=== PATIENT | female | born 1965 | race Caucasian/White ===

== ENCOUNTER → 2016-10-17 | Outpatient (CLI) | payer OTHER ==
[~2016-10-17] MED LIST: CHOL100010 PO; GABA-113 PO; LAMO200T38 PO; MAGN1TAB16 PO; MCRK20 PO; MELATAB2 PO; MULT1CAP7 PO; NABU500T3 PO; OMEP40CA PO; PRAV20TA PO; SRQ400 PO; THM100 PO; TIZA4CAP PO; TRAM-10 PO; TRAZ100T29 PO; VALE530C3 PO
[2016-10-17 13:33] LABS: BASO % 0.7 %; BASO ABS # 0.05 K/uL (0-0.2); COMPLETE YES; EOS % 5.1 %; HEMATOCRIT 36.9 % (37-47); IG% 0.1 %; LYMPH % 49.8 %; LYMPH ABS # 3.39 K/uL (1.2-3.4); MEAN CELL VOLUME 82.4 fL (80-100); MEAN CORPUSCULAR HEMOGLOBIN 27.7 pg (25-34); MEAN CORPUSCULAR HGB CONC 33.6 g/dl (32-36); MEAN PLATELET VOLUME 10.7 fL (7.4-10.4); MONO % 7.8 %; NEUT % 36.5 %; PLATELET COUNT 194 K/uL (130-400); RED BLOOD COUNT 4.48 M/uL (4.2-5.4); WHITE BLOOD COUNT 6.81 K/uL (4.8-10.8)
[2016-10-17 14:02] LABS: ALT/SGPT 27 U/L (12-78); AST/SGOT 22 U/L (15-37); BLOOD UREA NITROGEN 14 mg/dl (7-18); BUN/CREATININE RATIO 14.2 (10-20); CALCIUM 8.9 mg/dl (8.5-10.1); CARBON DIOXIDE 25 mmol/L (21-32); CHLORIDE 103 mmol/L (98-107); CREATININE 0.98 mg/dl (0.60-1.20); GLUCOSE 92 mg/dl (70-99); POTASSIUM 4.2 mmol/L (3.5-5.1); SODIUM 139 mmol/L (136-145)
[2016-10-17 14:03] LABS: THYROXINE (T4) 4.1 mcg/dl (4.5-10.9)
[2016-10-17 14:12] LABS: ALB/GLOB RATIO 1.1 (0.9-2); ALKALINE PHOSPHATASE 111 U/L (45-117); CHOLESTEROL 210 mg/dl (0-200); CHOLESTEROL/HDL RATIO 4.5; HDL CHOLESTEROL 47 mg/dl; TRIGLYCERIDES 307 mg/dl (0-150); VERY LOW DENSITY LIPOPROT CALC 61 mg/dl
== END | disposition home or self-care (01) ==
LOC: C.LABSPEC 12:20
PROVIDERS: ATTEND Internal Medicine
DX: Z11.59 Encounter for screening for other viral diseases (principal); E78.5 Hyperlipidemia, unspecified; R63.4 Abnormal weight loss

== ENCOUNTER → 2016-12-19 | Outpatient (CLI) | payer OTHER | END | disposition home or self-care (01) | LOC: C.LABSPEC 12:39 | PROVIDERS: ATTEND Internal Medicine | DX: B34.9 Viral infection, unspecified (principal) ==

== ENCOUNTER → 2017-05-31 | Outpatient (CLI) | payer OTHER ==
[2017-05-31 14:05] LABS: CHOLESTEROL/HDL RATIO 5.4
== END | disposition home or self-care (01) ==
LOC: C.LABSPEC 12:21
PROVIDERS: ATTEND Student in an Organized Health Care Education/Training Program
DX: Z51.81 Encounter for therapeutic drug level monitoring (principal); Z79.899 Other long term (current) drug therapy

== ENCOUNTER → 2017-06-28 | Outpatient (CLI) | payer OTHER ==
--- NOTE | 2017-07-01 08:02 | MAMMOGRAPHY REPORT ---
BILATERAL DIGITAL SCREENING MAMMOGRAM TOMOSYNTHESIS WITH CAD: 06/28/2017 CLINICAL HISTORY: Routine screening. Patient has no complaints. TECHNIQUE: Breast tomosynthesis in addition to standard 2D mammography was performed. Current study was also evaluated with a Computer Aided Detection (CAD) system. COMPARISON: Comparison is made to exams dated: 10/13/2015 mammogram, 08/05/2014 mammogram, 07/08/2013 ultrasound, 07/08/2013 mammogram, 06/24/2013 mammogram, and 06/23/2012 ultrasound - [facility]. BREAST COMPOSITION: The tissue of both breasts is heterogeneously dense, which may obscure small mas ses. FINDINGS: No suspicious masses, calcifications, or areas of architectural distortion are noted in ei ther breast. There has been no significant interval change compared to prior exams. Bilateral benign -appearing calcifications are not significantly changed. IMPRESSION: ACR BI-RADS CATEGORY 2: BENIGN There is no mammographic evidence of malignancy. A 1 year screening mammogram is recommended. The pa tient will receive written notification of the results. Approximately 10% of breast cancers are not detected with mammography. A negative mammographic report should not delay biopsy if a clinically suggestive mass is present. Michelle Pride M.D. /:06/28/2017 16:07:45 Battery Charger Tester: Krystina Cerda, [facility] letter sent: Normal 1/2 BI-RADS Code: ACR BI-RADS Category 2: Benign
== END | disposition home or self-care (01) ==
LOC: C.MAMM 14:44
PROVIDERS: ATTEND Internal Medicine
DX: Z12.31 Encounter for screening mammogram for malignant neoplasm of breast (principal)

== ENCOUNTER → 2017-10-17 | Outpatient (CLI) | payer OTHER ==
[~2017-10-17] MED LIST changes: +LAMO200T35 PO; -LAMO200T38 PO; +QUET1TAB20 PO; -SRQ400 PO
[2017-10-17 15:11] LABS: BASO % 0.6 %; BASO ABS # 0.05 K/uL (0-0.2); EOS % 4.6 %; EOS ABS # 0.37 K/uL (0-0.5); HEMATOCRIT 35.8 % (37-47); IG# 0.01 K/uL (0.00-0.02); LYMPH % 43.5 %; LYMPH ABS # 3.49 K/uL (1.2-3.4); MEAN CELL VOLUME 84.6 fL (80-100); MEAN CORPUSCULAR HEMOGLOBIN 28.4 pg (25-34); MEAN CORPUSCULAR HGB CONC 33.5 g/dl (32-36); MEAN PLATELET VOLUME 9.8 fL (7.4-10.4); MONO ABS # 0.72 K/uL (0.11-0.59); NEUT % 42.2 %; NEUT ABS # 3.39 K/uL (1.4-6.5); PLATELET COUNT 223 K/uL (130-400); RED CELL DISTRIBUTION WIDTH CV 14.9 % (11.5-14.5); RED CELL DISTRIBUTION WIDTH SD 46.2 fL (36.4-46.3); WHITE BLOOD COUNT 8.03 K/uL (4.8-10.8)
[2017-10-17 15:18] LABS: ALBUMIN 4.1 gm/dl (3.4-5.0); ALT/SGPT 45 U/L (12-78); AST/SGOT 28 U/L (15-37); BLOOD UREA NITROGEN 23 mg/dl (7-18); CALCIUM 9.4 mg/dl (8.5-10.1); CARBON DIOXIDE 27 mmol/L (21-32); CHOLESTEROL 197 mg/dl (0-200); CREATININE 1.19 mg/dl (0.60-1.20); GLUCOSE 91 mg/dl (70-99); POTASSIUM 4.1 mmol/L (3.5-5.1); SODIUM 136 mmol/L (136-145)
[2017-10-17 15:20] LABS: ALKALINE PHOSPHATASE 103 U/L (45-117); LDL CHOLESTEROL (DIRECT) 113 mg/dl; TOTAL PROTEIN 7.9 gm/dl (6.4-8.2)
[2017-10-18 06:08] LABS: HEMOGLOBIN A1C 5.8 % (4.5-5.6)
== END | disposition home or self-care (01) ==
LOC: C.LABSPEC 14:50
PROVIDERS: ATTEND Internal Medicine
DX: I10 Essential (primary) hypertension (principal); E78.5 Hyperlipidemia, unspecified; R73.9 Hyperglycemia, unspecified

== ENCOUNTER 2024-01-07 14:31 | Inpatient (IN) ==
--- NOTE | 2024-01-07 14:33 | Emergency Department Note ---
Impression & Plan Sepsis, Pyelonephritis of right kidney, Acute renal failure (ARF), Hypoxia ED Provider Note NAME: JENNI ZUNIGA AGE: 58 SEX: F : 1965 ARRIVES VIA: Ambulance INFORMANT: [Patient][, ] ED PROVIDER(S): [Matteo Antoine MD] CHIEF COMPLAINT: Weakness, falls, headache MEDICAL DECISION MAKING: Patient presents from [facility] due to concern for headache repeated falls and reported left upper extremity weakness. Code stroke alert was initiated after assessment. IV was established and blood work was obtained. Patient was noted to be hypoxemic. Patient does state this feels similar to when she has had prior UTIs. Blood cultures procalcitonin lactate empiric Zosyn. Unable to establish the last known well and not a TNK candidate. The patient was medications which included Zofran Tylenol and magnesium IV in addition IV fluids. CT head CT angio of the head and neck ordered given patient stroke alert and CT angiogram of the chest ordered given the patient's hypoxia and known history of DVT off thinners. I did speak with poison control getting over the patient's medications given the patient's hypotension they stated that some of the medications could cause some of the symptoms including the trazodone. Patient was ordered additional IV fluids. The patient's lactate is normal. The patient was reassessed several times and although the patient has had borderline low blood pressure patient seems to be mentating with improvement and appearance had also improved. Urinalysis does show concern for infection. Patient CT of the abdomen pelvis does show likely pyelonephritis. CT of the chest shows Subpleural opacities suggestive of atelectasis no evidence of obvious pneumonia. Could be infectious in nature. CT of the head negative. Chest x-ray is clear. Patient was reassessed several times and did receive 3 L of IV fluids. The patient does appear to be fluid responsive. Patient does have 2 large-bore IVs in place and clinically is improving. I did speak with Dr. Han given the report of left upper extremity weakness although on my exam the patient does not have any asymmetric weakness on exam. She recommended baby aspirin echo lipid panel MRA head and neck and consider baby aspirin. I did speak with the on-call hospitalist service Dr. Ken and the patient was admitted to the medicine service. Critical Care: I have personally spent 35 minutes of critical care time in direct management of this patient. This includes bedside care, interpretation of diagnostic studies, and testing, discussion with consultants, patient, and family members, and other require inpatient management activities. This 35 minutes is in excess of all separately billable procedures. Discussion w/ other healthcare providers: [place] poison control Bony Dr. Han telestroke Dr. Ken inpatient medicine service Prior /Outside records reviewed: Reviewed an H&P from September 02, [address] Rosalia Garcia. Patient does have a known history of hypertension migraines chronic back pain hyperlipidemia depression and degenerative disc disease. Reviewed outpatient PCP note from November 2023. The patient was seen for routine 6-month return. Patient with a known history of bipolar depression anxiety back pain DVT with PE GERD hyperlipidemia and migraine. Per review of the patient's medication list no blood thinners noted. Patient had called nursing triage telephone encounter for burning frequency and urgency that began yesterday with associated right-sided flank pain. Patient reported having flank pain and fever at the time of her presentation. Differential diagnosis: Infection, dehydration, metabolic abnormality, hypo/hyperglycemia, electrolyte imbalance, anemia, UTI, pneumonia, thyroid dysfunction among others were considered. Diagnostics, as interpreted by me: ECG: Sinus rhythm, rate of 63, normal intervals, normal axis no ST elevations. Cardiac monitoring: An order was placed for continuous cardiac monitoring. The monitor shows a rate of 65 with sinus rhythm. [Patient was placed on pulse oximetry] Medical decision rules: [none] Imaging studies: [I informally interpreted the patient's chest x-ray does not show obvious pneumonia or pneumothorax with formal report to follow.] [] HPI: Patient presents from [facility] due to concern for repeated falls and associated headache. Patient denies any chest pains or shortness of breath. The patient states that this does feel similar to when she has had prior UTIs. Patient with a remote history of PE back in the 80s states she is not currently on any blood thinners. The patient reported has had repeated falls including head strike that occurred yesterday. The patient was seen by the PCP several days ago as well as today per patient. Per EMS report patient did have left upper extremity weakness per prior provider as well as when the deputy sheriff generalist/bailiff on scene one of the other ENTs did not notice any significant weakness on their exam. Patient denies any abdominal pain or nausea vomiting. Patient is unsure as to whether or not she has had any leg swelling. Patient was reportedly hypoxemic to 84% on room air when EMS arrived. BSG was in the 1 teens. Patient does complain of some right-sided headache. Patient states this been ongoing several days and has fallen several times including head strike yesterday. PAST MEDICAL HISTORY: [See Below] PAST SURGICAL HISTORY: [See Below] SOCIAL HISTORY: [See Below] HOME MEDICATIONS: [See Below] ALLERGIES: [See Below] VITALS: [See Below] PHYSICAL EXAMINATION: GENERAL: Ill in appearance, opens eyes to voice nasal cannula in place. EYE EXAM: Normal conjunctiva. PERRL, no anisocoria and EOM's grossly intact w/o pain. OROPHARYNX: Moist mucus membranes, grossly normal dentition. NECK: Trachea midline, no stridor. [Supple, no nuchal rigidity, no adenopathy, non-tender. No signs of meningismus. FROM of the neck with good chin to chest and neck extension.] LUNGS: Clear to auscultation. Normal chest wall mechanics. HEART: NSR, no MRG. ABDOMEN: Abdomen soft, non-tender, no masses, no rebound or guarding. BACK: No CVA TTP. SKIN: No rashes and no bruising. UPPER EXTREMITIES: Upper extremities are grossly normal. LOWER EXTREMITIES: Grossly normal, 1-2+ symmetric lower extremity edema without any calf pain erythema NEURO EXAM: A&O x3, cranial nerves II-XII grossly intact, normal speech, moves all 4 extremities. Past Med/Surg History Medical History Obesity Osteoarthritis Fibromyalgia Hiatal hernia GERD (gastroesophageal reflux disease) Migraine Asthma stable, no inhaler Hyperlipidemia Bipolar disorder Surgical History History of arthroscopy LEFT SHOULDER History of repair of rotator cuff LEFT History of hysterectomy TOTAL History of appendectomy History of cholecystectomy History of esophagogastroduodenoscopy (EGD) History of colonoscopy Social History Smoking Status: Former smoker Second Hand Exposure: No; Do You Dip or Chew Tobacco: No; Hx Alcohol Use: No Hx Substance Use: No Preferred Language: Eritrean Communication Ability: Effective Standards Engineer Required: No Beliefs That Will Affect Care: None Current Living Situation: Family Current Living Situation Comment: caregiver for parents Other Information That Helps Us Care for You: No Feels Safe at Home: Yes Safety Concerns: Feels Safe At This Time Assistive Devices: Denture - Upper, Denture - Lower and Glasses Allergies Allergies Allergy/AdvReac Type Severity Reaction Status Date / Time citalopram Allergy Unknown unknown Verified 01/07/24 15:22 reaction clarithromycin Allergy Unknown unknown Verified 01/07/24 15:22 reaction Macrolide Antibiotics Allergy Unknown unknown Verified 01/07/24 15:22 reaction celecoxib AdvReac Intermediate Gastrointestinal Verified 01/07/24 15:22 Upset rizatriptan AdvReac Intermediate migraines Verified 01/07/24 15:22 sumatriptan AdvReac Intermediate MIGRAINE-TIGHTNESS Verified 01/07/24 15:22 IN JAW Home Meds Home Medications Medication Instructions Recorded Confirmed buspirone 15 mg tablet 15 mg PO BID 10/12/18 01/07/24 cholecalciferol (vitamin D3) 50 2,000 unit PO DAILY 10/12/18 01/07/24 mcg (2,000 unit) capsule (Vitamin D3) gabapentin 300 mg capsule See Rx Instructions .Route .COMPLEX 10/12/18 01/07/24 lamotrigine 200 mg tablet 100 mg PO HS 10/12/18 01/07/24 (Lamictal) melatonin 10 mg tablet 10 mg PO HS 10/12/18 01/07/24 omeprazole 40 mg capsule,delayed 40 mg PO QAM 10/12/18 01/07/24 release potassium chloride 10 mEq 10 meq PO BID 10/12/18 01/07/24 capsule,extended release pravastatin 80 mg tablet 80 mg PO HS 10/12/18 01/07/24 quetiapine 400 mg tablet 400 mg PO HS 10/12/18 01/07/24 sulindac 200 mg tablet 200 mg PO BID 10/12/18 01/07/24 suvorexant 10 mg tablet (Belsomra) 10 mg PO HS 10/12/18 01/07/24 tramadol 50 mg tablet 50 mg PO Q6H PRN Pain 10/12/18 01/07/24 trazodone 100 mg tablet 200 mg PO HS 10/12/18 01/07/24 docusate sodium 100 mg capsule 100 mg PO BID 08/09/20 01/07/24 (Dulcolax Stool Softener (docusate)) polyethylene glycol 3350 17 17 g PO BID 08/09/20 01/07/24 gram/dose oral powder (Miralax) tizanidine 4 mg capsule 8 mg PO BID 08/09/20 01/07/24 cyanocobalamin (vitamin B-12) 1,000 mcg PO QAM 01/07/24 01/07/24 1,000 mcg tablet (Vitamin B-12) diclofenac sodium 1 % topical gel 2 g topical QID PRN KNEE PAIN 01/07/24 01/07/24 hydroxyzine HCl 25 mg tablet 25 - 50 mg PO DAILY PRN 01/07/24 01/07/24 ANXIETY/INSOMNIA lamotrigine 150 mg tablet 150 mg PO QAM 01/07/24 01/07/24 magnesium oxide 500 mg PO QAM 01/07/24 01/07/24 melatonin 5 mg tablet 5 mg PO HS 01/07/24 01/07/24 ondansetron 4 mg disintegrating 4 mg translingual Q8H PRN 01/07/24 01/07/24 tablet NAUSEA/VOMITING Results & Data (ED) Vital Signs Vital Signs - 24 hr 01/07/24 14:46 01/07/24 15:13 01/07/24 15:15 Pulse Rate 66 67 68 Pulse Rate [Apical] Pulse Rate from SpO2 Sensor 67 Pulse Rhythm [Apical] Respiratory Rate 20 18 19 Blood Pressure 100/54 L Blood Pressure [Left Arm] Blood Pressure Mean 69 Blood Pressure Mean [Left Arm] Pulse Oximetry 84 L 96 94 Oxygen Delivery Method Room Air Nasal Cannula Oxygen Flow Rate 4 4 Sepsis Recent Fever Within 48 Hours No Sepsis New/Unexplained Change in Mental Status Yes Sepsis Action Taken by Nursing No Action Required 01/07/24 15:16 01/07/24 15:16 01/07/24 15:20 Pulse Rate 64 Pulse Rate [Apical] 64 Pulse Rate from SpO2 Sensor 64 Pulse Rhythm [Apical] Regular Respiratory Rate 20 18 Blood Pressure 102/56 L Blood Pressure [Left Arm] 102/56 L Blood Pressure Mean 63 Blood Pressure Mean [Left Arm] 71 Pulse Oximetry 95 94 Oxygen Delivery Method Nasal Cannula Oxygen Flow Rate 4 4 Sepsis Recent Fever Within 48 Hours Sepsis New/Unexplained Change in Mental Status Sepsis Action Taken by Nursing 01/07/24 15:20 04/16/24 15:21 01/07/24 15:22 Pulse Rate 68 67 Pulse Rate [Apical] 68 Pulse Rate from SpO2 Sensor 68 Pulse Rhythm [Apical] Regular Respiratory Rate 18 18 Blood Pressure Blood Pressure [Left Arm] Blood Pressure Mean Blood Pressure Mean [Left Arm] Pulse Oximetry 94 95 Oxygen Delivery Method Nasal Cannula Oxygen Flow Rate 4 4 Sepsis Recent Fever Within 48 Hours Sepsis New/Unexplained Change in Mental Status Sepsis Action Taken by Nursing 01/07/24 15:30 01/07/24 15:30 01/07/24 15:39 Pulse Rate 63 Pulse Rate [Apical] 64 Pulse Rate from SpO2 Sensor 63 Pulse Rhythm [Apical] Regular Respiratory Rate 16 17 Blood Pressure 96/58 L Blood Pressure [Left Arm] 96/58 L Blood Pressure Mean 71 Blood Pressure Mean [Left Arm] 70 Pulse Oximetry 96 96 Oxygen Delivery Method Nasal Cannula Oxygen Flow Rate 4 Sepsis Recent Fever Within 48 Hours Sepsis New/Unexplained Change in Mental Status Sepsis Action Taken by Nursing 01/07/24 15:40 01/07/24 15:45 01/07/24 15:45 Pulse Rate 62 61 Pulse Rate [Apical] Pulse Rate from SpO2 Sensor 62 62 Pulse Rhythm [Apical] Respiratory Rate 20 19 Blood Pressure 88/62 L Blood Pressure [Left Arm] Blood Pressure Mean 71 Blood Pressure Mean [Left Arm] Pulse Oximetry 95 93 Oxygen Delivery Method Oxygen Flow Rate 4 Sepsis Recent Fever Within 48 Hours Sepsis New/Unexplained Change in Mental Status Sepsis Action Taken by Nursing 01/07/24 15:50 01/07/24 16:00 01/07/24 16:00 Pulse Rate 59 L 61 Pulse Rate [Apical] Pulse Rate from SpO2 Sensor 60 59 L Pulse Rhythm [Apical] Respiratory Rate 20 20 Blood Pressure 101/49 L Blood Pressure [Left Arm] Blood Pressure Mean 62 Blood Pressure Mean [Left Arm] Pulse Oximetry 95 94 Oxygen Delivery Method Nasal Cannula Oxygen Flow Rate 4 Sepsis Recent Fever Within 48 Hours Sepsis New/Unexplained Change in Mental Status Sepsis Action Taken by Nursing 01/07/24 16:10 01/07/24 16:15 01/07/24 16:15 Pulse Rate 59 L 58 L Pulse Rate [Apical] Pulse Rate from SpO2 Sensor 59 L 59 L Pulse Rhythm [Apical] Respiratory Rate 20 15 Blood Pressure 81/55 L 81/55 L Blood Pressure [Left Arm] Blood Pressure Mean 63 64 Blood Pressure Mean [Left Arm] Pulse Oximetry 96 93 Oxygen Delivery Method Nasal Cannula Oxygen Flow Rate 4 Sepsis Recent Fever Within 48 Hours Sepsis New/Unexplained Change in Mental Status Sepsis Action Taken by Nursing 01/07/24 16:20 01/07/24 16:21 01/07/24 16:21 Pulse Rate 56 L 57 L Pulse Rate [Apical] Pulse Rate from SpO2 Sensor 56 L 58 L Pulse Rhythm [Apical] Respiratory Rate 18 19 Blood Pressure 84/49 L Blood Pressure [Left Arm] Blood Pressure Mean 64 Blood Pressure Mean [Left Arm] Pulse Oximetry 94 94 Oxygen Delivery Method Oxygen Flow Rate Sepsis Recent Fever Within 48 Hours Sepsis New/Unexplained Change in Mental Status Sepsis Action Taken by Nursing 01/07/24 16:30 01/07/24 16:30 01/07/24 16:40 Pulse Rate 58 L 58 L Pulse Rate [Apical] Pulse Rate from SpO2 Sensor 57 L 59 L Pulse Rhythm [Apical] Respiratory Rate 15 17 Blood Pressure 88/44 L Blood Pressure [Left Arm] Blood Pressure Mean 65 Blood Pressure Mean [Left Arm] Pulse Oximetry 95 95 Oxygen Delivery Method Oxygen Flow Rate 4 4 Sepsis Recent Fever Within 48 Hours Sepsis New/Unexplained Change in Mental Status Sepsis Action Taken by Nursing 01/07/24 16:45 01/07/24 16:45 01/07/24 16:49 Pulse Rate 60 Pulse Rate [Apical] Pulse Rate from SpO2 Sensor 57 L Pulse Rhythm [Apical] Respiratory Rate 16 Blood Pressure 73/52 L 91/55 L Blood Pressure [Left Arm] Blood Pressure Mean 66 65 Blood Pressure Mean [Left Arm] Pulse Oximetry 95 Oxygen Delivery Method Oxygen Flow Rate Sepsis Recent Fever Within 48 Hours Sepsis New/Unexplained Change in Mental Status Sepsis Action Taken by Nursing 01/07/24 16:49 01/07/24 16:50 01/07/24 16:52 Pulse Rate 61 59 L Pulse Rate [Apical] Pulse Rate from SpO2 Sensor 59 L 59 L Pulse Rhythm [Apical] Respiratory Rate 19 18 Blood Pressure 83/52 L Blood Pressure [Left Arm] Blood Pressure Mean 63 Blood Pressure Mean [Left Arm] Pulse Oximetry 94 95 Oxygen Delivery Method Oxygen Flow Rate Sepsis Recent Fever Within 48 Hours Sepsis New/Unexplained Change in Mental Status Sepsis Action Taken by Nursing 01/07/24 16:52 01/07/24 17:00 01/07/24 17:00 Pulse Rate 58 L 56 L Pulse Rate [Apical] Pulse Rate from SpO2 Sensor 58 L 57 L Pulse Rhythm [Apical] Respiratory Rate 15 17 Blood Pressure 92/57 L Blood Pressure [Left Arm] Blood Pressure Mean 61 Blood Pressure Mean [Left Arm] Pulse Oximetry 96 97 Oxygen Delivery Method Oxygen Flow Rate Sepsis Recent Fever Within 48 Hours Sepsis New/Unexplained Change in Mental Status Sepsis Action Taken by Nursing 01/07/24 17:01 01/07/24 17:05 01/07/24 17:05 Pulse Rate 58 L Pulse Rate [Apical] 61 Pulse Rate from SpO2 Sensor 58 L Pulse Rhythm [Apical] Regular Respiratory Rate 19 20 Blood Pressure 93/53 L Blood Pressure [Left Arm] 92/57 L Blood Pressure Mean 65 Blood Pressure Mean [Left Arm] 68 Pulse Oximetry 96 96 Oxygen Delivery Method Nasal Cannula Oxygen Flow Rate 4 Sepsis Recent Fever Within 48 Hours Sepsis New/Unexplained Change in Mental Status Sepsis Action Taken by Nursing 01/07/24 17:10 01/07/24 17:15 01/07/24 17:15 Pulse Rate 59 L 61 Pulse Rate [Apical] Pulse Rate from SpO2 Sensor 57 L 59 L Pulse Rhythm [Apical] Respiratory Rate 15 26 H Blood Pressure 90/58 L Blood Pressure [Left Arm] Blood Pressure Mean 74 Blood Pressure Mean [Left Arm] Pulse Oximetry 95 85 L Oxygen Delivery Method Nasal Cannula Nasal Cannula Oxygen Flow Rate 4 4 Sepsis Recent Fever Within 48 Hours Sepsis New/Unexplained Change in Mental Status Sepsis Action Taken by Nursing 01/07/24 17:20 Pulse Rate 59 L Pulse Rate [Apical] Pulse Rate from SpO2 Sensor 61 Pulse Rhythm [Apical] Respiratory Rate 19 Blood Pressure 93/50 L Blood Pressure [Left Arm] Blood Pressure Mean 64 Blood Pressure Mean [Left Arm] Pulse Oximetry 95 Oxygen Delivery Method Nasal Cannula Oxygen Flow Rate 4 Sepsis Recent Fever Within 48 Hours Sepsis New/Unexplained Change in Mental Status Sepsis Action Taken by Prison Medications Current Medication List: was personally reviewed by me Laboratory Data Attestation: I reviewed the patient's lab results. 01/07/24 14:50 01/07/24 14:50 Lab Results 01/07/24 01/07/24 01/07/24 Range/Units 14:46 14:50 15:09 WBC 17.31 H (4.8-10.8) K/ul RBC 3.47 L (4.20-5.40) M/uL Hgb 9.0 L (12.0-16.0) g/dl POC Hgb 9.2 L (12.0-16.0) g/dl Hct 28.7 L (37.0-47.0) % POC Hct 27 L (37-47) % MCV 82.7 (80.0-100.0) fL MCH 25.9 (25.0-34.0) pg MCHC 31.4 L (32.0-36.0) g/dL RDW Std Deviation 47.2 H (36.4-46.3) fL RDW Coeff of Dinah 15.5 H (11.5-14.5) % Plt Count 165 (130-400) K/uL MPV 10.1 (9.4-12.4) fL Immature Gran % (Auto) 2.1 % Neut % (Auto) 82.6 % Lymph % (Auto) 7.6 % [place] % (Auto) 7.4 % Eos % (Auto) 0.1 % Baso % (Auto) 0.2 % Neut # (Auto) 14.30 H (1.40-6.50) K/uL Lymph # (Auto) 1.32 (1.20-3.40) K/uL [place] # (Auto) 1.28 H (0.11-0.59) K/uL Eos # (Auto) 0.01 (0.00-0.50) K/uL Baso # (Auto) 0.04 (0.00-0.20) K/uL Immature Gran # (Auto) 0.36 H (0.01-0.20) K/uL POC Sodium 130 L (135-144) mmol/L Sodium 130 L (136-145) mmol/L POC Potassium 4.6 (3.3-5.0) mmol/L Potassium 4.7 (3.5-5.1) mmol/L POC Chloride 97 L (101-112) mmol/L Chloride 96 L (98-107) mmol/L Carbon Dioxide 26 (21-32) mmol/L POC Total CO2 25 (24-31) mmol/L Anion Gap 8 (3-11) POC Anion Gap 13.0 L (16-25) mmol/L POC BUN 63 H (7-18) mg/dl BUN 61 H (6-23) mg/dl Creatinine 2.45 H (0.6-1.2) mg/dl POC Creatinine 2.7 H (0.6-1.3) mg/dl Est Cr Clr Drug Dosing 29.7 ml/min Est GFR ( Amer) 24.2 ml/min Est GFR (Non-Af Amer) 20.9 ml/min BUN/Creatinine Ratio 24.9 H (10-20) Glucose 114 H (70-99(Fasting)) mg/dl POC Glucose 118 H (70-99) mg/dl POC Glucose (other) 113 H (70-99) mg/dl Lactate 1.1 (0.4-2.0) mmol/L Calcium 8.7 (8.6-10.3) mg/dl POC Ioniz Calcium Kiet 1.01 L (1.12-1.32) mmol/l Magnesium 2.4 (1.7-2.4) mg/dl Total Bilirubin 0.8 (0.2-1.0) mg/dl Direct Bilirubin 0.4 H (0-0.2) mg/dl AST 32 (13-39) U/L ALT 15 (7-52) U/L Alkaline Phosphatase 110 H (34-104) U/L Troponin I High Sens 5.5 (0-14) pg/ml Total Protein 6.8 (6.0-8.3) gm/dl Albumin 3.7 (3.4-5.0) gm/dl Procalcitonin 2.40 H (0-0.5) ng/ml Salicylates (3.0-30) mg/dl Acetaminophen (10-30) ug/ml Ethyl Alcohol mg/dL (<10.0) mg/dl 01/07/24 Range/Units 16:46 WBC (4.8-10.8) K/ul RBC (4.20-5.40) M/uL Hgb (12.0-16.0) g/dl POC Hgb (12.0-16.0) g/dl Hct (37.0-47.0) % POC Hct (37-47) % MCV (80.0-100.0) fL MCH (25.0-34.0) pg MCHC (32.0-36.0) g/dL RDW Std Deviation (36.4-46.3) fL RDW Coeff of Dinah (11.5-14.5) % Plt Count (130-400) K/uL MPV (9.4-12.4) fL Immature Gran % (Auto) % Neut % (Auto) % Lymph % (Auto) % [place] % (Auto) % Eos % (Auto) % Baso % (Auto) % Neut # (Auto) (1.40-6.50) K/uL Lymph # (Auto) (1.20-3.40) K/uL [place] # (Auto) (0.11-0.59) K/uL Eos # (Auto) (0.00-0.50) K/uL Baso # (Auto) (0.00-0.20) K/uL Immature Gran # (Auto) (0.01-0.20) K/uL POC Sodium (135-144) mmol/L Sodium (136-145) mmol/L POC Potassium (3.3-5.0) mmol/L Potassium (3.5-5.1) mmol/L POC Chloride (101-112) mmol/L Chloride (98-107) mmol/L Carbon Dioxide (21-32) mmol/L POC Total CO2 (24-31) mmol/L Anion Gap (3-11) POC Anion Gap (16-25) mmol/L POC BUN (7-18) mg/dl BUN (6-23) mg/dl Creatinine (0.6-1.2) mg/dl POC Creatinine (0.6-1.3) mg/dl Est Cr Clr Drug Dosing ml/min Est GFR ( Amer) ml/min Est GFR (Non-Af Amer) ml/min BUN/Creatinine Ratio (10-20) Glucose (70-99(Fasting)) mg/dl POC Glucose (70-99) mg/dl POC Glucose (other) (70-99) mg/dl Lactate (0.4-2.0) mmol/L Calcium (8.6-10.3) mg/dl POC Ioniz Calcium Kiet (1.12-1.32) mmol/l Magnesium (1.7-2.4) mg/dl Total Bilirubin (0.2-1.0) mg/dl Direct Bilirubin (0-0.2) mg/dl AST (13-39) U/L ALT (7-52) U/L Alkaline Phosphatase (34-104) U/L Troponin I High Sens (0-14) pg/ml Total Protein (6.0-8.3) gm/dl Albumin (3.4-5.0) gm/dl Procalcitonin (0-0.5) ng/ml Salicylates < 3.0 L (3.0-30) mg/dl Acetaminophen 14 (10-30) ug/ml Ethyl Alcohol mg/dL < 10.0 (<10.0) mg/dl Administered Medications Sodium Chloride (Nss) 500 mls @ 100 mls/hr IV .Q5H GALDINO Stop: 02/06/24 17:14 Last Admin: 01/07/24 17:24 Dose: 100 mls/hr Documented By: ROHAN Piperacillin Sod/Tazobactam (Sod 4.5 gm/ Dextrose) 100 mls @ 25 mls/hr IV Q8H GALDINO; Protocol Stop: 01/17/24 19:59 Last Admin: 01/07/24 19:17 Dose: 25 mls/hr Documented By: SHA Acetylcysteine 4,710 mg/ (Dextrose) 523.55 mls @ 125 mls/hr IV 2030 ONE; Protocol Stop: 01/08/24 00:41 Last Admin: 01/07/24 21:08 Dose: 125 mls/hr Documented By: ATIF Pantoprazole Sodium 40 mg/ (Syringe) 10 mls @ 5 mls/min IV BID GALDINO Stop: 02/06/24 20:59 Last Admin: 01/07/24 21:08 Dose: 5 mls/min Documented By: ATIF Parenteral Electrolytes (Plasma-Lyte A Ph 7.4) 1,000 mls @ 100 mls/hr IV .Q10H GALDINO Stop: 02/06/24 20:44 Last Admin: 01/07/24 21:08 Dose: 100 mls/hr Documented By: ATIF Discontinued Medications Acetaminophen (Acetaminophen 1000 Mg/100 Ml Iv) 1,000 mg IV NOW STA Stop: 01/07/24 14:43 Last Admin: 01/07/24 15:10 Dose: 1,000 mg Documented By: ROHAN Piperacillin Sod/Tazobactam Sod (Zosyn) 4.5 gm in 100 mls @ 200 mls/hr IV NOW STA Stop: 01/07/24 15:09 Last Infusion: 01/07/24 15:23 Dose: Infused Documented By: Admin: 01/07/24 15:11 Dose: 200 mls/hr Documented By: ROHAN Sodium Chloride (Nss) 1,000 mls @ 999 mls/hr IV .Q1H1M ONE Stop: 01/07/24 15:40 Last Infusion: 01/07/24 15:23 Dose: Infused Documented By: Infusion: 01/07/24 15:11 Dose: Infused Documented By: Admin: 01/07/24 15:09 Dose: 999 mls/hr Documented By: ROHAN Magnesium Sulfate/Dextrose (Magnesium Sulfate / D5w) 1 gm in 100 mls @ 300 mls/hr IV NOW ONE Stop: 01/07/24 15:01 Last Infusion: 01/07/24 16:13 Dose: Infused Documented By: Admin: 01/07/24 15:23 Dose: 300 mls/hr Documented By: ROHAN Sodium Chloride (Nss) 1,000 mls @ 999 mls/hr IV .Q1H1M ONE Stop: 01/07/24 17:54 Last Infusion: 01/07/24 19:20 Dose: Infused Documented By: Admin: 01/07/24 16:58 Dose: 999 mls/hr Documented By: ROHAN Sodium Chloride (Nss) 500 mls @ 999 mls/hr IV .Q31M ONE Stop: 01/07/24 17:24 Last Admin: 01/07/24 16:59 Dose: Not Given Documented By: ROHAN Acetylcysteine 14,120 mg/ (Dextrose) 270.6 mls @ 200 mls/hr IV 1915 ONE; Protocol Stop: 01/07/24 20:36 Last Infusion: 01/07/24 21:15 Dose: Infused Documented By: Admin: 01/07/24 19:35 Dose: 200 mls/hr Documented By: SHA Calcium Gluconate 1,000 mg/ (Sodium Chloride) 60 mls @ 240 mls/hr IV Q15M GALDINO Stop: 01/07/24 21:14 Last Admin: 01/07/24 21:09 Dose: 240 mls/hr Documented By: ATIF Ioversol (Optiray 320 125ml) 120 ml IV ONCE ONE Stop: 01/07/24 15:06 Last Admin: 01/07/24 21:16 Dose: Not Given Documented By: ATIF Ondansetron HCl (Ondansetron Inj 2 Mg/Ml 2 Ml Vial) 4 mg IV NOW STA Stop: 01/07/24 14:43 Last Admin: 01/07/24 15:10 Dose: 4 mg Documented By: KV Piperacillin Sod/Tazobactam Sod (Piperacillin/Tazobactam 4.5 Gm/100ml D5w) Confirm Administered Dose 4.5 gm IV .STK-MED ONE Stop: 01/07/24 17:22 Last Admin: 01/07/24 17:32 Dose: Not Given Documented By: KV Imaging Data Radiologist's Impression: Chest X-Ray 01/07/24 14:40 XR chest 1V portable HISTORY: Sepsis COMPARISON: Chest 08/12/2020. FINDINGS: Low lung volumes. No pneumothorax. No pleural effusions. The cardiac silhouette remains borderline enlarged. A few small bibasilar linear densities favor subsegmental atelectasis. No evidence for pulmonary edema. No focal lung consolidations to suggest a pneumonia. Postoperative changes again noted within the left shoulder. IMPRESSION: No significant change compared to the prior study. No acute process. ACT 112: Negative or not required by law. Electronically signed by: Milton De Leon M.D. 01/07/2024 4:[address] 01/07/24 14:40 CT SCAN OF THE BRAIN WITHOUT IV CONTRAST CLINICAL HISTORY: Left upper extremity weakness. Headache. COMPARISON STUDY: CT of the brain dated 09/17/2014. TECHNIQUE: Unenhanced axial CT scan of the brain is performed from the vertex to the skull base. A dose lowering technique was utilized adhering to the principles of ALARA. FINDINGS: Brain parenchyma: There is age-related involutional change noting mild subcortical and periventricular microangiopathic disease. There is no hemorrhage, mass effect, or evidence of acute territorial ischemia by CT criteria. Rogel-white matter differentiation is preserved. No extra-axial fluid collection is seen. Ventricles, sulci, cisterns: Prominent secondary to involutional change. Intracranial vasculature: There is atherosclerotic calcification of the cavernous carotid and vertebral arteries. Calvarium: Unremarkable. Sinuses and mastoids: There is moderate mucosal thickening within the left sphenoid sinus. The remaining visualized paranasal sinuses are clear. The mastoid air cells are well pneumatized. Orbits: The bony orbits are grossly intact. IMPRESSION: There is no hemorrhage, mass effect, or evidence of acute territorial ischemia by CT criteria. ACT 112: Negative or not required by law. Electronically signed by: Norbert Sherman M.D. 01/07/2024 3:18 PM Abdomen/Pelvis CT 01/07/24 14:56 CT OF THE ABDOMEN AND PELVIS WITHOUT CONTRAST CLINICAL HISTORY: Right flank pain. COMPARISON STUDY: CT of the abdomen and pelvis July 06, 2014. TECHNIQUE: Axial images of the abdomen and pelvis were obtained without IV contrast. Images were reviewed in the axial, sagittal, and coronal planes. Automated exposure control was utilized for the study. A dose lowering technique was utilized adhering to the principles of ALARA. FINDINGS: No pneumatosis, free air or portal venous gas is present. Several right renal calculi measure up to 6 mm. There are no ureteral calculi. There is no hydronephrosis. Slight asymmetric right perinephric stranding is present. Evaluation of the remainder of the abdomen and pelvis is suboptimal on this unenhanced exam. There is pneumobilia. The gallbladder surgically absent. Spleen, adrenal glands and pancreas are unremarkable. There is no evidence for a bowel obstruction. The appendix is not visualized but there is no right lower quadrant inflammation. No bowel wall thickening is identified on unenhanced exam. No fluid collections are present. There is no lymphadenopathy. No acute fractures within lumbar spine, pelvis or hips. Mild loss of height of the superior endplates of T12 and L2 is chronic. IMPRESSION: 1. Right nephrolithiasis. No ureteral calculi. Slight asymmetric right perinephric stranding, a nonspecific finding. The findings could reflect a recently passed right-sided calculus or an infectious process. 2. No bowel obstruction. No bowel wall thickening on unenhanced exam. 3. No acute fractures. ACT 112: Negative or not required by law. Electronically signed by: Laurent Rivas M.D. 01/07/2024 3:[address] 01/07/24 14:56 CT OF THE CHEST WITHOUT IV CONTRAST CLINICAL HISTORY: Hypoxia. COMPARISON STUDY: Chest CT November 08, 2008. Chest radiograph August 12, 2020. CT DOSE: 1744.58 mGy.cm TECHNIQUE: Axial images of the chest were obtained without IV contrast. Images were reviewed in the axial, sagittal, and coronal planes. IV contrast was not administered for this examination. Automated exposure control was utilized for the study. A dose lowering technique was utilized adhering to the principles of ALARA. FINDINGS: No enlarged axillary, mediastinal or hilar lymph nodes are present. Size of the heart is at the upper limits of normal. There is no pericardial effusion. No pneumothorax is present. There is a trace left pleural effusion. Subpleural groundglass opacities represent atelectasis. Linear densities within the lungs represent atelectasis as well. 1.3 cm groundglass left lower lobe opacity on image 99 of 205 is present. Central airways are patent. No acute fractures within the bony thorax. Pneumobilia is incidentally noted. The abdomen and pelvis CT will be reported separately. IMPRESSION: 1. Subpleural opacities suggestive of atelectasis. No definite consolidation to suggest pneumonia. 1.3 cm left lower lobe groundglass opacity favors atelectasis although a mild infectious process could appear similar. A follow-up chest CT in 6 months to ensure resolution is recommended. 2. Trace left pleural effusion. No pneumothorax. 3. No thoracic lymphadenopathy. ACT 112: Negative or not required by law. Electronically signed by: Laurent Rivas M.D. 01/07/2024 3:15 PM Discharge Plan Visit Data Chief Complaint: Fall Stated Complaint: FALL ED Provider: Matteo Antoine Discharge Problem: Sepsis, Pyelonephritis of right kidney, Acute renal failure (ARF), Hypoxia Patient Disposition: Admitted As Inpatient Discharge Instructions Interventions: ED Discharge Assessment Last Done: 01/07/24 19:59 Discharge Problem: Sepsis Qualifiers: Sepsis type: sepsis due to unspecified organism Sepsis acute organ dysfunction status: with acute organ dysfunction Severe sepsis acute organ dysfunction type: acute renal failure Acute renal failure type: unspecified Severe sepsis shock status: unspecified Qualified Code(s): A41.9 - Sepsis, unspecified organism; R65.20 - Severe sepsis without septic shock; N17.9 - Acute kidney failure, unspecified Acute renal failure (ARF) Qualifiers: Acute renal failure type: unspecified Qualified Code(s): N17.9 - Acute kidney failure, unspecified
[2024-01-07 15:03] LABS: iSTAT Creatinine 2.7 mg/dl (0.6-1.3); iSTAT Hemoglobin 9.2 g/dl (12.0-16.0); iSTAT Ionized Calcium 1.01 mmol/l (1.12-1.32); iSTAT Potassium 4.6 mmol/L (3.3-5.0)
[2024-01-07 15:05] LABS: Basophils # (auto) 0.04 K/uL (0.00-0.20); Basophils % (auto) 0.2 %; Eosinophils # (auto) 0.01 K/uL (0.00-0.50); Eosinophils % (auto) 0.1 %; Hematocrit (blood only) 28.7 % (37.0-47.0); Immature Granulocytes # (auto) 0.36 K/uL (0.01-0.20); Immature Granulocytes % (auto) 2.1 %; Lymphocytes # (auto) 1.32 K/uL (1.20-3.40); Lymphocytes % (auto) 7.6 %; Mean Corpuscular Hemoglobin 25.9 pg (25.0-34.0); Mean Corpuscular Hgb Conc 31.4 g/dL (32.0-36.0); Mean Corpuscular Volume 82.7 fL (80.0-100.0); Mean Platelet Volume 10.1 fL (9.4-12.4); Monocytes # (auto) 1.28 K/uL (0.11-0.59); Monocytes % (auto) 7.4 %; Neutrophils % (auto) 82.6 %; Platelet Count 165 K/uL (130-400); RDW Coefficient of Variation 15.5 % (11.5-14.5); RDW Standard Deviation 47.2 fL (36.4-46.3); Red Blood Count 3.47 M/uL (4.20-5.40); White Blood Count 17.31 K/ul (4.8-10.8)
[2024-01-07] MEDS: SODIUM CHLORIDE 0.9% 1,000 ML IV ONE ×2 (15:09→16:58)
[2024-01-07] MEDS: ONDANSETRON INJ 2 MG/ML 2 ML VIAL IV STA (15:10)
[2024-01-07] MEDS: ACETAMINOPHEN 1000 MG/100 ML IV IV STA (15:10)
[2024-01-07] MEDS: PIPERACILLIN/TAZOBACTAM 4.5 GM/100 ML BAG IV STA (15:11)
--- NOTE | 2024-01-07 15:17 | CT Scan Report ---
CT OF THE CHEST WITHOUT IV CONTRAST CLINICAL HISTORY: Hypoxia. COMPARISON STUDY: Chest CT November 08, 2008. Chest radiograph August 12, 2020. CT DOSE: 1744.58 mGy.cm TECHNIQUE: Axial images of the chest were obtained without IV contrast. Images were reviewed in the axial, sagittal, and coronal planes. IV contrast was not administered for this examination. Automat ed exposure control was utilized for the study. A dose lowering technique was utilized adhering to t he principles of ALARA. FINDINGS: No enlarged axillary, mediastinal or hilar lymph nodes are present. Size of the heart is a t the upper limits of normal. There is no pericardial effusion. No pneumothorax is present. There is a trace left pleural effusion. Subpleural groundglass opacities represent atelectasis. Linear densiti es within the lungs represent atelectasis as well. 1.3 cm groundglass left lower lobe opacity on imag e 99 of 205 is present. Central airways are patent. No acute fractures within the bony thorax. Pneumo bilia is incidentally noted. The abdomen and pelvis CT will be reported separately. IMPRESSION: 1. Subpleural opacities suggestive of atelectasis. No definite consolidation to suggest pneumonia. 1. 3 cm left lower lobe groundglass opacity favors atelectasis although a mild infectious process could appear similar. A follow-up chest CT in 6 months to ensure resolution is recommended. 2. Trace left pleural effusion. No pneumothorax. 3. No thoracic lymphadenopathy. ACT 112: Negative or not required by law. Electronically signed by: Laurent Rivas M.D. 01/07/2024 3:15 PM
--- NOTE | 2024-01-07 15:19 | CT Scan Report ---
CT SCAN OF THE BRAIN WITHOUT IV CONTRAST CLINICAL HISTORY: Left upper extremity weakness. Headache. COMPARISON STUDY: CT of the brain dated 09/17/2014. TECHNIQUE: Unenhanced axial CT scan of the brain is performed from the vertex to the skull base. A do se lowering technique was utilized adhering to the principles of ALARA. FINDINGS: Brain parenchyma: There is age-related involutional change noting mild subcortical and periventricula r microangiopathic disease. There is no hemorrhage, mass effect, or evidence of acute territorial isc hemia by CT criteria. Rogel-white matter differentiation is preserved. No extra-axial fluid collection is seen. Ventricles, sulci, cisterns: Prominent secondary to involutional change. Intracranial vasculature: There is atherosclerotic calcification of the cavernous carotid and vertebr al arteries. Calvarium: Unremarkable. Sinuses and mastoids: There is moderate mucosal thickening within the left sphenoid sinus. The remain ing visualized paranasal sinuses are clear. The mastoid air cells are well pneumatized. Orbits: The bony orbits are grossly intact. IMPRESSION: There is no hemorrhage, mass effect, or evidence of acute territorial ischemia by CT kendra patel. ACT 112: Negative or not required by law. Electronically signed by: Norbert Sherman M.D. 01/07/2024 3:18 PM
[2024-01-07] MEDS: MAGNESIUM SULFATE / D5W 1 GM/100 ML BAG IV ONE (15:23)
[2024-01-07 15:25] LABS: Albumin Level 3.7 gm/dl (3.4-5.0); BUN Creatinine Ratio 24.9 (10-20); Bilirubin Direct 0.4 mg/dl (0-0.2); Bilirubin,Total 0.8 mg/dl (0.2-1.0); Calcium 8.7 mg/dl (8.6-10.3); Creatinine Clr Calc Pharmacy 29.7 ml/min; Est GFR (African American) 24.2 ml/min; Est GFR (Non-African American) 20.9 ml/min; Magnesium 2.4 mg/dl (1.7-2.4); Potassium 4.7 mmol/L (3.5-5.1); Total Protein 6.8 gm/dl (6.0-8.3)
[2024-01-07 15:31] LABS: Troponin I High Sensitivity 5.5 pg/ml (0-14)
--- NOTE | 2024-01-07 15:40 | CT Scan Report ---
CT OF THE ABDOMEN AND PELVIS WITHOUT CONTRAST CLINICAL HISTORY: Right flank pain. COMPARISON STUDY: CT of the abdomen and pelvis July 06, 2014. TECHNIQUE: Axial images of the abdomen and pelvis were obtained without IV contrast. Images were revi ewed in the axial, sagittal, and coronal planes. Automated exposure control was utilized for the eva dy. A dose lowering technique was utilized adhering to the principles of ALARA. FINDINGS: No pneumatosis, free air or portal venous gas is present. Several right renal calculi measu re up to 6 mm. There are no ureteral calculi. There is no hydronephrosis. Slight asymmetric right per inephric stranding is present. Evaluation of the remainder of the abdomen and pelvis is suboptimal on this unenhanced exam. There is pneumobilia. The gallbladder surgically absent. Spleen, adrenal gland s and pancreas are unremarkable. There is no evidence for a bowel obstruction. The appendix is not vi sualized but there is no right lower quadrant inflammation. No bowel wall thickening is identified on unenhanced exam. No fluid collections are present. There is no lymphadenopathy. No acute fractures w ithin lumbar spine, pelvis or hips. Mild loss of height of the superior endplates of T12 and L2 is ch ronic. IMPRESSION: 1. Right nephrolithiasis. No ureteral calculi. Slight asymmetric right perinephric stranding, a nonsp ecific finding. The findings could reflect a recently passed right-sided calculus or an infectious pr ocess. 2. No bowel obstruction. No bowel wall thickening on unenhanced exam. 3. No acute fractures. ACT 112: Negative or not required by law. Electronically signed by: Laurent Rivas M.D. 01/07/2024 3:38 PM
--- NOTE | 2024-01-07 16:31 | XRay Report ---
XR chest 1V portable HISTORY: Sepsis COMPARISON: Chest 08/12/2020. FINDINGS: Low lung volumes. No pneumothorax. No pleural effusions. The cardiac silhouette remains bor derline enlarged. A few small bibasilar linear densities favor subsegmental atelectasis. No evidence for pulmonary edema. No focal lung consolidations to suggest a pneumonia. Postoperative changes again noted within the left shoulder. IMPRESSION: No significant change compared to the prior study. No acute process. ACT 112: Negative or not required by law. Electronically signed by: Milton De Leon M.D. 01/07/2024 4:30 PM
--- NOTE | 2024-01-07 16:51 | Communication Note ---
Date of Service: January 07, 2024 History obtained from chart review. Limited history obtained with patient Past medical history of hyperlipidemia, prediabetes, GERD, migraine, bipolar d isorder, anxiety, history of DVT. Patient is a 58-year-old female who went to his primary care doctor due to weakness and falls since the morning. She was found to have low saturation of 82%, generalized weakness and confusion. She was sent to the ED for further evaluation today. Patient reportedly had increased burning, frequency and urgency that started yesterday with lateral right flank pain and fever. On presentation to the ED, patient was found to be hypotensive and hypoxic. Blood work revealed leukocytosis, hemoglobin of 9.0. BMP revealed hyponatremia with sodium of 130, elevated BUN/creatinine of 2.45/61. Lactate was within normal limits. Pro-Pablo elevated Chest x-ray personally reviewedno acute finding CT headno acute findings CT abdomen pelvis shows right nephrolithiasis with several renal calculi measuring up to 6 mm, slight asymmetrical savanna nephric stranding Patient was given IV fluids, 1 dose of Zosyn. Stroke alert was called. Patient was referred for admission
[2024-01-07 16:58] LABS: Appearance Urine Cloudy (Clear); Bacteria Urine Automated 3+ (None Seen); Bilirubin Urine Negative (Negative); Blood Urine 3+ (Negative); Color Urine Dark Yellow; Glucose Urine UA Negative (Negative); Ketones Urine Negative (Negative); Leukocyte Esterase Urine 2+ (Negative); Nitrite Urine Positive (Negative); Protein Urine 2+ (Negative); Specific Gravity Urine 1.023 (1.000-1.030); Urobilinogen Urine Negative (Negative); WBC Urine Automated >50 /hpf (0-5); pH Urine 7.5 (4.5-7.5)
[2024-01-07] MEDS: SODIUM CHLORIDE 0.9% 500 ML IV ONE (16:59)
[2024-01-07 17:15] LABS: Adenovirus PCR Not Detected (NotDetected); Bordetella parapertussis PCR Not Detected (NotDetected); Bordetella pertussis PCR Not Detected (NotDetected); Chlamydia pneumoniae PCR Not Detected (NotDetected); Coronavirus 229E PCR Not Detected (NotDetected); Coronavirus CoV-2 (COVID19)PCR Not Detected (NotDetected); Coronavirus HKU1 PCR Not Detected (NotDetected); Coronavirus NL63 PCR Not Detected (NotDetected); Coronavirus OC43PCR Not Detected (NotDetected); Human Metapneumovirus PCR Not Detected (NotDetected); Influenza A PCR Not Detected (NotDetected); Influenza B PCR Not Detected (NotDetected); Mycoplasma pneumoniae PCR Not Detected (NotDetected); Parainfluenza Virus 1 PCR Not Detected (NotDetected); Parainfluenza Virus 2 PCR Not Detected (NotDetected); Parainfluenza Virus 3 PCR Not Detected (NotDetected); Parainfluenza Virus 4 PCR Not Detected (NotDetected); Respiratory Syncytial VirusPCR Not Detected (NotDetected); Rhinovirus/Enterovirus PCR Not Detected (NotDetected)
[2024-01-07] MEDS: SODIUM CHLORIDE 0.9% 500 ML IV SCH (17:24)
[2024-01-07] MEDS: PIPERACILLIN/TAZOBACTAM 4.5 GM/100ML D5W IV ONE (17:32)
--- NOTE | 2024-01-07 17:32 | History & Physical Report ---
Date of Service January 07, 2024 Assessment & Plan (1) Sepsis: (2) Pyelonephritis of right kidney: Plan: Patient presented to the ED with right-sided flank pain, urgency, frequency, weakness and fatigue. Sepsis POA Right-sided pyelonephritis Acute kidney injury Hyponatremia Rule out Stroke Patient came to the hospital with right-sided flank pain, increased urinary urgency, frequency, fatigue and tiredness hypotensive and hypoxic on presentation to the ED Leukocytosis present. hemoGlobin of 9 BMP revealed hyponatremia with sodium of 130, elevated BUN/creatinine of 2.45/61. Lactate was within normal limits. Pro-Pablo elevated Urinalysis suggestive of infection Utox likely positive for MDMA due to buspirone Chest x-ray personally reviewedno acute finding CT headno acute findings CT abdomen pelvis shows right nephrolithiasis with several renal calculi measuring up to 6 mm, slight asymmetrical savanna nephric stranding Patient currently being admitted to PCU. Asked for level vial inspector and tester evaluation as patient had low blood pressure despite 3 L of IV fluid. Will appreciate recommendation if patient will benefit from observation in the ICU overnight along with vasopressors. awaiting evaluation by level vial inspector and tester. IV Zosyn; follow-up on final urine and blood cultures Normal saline at 100 cc/h Strict input and output monitoring Urology consultation given several renal calculi in the right kidney. obtain fecal occult blood as hb is lower from baseline, empirically started on protonix bid for now. Stroke rule out- obtain MRI brain wo contrast, MRA head and neck, echocardiogram, pt, ot, remote recruiter All oral meds are on hold presently. will resume when patient is more alert and awake, Discussed with patient's sister at bedside. Full code DVT heparin Time critical spent evaluating patient, direct bedside care, chart review, placing orders, interpretation of diagnostic studies, discussion with consultants, patient, and family members, as well as other required patient management activities is 50 minutes Please note the above document was generated using voice recognition software. It may contain grammatical, syntax or spelling errors. Any formal questions or concerns about the content, text or information contained within the body of this dictation should be directly addressed to the provider for clarification History of Present Illness Chief Complaint: Generalized weakness, fatigue, right flank pain and falls for 4 days Primary Care Provider: Gordon Jimenez MD History obtained from chart review and interview with the patient. Past medical history of hyperlipidemia, prediabetes, GERD, migraine, bipolar disorder, anxiety, history of DVT. Patient is a 58-year-old female who went to his primary care doctor today due to weakness and falls. Patient reports that she has been feeling very weak and fatigued for the last 4 days. She also reports burning sensation when she urinates and right flank pain that started 4 days ago as well She reports decreased appetite, generalized weakness and tiredness which led to several falls. She went to her primary care doctor today In her doctor's office, she was found to have low saturation of 82%, generalized weakness and confusion. She was sent to the ED for further evaluation today. On presentation to the ED, patient was found to be hypotensive and hypoxic. Blood work revealed leukocytosis, hemoglobin of 9.0. BMP revealed hyponatremia with sodium of 130, elevated BUN/creatinine of 2.45/61. Lactate was within normal limits. Pro-Pablo elevated Chest x-ray personally reviewedno acute finding CT headno acute findings CT abdomen pelvis shows right nephrolithiasis with several renal calculi measuring up to 6 mm, slight asymmetrical savanna nephric stranding Patient was given IV fluids; continue to have low blood pressure. She is on third normal saline bolus of 1 L; continues to be hypotensive. She was given IV Zosyn. She was referred for admission. Discussion was done with level vial inspector and tester given patient's borderline blood pressure regarding evaluation and to observe overnight to the ICU. Manager Of Merchandising to evaluated later in 1 or 2 hours Allergies Allergy/AdvReac Type Severity Reaction Status Date / Time citalopram Allergy Unknown unknown Verified 01/07/24 15:22 reaction clarithromycin Allergy Unknown unknown Verified 01/07/24 15:22 reaction Macrolide Antibiotics Allergy Unknown unknown Verified 01/07/24 15:22 reaction celecoxib AdvReac Intermediate Gastrointestinal Verified 01/07/24 15:22 Upset rizatriptan AdvReac Intermediate migraines Verified 01/07/24 15:22 sumatriptan AdvReac Intermediate MIGRAINE-TIGHTNESS Verified 01/07/24 15:22 IN JAW Home Medications Medication Instructions Recorded Confirmed Type buspirone 15 mg tablet 15 mg PO BID 10/12/18 01/07/24 History cholecalciferol (vitamin D3) 50 2,000 unit PO DAILY 10/12/18 01/07/24 History mcg (2,000 unit) capsule (Vitamin D3) gabapentin 300 mg capsule See Rx Instructions .Route .COMPLEX 10/12/18 01/07/24 History lamotrigine 200 mg tablet 100 mg PO HS 10/12/18 01/07/24 History (Lamictal) melatonin 10 mg tablet 10 mg PO HS 10/12/18 01/07/24 History omeprazole 40 mg capsule,delayed 40 mg PO QAM 10/12/18 01/07/24 History release potassium chloride 10 mEq 10 meq PO BID 10/12/18 01/07/24 History capsule,extended release pravastatin 80 mg tablet 80 mg PO HS 10/12/18 01/07/24 History quetiapine 400 mg tablet 400 mg PO HS 10/12/18 01/07/24 History sulindac 200 mg tablet 200 mg PO BID 10/12/18 01/07/24 History suvorexant 10 mg tablet (Belsomra) 10 mg PO HS 10/12/18 01/07/24 History tramadol 50 mg tablet 50 mg PO Q6H PRN Pain 10/12/18 01/07/24 History trazodone 100 mg tablet 200 mg PO HS 10/12/18 01/07/24 History docusate sodium 100 mg capsule 100 mg PO BID 08/09/20 01/07/24 History (Dulcolax Stool Softener (docusate)) polyethylene glycol 3350 17 17 g PO BID 08/09/20 01/07/24 History gram/dose oral powder (Miralax) tizanidine 4 mg capsule 8 mg PO BID 08/09/20 01/07/24 History cyanocobalamin (vitamin B-12) 1,000 mcg PO QAM 01/07/24 01/07/24 History 1,000 mcg tablet (Vitamin B-12) diclofenac sodium 1 % topical gel 2 g topical QID PRN KNEE PAIN 01/07/24 01/07/24 History hydroxyzine HCl 25 mg tablet 25 - 50 mg PO DAILY PRN 01/07/24 01/07/24 History ANXIETY/INSOMNIA lamotrigine 150 mg tablet 150 mg PO QAM 01/07/24 01/07/24 History magnesium oxide 500 mg PO QAM 01/07/24 01/07/24 History melatonin 5 mg tablet 5 mg PO HS 01/07/24 01/07/24 History ondansetron 4 mg disintegrating 4 mg translingual Q8H PRN 01/07/24 01/07/24 History tablet NAUSEA/VOMITING Past Med/Surg History Medical History Asthma stable, no inhaler Bipolar disorder Fibromyalgia GERD (gastroesophageal reflux disease) Hiatal hernia Hyperlipidemia Migraine Obesity Osteoarthritis Surgical History History of appendectomy History of arthroscopy LEFT SHOULDER History of cholecystectomy History of colonoscopy History of esophagogastroduodenoscopy (EGD) History of hysterectomy TOTAL History of repair of rotator cuff LEFT Social History Smoking Status: Former smoker Second Hand Exposure: No; Do You Dip or Chew Tobacco: No; Hx Alcohol Use: No Hx Substance Use: No Preferred Language: [place] Torped[employer] Man Required: No Beliefs That Will Affect Care: None Current Living Situation: Parent Feels Safe at Home: Yes Assistive Devices: Brace/Splint/Immobilizer, Cane and Glasses Review of Systems Review of Systems: All systems reviewed & are unremarkable except as noted in Subjective Physical Exam Physical Exam: Constitutional: Sleepy but awakens via voice. Alert oriented x 3 Respiratory: Bilateral vesicular breath sound Cardiovascular: RRR, no murmur, no edema Vessels: no JVD or carotid bruit Chest: normal inspection of chest Abdomen: Soft nontender. Right costovertebral angle tender Musculoskeletal: no cyanosis or clubbing, extremities motor strength 5/5 Skin: no rashes, warm and dry normal turgor Neurologic: PERRL, EOMI, accommodation nl, no face palsy, no dysarthria CN's II-XI intact bilaterally and moves all extremities. No focal deficit Psychiatric: A+Ox3, euthymic affect Results & Data Results & Data Vital Signs (Past 12 Hours) Vital Signs Pulse Pulse Resp BP BP Pulse Ox O2 Del Method 01/07/24 17:01 61 19 92/57 L 96 Nasal Cannula 01/07/24 16:52 58 L 15 96 01/07/24 16:52 83/52 L 01/07/24 16:50 59 L 18 95 01/07/24 16:49 61 19 94 01/07/24 16:49 91/55 L 01/07/24 16:45 60 16 95 01/07/24 16:45 73/52 L 01/07/24 16:40 58 L 17 95 01/07/24 16:30 58 L 15 95 01/07/24 16:30 88/44 L 01/07/24 16:21 57 L 19 94 01/07/24 16:21 84/49 L 01/07/24 16:20 56 L 18 94 01/07/24 16:15 58 L 15 93 01/07/24 16:15 81/55 L 01/07/24 16:10 59 L 20 81/55 L 96 Nasal Cannula 01/07/24 16:00 61 20 94 01/07/24 16:00 101/49 L 01/07/24 15:50 59 L 20 95 Nasal Cannula 01/07/24 15:45 88/62 L 01/07/24 15:45 61 19 93 01/07/24 15:40 62 20 95 01/07/24 15:39 64 17 96/58 L 96 Nasal Cannula 01/07/24 15:30 63 16 96 01/07/24 15:30 96/58 L 01/07/24 15:22 67 01/07/24 15:21 68 18 95 Nasal Cannula 01/07/24 15:20 68 18 94 01/07/24 15:20 64 18 102/56 L 94 Nasal Cannula 01/07/24 15:16 102/56 L 01/07/24 15:16 64 20 95 01/07/24 15:15 68 19 94 Nasal Cannula 01/07/24 15:13 67 18 96 01/07/24 14:46 66 20 100/54 L 84 L Room Air O2 Flow Rate 01/07/24 17:01 4 01/07/24 16:52 01/07/24 16:52 01/07/24 16:50 01/07/24 16:49 01/07/24 16:49 01/07/24 16:45 01/07/24 16:45 01/07/24 16:40 4 01/07/24 16:30 4 01/07/24 16:30 01/07/24 16:21 01/07/24 16:21 01/07/24 16:20 01/07/24 16:15 01/07/24 16:15 01/07/24 16:10 4 01/07/24 16:00 01/07/24 16:00 01/07/24 15:50 4 01/07/24 15:45 01/07/24 15:45 01/07/24 15:40 4 01/07/24 15:39 4 01/07/24 15:30 01/07/24 15:30 01/07/24 15:22 01/07/24 15:21 4 01/07/24 15:20 4 01/07/24 15:20 4 01/07/24 15:16 01/07/24 15:16 4 01/07/24 15:15 4 01/07/24 15:13 4 01/07/24 14:46
[2024-01-07 17:35] LABS: Acetaminophen 14 ug/ml (10-30); Salicylate < 3.0 mg/dl (3.0-30)
[2024-01-07 18:13] LABS: Amphetamines+Metham, Urine Neg (Neg); Barbiturates, Urine Neg (Neg); Benzodiazepine, Urine Neg (Neg); Cocaine, Urine Neg (Neg); MDMA (Ecstacy), Urine Pos (Neg); Marijuana, Urine Neg (Neg); Methadone, Urine Neg (Neg); Opiate, Urine Neg (Neg); Phencyclidine, Urine Neg (Neg)
[2024-01-07] MEDS ORDERED: STAT IV/IM STA ×2 (18:48→20:30)
[2024-01-07] MEDS ORDERED: AcetylCYSTEINE IV 21 HR REGIMEN (>40KG) IV STA (18:48)
[2024-01-07] MEDS: PIPERACILLIN/TAZOBACTAM 4.5 GM in DEXTROSE 5% MINI-B 100 ML IV SCH (19:17)
[2024-01-07] MEDS: ACETYLCYSTEINE IV ONE ×2 (19:35→21:08)
[2024-01-07] MEDS: DEXTROSE 5% IV ONE ×2 (19:35→21:08)
--- NOTE | 2024-01-07 20:05 | Urology Consultation ---
Date of Consultation January 07, 2024 Assessment & Plan (1) Pyelonephritis of right kidney: The patient is being admitted on the hospitalist service. From a urologic perspective we recommend the following: Would recommend keeping the patient n.p.o. for the present time Would recommend continue resuscitation with intravenous fluids Continue broad-spectrum antibiotics in the form of Zosyn. The patient has had blood and urine cultures sent and antibiotics to be tailored based on these results. Consideration should be given to placing a Krueger catheter for maximal urinary drainage Serial labs to be followed It appears as though the patient has acute kidney injury and therefore nephrotoxic medication should be avoided As noted in the HPI the patient remains hypotensive and she may require vasopressor support to maintain blood pressure. Upon review of patient's CAT scan she does not have any readily apparent ureteral kidney stones causing obstruction and therefore treatment as outlined above should be employed as I do not feel the patient requires an urgent cystoscopy or other urologic procedure at this time Additional recommendations be forthcoming based on her clinical course as it History of Present Illness Reason for Consultation: Sepsis from urinary source, concern for kidney stone History of Present Illness This is a 58-year-old female who presented to the emergency department at the recommendation of her primary care doctor secondary to weakness and falls. The patient says that she has been feeling weak and tired and more fatigued for the past 4 days. She denies any chest pain or shortness of breath. She denies any cough. She does not report any fevers, shakes, or chills but does report decreased appetite. She does report that she has been having urinary frequency as well as dysuria. She has not reported any hematuria. She does report some flank pain greatest on the right-hand side. To the best of the patient's knowledge she has never had a kidney stone in the past and she is not aware of any kidney stones that she has passed since her symptomatology began. With the patient's symptomatology she said that she has felt weak and tired as noted above and actually suffered a fall at home where she hit her head. She is unsure if she lost consciousness. Since arrival to the emergency department the patient has had labs and imaging which I independent reviewed. The patient had a CT scan of the chest that showed no definite pneumonia, however a 1.3 cm left lower lobe groundglass opacity was noted (interpreting radiologist favored atelectasis versus a definite pneumonia) CT scan of the abdomen and pelvis showed the patient had right nephrolithiasis without any ureteral calculi. There is some right perinephric stranding and the interpreting radiologist felt that this could have represented a recently passed right-sided kidney stone. Hydronephrosis is absent bilaterally. There is no evidence of bowel obstruction. A CT scan of the head showed no acute hemorrhage mass effect or evidence of stroke. Chest x- ray showed no evidence of pneumonia. Labs included CBC were white blood cell count was elevated at 17.3. Hemoglobin and hematocrit were 9.0 and 28.7. Platelet count was normal. Chemistry profile showed sodium was 130 with a normal potassium. BUN and creatinine are elevated at 61 and 2.45. (Review of labs shows that creatinine typically runs in the normal range) lactic acid level was nonelevated. There is no elevation of patient's bilirubin or transaminases but there was a slight elevation of the alkaline phosphatase at 110. Procalcitonin was elevated to 40. A urinalysis showed cloudy urine which was positive for nitrites and 2+ leukocyte Estrace. There is pyuria with greater than 50 white blood cells per high-power field as well as 3+ bacteria on this study. Patient had a bio fire checked and all viruses tested for were negative. The patient did have a toxicology panel sent and she did not have elevated salicylate or acetaminophen levels. Other than positive MDMA all other substances tested for negative. It is noteworthy to mention that on presentation to the emergency department the patient was hypoxic and also hypotensive. She was given intravenous fluids and despite receiving approximately 3 L of normal saline she remained hypotensive and therefore the patient has tentatively been admitted to the intensive care unit in anticipation for potential need for vasopressors. She has been initiated on broad-spectrum antibiotics in the form of Zosyn. It should also be noted that poison control was contacted and although the patient's acetaminophen level was only 14 it was recommended that N-acetylcysteine be initiated which has been commenced. At the time of my interview the patient was somewhat lethargic but easily arousable. She did not appear to be in any distress. Allergies Allergy/AdvReac Type Severity Reaction Status Date / Time citalopram Allergy Unknown unknown Verified 01/07/24 15:22 reaction clarithromycin Allergy Unknown unknown Verified 01/07/24 15:22 reaction Macrolide Antibiotics Allergy Unknown unknown Verified 01/07/24 15:22 reaction celecoxib AdvReac Intermediate Gastrointestinal Verified 01/07/24 15:22 Upset rizatriptan AdvReac Intermediate migraines Verified 01/07/24 15:22 sumatriptan AdvReac Intermediate MIGRAINE-TIGHTNESS Verified 01/07/24 15:22 IN JAW Home Medications Medication Instructions Recorded Confirmed Type buspirone 15 mg tablet 15 mg PO BID 10/12/18 01/07/24 History cholecalciferol (vitamin D3) 50 2,000 unit PO DAILY 10/12/18 01/07/24 History mcg (2,000 unit) capsule (Vitamin D3) gabapentin 300 mg capsule See Rx Instructions .Route .COMPLEX 10/12/18 01/07/24 History lamotrigine 200 mg tablet 100 mg PO HS 10/12/18 01/07/24 History (Lamictal) melatonin 10 mg tablet 10 mg PO HS 10/12/18 01/07/24 History omeprazole 40 mg capsule,delayed 40 mg PO QAM 10/12/18 01/07/24 History release potassium chloride 10 mEq 10 meq PO BID 10/12/18 01/07/24 History capsule,extended release pravastatin 80 mg tablet 80 mg PO HS 10/12/18 01/07/24 History quetiapine 400 mg tablet 400 mg PO HS 10/12/18 01/07/24 History sulindac 200 mg tablet 200 mg PO BID 10/12/18 01/07/24 History suvorexant 10 mg tablet (Belsomra) 10 mg PO HS 10/12/18 01/07/24 History tramadol 50 mg tablet 50 mg PO Q6H PRN Pain 10/12/18 01/07/24 History trazodone 100 mg tablet 200 mg PO HS 10/12/18 01/07/24 History docusate sodium 100 mg capsule 100 mg PO BID 08/09/20 01/07/24 History (Dulcolax Stool Softener (docusate)) polyethylene glycol 3350 17 17 g PO BID 08/09/20 01/07/24 History gram/dose oral powder (Miralax) tizanidine 4 mg capsule 8 mg PO BID 08/09/20 01/07/24 History cyanocobalamin (vitamin B-12) 1,000 mcg PO QAM 01/07/24 01/07/24 History 1,000 mcg tablet (Vitamin B-12) diclofenac sodium 1 % topical gel 2 g topical QID PRN KNEE PAIN 01/07/24 01/07/24 History hydroxyzine HCl 25 mg tablet 25 - 50 mg PO DAILY PRN 01/07/24 01/07/24 History ANXIETY/INSOMNIA lamotrigine 150 mg tablet 150 mg PO QAM 01/07/24 01/07/24 History magnesium oxide 500 mg PO QAM 01/07/24 01/07/24 History melatonin 5 mg tablet 5 mg PO HS 01/07/24 01/07/24 History ondansetron 4 mg disintegrating 4 mg translingual Q8H PRN 01/07/24 01/07/24 History tablet NAUSEA/VOMITING Patient History Medical History Obesity Osteoarthritis Fibromyalgia Hiatal hernia GERD (gastroesophageal reflux disease) Migraine Asthma stable, no inhaler Hyperlipidemia Bipolar disorder Surgical History History of arthroscopy LEFT SHOULDER History of repair of rotator cuff LEFT History of hysterectomy TOTAL History of appendectomy History of cholecystectomy History of esophagogastroduodenoscopy (EGD) History of colonoscopy Social History Smoking Status: Former smoker Second Hand Exposure: No; Do You Dip or Chew Tobacco: No; Hx Alcohol Use: No Hx Substance Use: No Preferred Language: Croatian [employer] Required: No Beliefs That Will Affect Care: None Current Living Situation: Parent Feels Safe at Home: Yes Assistive Devices: Brace/Splint/Immobilizer, Cane and Glasses Review of Systems Constitutional: no fever and no chills Eyes: + corrective lenses Ear, Nose, Mouth, Throat: no hearing loss Respiratory: no cough and no dyspnea Cardiovascular: no chest pain Gastrointestinal: no abdominal pain, no nausea and no vomiting Genitourinary: as per Subjective / HPI, + dysuria, + urinary frequency and + flank pain Musculoskeletal: + back pain (Right flank) Integumentary: no rash Neurologic: no localized weakness Physical Exam Constitutional: WD/WN, vitals as above Eyes: no conjunctival abnormality ENMT: Ears: no hearing impairment and no external ear abnormality Mouth: no oropharynx abnormality Neck: trachea midline Respiratory: normal respiratory effort; no respiratory distress and no labored breathing Breath sounds are decreased at bases but she was not using accessory muscles to aid in respiration Cardiovascular: Rate/Rhythm: regular rate and regular rhythm Vessels: dorsalis pedis pulses present (Dorsalis pedis pulses noted to be weak) and radial pulses present Gastrointestinal (Abdomen): Abdomen is soft and nonrigid. It is nondistended. There is no pain noted with palpation. There are no signs of peritonitis Musculoskeletal: No calf tenderness. Feet are warm and nonmottled Skin: no rashes Neurologic: moves all extremities Psychiatric: A+Ox3, euthymic affect Right CVA tenderness noted with percussion Results & Data Vital Signs (Past 12 Hours) Vital Signs Pulse Pulse Resp BP BP Pulse Ox O2 Del Method 01/07/24 19:15 53 L 16 87/54 L 97 Nasal Cannula 01/07/24 19:15 54 L 01/07/24 19:00 53 L 15 81/49 L 97 Nasal Cannula 01/07/24 18:51 54 L 16 98 01/07/24 18:51 92/52 L 01/07/24 18:50 56 L 19 98 01/07/24 18:45 54 L 14 83/50 L 96 Nasal Cannula 01/07/24 18:45 53 L 14 96 01/07/24 18:40 53 L 14 97 01/07/24 18:30 85/50 L 01/07/24 18:30 54 L 14 85/50 L 96 Nasal Cannula 01/07/24 18:20 56 L 14 97 Nasal Cannula 01/07/24 18:16 56 L 19 82/52 L 97 Nasal Cannula 01/07/24 18:15 82/52 L 01/07/24 18:15 55 L 18 96 Nasal Cannula 01/07/24 18:10 58 L 14 96 Nasal Cannula 01/07/24 18:00 57 L 15 85/49 L 94 Nasal Cannula 01/07/24 18:00 57 L 17 95 Nasal Cannula 01/07/24 17:50 58 L 14 94 Nasal Cannula 01/07/24 17:45 95/54 L 01/07/24 17:45 56 L 23 95 Nasal Cannula 01/07/24 17:44 98/51 L 01/07/24 17:44 58 L 21 96 Nasal Cannula 01/07/24 17:40 58 L 13 96 01/07/24 17:34 90/49 L 01/07/24 17:34 56 L 15 91 01/07/24 17:30 59 L 14 94 01/07/24 17:30 93/50 L 01/07/24 17:20 59 L 19 93/50 L 95 Nasal Cannula 01/07/24 17:15 90/58 L 01/07/24 17:15 61 26 H 85 L Nasal Cannula 01/07/24 17:10 59 L 15 95 Nasal Cannula 01/07/24 17:05 58 L 20 96 01/07/24 17:05 93/53 L 01/07/24 17:01 61 19 92/57 L 96 Nasal Cannula 01/07/24 17:00 56 L 17 97 01/07/24 17:00 92/57 L 01/07/24 16:52 58 L 15 96 01/07/24 16:52 83/52 L 01/07/24 16:50 59 L 18 95 01/07/24 16:49 61 19 94 01/07/24 16:49 91/55 L 01/07/24 16:45 60 16 95 01/07/24 16:45 73/52 L 01/07/24 16:40 58 L 17 95 01/07/24 16:30 58 L 15 95 01/07/24 16:30 88/44 L 01/07/24 16:21 57 L 19 94 01/07/24 16:21 84/49 L 01/07/24 16:20 56 L 18 94 01/07/24 16:15 58 L 15 93 01/07/24 16:15 81/55 L 01/07/24 16:10 59 L 20 81/55 L 96 Nasal Cannula 01/07/24 16:00 61 20 94 01/07/24 16:00 101/49 L 01/07/24 15:50 59 L 20 95 Nasal Cannula 01/07/24 15:45 88/62 L 01/07/24 15:45 61 19 93 01/07/24 15:40 62 20 95 01/07/24 15:39 64 17 96/58 L 96 Nasal Cannula 01/07/24 15:30 63 16 96 01/07/24 15:30 96/58 L 01/07/24 15:22 67 01/07/24 15:21 68 18 95 Nasal Cannula 01/07/24 15:20 68 18 94 01/07/24 15:20 64 18 102/56 L 94 Nasal Cannula 01/07/24 15:16 102/56 L 01/07/24 15:16 64 20 95 01/07/24 15:15 68 19 94 Nasal Cannula 01/07/24 15:13 67 18 96 01/07/24 14:46 66 20 100/54 L 84 L Room Air O2 Flow Rate 01/07/24 19:15 4 01/07/24 19:15 01/07/24 19:00 4 01/07/24 18:51 01/07/24 18:51 01/07/24 18:50 01/07/24 18:45 4 01/07/24 18:45 01/07/24 18:40 01/07/24 18:30 01/07/24 18:30 4 01/07/24 18:20 4 01/07/24 18:16 4 01/07/24 18:15 01/07/24 18:15 4 01/07/24 18:10 4 01/07/24 18:00 4 01/07/24 18:00 4 01/07/24 17:50 4 01/07/24 17:45 01/07/24 17:45 4 01/07/24 17:44 01/07/24 17:44 4 01/07/24 17:40 01/07/24 17:34 01/07/24 17:34 01/07/24 17:30 01/07/24 17:30 01/07/24 17:20 4 01/07/24 17:15 01/07/24 17:15 4 01/07/24 17:10 4 01/07/24 17:05 01/07/24 17:05 01/07/24 17:01 4 01/07/24 17:00 01/07/24 17:00 01/07/24 16:52 01/07/24 16:52 01/07/24 16:50 01/07/24 16:49 01/07/24 16:49 01/07/24 16:45 01/07/24 16:45 01/07/24 16:40 4 01/07/24 16:30 4 01/07/24 16:30 01/07/24 16:21 01/07/24 16:21 01/07/24 16:20 01/07/24 16:15 01/07/24 16:15 01/07/24 16:10 4 01/07/24 16:00 01/07/24 16:00 01/07/24 15:50 4 01/07/24 15:45 01/07/24 15:45 01/07/24 15:40 4 01/07/24 15:39 4 01/07/24 15:30 01/07/24 15:30 01/07/24 15:22 01/07/24 15:21 4 01/07/24 15:20 4 01/07/24 15:20 4 01/07/24 15:16 01/07/24 15:16 4 01/07/24 15:15 4 01/07/24 15:13 4 01/07/24 14:46 PG Care Time/CCT Total # of Minutes Spent Total Time Spent with Patient: Total time spent is greater than 50% in coordination of care (as documented) at patient's floor/unit and/or counseling patient: Coding Level of Care Code 33534 IN/OBS CONSULT LVL 5,80M Diagnoses Pyelonephritis of right kidney N12
[2024-01-07] MEDS ORDERED: ALUMINUM/MAGNESIUM SUSP 30 ML UDC PO PRN (20:28)
--- NOTE | 2024-01-07 20:31 | Critical Care Consultation ---
Date of Consultation January 07, 2024 Assessment & Plan (1) Sepsis: (2) Bipolar disorder: (3) Anxiety and depression: (4) Fibromyalgia: (5) UTI (urinary tract infection): Plan Reason Critically Ill: 58 YOF admitted to ICU for septic shock secondary to UTI likely pyelonephritis. Follow hemodynamics and organ dysfunction. Neuro - Chornic pain, of anxiety depression, Fibromyalgia CAM ICU: Negative - Encephalopathy markedly improved since arrival to ICU - No acute weakness or concern for CVA- however MRI/MRA ordered by primary service. This can be completed in AM - Continue her BuSpar, lamotrigine for anxiety depression and migraine- - Hold her Tizanidine as this has known potential to induce hypotension - Hold further sedating medications Cardiac - Septic shock - Sepsis with organ dysfunction- source urine- likely pyelonephritis - See below - Continue with volume resuscitation as she is volume responsive at this time and clinically hypovolemic appearing - follow MAPS - Follow urine output for perfusion metrics - Consider bedside POCUS following clinical course - Hold antihypertensives Respiratory - No acute needs GI - Concern for Tylenol overdose - Spoke with poison control- history of previous self harm attempts and unknown last time of ingestion - with her symptoms- NAC therapy initiated was started - 12 hours following 3rd dose- LFT and INR ordered RENAL/LYTES - Complicated UTI, right nephrolithiasis, likely pyelonephritis - with complicated UTI, fever, flank pain,- consistent with pyelo as well as fat stranding on CT - Continue Zosyn- culture data reviewed- last culture at this facility was in 2019- with E. Coli- Resistant to Amp, unasyn, Cipro, Levofloxacin - Replace electrolytes - follow hyponatremia - As above - Continue Krueger catheter - Appreciate urology consultation ENDO - No acute needs HEME - No acute needs ID - UTI complicated - as above - sepsis with organ dysfunction as evident with VIRIDIANA = septic shock - continue Zosyn - await culture results LINES/IV ACCESS - PIV, Krueger Continue use of these lines DVT PROPHYLAXIS - SCDS, Heparin 5000 units q8 DISPO: ICU until hemodynamics are proven stable I have personally spent 45 minutes of critical care time in the direct management of this patient. This is a life/limb threatening event. This includes time spent evaluating patient, direct bedside care, chart review, placing orders, interpretation of diagnostic studies, discussion with consultants, patient, and family members, as well as other required patient management activities. This time is exclusive of all separately billable procedures, and teaching time and separate from and in addition to any other critical care service time. Thank you for allowing us to participate in the care of this patient. Please refer to my attending physician's documentation for any further recommendations. Supervising Physician Co-Signing Physician Notes Patient seen and examined. EMR reviewed. Patient seen last evening and discussed with critical care VALENTE. Agree with assessment plan as noted. Please refer to my progress note from 01/08/2024 for additional details History of Present Illness Reason for Consultation: Septic shock Requesting Physician: Erlin Ken MD Attending Physician: Erlin Ken MD History of Present Illness 58YOF with medical history of: Depression, Arthritis, UTI, HT, Chronic back pain, HLD. Patient presents to the EMD today from referral from clinic secondary to frequent falls and extremity weakness. She did not present with any focal weakness,, but was noted to be hypoxic and hypotensive on arrival. She had routine labs performed to include UA and blood cultures. She was noted with VIRIDIANA, elevated PCT, Leukocytosis, negative lactate, and electrolyte disorders. She stated to the EMD providers that this is how she normally feels when she has a UTI . She also reports that she was taking tylenol for fevers and pain. She was started on NAC by admitting provider for Tylenol level of 14, and recommendations per poison control. She was resuscitated with 3.5 L crystalloid that was still infusing on my evaluation in the EMD. She is with BPs in the 90s/50s however is with MAPS 68-70 and currently without vasopressor requirements. She is awake and states that she is feeling better since arrival. Overall she is without any focal deficits on my exam as well. Will bring to ICU for monitoring of hemodynamics, CT of abdomen/pelvis comments on right nephrolithiasis and right perinephric stranding- and is without hydro or obstruction. Urology will be consulted for following clinical course if possible infection with stone. CODE: FULL Allergies Allergy/AdvReac Type Severity Reaction Status Date / Time citalopram Allergy Unknown unknown Verified 01/07/24 15:22 reaction clarithromycin Allergy Unknown unknown Verified 01/07/24 15:22 reaction Macrolide Antibiotics Allergy Unknown unknown Verified 01/07/24 15:22 reaction celecoxib AdvReac Intermediate Gastrointestinal Verified 01/07/24 15:22 Upset rizatriptan AdvReac Intermediate migraines Verified 01/07/24 15:22 sumatriptan AdvReac Intermediate MIGRAINE-TIGHTNESS Verified 01/07/24 15:22 IN JAW Home Medications Medication Instructions Recorded Confirmed Type buspirone 15 mg tablet 15 mg PO BID 10/12/18 01/07/24 History cholecalciferol (vitamin D3) 50 2,000 unit PO DAILY 10/12/18 01/07/24 History mcg (2,000 unit) capsule (Vitamin D3) gabapentin 300 mg capsule See Rx Instructions .Route .COMPLEX 10/12/18 01/07/24 History lamotrigine 200 mg tablet 100 mg PO HS 10/12/18 01/07/24 History (Lamictal) melatonin 10 mg tablet 10 mg PO HS 10/12/18 01/07/24 History omeprazole 40 mg capsule,delayed 40 mg PO QAM 10/12/18 01/07/24 History release potassium chloride 10 mEq 10 meq PO BID 10/12/18 01/07/24 History capsule,extended release pravastatin 80 mg tablet 80 mg PO HS 10/12/18 01/07/24 History quetiapine 400 mg tablet 400 mg PO HS 10/12/18 01/07/24 History sulindac 200 mg tablet 200 mg PO BID 10/12/18 01/07/24 History suvorexant 10 mg tablet (Belsomra) 10 mg PO HS 10/12/18 01/07/24 History tramadol 50 mg tablet 50 mg PO Q6H PRN Pain 10/12/18 01/07/24 History trazodone 100 mg tablet 200 mg PO HS 10/12/18 01/07/24 History docusate sodium 100 mg capsule 100 mg PO BID 08/09/20 01/07/24 History (Dulcolax Stool Softener (docusate)) polyethylene glycol 3350 17 17 g PO BID 08/09/20 01/07/24 History gram/dose oral powder (Miralax) tizanidine 4 mg capsule 8 mg PO BID 08/09/20 01/07/24 History cyanocobalamin (vitamin B-12) 1,000 mcg PO QAM 01/07/24 01/07/24 History 1,000 mcg tablet (Vitamin B-12) diclofenac sodium 1 % topical gel 2 g topical QID PRN KNEE PAIN 01/07/24 01/07/24 History hydroxyzine HCl 25 mg tablet 25 - 50 mg PO DAILY PRN 01/07/24 01/07/24 History ANXIETY/INSOMNIA lamotrigine 150 mg tablet 150 mg PO QAM 01/07/24 01/07/24 History magnesium oxide 500 mg PO QAM 01/07/24 01/07/24 History melatonin 5 mg tablet 5 mg PO HS 01/07/24 01/07/24 History ondansetron 4 mg disintegrating 4 mg translingual Q8H PRN 01/07/24 01/07/24 History tablet NAUSEA/VOMITING Patient History Medical History Obesity Osteoarthritis Fibromyalgia Hiatal hernia GERD (gastroesophageal reflux disease) Migraine Asthma stable, no inhaler Hyperlipidemia Bipolar disorder Surgical History History of arthroscopy LEFT SHOULDER History of repair of rotator cuff LEFT History of hysterectomy TOTAL History of appendectomy History of cholecystectomy History of esophagogastroduodenoscopy (EGD) History of colonoscopy Social History Smoking Status: Former smoker Second Hand Exposure: No; Do You Dip or Chew Tobacco: No; Hx Alcohol Use: No Hx Substance Use: No Preferred Language: Tongan Communication Ability: Effective Customer Care Associate Required: No Beliefs That Will Affect Care: None Current Living Situation: Family Current Living Situation Comment: caregiver 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 Other Information That Helps Us Care for You: No Feels Safe at Home: Yes Safety Concerns: Feels Safe At This Time Assistive Devices: Denture - Upper, Denture - Lower and Glasses Review of Systems Review of Systems: REVIEW OF SYSTEMS: Constitutional: (+) fever, sweats or chills Eyes: No diplopia, no worsening or blurred vision ENT: normal hearing, no trouble swallowing Respiratory: No cough, sputum, dyspnea at rest or on exertion Cardiovascular: No chest pain, tightness or palpitations Abdomen: (+) bilateral flank pain, NO nausea, vomiting, diarrhea or constipation Musculoskeletal: (+) back pain, NO calf pain, swelling Neurologic: (+) falls at home No weakness, numbness/tingling, or balance problems Psychiatric: (+) anxiety or depression Skin: No rash or itch Physical Exam Physical Exam: PHYSICAL EXAM: General: awakens to voice, alert, no apparent distress Head: Normocephalic, atraumatic ENT: PERRL, EOMI, no pharyngeal exudate, mucous membranes moist Neuro: AAO x 3, speech clear and appropriate, strength intact bilaterally 5/5, sensation intact and equal all extremities and dermatomes, no pronator drift Chest: equal rise and fall of the chest, no accessory muscle use, no heaves or thrills, Clear to auscultation, on room air, Cardiac: Regular rate and rhythm, telemetry reviewed, skin warm dry, cap refill <3 seconds, peripheral pulses +2 no JVD, no murmur, no edema GI: NABS x 4 quadrants, soft, nontender to palpation, no rebound, guarding or tenderness : Krueger to gravity draining dilute yellow urine Psych: Normal mood and affect Skin: no rash or erythema Results & Data Results & Data Vital Signs (Past 12 Hours) Vital Signs Pulse Pulse Resp BP BP Pulse Ox O2 Del Method 01/07/24 19:15 53 L 16 87/54 L 97 Nasal Cannula 01/07/24 19:15 54 L 01/07/24 19:00 53 L 15 81/49 L 97 Nasal Cannula 01/07/24 18:51 54 L 16 98 01/07/24 18:51 92/52 L 01/07/24 18:50 56 L 19 98 01/07/24 18:45 54 L 14 83/50 L 96 Nasal Cannula 01/07/24 18:45 53 L 14 96 01/07/24 18:40 53 L 14 97 01/07/24 18:30 85/50 L 01/07/24 18:30 54 L 14 85/50 L 96 Nasal Cannula 01/07/24 18:20 56 L 14 97 Nasal Cannula 01/07/24 18:16 56 L 19 82/52 L 97 Nasal Cannula 01/07/24 18:15 82/52 L 01/07/24 18:15 55 L 18 96 Nasal Cannula 01/07/24 18:10 58 L 14 96 Nasal Cannula 01/07/24 18:00 57 L 15 85/49 L 94 Nasal Cannula 01/07/24 18:00 57 L 17 95 Nasal Cannula 01/07/24 17:50 58 L 14 94 Nasal Cannula 01/07/24 17:45 95/54 L 01/07/24 17:45 56 L 23 95 Nasal Cannula 01/07/24 17:44 98/51 L 01/07/24 17:44 58 L 21 96 Nasal Cannula 01/07/24 17:40 58 L 13 96 01/07/24 17:34 90/49 L 01/07/24 17:34 56 L 15 91 01/07/24 17:30 59 L 14 94 01/07/24 17:30 93/50 L 01/07/24 17:20 59 L 19 93/50 L 95 Nasal Cannula 01/07/24 17:15 90/58 L 01/07/24 17:15 61 26 H 85 L Nasal Cannula 01/07/24 17:10 59 L 15 95 Nasal Cannula 01/07/24 17:05 58 L 20 96 01/07/24 17:05 93/53 L 01/07/24 17:01 61 19 92/57 L 96 Nasal Cannula 01/07/24 17:00 56 L 17 97 01/07/24 17:00 92/57 L 01/07/24 16:52 58 L 15 96 01/07/24 16:52 83/52 L 01/07/24 16:50 59 L 18 95 01/07/24 16:49 61 19 94 01/07/24 16:49 91/55 L 01/07/24 16:45 60 16 95 01/07/24 16:45 73/52 L 01/07/24 16:40 58 L 17 95 01/07/24 16:30 58 L 15 95 01/07/24 16:30 88/44 L 01/07/24 16:21 57 L 19 94 01/07/24 16:21 84/49 L 01/07/24 16:20 56 L 18 94 01/07/24 16:15 58 L 15 93 01/07/24 16:15 81/55 L 01/07/24 16:10 59 L 20 81/55 L 96 Nasal Cannula 01/07/24 16:00 61 20 94 01/07/24 16:00 101/49 L 01/07/24 15:50 59 L 20 95 Nasal Cannula 01/07/24 15:45 88/62 L 01/07/24 15:45 61 19 93 01/07/24 15:40 62 20 95 04/16/24 15:39 64 17 96/58 L 96 Nasal Cannula 01/07/24 15:30 63 16 96 01/07/24 15:30 96/58 L 01/07/24 15:22 67 01/07/24 15:21 68 18 95 Nasal Cannula 01/07/24 15:20 68 18 94 01/07/24 15:20 64 18 102/56 L 94 Nasal Cannula 01/07/24 15:16 102/56 L 01/07/24 15:16 64 20 95 01/07/24 15:15 68 19 94 Nasal Cannula 01/07/24 15:13 67 18 96 01/07/24 14:46 66 20 100/54 L 84 L Room Air O2 Flow Rate 01/07/24 19:15 4 01/07/24 19:15 01/07/24 19:00 4 01/07/24 18:51 01/07/24 18:51 01/07/24 18:50 01/07/24 18:45 4 01/07/24 18:45 01/07/24 18:40 01/07/24 18:30 01/07/24 18:30 4 01/07/24 18:20 4 01/07/24 18:16 4 01/07/24 18:15 01/07/24 18:15 4 01/07/24 18:10 4 01/07/24 18:00 4 01/07/24 18:00 4 01/07/24 17:50 4 01/07/24 17:45 01/07/24 17:45 4 01/07/24 17:44 01/07/24 17:44 4 01/07/24 17:40 01/07/24 17:34 01/07/24 17:34 01/07/24 17:30 01/07/24 17:30 01/07/24 17:20 4 01/07/24 17:15 01/07/24 17:15 4 01/07/24 17:10 4 01/07/24 17:05 01/07/24 17:05 01/07/24 17:01 4 01/07/24 17:00 01/07/24 17:00 01/07/24 16:52 01/07/24 16:52 01/07/24 16:50 01/07/24 16:49 01/07/24 16:49 01/07/24 16:45 01/07/24 16:45 01/07/24 16:40 4 01/07/24 16:30 4 01/07/24 16:30 01/07/24 16:21 01/07/24 16:21 01/07/24 16:20 01/07/24 16:15 01/07/24 16:15 01/07/24 16:10 4 01/07/24 16:00 01/07/24 16:00 01/07/24 15:50 4 01/07/24 15:45 01/07/24 15:45 01/07/24 15:40 4 01/07/24 15:39 4 01/07/24 15:30 01/07/24 15:30 01/07/24 15:22 01/07/24 15:21 4 01/07/24 15:20 4 01/07/24 15:20 4 01/07/24 15:16 01/07/24 15:16 4 01/07/24 15:15 4 01/07/24 15:13 4 01/07/24 14:46 Laboratory Results Abnormal lab results 01/07/24 01/07/24 01/07/24 Range/Units 14:46 14:50 15:09 WBC 17.31 H (4.8-10.8) K/ul RBC 3.47 L (4.20-5.40) M/uL Hgb 9.0 L (12.0-16.0) g/dl POC Hgb 9.2 L (12.0-16.0) g/dl Hct 28.7 L (37.0-47.0) % POC Hct 27 L (37-47) % MCHC 31.4 L (32.0-36.0) g/dL RDW Std Deviation 47.2 H (36.4-46.3) fL RDW Coeff of Dinah 15.5 H (11.5-14.5) % Neut # (Auto) 14.30 H (1.40-6.50) K/uL [place] # (Auto) 1.28 H (0.11-0.59) K/uL Immature Gran # (Auto) 0.36 H (0.01-0.20) K/uL POC Sodium 130 L (135-144) mmol/L Sodium 130 L (136-145) mmol/L POC Chloride 97 L (101-112) mmol/L Chloride 96 L (98-107) mmol/L POC Anion Gap 13.0 L (16-25) mmol/L POC BUN 63 H (7-18) mg/dl BUN 61 H (6-23) mg/dl Creatinine 2.45 H (0.6-1.2) mg/dl POC Creatinine 2.7 H (0.6-1.3) mg/dl BUN/Creatinine Ratio 24.9 H (10-20) Glucose 114 H (70-99(Fasting)) mg/dl POC Glucose 118 H (70-99) mg/dl POC Glucose (other) 113 H (70-99) mg/dl POC Ioniz Calcium Iket 1.01 L (1.12-1.32) mmol/l Direct Bilirubin 0.4 H (0-0.2) mg/dl Alkaline Phosphatase 110 H (34-104) U/L Procalcitonin 2.40 H (0-0.5) ng/ml Urine Appearance (Clear) Urine Protein (Negative) Urine Blood (Negative) Urine Nitrite (Negative) Ur Leukocyte Esterase (Negative) Urine WBC (Auto) (0-5) /hpf Urine RBC (Auto) (0-2) /hpf U Hyaline Cast (Auto) (0-2) /lpf U Epithel Cells (Auto) (0-2) /hpf Urine Bacteria (Auto) (None Seen) Salicylates (3.0-30) mg/dl MDMA (Ecstasy) Screen (Neg) 01/07/24 01/07/24 Range/Units 16:46 Unknown WBC (4.8-10.8) K/ul RBC (4.20-5.40) M/uL Hgb (12.0-16.0) g/dl POC Hgb (12.0-16.0) g/dl Hct (37.0-47.0) % POC Hct (37-47) % MCHC (32.0-36.0) g/dL RDW Std Deviation (36.4-46.3) fL RDW Coeff of Dinah (11.5-14.5) % Neut # (Auto) (1.40-6.50) K/uL [place] # (Auto) (0.11-0.59) K/uL Immature Gran # (Auto) (0.01-0.20) K/uL POC Sodium (135-144) mmol/L Sodium (136-145) mmol/L POC Chloride (101-112) mmol/L Chloride (98-107) mmol/L POC Anion Gap (16-25) mmol/L POC BUN (7-18) mg/dl BUN (6-23) mg/dl Creatinine (0.6-1.2) mg/dl POC Creatinine (0.6-1.3) mg/dl BUN/Creatinine Ratio (10-20) Glucose (70-99(Fasting)) mg/dl POC Glucose (70-99) mg/dl POC Glucose (other) (70-99) mg/dl POC Ioniz Calcium K[place] (1.12-1.32) mmol/l Direct Bilirubin (0-0.2) mg/dl Alkaline Phosphatase (34-104) U/L Procalcitonin (0-0.5) ng/ml Urine Appearance Cloudy A (Clear) Urine Protein 2+ H (Negative) Urine Blood 3+ H (Negative) Urine Nitrite Positive A (Negative) Ur Leukocyte Esterase 2+ H (Negative) Urine WBC (Auto) >50 H (0-5) /hpf Urine RBC (Auto) 6-10 H (0-2) /hpf U Hyaline Cast (Auto) 11-20 H (0-2) /lpf U Epithel Cells (Auto) 3-5 H (0-2) /hpf Urine Bacteria (Auto) 3+ H (None Seen) Salicylates < 3.0 L (3.0-30) mg/dl MDMA (Ecstasy) Screen Pos H (Neg) Diagnostic Findings Chest X-Ray 01/07/24 14:40 XR chest 1V portable HISTORY: Sepsis COMPARISON: Chest 08/12/2020. FINDINGS: Low lung volumes. No pneumothorax. No pleural effusions. The cardiac silhouette remains borderline enlarged. A few small bibasilar linear densities favor subsegmental atelectasis. No evidence for pulmonary edema. No focal lung consolidations to suggest a pneumonia. Postoperative changes again noted within the left shoulder. IMPRESSION: No significant change compared to the prior study. No acute process. ACT 112: Negative or not required by law. Electronically signed by: Milton De Leon M.D. 01/07/2024 4:[address] 01/07/24 14:40 CT SCAN OF THE BRAIN WITHOUT IV CONTRAST CLINICAL HISTORY: Left upper extremity weakness. Headache. COMPARISON STUDY: CT of the brain dated 09/17/2014. TECHNIQUE: Unenhanced axial CT scan of the brain is performed from the vertex to the skull base. A dose lowering technique was utilized adhering to the principles of ALARA. FINDINGS: Brain parenchyma: There is age-related involutional change noting mild subcortical and periventricular microangiopathic disease. There is no hemorrhage, mass effect, or evidence of acute territorial ischemia by CT criteria. Rogel-white matter differentiation is preserved. No extra-axial fluid c ollection is seen. Ventricles, sulci, cisterns: Prominent secondary to involutional change. Intracranial vasculature: There is atherosclerotic calcification of the cavernous carotid and vertebral arteries. Calvarium: Unremarkable. Sinuses and mastoids: There is moderate mucosal thickening within the left sphenoid sinus. The remaining visualized paranasal sinuses are clear. The mastoid air cells are well pneumatized. Orbits: The bony orbits are grossly intact. IMPRESSION: There is no hemorrhage, mass effect, or evidence of acute territorial ischemia by CT criteria. ACT 112: Negative or not required by law. Electronically signed by: Norbert Sherman M.D. 01/07/2024 3:18 PM Abdomen/Pelvis CT 01/07/24 14:56 CT OF THE ABDOMEN AND PELVIS WITHOUT CONTRAST CLINICAL HISTORY: Right flank pain. COMPARISON STUDY: CT of the abdomen and pelvis July 06, 2014. TECHNIQUE: Axial images of the abdomen and pelvis were obtained without IV contrast. Images were reviewed in the axial, sagittal, and coronal planes. Automated exposure control was utilized for the study. A dose lowering technique was utilized adhering to the principles of ALARA. FINDINGS: No pneumatosis, free air or portal venous gas is present. Several right renal calculi measure up to 6 mm. There are no ureteral calculi. There is no hydronephrosis. Slight asymmetric right perinephric stranding is present. Evaluation of the remainder of the abdomen and pelvis is suboptimal on this unenhanced exam. There is pneumobilia. The gallbladder surgically absent. Spleen, adrenal glands and pancreas are unremarkable. There is no evidence for a bowel obstruction. The appendix is not visualized but there is no right lower quadrant inflammation. No bowel wall thickening is identified on unenhanced exam. No fluid collections are present. There is no lymphadenopathy. No acute fractures within lumbar spine, pelvis or hips. Mild loss of height of the superior endplates of T12 and L2 is chronic. IMPRESSION: 1. Right nephrolithiasis. No ureteral calculi. Slight asymmetric right perinephric stranding, a nonspecific finding. The findings could reflect a recently passed right-sided calculus or an infectious process. 2. No bowel obstruction. No bowel wall thickening on unenhanced exam. 3. No acute fractures. ACT 112: Negative or not required by law. Electronically signed by: Laurent Rivas M.D. 01/07/2024 3:[address] 01/07/24 14:56 CT OF THE CHEST WITHOUT IV CONTRAST CLINICAL HISTORY: Hypoxia. COMPARISON STUDY: Chest CT November 08, 2008. Chest radiograph August 12, 2020. CT DOSE: 1744.58 mGy.cm TECHNIQUE: Axial images of the chest were obtained without IV contrast. Images were reviewed in the axial, sagittal, and coronal planes. IV contrast was not administered for this examination. Automated exposure control was utilized for the study. A dose lowering technique was utilized adhering to the principles of ALARA. FINDINGS: No enlarged axillary, mediastinal or hilar lymph nodes are present. Size of the heart is at the upper limits of normal. There is no pericardial effusion. No pneumothorax is present. There is a trace left pleural effusion. Subpleural groundglass opacities represent atelectasis. Linear densities within the lungs represent atelectasis as well. 1.3 cm groundglass left lower lobe opa city on image 99 of 205 is present. Central airways are patent. No acute fractures within the bony thorax. Pneumobilia is incidentally noted. The abdomen and pelvis CT will be reported separately. IMPRESSION: 1. Subpleural opacities suggestive of atelectasis. No definite consolidation to suggest pneumonia. 1.3 cm left lower lobe groundglass opacity favors atelectasis although a mild infectious process could appear similar. A follow-up chest CT in 6 months to ensure resolution is recommended. 2. Trace left pleural effusion. No pneumothorax. 3. No thoracic lymphadenopathy. ACT 112: Negative or not required by law. Electronically signed by: Laurent Rivas M.D. 01/07/2024 3:15 PM Medications Administered Sodium Chloride (Nss) 500 mls @ 100 mls/hr IV .Q5H GALDINO Stop: 02/06/24 17:14 Last Admin: 01/07/24 17:24 Dose: 100 mls/hr Documented By: ROHAN Piperacillin Sod/Tazobactam (Sod 4.5 gm/ Dextrose) 100 mls @ 25 mls/hr IV Q8H GALDINO; Protocol Stop: 01/17/24 19:59 Last Admin: 01/07/24 19:17 Dose: 25 mls/hr Documented By: SHA Discontinued Medications Acetaminophen (Acetaminophen 1000 Mg/100 Ml Iv) 1,000 mg IV NOW STA Stop: 01/07/24 14:43 Last Admin: 01/07/24 15:10 Dose: 1,000 mg Documented By: ROHAN Piperacillin Sod/Tazobactam Sod (Zosyn) 4.5 gm in 100 mls @ 200 mls/hr IV NOW STA Stop: 01/07/24 15:09 Last Infusion: 01/07/24 15:23 Dose: Infused Documented By: Admin: 01/07/24 15:11 Dose: 200 mls/hr Documented By: ROHAN Sodium Chloride (Nss) 1,000 mls @ 999 mls/hr IV .Q1H1M ONE Stop: 01/07/24 15:40 Last Infusion: 01/07/24 15:23 Dose: Infused Documented By: Infusion: 01/07/24 15:11 Dose: Infused Documented By: Admin: 01/07/24 15:09 Dose: 999 mls/hr Documented By: ROHAN Magnesium Sulfate/Dextrose (Magnesium Sulfate / D5w) 1 gm in 100 mls @ 300 mls/hr IV NOW ONE Stop: 01/07/24 15:01 Last Infusion: 01/07/24 16:13 Dose: Infused Documented By: Admin: 01/07/24 15:23 Dose: 300 mls/hr Documented By: ROHAN Sodium Chloride (Nss) 1,000 mls @ 999 mls/hr IV .Q1H1M ONE Stop: 01/07/24 17:54 Last Infusion: 01/07/24 19:20 Dose: Infused Documented By: Admin: 01/07/24 16:58 Dose: 999 mls/hr Documented By: ROHAN Sodium Chloride (Nss) 500 mls @ 999 mls/hr IV .Q31M ONE Stop: 01/07/24 17:24 Last Admin: 01/07/24 16:59 Dose: Not Given Documented By: ROHAN Acetylcysteine 14,120 mg/ (Dextrose) 270.6 mls @ 200 mls/hr IV 1915 ONE; Protocol Stop: 01/07/24 20:36 Last Admin: 01/07/24 19:35 Dose: 200 mls/hr Documented By: SHA Ondansetron HCl (Ondansetron Inj 2 Mg/Ml 2 Ml Vial) 4 mg IV NOW STA Stop: 01/07/24 14:43 Last Admin: 01/07/24 15:10 Dose: 4 mg Documented By: ROHAN Piperacillin Sod/Tazobactam Sod (Piperacillin/Tazobactam 4.5 Gm/100ml D5w) Confirm Administered Dose 4.5 gm IV .STK-MED ONE Stop: 01/07/24 17:22 Last Admin: 01/07/24 17:32 Dose: Not Given Documented By: ROHAN Coding Level of Care Code 88566 CRITICAL CARE 1ST 30-74M Diagnoses Sepsis A41.9 Bipolar disorder F31.9 Anxiety and depression F41.9; F32.A Fibromyalgia M79.7 UTI (urinary tract infection) N39.0
[2024-01-07] MEDS: PLASMA-LYTE A 1,000 ML IV ONE (20:45)
[2024-01-07] MEDS: PLASMA-LYTE A 1,000 ML IV SCH (21:08)
[2024-01-07] MEDS: PANTOprazole 40 MG in SYRINGE 0 ML IV SCH (21:08)
[2024-01-07] MEDS: CALCIUM GLUCONATE 10% 1,000 MG in SODIUM CHLOR 0.9% MINI-B 50 ML IV SCH (21:09)
[2024-01-07] MEDS: OPTIRAY 320 125ml IV ONE (21:16)
[2024-01-07] MEDS: ASPIRIN 81 MG ECTAB PO SCH (21:28)
[2024-01-07] MEDS: busPIRone 15 MG TAB PO SCH (21:29)
[2024-01-07] MEDS: lamoTRIgine 100 MG TAB PO SCH (21:29)
[2024-01-07] MEDS: PRAVASTATIN SOD 40 MG TAB PO SCH (21:29)
[2024-01-07] MEDS: HEPARIN SOD 5,000 UNIT/0.5 ML VIAL SQ SCH (21:30)
--- OUTSIDE RECORDS SUMMARY | 2024-01-07 21:54 | External Medical Summary | Summary of Care ---
Author Name Unknown Organization [facility] Address [address] [place] [facility] [place] [address] Phone [phone] Care Team Providers Care Box Maker Paperboard Name Role Phone Gordon Jimenez MD Primary Care Provider [phone]- [phone] Reason for Visit * Reason Onset Date Comments Med Request 12/04/2023 Encounter Details Date Type Department Care Team (Late st Contact Info) Description 12/04/2023 Telephone [facility] [address] [place] [address] Gordon Jimenez MD [address] [place] [address] Med Request Allergies Active Allergy Reactions Criticality Noted Date Comments Celecoxib 11/20/2012 "ripps up her stomach" Citalopram Hydrobromide Unknown 11/20/2012 Clarithromycin Unknown 11/20/2012 Sumatriptan Base 11/20/2012 Tightness in jaw Macrolides And Ketolides Unknown 11/20/2012 Rizatriptan Unknown 11/20/2012 Sumatriptan Unknown 01/21/2013 documented as of this encounter (statuses as of 12/09/2023) Medications Medication Sig Dispensed Refills Start Date End Date Status MIRALAX PO POWD 17 gm twice daily 0 Active DOCUSATE SODIUM 100 MG PO CAPS 1 cap twice daily 0 Active Cholecalciferol (VITAMIN D) 1000 UNIT Capsule 1 daily 0 Active QUEtiapine Fumarate 400 MG Oral Tablet At bedtime daily 0 Active Melatonin 5 MG Oral Tablet 1 Tablet at bedtime. 0 Active traZODone (DESYREL) 100 MG Tablet 2 tabs daily 0 02/16/2016 Active lamoTRIgine (LAMICTAL) 200 MG Tablet Take 0.5 Tablets by mouth at bedtime. 0 Active busPIRone (BUSPAR) 15 MG Tablet Take 1 Tablet by mouth in the morning and 1 Tablet before bedtime. 0 Active BELSOMRA 10 MG TABS 1 at bedtime 2 12/15/2017 Act moshe Melatonin 10 MG Capsule Take 15 mg by mouth at bedtime. Taking a 10mg with a 5mg 0 Active Magnesium 500 MG Oral Capsule Take 1 Capsule by mouth in the morning. 0 Active B-12 1000 MCG Oral Capsule Take 1 Capsule by mouth in the morning. 0 Active hydrOXYzine HCl 25 MG Oral Tablet TAKE 1-2 TABS BY MOUTH DAILY IF NEEDED FOR ANXIETY OR INSOMNIA 0 07/16/2022 Active lamoTRIgine 150 MG Oral Tablet (LaMICtal) Take 1 Tablet by mouth in the morning. 0 03/27/2023 Active Sulindac 200 MG Oral Tablet Take 1 Tablet by mouth 2 times a day. 180 Tablet 3 07/30/2023 Active Potassium Chloride ER 10 MEQ Oral Tablet Extended Release TAKE 1 TABLET BY MOUTH TWICE A DAY 180 Tablet 1 08/18/2023 Active Pravastatin Sodium 80 MG Oral Tablet TAKE 1 TABLET (80 MG) BY MOUTH IN THE MORNING 90 Tablet 1 08/18/2023 Active Gabapentin 300 MG Oral Capsule (Neurontin) TAKE 3 CAPSULES BY MOUTH IN THE MORNING AND 3 CAPS IN THE EVENING, TAKE 2 CAPS AT NOON 720 Capsule 1 10/21/2023 Active Omeprazole 40 MG Oral Capsule Delayed Release (PriLOSEC) TAKE 1 CAPSULE BY MOUTH EVERY MORNING 90 Capsule 3 10/21/2023 Active tiZANidine HCl 4 MG Oral Tablet (Zanaflex) TAKE 2 TABLETS BY MOUTH TWICE A DAY 360 Tablet 1 10/28/2023 Active Ondansetron 4 MG Oral Tablet Disintegrating (Zofran)Indications:N ausea without vomiting Place 1 Tablet on tongue every 8 hours as needed for Nausea. dissolve on tongue. 30 Tablet 1 11/04/2023 Active traMADol HCl 50 MG Oral Tablet (Ultram)Indications:C hronic bilateral low back pain without sciatica Take 1 Tablet by mouth every 6 hours as needed for Pain, Severe. 120 Tablet 0 11/04/2023 Active Cefuroxime Axetil 250 MG Oral Tablet (Ceftin)Indications:D ysuria,Suspected UTI Take 1 Tablet by mouth in the morning and 1 Tablet before bedtime. 14 Tablet 0 12/03/2023 Active documented as of this encounter (statuses as of 12/09/2023) Active Problems Problem Noted Date Diagnosed Date Bipolar disorder, current episode depressed, mil d 12/10/2022 Borderline personality disorder 12/10/2022 Other migraine, not intractable, without status migrainosus 12/10/2022 Status post total right knee replacement 022 Prediabetes 07/02/2022 Overview: Per Prediabetes protocol History of DVT (deep vein thrombosis) 01/24/2022 Primary osteoarthritis of both knees 04/29/2017 Fibromyalgia 05/26/2013 Migraine 01/27/2013 Bipolar depression Back pain Anxiety Hyperlipidemia GERD (gastroesophageal reflux disease) DDD (degenerative disc disease), lumbar documented as of this encounter (statuses as of 12/09/2023) Resolved Problems Problem Noted Date Diagnosed Date Resolved Date Status post total left knee replacement 07/18/2021 07/23/2022 Depression 06/06/2022 Overview: More specified code listed on PL DVT (deep venous thrombosis) 01/24/2022 Overview: with PE-Hx added to PL documented as of this encounter (statuses as of 12/09/2023) Immunizations Name Administration Dates Next Due COVID-19 mRNA, LNP-s, No Pre serve, 2-Dose Series (Pllop.it) 10/22/2020,10/01/2020 Seasonal Influenza, PF, 6 M & above, IM , (FluLaval or Fluzone) 06/12/2023,06/12/2022 Seasonal Influenza, QUAD, wi th Preserv, 6 mons & Above, 0.5 mL, IM 05/23/2021 TDAP (age 10 and older)(Boostrix) 05/23/2021 Zoster Vaccine Recombinant (Shingrix) 05/23/2021 documented as of this encounter Social History Tobacco Use Types Packs/Day Years Used Date Smoking Tobacco: Former Cigarettes Smokeless Tobacco: Never Alcohol Use Standard Drinks/Week Comments No 0 (1 standard drink = 0.6 oz pur e alcohol) PHQ-2 Answer Date Recorded PHQ Adult Total Score 0 12/10/2022 Hunger Vital Sign Answer Date Recorded Within the past 12 months, y ou worried that your food would run out before you got the money to buy more. Never true 12/03/19 24 Within the past 12 months, t he food you bought just didn't last and you didn't have money to get more. Never true 12/03/2023 Sex and Gender Information Value Date Recorded Sex Assigned at Female 07/21/2023 7:39 PM EDT Gender Identity Female 07/21/2023 7:39 PM EDT Sexual Orientation Straight 07/21/2023 7: 39 PM EDT Job Start Date Occupation Industry Not on file Not on file Not on file documented as of this encounter Miscellaneous Notes * Telephone Encounter - Ayla Lora OSA - 12/09/2023 1:27 PM EDT Done. 12/09/2023 * Telephone Encounter - Ayla Lora OSA - 12/06/2023 9:58 AM EDT MyG sent. 12/06/2023 * Telephone Encounter - Gordon Jimenez MD - 12/05/2023 5:56 PM EDT Office visit * Telephone Encounter - Olya Claros, computational scientist - 12/04/2023 4:53 PM EDT Pt having severe migraines She is asking for medication She can not take sumatriptan Please send new rx Thank you for your assistance Olya Claros Gum Sprayer II [facility] ([facility]) (Formerly Telepharmacy) 12/04/2023,4:54 PM documented in this encounter Plan of Treatment Upcoming Encounters Date Type Department Care Team (Late st Contact Info) Description 12/11/2023 12:20 PM EDT Office Visit [facility] [address] [place] [phone] Gordon Jimenez MD [address], [place] [phone] 07/27/2024 1:00 PM EST Office Visit Rheumatology [place] [phone] [place] [address] Joe Amos MD [address] [place] [address] Health Maintenance Due Date Last Done Comments HIV Screening 1979 Hepatitis C Screening 1982 Hepatitis B (1 of 3 - 19+ 3-dose series) 1983 Mammogram 2004 Cologuard 2009 Colonoscopy 2009 Colorectal Cancer Screening 2009 Fecal Occult Blood Test 2009 Sigmoidoscopy 2009 Zoster Vaccines (2 of 2) 07/18/2021 05/23/2021 COVID-19 Vaccine ( - season) 2023 10/22/2020, 10/01/2020 Depression Screening 12/11/2023 12/10/2022 HbA1c 07/26/2024 07/26/2023, 04/0 12/2022, 06/12/2022, Additional history exists Lipid Panel 07/26/2028 07/26/2023, 04/0 12/2022, 10/04/2021, Additional history exists DTaP,Tdap,and Td Vaccines (2 - Td or Tdap) 05/23/2031 05/23/2021 Influenza Vaccine (FLU shot) Completed , 06/12/2022, 05/23/2021 GARDASIL-HPV IMMUNIZATION SERIES Aged Out No longer eligible based on patient's age to complete this topic MENINGOCOCCAL (MENACTRA/MENVEO) Aged Out No longer eligible based on patient's age to complete this topic Pneumococcal Vaccine: Pediatrics (0 to 5 Years) and At-Risk Patients (6 to 64 Years) Aged Out No longer eligible based on patient's age to complete this topic documented as of this encounter Medical Devices Not on filedocumented as of this encounter Care Teams Box Maker Paperboard Relationship Specialty Start Date End Date Gordon Jimenez MD [address] [place] [address] PCP - General Family Medicine 10/03/21 documented as of this encounter
--- OUTSIDE RECORDS SUMMARY | 2024-01-07 21:54 | External Medical Summary | Summary of Care ---
Author Name Unknown Organization [facility] Address [address] [place] [facility] [facility] [place] [address] Phone [phone] Care Team Providers Care Fence Post Cutter Name Role Phone Gordon Jimenez MD Primary Care Provider [phone]- [phone] Reason for Visit * Reason Onset Date Comments Health Maintenance 12/10/2023 Encounter Details Date Type Department Care Team (Late st Contact Info) Description 12/10/2023 Telephone [facility] [address] [place] [address] Gordon Jimenez MD [address] [place] [address] Health Maintenance Allergies Active Allergy Reactions Criticality Noted Date Comments Celecoxib 11/20/2012 "ripps up her stomach" Citalopram Hydrobromide Unknown 11/20/2012 Clarithromycin Unknown 11/20/2012 Sumatriptan Base 11/20/2012 Tightness in jaw Macrolides And Ketolides Unknown 11/20/2012 Rizatriptan Unknown 11/20/2012 Sumatriptan Unknown 01/21/2013 documented as of this encounter (statuses as of 12/10/2023) Medications Medication Sig Dispensed Refills Start Date [...] as of this encounter (statuses as of 12/10/2023) Active Problems Problem Noted Date Diagnosed Date [...] as of this encounter (statuses as of 12/10/2023) Resolved Problems Problem Noted Date Diagnosed Date Resolved Date Status post total left knee replacement 07/18/2021 07/23/2022 Depression 06/06/2022 Overview: More specified code listed on PL DVT (deep venous thrombosis) 01/24/2022 Overview: with PE-Hx added to PL documented as of this encounter (statuses as of 12/10/2023) Immunizations Name Administration Dates Next Due COVID-19 mRNA, LNP-s, No Pre serve, 2-Dose Series (PaySimple) 10/22/2020,10/01/2020 Seasonal Influenza, PF, 6 M & [...] money to buy more. Never true 12/03/19 Within the past 12 months, t he [...] encounter Miscellaneous Notes * Telephone Encounter - Chio Medeiros LPN - 12/10/2023 9:14 AM EDT Care Gaps Comprehensive Care Outreach Last Office/Telemedicine Visit: 12/03/2023 (in office), Visit date not found (telemedicine) Next Office Visit: 12/11/2023 Hemoglobin AIC Results: Lab Results Component Value Date/Time HEMOGLOBIN A1C - [facility] 5.5 07/26/2023 10:42 AM HEMOGLOBIN A1C - [facility] 5.6 12/25/2022 09:36 AM HEMOGLOBIN A1C - [facility] 6.0 (H) 06/12/2022 12:11 PM BP Readings from Last 1 Encounters: 12/03/23 132/64 Reviewed Health Maintenance below: Health Maintenance Topic Date Due HIV Screening Never done Hepatitis C Screening Never done Hepatitis B (1 of 3 - 19+ 3-dose series) Never done Mammogram Never done Colorectal Cancer Screening Never done Zoster Vaccines (2 of 2) 07/18/2021 COVID-19 Vaccine (2022- season) 2023 Cologuard follow Pcp tomorrow Care Gap Outreach Action Taken: MyChart message sent documented in this encounter Plan of Treatment Upcoming Encounters Date Type Department Care Team (Late st Contact Info) Description 12/11/2023 12:20 PM EDT Office Visit [facility] [address] [place] [phone] Gordon Jimenez MD [address] [place] [address] 07/27/2024 1:00 PM EST Office Visit Rheumatology [place] [id number] [facility] [employer] [place] [address] Joe Amos MD [address] [employer] [facility], [place] [address] Health Maintenance Due Date Last Done Comments HIV Screening 1979 Hepatitis C Screening 1982 Hepatitis B (1 of 3 - 19+ 3-dose series) 1983 Mammogram 2004 Cologuard 2009 Colonoscopy 2009 Colorectal Cancer Screening 2009 Fecal Occult Blood Test 2009 Sigmoidoscopy 2009 Zoster Vaccines (2 of 2) 07/18/2021 05/23/2021 COVID-19 Vaccine (3 season) 2023 10/22/2020, 10/01/2020 Depression Screening 12/11/2023 [...] filedocumented as of this encounter Care Teams Fence Post Cutter Relationship Specialty Start Date End Date Gordon Jimenez MD [address] [place] [address] PCP - General Family Medicine 10/03/21 documented as of this encounter
--- OUTSIDE RECORDS SUMMARY | 2024-01-07 21:54 | External Medical Summary | Summary of Care ---
Author Name Unknown Organization [facility] Address [address] [facility] [address] Phone [phone] Care Team Providers Care Gym Supervisor Name Role Phone Edin Wilburn MD Primary Care Provider +1- [phone] Reason for Visit * Reason Onset Date Comments Medication Refill 12/26/2023 Encounter Details Date Type Department Care Team (Late st Contact Info) Description 12/26/2023 Refill [facility] [address] [place] [address] Edin Wilburn MD [address] [place] [address] Chronic bilateral low back pain without sciatica Allergies Active Allergy Reactions Criticality Noted Date Comments Celecoxib 11/20/2012 "ripps up her stomach" Citalopram Hydrobromide Unknown 11/20/2012 Clarithromycin Unknown 11/20/2012 Sumatriptan Base 11/20/2012 Tightness in jaw Macrolides And Ketolides Unknown 11/20/2012 Rizatriptan Unknown 11/20/2012 Sumatriptan Unknown 01/21/2013 documented as of this encounter (statuses as of 12/27/2023) Medications Medication Sig Dispensed Refills Start Date [...] Active Ondansetron 4 MG Oral Tablet Disintegrating (Zofran)Indications :Nausea without vomiting Place 1 Tablet on tongue every 8 hours as needed for Nausea. dissolve on tongue. 30 Tablet 1 11/04/2023 Active Cefuroxime Axetil 250 MG Oral Tablet (Ceftin)Indications :Dysuria,Suspected UTI Take 1 Tablet by mouth in the morning and 1 Tablet before bedtime. 14 Tablet 0 12/03/2023 Active Additional Information Patient not taking.Reported on 12/11/2023 Zoster Vac Recomb Adjuvanted 50 MCG/0.5ML Intramuscular Suspension Reconstituted (Shingrix) Inject 0.5 mL into a large muscle now and repeat dose in 60 to 180 days 1 Each 1 12/11/2023 Active traMADol HCl 50 MG Oral Tablet (Ultram)Indications :Chronic bilateral low back pain without sciatica Take 1 Tablet by mouth every 6 hours as needed for Pain, Severe. 120 Tablet 0 12/27/2023 Active traMADol HCl 50 MG Oral Tablet (Ultram)Indications :Chronic bilateral low back pain without sciatica Take 1 Tablet by mouth every 6 hours as needed for Pain, Severe. 120 Tablet 0 11/04/2023 12/26/19 24 Discontinu ed(Refill) documented as of this encounter (statuses as of 12/27/2023) Active Problems Problem Noted Date Diagnosed Date [...] as of this encounter (statuses as of 12/27/2023) Resolved Problems Problem Noted Date Diagnosed Date Resolved Date Status post total left knee replacement 07/18/2021 07/23/2022 Depression 06/06/2022 Overview: More specified code listed on PL DVT (deep venous thrombosis) 01/24/2022 Overview: with PE-Hx added to PL documented as of this encounter (statuses as of 12/27/2023) Immunizations Name Administration Dates Next Due COVID-19 mRNA, LNP-s, No Pre serve, 2-Dose Series (Pfizer) 10/22/2020,10/01/2020 Seasonal Influenza, PF, 6 M & [...] encounter Miscellaneous Notes * Telephone Encounter - Eidn Wilburn MD - 12/27/2023 12:17 PM EDTSigned Prescriptions: Disp Refills traMADol HCl 50 MG Oral Tablet (Ultram) 120 Ta*0 Sig: Take 1 Tablet by mouth every 6 hours as needed for Pain, Severe.Authorizing Provider: EDIN WILBURN------ * Telephone Encounter - Pam Griffin RP - 12/27/2023 10:19 AM EDTPending Prescriptions: Disp Refills traMADol HCl 50 MG Oral Tablet (Ultram) 120 Ta*0 Sig: Take 1 Tablet by mouth every 6 hours as needed for Pain, Severe. * Telephone Encounter - Pam Griffin RPh - 12/27/2023 10:18 AM EDT I have reviewed the patients controlled substance dispensing history in the Prescription Drug Monitoring Program in compliance with the [facility] regulations before prescribing a controlled substance. PDMP checked on 12/27/2023. Pending Prescriptions: Disp Refills traMADol HCl 50 MG Oral Tablet (Ultram) 120 Ta*0 Sig: Take 1 Tablet by mouth every 6 hours as needed for Pain, Severe. Last Visit: 12/11/2023 (in office), Visit date not found (telemedicine) Next Visit: 06/15/2024 Date medication was last filled: 11/04 Date medication is due for refill: 12/02 [facility]: [id number] [address] [facility] Is this request for a controlled substance? Yes and Urine Drug Screen Not completed Toxicology results: No results found for this or any previous visit. Please approve if appropriate. Thank you, Pam Griffin, PharmD Clinical Pharmacist [facility] [phone] 12/27/2023, 10:18 AM * Telephone Encounter - Ramila Jones PHARM Tech - 12/26/2023 11:11 AM EDT Did you pend patient's preferred pharmacy and medication before forwarding?yes [facility]: [id number] [address] [facility] Pending Prescriptions: Disp Refills traMADol HCl 50 MG Oral Tablet (Ultram) 120 Ta*0 Sig: Take 1 Tablet by mouth every 6 hours as needed for Pain, Severe. Last Visit: 12/11/2023 (in office), Visit date not found (telemedicine) Next Visit: 06/15/2024 If no future appointments scheduled, and last appointment is greater than a year ago, please schedule patient for a follow-up appointment Last date the medication was ordered: 11/04/2023 Is this request for a controlled substance?Yes, What was the last refill date 11/04/2023 w/ quantity 120 and dosage 50 and Urine Drug Screen Not completed Urine Drug Screen:No results found for this or any previous visit. Patient Phone Numbers Anytime DD [phone] Labs: Lab Results Component Value Date/Time CREAT 1.1 (H) 07/26/2023 10:42 AM CREAT 0.8 09/13/2020 09:15 AM POTASSIUM 4.8 07/26/2023 10:42 AM POTASSIUM 4.5 09/13/2020 09:15 AM TSH 2.58 10/04/2021 01:22 PM LDLCALC 83 07/26/2023 10:42 AM LDLCALC 76 08/23/2006 09:46 PM LDLDIRECT 84 08/23/2006 09:46 PM ALT 12 07/26/2023 10:42 AM ALT 14 05/04/2014 10:52 AM HGBA1C 5.5 07/26/2023 10:42 AM documented in this encounter Plan of Treatment Upcoming Encounters Date Type Department Care Team (Late st Contact Info) Description 06/15/2024 11:40 AM EDT Office Visit [address] [address] Edin Wilburn MD [address] [place] [address] 07/27/2024 1:00 PM EST Office Visit Rheumatology [facility] [address] [place], [place] [address] Joe Amos MD [address] [employer] [address] [place] [address] Health Maintenance Due Date Last Done Comments HIV Screening 1979 Hepatitis C Screening 1982 Hepatitis B (1 of 3 - 19+ 3-dose series) 1983 Mammogram 2004 Colonoscopy 2009 Fecal Occult Blood Test 2009 Sigmoidoscopy 2009 Zoster Vaccines (2 of 2) 07/18/2021 05/23/2021 COVID-19 Vaccine ( season) 2023 10/22/2020, 10/01/2020 Depression Screening 12/11/2023 12/10/2022 HbA1c 07/26/2024 07/26/2023, 04/0 12/2022, 06/12/2022, Additional history exists Cologuard 12/17/2026 12/18/2023 Colorectal Cancer Screening 12/17/2026 Lipid Panel 07/26/2028 07/26/2023, 04/0 12/2022, 10/04/2021, [...] Not on filedocumented as of this encounter Visit Diagnoses Diagnosis Chronic bilateral low back pain without sciatica documented in this encounter Care Teams Gym Supervisor Relationship Specialty Start Date End Date Edin Wilburn MD [address] [facility] [place] [address] PCP - General Family Medicine 10/03/21 documented as of this encounter
--- OUTSIDE RECORDS SUMMARY | 2024-01-07 21:54 | External Medical Summary | Summary of Care ---
Author Name Unknown Organization [facility] Address [address] [place] [facility] [place] [place] [address] Phone [phone] Care Team Providers Care Jig Bore Tool Maker Name Role Phone Gordon Jimenez MD Primary Care Provider +1- [phone] Reason for Visit * Reason Onset Date Comments Medication Refill 12/30/2023 Encounter Details Date Type Department Care Team (Late st Contact Info) Description 12/30/2023 Telephone [facility] [address] [place] [address] Gordon Jimenez MD [address] [place] [address] Medication Refill Allergies Active Allergy Reactions Criticality Noted Date Comments Celecoxib 11/20/2012 "ripps up her stomach" Citalopram Hydrobromide Unknown 11/20/2012 Clarithromycin Unknown 11/20/2012 Sumatriptan Base 11/20/2012 Tightness in jaw Macrolides And Ketolides Unknown 11/20/2012 Rizatriptan Unknown 11/20/2012 Sumatriptan Unknown 01/21/2013 documented as of this encounter (statuses as of 01/01/2024) Medications Medication Sig Dispensed Refills Start Date End Date Status MIRALAX PO POWD 17 gm twice daily 0 Ac tive DOCUSATE SODIUM 100 MG PO CAPS 1 [...] Active Ondansetron 4 MG Oral Tablet Disintegrating (Zofran)Indications: Nausea without vomiting Place 1 Tablet on tongue every 8 hours as needed for Nausea. dissolve on tongue. 30 Tablet 1 11/04/2023 Active Cefuroxime Axetil 250 MG Oral Tablet (Ceftin)Indications: Dysuria,Suspected UTI Take 1 Tablet by mouth in the morning and 1 Tablet before bedtime. 14 Tablet 0 12/03/2023 Active Additional Information Patient not taking.Reported on 12/11/2023 Zoster Vac Recomb Adjuvanted 50 MCG/0.5ML Intramuscular Suspension Reconstituted (Shingrix) Inject 0.5 mL into a large muscle now and repeat dose in 60 to 180 days 1 Each 1 12/11/2023 Active traMADol HCl 50 MG Oral Tablet (Ultram)Indications: Chronic bilateral low back pain without sciatica Take 1 Tablet by mouth every 6 hours as needed for Pain, Severe. 120 Tablet 0 12/27/2023 Active documented as of this encounter (statuses as of 01/01/2024) Active Problems Problem Noted Date Diagnosed Date [...] as of this encounter (statuses as of 01/01/2024) Resolved Problems Problem Noted Date Diagnosed Date Resolved Date Status post total left knee replacement 07/18/2021 07/23/2022 Depression 06/06/2022 Overview: More specified code listed on PL DVT (deep venous thrombosis) 01/24/2022 Overview: with PE-Hx added to PL documented as of this encounter (statuses as of 01/01/2024) Immunizations Name Administration Dates Next Due COVID-19 mRNA, LNP-s, No Pre serve, 2-Dose Series (TapDog) 10/22/2020,10/01/2020 Seasonal Influenza, PF, 6 M & [...] encounter Miscellaneous Notes * Telephone Encounter - Gordon Jimenez MD - 01/01/2024 9:09 AM EDT Approved by Dr Gutierrez a few days ago * Telephone Encounter - Debora Chinchilla, supervisor sample preparation - 12/30/2023 2:56 PM EDT Patient requesting refills for Diclofenac Sodium 1 % External Gel (Voltaren) . Upon chart review, medication is listed as discontinued, with discontinuation reason as "patient preference". Please advise if you wish to continue this therapy for the patient. Thank you, Debora Chinchilla Rolling Mill Plugger I [facility] ([facility]) (Formerly Telepharmacy) 12/30/2023,2:56 PM documented in this encounter Plan of Treatment Upcoming Encounters Date Type Department Care Team (Late st Contact Info) Description 06/15/2024 11:40 AM EDT Office Visit [facility] [address] [place] [facility] [phone] Gordon Jimenez MD [address] [place] [address] 07/27/2024 1:00 PM EST Office Visit Rheumatology [place] [phone] [place] [address] Joe Amos MD [address] [employer] [place] [address] Health Maintenance Due Date Last Done Comments HIV Screening 1979 Hepatitis C Screening 1982 Hepatitis B (1 of 3 - 19+ 3-dose series) 1983 Mammogram 2004 Colonoscopy 2009 Fecal Occult Blood Test 2009 Sigmoidoscopy 2009 Zoster Vaccines (2 of 2) 07/18/2021 05/23/2021 COVID-19 Vaccine (3 - 2022- season) 2023 10/22/2020, 10/01/2020 HbA1c 07/26/2024 07/26/2023, 04/0 12/2022, 06/12/2022, Additional [...] filedocumented as of this encounter Care Teams Jig Bore Tool Maker Relationship Specialty Start Date End Date Gordon Jimenez MD [address] [place] [address] PCP - General Family Medicine 10/03/21 documented as of this encounter
--- OUTSIDE RECORDS SUMMARY | 2024-01-07 21:54 | External Medical Summary | Summary of Care ---
Author Name Unknown Organization [facility] Address [address] [place] [facility] [place] [address] Phone [phone] Care Team Providers Care Hvac/R Instructor Name Role Phone Gordon Jimenez MD Primary Care Provider +1- [phone] Reason for Visit * Reason Onset Date Comments Med Request 12/04/2023 Encounter Details Date Type Department Care Team (Late st Contact Info) Description 12/04/2023 Telephone [facility] [address] [place] [address] Gordon Jimenez MD [address] [place] [address] Med Request Allergies Active Allergy Reactions Criticality Noted Date Comments Celecoxib 11/20/2012 "ripps up her stomach" Citalopram Hydrobromide Unknown 11/20/2012 Clarithromycin Unknown 11/20/2012 Sumatriptan Base 11/20/2012 Tightness in jaw Macrolides And Ketolides Unknown 11/20/2012 Rizatriptan Unknown 11/20/2012 Sumatriptan Unknown 01/21/2013 documented as of this encounter (statuses as of 12/06/2023) Medications Medication Sig Dispensed Refills Start Date [...] as of this encounter (statuses as of 12/06/2023) Active Problems Problem Noted Date Diagnosed Date [...] as of this encounter (statuses as of 12/06/2023) Resolved Problems Problem Noted Date Diagnosed Date Resolved Date Status post total left knee replacement 07/18/2021 07/23/2022 Depression 06/06/2022 Overview: More specified code listed on PL DVT (deep venous thrombosis) 01/24/2022 Overview: with PE-Hx added to PL documented as of this encounter (statuses as of 12/06/2023) Immunizations Name Administration Dates Next Due COVID-19 mRNA, LNP-s, No Pre serve, 2-Dose Series ([employer]) 10/22/2020,10/01/2020 Seasonal Influenza, PF, 6 M & [...] Office visit * Telephone Encounter - Olya Claros forge operator - 12/04/2023 4:53 PM EDT Pt having severe migraines She is asking for medication She can not take sumatriptan Please send new rx Thank you for your assistance Olya Claros Granulating Blender II [facility] (Former[facility]) 12/04/2023,4:54 PM documented in this encounter Plan of Treatment Upcoming Encounters Date Type Department Care Team (Late st Contact Info) Description 12/11/2023 12:20 PM EDT Office Visit [address] [address] Gordon Jimenez MD [address] [place] [address] 07/27/2024 1:00 PM EST Office Visit Rheumatology [facility] [address] [place] [address] Joe Amos MD [address] [place], [place] [address] Health Maintenance Due Date Last Done Comments HIV Screening 1979 Hepatitis C Screening 1982 Hepatitis B (1 of 3 - 19+ 3-dose series) 1983 Mammogram 2004 Cologuard 2009 Colonoscopy 2009 Colorectal Cancer Screening 2009 Fecal Occult Blood Test 2009 Sigmoidoscopy 2009 Zoster Vaccines (2 of 2) 07/18/2021 05/23/2021 COVID-19 Vaccine (3 - 2022- season) 2023 10/22/2020, 10/01/2020 Depression Screening 12/11/2023 [...] filedocumented as of this encounter Care Teams Hvac/R Instructor Relationship Specialty Start Date End Date Gordon Jimenez MD [address] [place] [address] PCP - General Family Medicine 10/03/21 documented as of this encounter
--- OUTSIDE RECORDS SUMMARY | 2024-01-07 21:54 | External Medical Summary | Summary of Care ---
Author Name Unknown Organization [facility] Address [address] [place] [address] Phone [phone] Care Team Providers Care Manager Payer Name Role Phone Gordon Wilburn MD Primary Care Provider +1- [phone] Reason for Visit * Reason Comments Status Check Return in 6 months Encounter Details Date Type Department Care Team (Latest Contact Info) Description 12/11/2023 12:20 PM EDT Office Visit [facility] [address] [place] [address] Gordon Wilburn MD [address] [place] [address] Gastroesophageal reflux disease, unspecified whether esophagitis present*; Screen for colon cancer; Cervicalgia; Prediabetes; Hyperlipidemia, unspecified hyperlipidemia type; Primary osteoarthritis of both knees; Other migraine without status migrainosus, not intractable; Anxiety; Encounter for long-term (current) use of medications Allergies Active Allergy Reactions Criticality Noted Date Comments Celecoxib 11/20/2012 "ripps up her stomach" Citalopram Hydrobromide Unknown 11/20/2012 Clarithromycin Unknown 11/20/2012 Sumatriptan Base 11/20/2012 Tightness in jaw Macrolides And Ketolides Unknown 11/20/2012 Rizatriptan Unknown 11/20/2012 Sumatriptan Unknown 01/21/2013 documented as of this encounter (statuses as of 12/11/2023) Medications Medication Sig Dispensed Refills Start Date [...] 180 days 1 Each 1 12/11/2023 Active documented as of this encounter (statuses as of 12/11/2023) Active Problems Problem Noted Date Diagnosed Date [...] as of this encounter (statuses as of 12/11/2023) Resolved Problems Problem Noted Date Diagnosed Date Resolved Date Status post total left knee replacement 07/18/2021 07/23/2022 Depression 06/06/2022 Overview: More specified code listed on PL DVT (deep venous thrombosis) 01/24/2022 Overview: with PE-Hx added to PL documented as of this encounter (statuses as of 12/11/2023) Immunizations Name Administration Dates Next Due COVID-19 [...] Smoking Tobacco: Former Cigarettes Smokeless Tobacco: Never Tobacco Cessation:Counseling Given: Not Answered Alcohol Use Standard Drinks/Week Comments No 0 [...] on file documented as of this encounter Last Filed Vital Signs Vital Sign Reading Time Taken Comments Blood Pressure 126/60 12/11/2023 12:02 PM EDT Pulse 72 12/11/2023 12:02 PM EDT Temperature 36.3 C (97.3 F) 12/11/2023 12:02 PM E DT Respiratory Rate 18 12/11/2023 12:02 PM EDT Oxygen Saturation 96% 12/11/2023 12:02 PM EDT Inhaled Oxygen Concentration - - Weight 93.6 kg (206 lb 6.4 oz) 12/11/2023 12:02 PM EDT Height 172.7 cm (5' 8") 12/11/2023 12:02 PM EDT Body Mass Index 31.38 12/11/2023 12:02 PM EDT documented in this encounter Progress Notes * Gordon Wilburn MD - 12/11/2023 12:33 PM EDT Subjective: Nel Salgado is a 58 year old female here today for Chief Complaint Patient presents with Status Check Return in 6 months Pt presents for routine 6 month return. Tolerating current meds. Busy in regards to taking care of her parents. Is having increased neck pain. No new injury. Increased migraines as well. Has not tolerated statins in the past and not interested in trying them again. No symptoms into the upper extremities. Reviewed most recent labs from July. Pt agreeable to shingrix and cologuard Past Medical History: Diagnosis Date Anxiety Back pain Bipolar depression (HCC) DDD (degenerative disc disease), lumbar Depression DVT (deep venous thrombosis) (HCC) with PE GERD (gastroesophageal reflux disease) Hyperlipidemia Migraine 01/27/2013 Past Surgical History: Procedure Laterality Date APPENDECTOMY W/OTHER PROCEDURE EGD, FLEXIBLE, DIAGNOSTIC 09/12/2022 normal / ESOPHAGOGASTRODUODENOSCOPY (EGD), FLEXIBLE, TRANSORAL, DIAGNOSTIC performed by Marilu Gonzalez DO at ENDOSCOPY [facility] EXTRACTION,ERUPTED TOOTH OR EXPOSED ROOT FLUORO ERCP LIVER BIOPSY (GI) REMOVE GALLBLADDER 1990 SHOULDER ARTHROSCOPY SURGERY bialteral shoulder surgery Dr Chaudhry TOTAL ABD HYSTERECTOMY W/WO REMOVAL OF TUBE(S) 09/23/1985 h/o of endometriosis Review of patient's allergies indicates: Allergen Reactions Celebrex [Celecoxib] "ripps up her stomach" Citalopram Hydrobromide Unknown Clarithromycin Unknown Imitrex [Sumatriptan Base] Tightness in jaw Macrolides And Ketolides Unknown Rizatriptan Unknown Sumatriptan Unknown Current Outpatient Medications Medication Sig Dispense Refill MIRALAX PO POWD 17 gm twice daily DOCUSATE SODIUM 100 MG PO CAPS 1 cap twice daily Cholecalciferol (VITAMIN D) 1000 UNIT Capsule 1 daily QUEtiapine Fumarate 400 MG Oral Tablet At bedtime daily Melatonin 5 MG Oral Tablet 1 Tablet at bedtime. traZODone (DESYREL) 100 MG Tablet 2 tabs daily 0 lamoTRIgine (LAMICTAL) 200 MG Tablet Take 0.5 Tablets by mouth at bedtime. busPIRone (BUSPAR) 15 MG Tablet Take 1 Tablet by mouth in the morning and 1 Tablet before bedtime. BELSOMRA 10 MG TABS 1 at bedtime 2 Melatonin 10 MG Capsule Take 15 mg by mouth at bedtime. Taking a 10mg with a 5mg Magnesium 500 MG Oral Capsule Take 1 Capsule by mouth in the morning. B-12 1000 MCG Oral Capsule Take 1 Capsule by mouth in the morning. hydrOXYzine HCl 25 MG Oral Tablet TAKE 1-2 TABS BY MOUTH DAILY IF NEEDED FOR ANXIETY OR INSOMNIA lamoTRIgine 150 MG Oral Tablet (LaMICtal) Take 1 Tablet by mouth in the morning. Sulindac 200 MG Oral Tablet Take 1 Tablet by mouth 2 times a day. 180 Tablet 3 Potassium Chloride ER 10 MEQ Oral Tablet Extended Release TAKE 1 TABLET BY MOUTH TWICE A DAY 180 Tablet 1 Pravastatin Sodium 80 MG Oral Tablet TAKE 1 TABLET (80 MG) BY MOUTH IN THE MORNING 90 Tablet 1 Gabapentin 300 MG Oral Capsule (Neurontin) TAKE 3 CAPSULES BY MOUTH IN THE MORNING AND 3 CAPS IN THE EVENING, TAKE 2 CAPS AT NOON 720 Capsule 1 Omeprazole 40 MG Oral Capsule Delayed Release (PriLOSEC) TAKE 1 CAPSULE BY MOUTH EVERY MORNING 90 Capsule 3 tiZANidine HCl 4 MG Oral Tablet (Zanaflex) TAKE 2 TABLETS BY MOUTH TWICE A DAY 360 Tablet 1 Ondansetron 4 MG Oral Tablet Disintegrating (Zofran) Place 1 Tablet on tongue every 8 hours as needed for Nausea. dissolve on tongue. 30 Tablet 1 traMADol HCl 50 MG Oral Tablet (Ultram) Take 1 Tablet by mouth every 6 hours as needed for Pain, Severe. 120 Tablet 0 Zoster Vac Recomb Adjuvanted 50 MCG/0.5ML Intramuscular Suspension Reconstituted (Shingrix) Inject 0.5 mL into a large muscle now and repeat dose in 60 to 180 days 1 Each 1 Cefuroxime Axetil 250 MG Oral Tablet (Ceftin) Take 1 Tablet by mouth in the morning and 1 Tablet before bedtime. (Patient not taking: Reported on 12/11/2023) 14 Tablet 0 No current facility-administered medications for this visit. Objective: BP 126/60 | Pulse 72 | Temp 36.3 C (97.3 F) (Temporal Artery) | Resp 18 | Ht 1.727 m(5' 8") | Wt 93.6 kg (206 lb 6.4 oz) | SpO2 96% | BMI 31.38 kg/m | BSA 2.12 m GEN: NAD HEENT: Benign NECK: Supple with no LAD, TM, JVD CHEST: CTA B CV: RRR ABD: Soft, NT/ND, No HSM, NABS EXT: No c,c,e Assessment and Plan: Gastroesophageal reflux disease, unspecified whether esophagitis present (Primary) -continue current meds. Adequate relief/control Screen for colon cancer - COLOGUARD Cervicalgia - XR C SPINE 2-3 VIEWS; Future; Expected date: 12/11/2023 -consider PT depending on results. Prediabetes -continue to monitor labs twice per year Hyperlipidemia, unspecified hyperlipidemia type -pravastiatin Primary osteoarthritis of both knees Other migraine without status migrainosus, not intractable -likely exacerbated by neck issues. Call for new or worsening symptoms. Discussed options includingreferral to pain management and neurology. Anxiety -continue same meds Other orders - Zoster Vac Recomb Adjuvanted 50 MCG/0.5ML Intramuscular Suspension Reconstituted (Shingrix); Inject 0.5 mL into a large muscle now and repeat dose in 60 to 180 days Follow Up: Return in about 6 months (around 06/12/2024) for recheck. | For: recheck 45 min with pt, chart review, documentation Gordon Wilburn MD documented in this encounter Nursing Notes * Sarita Ha LPN - 12/11/2023 12:02 PM EDT The patient has been properly identified by confirmation of name and date of . Chief Complaint Patient presents with Status Check Return in 6 months documented in this encounter Miscellaneous Notes * Addendum Note - Gordon Wilburn MD - 12/11/2023 8:10 PM EDTAddended by: GORDON WILBURN on: 12/11/2023 08:10 PM Modules accepted: Orders documented in this encounter Plan of Treatment Upcoming Encounters Date Type Department Care Team (Late st Contact Info) Description 06/15/2024 11:40 AM EDT Office Visit [facility] [address] [place] [facility] [place] [address] Gordon Wilburn MD [address] [place] [address] 07/27/2024 1:00 PM EST Office Visit Rheumatology [place] [address] [place] [address] Joe Amos MD [facility] [place] [address] Pending Results Name Type Priority Associated Diagnoses Date /Time XR C SPINE 2-3 VIEWS Medical Imaging Routine Cervicalgia 12/11/2023 2:31 PM EDT Scheduled Orders Name Type Priority Associated Diagnoses Orde r Schedule COLOGUARD Lab Unrestricted Lab Screen for colon cancer Ordered: 12/11/2023 XR C SPINE 2-3 VIEWS Medical Imaging Routine Cervicalgia Expected: 12/11/2023, Expires: 01/10/2025 HEMOGLOBIN A1C Lab Routine Prediabetes Expected: 12/11/2023 (Approximate), Expires: 12/10/2024 COMPREHENSIVE METABOLIC PANEL Lab Routine Prediabetes Hyperlipidemia, unspecified hyperlipidemia type Expected: 12/11/2023 (Approximate), Expires: 12/10/2024 LIPID PANEL WITH DIRECT LDL IF TG IS HIGH Lab Routine Hyperlipidemia, unspecified hyperlipidemia type Expected: 12/11/2023, Expires: 12/10/2024 VITAMIN B12 Lab Routine Encounter for long-term (current) use of medications Expected: 12/11/2023 (Approximate), Expires: 12/10/2024 MAGNESIUM Lab Routine Encounter for long-term (current) use of medications Expected: 12/11/2023 (Approximate), Expires: 12/10/2024 Health Maintenance Due Date Last Done Comments HIV Screening 1979 Hepatitis C Screening 1982 Hepatitis B (1 of 3 - 19+ 3-dose series) 1983 Mammogram 2004 Cologuard 2009 Colonoscopy 2009 Colorectal Cancer Screening 2009 Fecal Occult Blood Test 2009 Sigmoidoscopy 2009 Zoster Vaccines (2 of 2) 07/18/2021 05/23/2021 COVID-19 Vaccine (3 - season) 2023 10/22/2020, 10/01/2020 Depression Screening [...] as of this encounter Visit Diagnoses Diagnosis Gastroesophageal reflux disease, unspecified whether esophagitis present- Primary Screen for colon cancer Special screening for malignant neoplasms, colon Cervicalgia Prediabetes Other abnormal glucose Hyperlipidemia, unspecified hyperlipidemia type Primary osteoarthritis of both knees Primary localized osteoarthrosis, lower leg Other migraine without status migrainosus, not intractable Anxiety Anxiety state, unspecified Encounter for long-term (current) use of medications Encounter for long-term (current) use of other medications documented in this encounter Care Teams Manager Payer Relationship Specialty Start Date End Date Gordon Wilburn MD [address] [place], [place] [id number] PCP - General Family Medicine 10/03/21 documented as of this encounter
--- OUTSIDE RECORDS SUMMARY | 2024-01-07 21:54 | External Medical Summary | Summary of Care ---
Author Name Unknown Organization [facility] Address [address] [place] [address] Phone [phone] Care Team Providers Care Laborer Poultry Hatchery Name Role Phone Edin Wilburn MD Primary Care Provider +1- [phone] Reason for Visit * Reason Comments Status Check Return in 6 months Encounter Details Date Type Department Care Team (Latest Contact Info) Description 12/11/2023 12:20 PM EDT Office Visit [facility] [address] [place] [address] Edin Wilburn MD [address] [place] [address] Gastroesophageal reflux disease, unspecified [...] documented in this encounter Progress Notes * Edin Wilburn MD - 12/11/2023 12:33 PM EDT [...] 45 min with pt, chart review, documentation Edin Wilburn MD documented in this encounter Nursing Notes * Sarita Ha LPN - 12/11/2023 12:02 PM EDT The patient has been properly identified by confirmation of name and date of . Chief Complaint Patient presents with Status Check Return in 6 months documented in this encounter Miscellaneous Notes * Addendum Note - Edin Wilburn MD - 12/11/2023 8:10 PM EDTAddended by: EDIN WILBURN on: 12/11/2023 08:10 PM Modules accepted: Orders documented in this encounter Plan of Treatment Upcoming Encounters Date Type Department Care Team (Late st Contact Info) Description 06/15/2024 11:40 AM EDT Office Visit [facility] [address] [place] [facility] [place] [address] Edin Wilburn MD [address] [place] [address] 07/27/2024 1:00 PM EST Office Visit Rheumatology [place] [id number] [place] [address] Joe Amos MD [facility] [place] [address] Scheduled Orders Name Type Priority Associated Diagnoses Orde r Schedule HEMOGLOBIN A1C Lab Routine Prediabetes Expected: 12/11/2023 [...] Not on filedocumented as of this encounter Procedures Procedure Name Priority Date/Time Associated Diagnosis Comments COLOGUARD Unrestricted Lab 12/18/2023 6:10 PM EDT Screen for colon cancer documented in this encounter Results * COLOGUARD (12/18/2023 6:10 PM EDT) COLOGUARD Negative Negative [facility] (CLIA #:[id number]) Comment: NEGATIVE TEST RESULT. A negative Cologuard result indicates a low likelihood that a colorectal cancer (CRC) or advanced adenoma (adenomatous polyps with more advanced pre-malignant features) is present. The chance that a person with a negative Cologuard test has a colorectal cancer is less than 1 in 1500 (negative predictive value >99.9%) or has an advanced adenoma is less than 5.3% (negative predictive value 94.7%). These data are based on a prospective cross-sectional study of 10,000 individuals at average risk for colorectal cancer who were screened with both Cologuard and colonoscopy. (Karrie Abdi, N Engl J Med 2014;370(14):1286- 1297) The normal value (reference range) for this assay is negative. COLOGUARD RE-SCREENING RECOMMENDATION: Periodic colorectal cancer screening is an important part of preventive healthcare for asymptomatic individuals at average risk for colorectal cancer. Following a negative Cologuard result, the [place] [employer] and U.S. Multi-Society Task Force screening guidelines recommend a Cologuard re-screening interval of 3 years. References: [place] [employer] Guideline for Colorectal Cancer Screening: https://www.cancer.org/cancer/pboog-lgvpnq-bbrhfr/frmjyiilr-vkddixjnm-larwtle/ac s-rec ommendations.html.; Ridge DK, Amina MYERS, Morro GreenK, Colorectal Cancer Screening: Recommendations for Physicians and Patients from the U.S. Multi-Society Task Force on Colorectal Cancer Screening , Am J Gastroenterology 2017; 112:4202-5562. TEST DESCRIPTION: Composite algorithmic analysis of stool DNA-biomarkers with hemoglobin immunoassay. Quantitative values of individual biomarkers are not reportable and are not associated with individual biomarker result reference ranges. Cologuard is intended for colorectal cancer screening of adults of either sex, 45 years or older, who are at average-risk for colorectal cancer (CRC). Cologuard has been approved for use by the U.S. FDA. The performance of Cologuard was established in a cross sectional study of average-risk adults aged 50-84. Cologuard performance in patients ages 45 to 49 years was estimated by sub-group analysis of near-age groups. Colonoscopies performed for a positive result may find as the most clinically significant lesion: colorectal cancer [4.0%], advanced adenoma (including sessile serrated polyps greater than or equal to 1cm diameter) [20%] or non- advanced adenoma [31%]; or no colorectal neoplasia [45%]. These estimates are derived from a prospective cross-sectional screening study of 10,000 individuals at average risk for colorectal cancer who were screened with both Cologuard and colonoscopy. (Karrie Abdi, N Engl J Med 2014;370(14):6848-3594.) Cologuard may produce a false negative or false positive result (no colorectal cancer or precancerous polyp present at colonoscopy follow up). A negative Cologuard test result does not guarantee the absence of CRC or advanced adenoma (pre-cancer). The current Cologuard screening interval is every 3 years. ([place] [employer] and U.S. Multi-Society Task Force). Cologuard performance data in a 10,000 patient pivotal study using colonoscopy as the reference method can be accessed at the following location: www.Cswitch.BodyGuardz/results. Additional description of the Cologuard test process, warnings and precautions can be found at www.Tunesatrd.com. Stool 12/18/2023 6:10 PM EDT 12/21/2023 7:55 AM EDT Edin Wilburn MD LAB FLUID AND STOO L ORDERABLES [employer], [employer], [employer] [address] [facility], [address] [place] [address], [facility] [employer] (CLIA #:[id number]) [address] [place] [address] * XR C SPINE 2-3 VIEWS (12/11/2023 2:31 PM EDT) Anatomical Region Laterality Modality Vertebra, Spine, Cspine Computed Radiography 12/14/2023 11:4 5 AM EDT Impressions 12/14/2023 11:42 AM EDT IMPRESSION As above. Narrative 12/14/2023 11:42 AM EDT EXAM XR C SPINE 2-3 VIEWS,12/11/2023 2:31 pm HISTORY 58 y/o withcervicalgia, no trauma. COMPARISON None. TECHNIQUE AP and lateral views of the cervical spine. FINDINGS No visible fracture. AP alignment is normal. There is loss of the cervical lordosis. Intervertebral disc spaces are preserved. Mild facet and uncovertebral joint arthropathy noted. No gross soft tissue abnormality. Procedure Note Danny Espinal MD - 12/14/2023 EXAM XR C SPINE 2-3 VIEWS,12/11/2023 2:31 pm HISTORY 58 y/o withcervicalgia, no trauma. COMPARISON None. TECHNIQUE AP and lateral views of the cervical spine. FINDINGS No visible fracture. AP alignment is normal. There is loss of thecervical lordosis. Intervertebral disc spaces are preserved. Mild facetand uncovertebral joint arthropathy noted. No gross soft tissueabnormality. IMPRESSION IMPRESSION As above. Edin Wilburn MD RADIOLOGY (RAD GEN ERAL) documented in this encounter Visit Diagnoses Diagnosis Gastroesophageal reflux [...] for long-term (current) use of other medications Cervicalgia documented in this encounter Care Teams Laborer Poultry Hatchery Relationship Specialty Start Date End Date Edin Wilburn MD [address] [place] [address] PCP - General Family Medicine 10/03/21 documented as of this encounter
--- OUTSIDE RECORDS SUMMARY | 2024-01-07 21:54 | External Medical Summary | Summary of Care ---
Author Name Unknown Organization [facility] Address [address] [place] [address] Phone [phone] Care Team Providers Care Director Database Name Role Phone Edin Wilburn MD Primary Care Provider +1- [phone] Reason for Visit * Reason Comments Status Check Return in 6 months Encounter Details Date Type Department Care Team (Latest Contact Info) Description 12/11/2023 12:20 PM EDT Office Visit [facility] [address] [place] [address] Edin Wilburn MD [address] [place] [address] Gastroesophageal reflux disease, unspecified whether [...] documented in this encounter Miscellaneous Notes * Result Encounter Note - Cinda Rudd RN - 12/27/2023 10:55 AM EDT Reason for Call: Cologuard Contact: My Buddyer Contact Type: Test Results Outcome: MyChart letter sent Face to face time spent with Patient (minutes): 0 Total Time including non face to face (minutes): 10 * Result Encounter Note - Cinda Rudd RN - 12/27/2023 10:55 AM EDT Cologuard Negative. MyChart letter sent * Addendum Note - Edin Wilburn MD - 12/11/2023 8:10 PM EDTAddended by: EDIN WILBURN on: 12/11/2023 08:10 PM Modules accepted: Orders documented in this encounter Plan of Treatment Upcoming Encounters Date Type Department Care Team (Late st Contact Info) Description 06/15/2024 11:40 AM EDT Office Visit [facility] [address] [place] [address] Edin Wilburn MD [address] [place] [address] 07/27/2024 1:00 PM EST Office Visit Rheumatology [address] [place] [address] Joe Amos MD [facility] [place] [address] Scheduled Orders Name Type Priority Associated Diagnoses [...] 2) 07/18/2021 05/23/2021 COVID-19 Vaccine ( - 2022- season) 2023 10/22/2020, 10/01/2020 Depression [...] 6:10 PM EDT) COLOGUARD Negative Negative [facility] (CLIA #:[id number]) Comment: NEGATIVE TEST RESULT. A negative Cologuard [...] screened with both Cologuard and colonoscopy. (Karrie Gaffney al, N Engl J Med 2014;370(14):1286- 1297) The normal value (reference range) for this assay is negative. COLOGUARD RE-SCREENING RECOMMENDATION: Periodic colorectal cancer screening is an important part of preventive healthcare for asymptomatic individuals at average risk for colorectal cancer. Following a negative Cologuard result, the [place] [employer] and U.S. Multi-Society Task Force screening guidelines recommend a Cologuard re-screening interval of 3 years. References: [place] [employer] Guideline for Colorectal Cancer Screening: https://www.cancer.org/cancer/lbwha-iyyxad-enyjoj/fpgprevnx-dqthmqzzj-lykezmx/ac s-rec ommendations.html.; Ridge DK, Amina CR, Morro GreenK, Colorectal Cancer Screening: Recommendations for Physicians and Patients from the U.S. Multi-Society Task Force on Colorectal Cancer Screening , Am J Gastroenterology 2017; 112:3254-0131. TEST DESCRIPTION: Composite algorithmic analysis of stool [...] screened with both Cologuard and colonoscopy. (Karrie Gaffney al, N Engl J Med 2014;370(14):6191-6445.) Cologuard may produce a false negative or false positive result (no colorectal cancer or precancerous polyp present at colonoscopy follow up). A negative Cologuard test result does not guarantee the absence of CRC or advanced adenoma (pre-cancer). The current Cologuard screening interval is every 3 years. ([place] [employer] and U.S. Multi-Society Task Force). Cologuard performance data in a 10,000 patient pivotal study using colonoscopy as the reference method can be accessed at the following location: www.Asuum.IdentityForge/results. Additional description of the Cologuard test process, warnings and precautions can be found at www.cologuard.com. Stool 12/18/2023 6:10 PM EDT 12/21/2023 7:55 AM EDT Edin Wilburn MD LAB FLUID AND STOO L ORDERABLES [employer] [address], [address] [place] [address], [place] [employer] (CLIA #:[id number]) [address] [place] [address] * XR C SPINE 2-3 VIEWS (12/11/2023 [...] Cervicalgia documented in this encounter Care Teams Director Database Relationship Specialty Start Date End Date Edin Wilburn MD [address] [place] [address] PCP - General Family Medicine 10/03/21 documented as of this encounter
--- OUTSIDE RECORDS SUMMARY | 2024-01-07 21:54 | External Medical Summary | Summary of Care ---
Author Name Unknown Organization [facility] Address [address] [place] [address] Phone [phone] Care Team Providers Care Locomotive Supervisor Name Role Phone Gordon Wilburn MD Primary Care Provider +1- [phone] Reason for Visit * Reason Comments Status Check Return in 6 months Encounter Details Date Type Department Care Team (Latest Contact Info) Description 12/11/2023 12:20 PM EDT Office Visit [facility] [address] [place] [address] Gordon Wilburn MD [address] [place] [address] Gastroesophageal reflux disease, unspecified whether [...] Description 06/15/2024 11:40 AM EDT Office Visit [facility] [address] [place] [facility] [place] [address] Gordon Wilburn MD [address] [place] [address] 07/27/2024 1:00 PM EST Office Visit Rheumatology [place] [address] [place] [address] Joe Amos MD [facility] [place] [address] Pending Results Name Type Priority Associated Diagnoses [...] medications documented in this encounter Care Teams Locomotive Supervisor Relationship Specialty Start Date End Date Gordon Wilburn MD [address] [place], [place] [id number] PCP - General Family Medicine 10/03/21 documented as of this encounter
--- OUTSIDE RECORDS SUMMARY | 2024-01-07 21:54 | External Medical Summary | Summary of Care ---
Author Name Unknown Organization [facility] Address [address] [place] [facility] [place] [address] Phone [phone] Care Team Providers Care Program Engineer Name Role Phone Gordon Jimenez MD Primary Care Provider +1- [phone] Reason for Visit * Reason Onset Date Comments Med Request 12/04/2023 Encounter Details Date Type Department Care Team (Late st Contact Info) Description 12/04/2023 Telephone [facility] [address] [place] [address] Gordon Jimenez MD [address] [place] [address] Med Request Allergies Active Allergy [...] mRNA, LNP-s, No Pre serve, 2-Dose Series ([employer]) 10/22/2020,10/01/2020 Seasonal Influenza, PF, 6 M & [...] sent. 12/06/2023 * Telephone Encounter - Gordon Jmienez MD - 12/05/2023 5:56 PM EDT Office visit * Telephone Encounter - Olya Claros process maintenance technician - 12/04/2023 4:53 PM EDT Pt having severe migraines She is asking for medication She can not take sumatriptan Please send new rx Thank you for your assistance Olya Claros Medical Coding Technician II [facility] ([facility]) (Formerly Telepharmacy) 12/04/2023,4:54 PM documented in this encounter Plan of Treatment Upcoming Encounters Date Type Department Care Team (Late st Contact Info) Description 12/11/2023 12:20 PM EDT Office Visit [facility] [address] [place] [facility] [place] [id number] Gordon Jimenez MD [address] [place] [address] 07/27/2024 1:00 PM EST Office Visit Rheumatology [facility] [address] [place] [address] Joe Amos MD [address] [place] [address] Health Maintenance Due Date Last Done Comments [...] filedocumented as of this encounter Care Teams Program Engineer Relationship Specialty Start Date End Date Gordon Jimenez MD [address] [place] [address] PCP - General Family Medicine 10/03/21 documented as of this encounter
--- OUTSIDE RECORDS SUMMARY | 2024-01-07 21:54 | External Medical Summary | Summary of Care ---
Author Name Unknown Organization [facility] Address [address] [facility] [place] [address] Phone [phone] Care Team Providers Care Corporate Counselor Name Role Phone Gordon Jimenez MD Primary Care Provider +1- [phone] Reason for Visit * Reason Onset Date Comments Med Request 12/04/2023 Encounter Details Date Type Department Care Team (Late st Contact Info) Description 12/04/2023 Telephone [facility] [address] [place] [address] Gordon Jimenez MD [address] [place] [address] Med Request Allergies Active Allergy Reactions Criticality Noted Date Comments Celecoxib 11/20/2012 "ripps up her stomach" Citalopram Hydrobromide Unknown 11/20/2012 Clarithromycin Unknown 11/20/2012 Sumatriptan Base 11/20/2012 Tightness in jaw Macrolides And Ketolides Unknown 11/20/2012 Rizatriptan Unknown 11/20/2012 Sumatriptan Unknown 01/21/2013 documented as of this encounter (statuses as of 12/05/2023) Medications Medication Sig Dispensed Refills Start Date [...] as of this encounter (statuses as of 12/05/2023) Active Problems Problem Noted Date Diagnosed Date [...] as of this encounter (statuses as of 12/05/2023) Resolved Problems Problem Noted Date Diagnosed Date Resolved Date Status post total left knee replacement 07/18/2021 07/23/2022 Depression 06/06/2022 Overview: More specified code listed on PL DVT (deep venous thrombosis) 01/24/2022 Overview: with PE-Hx added to PL documented as of this encounter (statuses as of 12/05/2023) Immunizations Name Administration Dates Next Due COVID-19 mRNA, LNP-s, No Pre serve, 2-Dose Series ([employer]) 10/22/2020,10/01/2020 Seasonal Influenza, PF, 6 M & [...] visit * Telephone Encounter - Olya Claros crm campaign manager - 12/04/2023 4:53 PM EDT Pt having severe migraines She is asking for medication She can not take sumatriptan Please send new rx Thank you for your assistance Olya Claros Registered Radiographer II [facility] ([facility]) (Formerly Telepharmacy) 12/04/2023,4:54 PM documented in this encounter Plan of Treatment Upcoming Encounters Date Type Department Care Team (Late st Contact Info) Description 12/11/2023 12:20 PM EDT Office Visit [address] [address] Gordon Jimenez MD [address] [place] [address] 07/27/2024 1:00 PM EST Office Visit Rheumatology [facility] [address] [place] [address] Joe Amos MD [address] [place], [place] [address] Health Maintenance Due Date Last Done Comments [...] filedocumented as of this encounter Care Teams Corporate Counselor Relationship Specialty Start Date End Date Gordon Jimenez MD [address] [place] [address] PCP - General Family Medicine 10/03/21 documented as of this encounter
--- OUTSIDE RECORDS SUMMARY | 2024-01-07 21:54 | External Medical Summary | Summary of Care ---
Author Name Unknown Organization [facility] Address [address] [facility] [address] Phone [phone] Care Team Providers Care Ice Guard Tester Name Role Phone Gordon Jimenez MD Primary Care Provider +1- [phone] Reason for Visit * Reason Onset Date Comments Med Request 12/27/2023 Encounter Details Date Type Department Care Team (Late st Contact Info) Description 12/27/2023 Refill Rheumatology [address] [place] [address] Masood Sellers MD [address] [place] [address] [place] [address] Allergies Active Allergy Reactions Criticality Noted Date Comments Celecoxib 11/20/2012 "ripps up her stomach" Citalopram Hydrobromide Unknown 11/20/2012 Clarithromycin Unknown 11/20/2012 Sumatriptan Base 11/20/2012 Tightness in jaw Macrolides And Ketolides Unknown 11/20/2012 Rizatriptan Unknown 11/20/2012 Sumatriptan Unknown 01/21/2013 documented as of this encounter (statuses as of 12/30/2023) Medications Medication Sig Dispensed Refills Start Date [...] Pain, Severe. 120 Tablet 0 12/27/2023 Active Diclofenac Sodium 1 % External Gel (Voltaren) PLACE 2 GRAMS TOPICALLY ON THE SKIN 4 TIMES A DAY. APPLY TO KNEES 500 g 5 12/30/2023 Active documented as of this encounter (statuses as of 12/30/2023) Active Problems Problem Noted Date Diagnosed Date [...] as of this encounter (statuses as of 12/30/2023) Resolved Problems Problem Noted Date Diagnosed Date Resolved Date Status post total left knee replacement 07/18/2021 07/23/2022 Depression 06/06/2022 Overview: More specified code listed on PL DVT (deep venous thrombosis) 01/24/2022 Overview: with PE-Hx added to PL documented as of this encounter (statuses as of 12/30/2023) Immunizations Name Administration Dates Next Due COVID-19 [...] encounter Miscellaneous Notes * Telephone Encounter - Masood Sellers MD - 12/30/2023 4:24 PM EDTSigned Prescriptions: Disp Refills Diclofenac Sodium 1 % External Gel (Voltar*500 g 5 Sig: PLACE 2 GRAMS TOPICALLY ON THE SKIN 4 TIMES A DAY. APPLY TO KNEES Authorizing Provider: MASOOD SELLERS * Telephone Encounter - Mary Madrid [facility] - 12/30/2023 2:11 PM EDTPending Prescriptions: Disp Refills Diclofenac Sodium 1 % External Gel (Voltar*500 g 5 Sig: PLACE 2 GRAMS TOPICALLY ON THE SKIN 4 TIMES A DAY. APPLY TO KNEES * Telephone Encounter - Mary Madrid RPh - 12/30/2023 2:10 PM EDT Last prescribed 2020 - please advise if refill appropriate. Pt requesting Thanks, Mary Madrid PharmD [facility] Clinical Pharmacist Rheumatology Department [phone] 12/30/2023, 2:11 PM * Telephone Encounter - Suki Joseph wood getter - 12/27/2023 11:32 AM EDT Patient calling to request Topical Diclofenac Sodium sent to [facility] . Thank You, Suki Joseph [facility] Turf Farm Worker III [facility] ([facility]) documented in this encounter Plan of Treatment Upcoming Encounters Date Type Department Care Team (Late st Contact Info) Description 06/15/2024 11:40 AM EDT Office Visit [facility] [address] [place] [facility] [place] [address] Gordno Jimenez MD [address] [place] [facility] [place] [address] 07/27/2024 1:00 PM EST Office Visit Rheumatology [place], [place] [address] [place], [place] [address] Masood Sellers MD [address] [place] [address] Health Maintenance Due Date Last Done Comments [...] filedocumented as of this encounter Care Teams Ice Guard Tester Relationship Specialty Start Date End Date Gordon Jimenez MD [address] [place] [address] PCP - General Family Medicine 10/03/21 documented as of this encounter
--- OUTSIDE RECORDS SUMMARY | 2024-01-07 21:54 | External Medical Summary | Summary of Care ---
Author Name Unknown Organization [facility] Address [address] [facility] [place] [address] Phone [phone] Care Team Providers Care Hammerer Helper Name Role Phone Gordon Jimenez MD Primary Care Provider +1- [phone] Encounter Details Date Type Department Care Team (Late st Contact Info) Description 12/16/2023 Orders Only PATIENT PORTAL DO NOT DELETE THIS DEPT USED BY [place] [address] Allergies Active Allergy Reactions Criticality Noted Date Comments Celecoxib 11/20/2012 "ripps up her stomach" Citalopram Hydrobromide Unknown 11/20/2012 Clarithromycin Unknown 11/20/2012 Sumatriptan Base 11/20/2012 Tightness in jaw Macrolides And Ketolides Unknown 11/20/2012 Rizatriptan Unknown 11/20/2012 Sumatriptan Unknown 01/21/2013 documented as of this encounter (statuses as of 12/16/2023) Medications Medication Sig Dispensed Refills Start Date [...] as of this encounter (statuses as of 12/16/2023) Active Problems Problem Noted Date Diagnosed Date [...] as of this encounter (statuses as of 12/16/2023) Resolved Problems Problem Noted Date Diagnosed Date Resolved Date Status post total left knee replacement 07/18/2021 07/23/2022 Depression 06/06/2022 Overview: More specified code listed on PL DVT (deep venous thrombosis) 01/24/2022 Overview: with PE-Hx added to PL documented as of this encounter (statuses as of 12/16/2023) Immunizations Name Administration Dates Next Due COVID-19 mRNA, LNP-s, No Pre serve, 2-Dose Series ([employer]) 10/22/2020,10/01/2020 Seasonal Influenza, PF, 6 M & [...] on file documented as of this encounter Plan of Treatment Upcoming Encounters Date Type Department Care Team (Late st Contact Info) Description 06/15/2024 11:40 AM EDT Office Visit [facility] [address] [place] [address] Gordon Jimenez MD [address] [place] [address] 07/27/2024 1:00 PM EST Office Visit Rheumatology [place] [id number] [employer] [place], [place] [address] Joe Amos MD [address] [place] [address] Health Maintenance Due Date Last Done Comments [...] filedocumented as of this encounter Care Teams Hammerer Helper Relationship Specialty Start Date End Date Gordon Jimeenz MD [address] [place] [address] PCP - General Family Medicine 10/03/21 documented as of this encounter
--- OUTSIDE RECORDS SUMMARY | 2024-01-07 21:54 | External Medical Summary | Summary of Care ---
Author Name Unknown Organization [facility] Address [address] [facility] [address] Phone [phone] Care Team Providers Care Fisher Diving Name Role Phone Gordon Jimenez MD Primary Care Provider +1- [phone] Reason for Visit * Reason Onset Date Comments Medication Refill 12/30/2023 Encounter Details Date Type Department Care Team (Late st Contact Info) Description 12/30/2023 Telephone [facility] [address] [place] [address] Gordon Jimenez MD [address] [place] [address] Medication Refill Allergies Active Allergy Reactions Criticality Noted Date Comments Celecoxib 11/20/2012 "ripps up her stomach" Citalopram Hydrobromide Unknown 11/20/2012 Clarithromycin Unknown 11/20/2012 Sumatriptan Base 11/20/2012 Tightness in jaw Macrolides And Ketolides Unknown 11/20/2012 Rizatriptan Unknown 11/20/2012 Sumatriptan Unknown 01/21/2013 documented as of this encounter (statuses as of 12/31/2023) Medications Medication Sig Dispensed Refills Start Date [...] as of this encounter (statuses as of 12/31/2023) Active Problems Problem Noted Date Diagnosed Date [...] as of this encounter (statuses as of 12/31/2023) Resolved Problems Problem Noted Date Diagnosed Date Resolved Date Status post total left knee replacement 07/18/2021 07/23/2022 Depression 06/06/2022 Overview: More specified code listed on PL DVT (deep venous thrombosis) 01/24/2022 Overview: with PE-Hx added to PL documented as of this encounter (statuses as of 12/31/2023) Immunizations Name Administration Dates Next Due COVID-19 mRNA, LNP-s, No Pre serve, 2-Dose Series ([employer]) 10/22/2020,10/01/2020 Seasonal Influenza, PF, 6 M & [...] encounter Miscellaneous Notes * Telephone Encounter - Debora Chinchilla PHARM Tech - 12/30/2023 2:56 PM EDT Patient requesting refills for Diclofenac Sodium 1 % External Gel (Voltaren) . Upon chart review, medication is listed as discontinued, with discontinuation reason as "patient preference". Please advise if you wish to continue this therapy for the patient. Thank you, Debora Chinchilla Dye Blender I [facility] ([facility]PS) (Formerly Telepharmacy) 12/30/2023,2:56 PM documented in this encounter Plan of Treatment Upcoming Encounters Date Type Department Care Team (Late st Contact Info) Description 06/15/2024 11:40 AM EDT Office Visit [facility] [address] [facility] [place] [place] [phone] Gordon Jimenez MD [address] [place] [address] 07/27/2024 1:00 PM EST Office Visit Rheumatology [address] [place] [address] Joe Amos MD [address] [place] [address] Health Maintenance Due Date Last Done Comments HIV Screening 1979 Hepatitis C Screening 1982 Hepatitis B (1 of 3 - 19+ 3-dose series) 1983 Mammogram 2004 Colonoscopy 2009 Fecal Occult Blood Test 2009 Sigmoidoscopy 2009 Zoster Vaccines (2 of 2) 07/18/2021 05/23/2021 COVID-19 Vaccine ( - 2022- season) 2023 10/22/2020, 10/01/2020 HbA1c [...] filedocumented as of this encounter Care Teams Fisher Diving Relationship Specialty Start Date End Date Gordon Jimenez MD [address] [facility] [place] [address] PCP - General Family Medicine 10/03/21 documented as of this encounter
--- OUTSIDE RECORDS SUMMARY | 2024-01-07 21:55 | External Medical Summary | Summary of Care ---
Author Name Unknown Organization [facility] Address [address] [facility] [address] Phone [phone] Care Team Providers Care Chief Of Harbor Patrol Name Role Phone Edin Wilburn MD Primary Care Provider [phone]- [phone] Reason for Visit * Reason Onset Date Comments Medication Refill 11/02/2023 Encounter Details Date Type Department Care Team (Late st Contact Info) Description 11/02/2023 Refill [facility] [address] [place] [address] Edin Wilburn MD [address] [place] [address] Nausea without vomiting; Chronic bilateral low back pain without sciatica Allergies Active Allergy Reactions Criticality Noted Date Comments Celecoxib 11/20/2012 "ripps up her stomach" Citalopram Hydrobromide Unknown 11/20/2012 Clarithromycin Unknown 11/20/2012 Sumatriptan Base 11/20/2012 Tightness in jaw Macrolides And Ketolides Unknown 11/20/2012 Rizatriptan Unknown 11/20/2012 Sumatriptan Unknown 01/21/2013 documented as of this encounter (statuses as of 11/04/2023) Medications Medication Sig Dispensed Refills Start Date [...] Pain, Severe. 120 Tablet 0 11/04/2023 Active Ondansetron 4 MG Oral Tablet Disintegrating (Zofran)Indications: Nausea without vomiting Place 1 Tablet on tongue every 8 hours as needed for Nausea. dissolve on tongue. 30 Tablet 1 03/14/2023 4 Discontinue d(Refill) traMADol HCl 50 MG Oral Tablet (Ultram)Indications: Chronic bilateral low back pain without sciatica Take 1 Tablet by mouth every 6 hours as needed for Pain, Severe. 120 Tablet 0 09/27/2023 4 Discontinue d(Refill) documented as of this encounter (statuses as of 11/04/2023) Active Problems Problem Noted Date Diagnosed Date [...] as of this encounter (statuses as of 11/04/2023) Resolved Problems Problem Noted Date Diagnosed Date Resolved Date Status post total left knee replacement 07/18/2021 07/23/2022 Depression 06/06/2022 Overview: More specified code listed on PL DVT (deep venous thrombosis) 01/24/2022 Overview: with PE-Hx added to PL documented as of this encounter (statuses as of 11/04/2023) Immunizations Name Administration Dates Next Due COVID-19 mRNA, LNP-s, No Pre serve, 2-Dose Series (NICO) 10/22/2020,10/01/2020 Seasonal Influenza, PF, 6 M & [...] Recorded PHQ Adult Total Score 0 12/10/2022 Sex and Gender Information Value Date Recorded Sex Assigned at Female 07/21/2023 7:39 PM EDT Gender Identity Female 07/21/2023 7:39 PM EDT Sexual Orientation Straight 07/21/2023 7: 39 PM EDT Job Start Date Occupation Industry Not on file Not on file Not on file documented as of this encounter Miscellaneous Notes * Telephone Encounter - Edin Wilburn MD - 11/04/2023 4:32 PM ESTSigned Prescriptions: Disp Refills Ondansetron 4 MG Oral Tablet Disintegratin*30 Tab*1 Sig: Place 1Tablet on tongue every 8 hours as needed for Nausea. dissolve on tongue.Authorizing Provider: EDIN WILBURN traMADol HCl 50 MG Oral Tablet (Ultram) 120 Ta*0 Sig: Take 1 Tablet by mouth every 6 hours as needed for Pain, Severe.Authorizing Provider: EDIN WILBURN * Telephone Encounter - Fay Moctezuma [facility] - 11/04/2023 10:53 AM EST Pending Prescriptions: Disp Refills Ondansetron 4 MG Oral Tablet Disintegratin*30 Tab*1 Sig: Place 1 Tablet on tongue every 8 hours as needed for Nausea. dissolve on tongue. traMADol HCl 50 MG Oral Tablet (Ultram) 120 Ta*0 Sig: Take 1 Tablet by mouth every 6 hours as needed for Pain, Severe. ------ * Telephone Encounter - Fay Moctezuma RPh - 11/04/2023 10:52 AM EST I have reviewed the patients controlled substance dispensing history in the Prescription Drug Monitoring Program in compliance with the [facility] regulations before prescribing a controlled substance. PDMP checked on 11/04/2023. Pending Prescriptions: Disp Refills Ondansetron 4 MG Oral Tablet Disintegrati*30 Tab*1 Sig: Place 1 Tablet on tongue every 8 hours as needed for Nausea. dissolve on tongue. traMADol HCl 50 MG Oral Tablet (Ultram) 120 Ta*0 Sig: Take 1 Tablet by mouth every 6 hours as needed for Pain, Severe. Last Visit: 06/12/2023 (in office), Visit date not found (telemedicine) Next Visit: 12/11/2023 Date medication was last filled: 09/27/23 Date medication is due for refill: 10/26/23 Pharmacy: [id number] [address] [facility] Is this request for a controlled substance? Yes and Urine Drug Screen Not completed Toxicology results: No results found for this or any previous visit. Please approve if appropriate. Thank you, Fay Moctezuma, PharmD, TRINA Clinical Pharmacist Centralized Clinical Pharmacy Services (CCPS) (formerly Telepharmacy) 11/04/23 10:53 AM [phone] documented in this encounter Plan of Treatment Upcoming Encounters Date Type Department Care Team (Late st Contact Info) Description 12/11/2023 12:20 PM EDT Office Visit [facility] [place] [address] [place] [facility] [place] [address] Edin Wilburn MD [address] [facility] [place] [address] 07/27/2024 1:00 PM EST Office Visit Rheumatology [facility] [address] [place] [address] Joe mAos MD [address] [place] [address] Health Maintenance Due Date Last Done Comments Hepatitis B (1 of 3 - 3-dose series) 1964 HIV Screening 1979 Hepatitis C Screening 1982 Mammogram 2004 Cologuard 2009 Colonoscopy 2009 Colorectal [...] as of this encounter Visit Diagnoses Diagnosis Nausea without vomiting Chronic bilateral low back pain without sciatica documented in this encounter Care Teams Chief Of Harbor Patrol Relationship Specialty Start Date End Date Edin Wilburn MD [address] [place] [address] PCP - General Family Medicine 10/03/21 documented as of this encounter
--- OUTSIDE RECORDS SUMMARY | 2024-01-07 21:55 | External Medical Summary | Summary of Care ---
Author Name Unknown Organization [facility] Address [address] [place] [facility] [place] [address] Phone [phone] Care Team Providers Care Boxing Trainer Name Role Phone Gordon Jimenez MD Primary Care Provider [phone]- [phone] Reason for Visit * Reason Comments Acute Sick for 3 weeks, dy suria, urgency, abd pain as well and discomfort in feet and calves where she had to get up an move Encounter Details Date Type Department Care Team (Late st Contact Info) Description 12/03/2023 8:40 AM EDT Office Visit [facility] [address] [place] [address] JanuaryMatteo MD [address] [place] [address] Dysuria*; Suspected UTI; Bipolar disorder, current episode depressed, mild (HCC); Borderline personality disorder (HCC); Other migraine without status migrainosus, not intractable; Dyslipidemia, goal LDL below 100 Allergies Active Allergy Reactions Criticality Noted Date Comments Celecoxib 11/20/2012 "ripps up her stomach" Citalopram Hydrobromide Unknown 11/20/2012 Clarithromycin Unknown 11/20/2012 Sumatriptan Base 11/20/2012 Tightness in jaw Macrolides And Ketolides Unknown 11/20/2012 Rizatriptan Unknown 11/20/2012 Sumatriptan Unknown 01/21/2013 documented as of this encounter (statuses as of 12/03/2023) Medications Medication Sig Dispensed Refills Start Date [...] as of this encounter (statuses as of 12/03/2023) Active Problems Problem Noted Date Diagnosed Date [...] as of this encounter (statuses as of 12/03/2023) Resolved Problems Problem Noted Date Diagnosed Date Resolved Date Status post total left knee replacement 07/18/2021 07/23/2022 Depression 06/06/2022 Overview: More specified code listed on PL DVT (deep venous thrombosis) 01/24/2022 Overview: with PE-Hx added to PL documented as of this encounter (statuses as of 12/03/2023) Immunizations Name Administration Dates Next Due COVID-19 mRNA, LNP-s, No Pre serve, 2-Dose Series ([employer]) 10/22/2020,10/01/2020 Seasonal Influenza, PF, 6 M & [...] Sign Reading Time Taken Comments Blood Pressure 132/64 12/03/2023 8:35 AM EDT Pulse 82 12/03/2023 8:35 AM EDT Temperature 36.2 C (97.1 F) 12/03/2023 8:35 AM ED T Respiratory Rate 17 12/03/2023 8:35 AM EDT Oxygen Saturation 98% 12/03/2023 8:35 AM EDT Inhaled Oxygen Concentration - - Weight 89.8 kg (198 lb) 12/03/2023 8:35 AM EDT Height - - Body Mass Index 30.11 06/12/2023 12:23 PM EDT documented in this encounter Progress Notes * Matteo Calvert MD - 12/03/2023 8:51 AM EDT Images from the original note were not included. Assessment and Plan Patient with 3 weeks of waxing and waning symptoms including epigastric abdominal pain, right-sidedflank pain, nausea/vomiting, dysuria. UA in office shows blood and leuk esterase. Suspect UTI. We will treat empirically with Ceftin. Follow up culture. At this point abdominal pain has essentially resolved and Zofran is working for nausea. She will notify the office if these returned. At that point would consider lab work. Otherwise continue to follow up with Psychiatry for bipolar disorder which is stable at this point. She does have migraines intermittently but these are controlled with Tylenol. Most recent lipid panel in July shows well-controlled total cholesterol and LDL with mildly elevated triglycerides. She was not currently on a statin medicine. No need for this at this time. 1. Dysuria - CULTURE, URINE, QUANTITATIVE - URINALYSIS, POINT OF CARE (ENTER/EDIT) - Cefuroxime Axetil 250 MG Oral Tablet (Ceftin); Take 1 Tablet by mouth in the morning and 1 Tabletbefore bedtime. Dispense: 14 Tablet; Refill: 0 2. Suspected UTI - Cefuroxime Axetil 250 MG Oral Tablet (Ceftin); Take 1 Tablet by mouth in the morning and 1 Tabletbefore bedtime. Dispense: 14 Tablet; Refill: 0 3. Bipolar disorder, current episode depressed, mild (HCC) 4. Borderline personality disorder (HCC) 5. Other migraine without status migrainosus, not intractable 6. Dyslipidemia, goal LDL below 100 Wrap-Up Follow up as needed. History of Present Illness The patient is a 58 year old female with past medical history of HLD, prediabetes, GERD, DDD, migraine, bipolar depression, anxiety who presents for acute. 58-year-old female who presents to discuss 3 weeks of waxing and waning symptoms. Symptoms started with nausea and epigastric/right upper quadrant abdominal pain that at times radiated to the flank towards the groin. This improved after a week and she felt well, however, she then started with dysuria for a few days. This seemed to resolve and she had a return of the nausea and abdominal pain. Today she reports that the abdominal pain has resolved, however, she now has dysuria, urinary frequency, foul-smelling urine. UA in office today she was blood and leuk esterase. She has no fever. Rest ofvital signs are within normal limits. She continues to follow up with Psychiatry for stable bipolar disorder and anxiety. She does have migraines but these has been reasonably controlled on Tylenol. Physical Exam Vitals: 12/03/23 0835 Temp: 36.2 C (97.1 F) Pulse: 82 Resp: 17 SpO2: 98% BP: 132/64 Physical Exam Physical Exam Vitals reviewed. Constitutional: General: She is not in acute distress. Cardiovascular: Rate and Rhythm: Normal rate and regular rhythm. Heart sounds: No murmur heard. Pulmonary: Effort: Pulmonary effort is normal. No respiratory distress. Breath sounds: Normal breath sounds. No wheezing. Abdominal: General: There is no distension. Palpations: Abdomen is soft. Tenderness: There is no abdominal tenderness. Comments: Very mild right CVA tenderness. Musculoskeletal: Cervical back: Neck supple. Lymphadenopathy: Cervical: No cervical adenopathy. Skin: General: Skin is warm and dry. Neurological: General: No focal deficit present. Mental Status: She is alert. This note has been completed in part utilizing [employer] Speech Voice Recognition Software. Due to technical limitations of the software, grammatical errors, random word insertions, prounoun errors, and incomplete sentences may occur. Any formal questions or concerns about the content, text, or information contained within the body of this dictation should be directly addressed to the provider for clarification. documented in this encounter Nursing Notes * Traci Rodriguez LPN - 12/03/2023 8:40 AM EDT The patient has been properly identified by confirmation of name and date of . Chief Complaint Patient presents with Acute Sick for 3 weeks, dysuria, urgency, abd pain as well and discomfort in feet and calves where she had to get up an move documented in this encounter Plan of Treatment Upcoming Encounters Date Type Department Care Team (Late st Contact Info) Description 12/11/2023 12:20 PM EDT Office Visit [facility] [address] [place] [id number] Gordon Jimenez MD [address] [place] [address] 07/27/2024 1:00 PM EST Office Visit Rheumatology [address] [place] [address] Joe Amos MD [address] [place] [address] Scheduled Orders Name Type Priority Associated Diagnoses Orde r Schedule CULTURE, URINE, QUANTITATIVE Lab Routine Dysuria Ordered: 12/03/2023 Health Maintenance Due Date Last Done Comments [...] Procedure Name Priority Date/Time Associated Diagnosis Comments URINALYSIS, POINT OF CARE (ENTER/EDIT) Routine 12/03/2023 Dysuria documented in this encounter Results * (ABNORMAL) URINALYSIS, POINT OF CARE (ENTER/EDIT) (12/03/2023) Color, Urine Dark Yellow(A) Yellow or Light Yellow Clarity, Urine Cloudy(A) Clear Glucose, Urine Negative Negative mg/dL Bilirubin, Urine Negative Negative Ketone, Urine Negative Negative mg/dL Specific [place], Urine 1.025 1.003 - 1.030 Blood, Urine Trace-intact (A) Negative pH, Urine 6.0 5.0 - 7.5 units Protein, Urine Negative Negative mg/dL Urobilinogen, Urine 0.2 0.2 - 1.0 mg/dL Nitrite, Urine Negative Negative Esterase, Urine Trace(A) Negative Urine 12/03/2023 Matteo Calvert MD LAB POINT OF CARE [facility] ENTER/EDIT ORDERABLES documented in this encounter Visit Diagnoses Diagnosis Dysuria- Primary Suspected UTI Bipolar disorder, current episode depressed, mild (HCC) Bipolar I disorder, most recent episode (or current) depressed, mild Borderline personality disorder (HCC) Borderline personality disorder Other migraine without status migrainosus, not intractable Dyslipidemia, goal LDL below 100 Other and unspecified hyperlipidemia documented in this encounter Care Teams Boxing Trainer Relationship Specialty Start Date End Date Gordon Jimenez MD [address] [place] [address] PCP - General Family Medicine 10/03/21 documented as of this encounter
--- OUTSIDE RECORDS SUMMARY | 2024-01-07 21:55 | External Medical Summary | Summary of Care ---
Author Name Unknown Organization [facility] Address [address] [facility] [place] [address] Phone [phone] Care Team Providers Care Vacuum Cleaner Assembler Name Role Phone Edin Wilburn MD Primary Care Provider [phone]- [phone] Reason for Visit * Reason Onset Date Comments Medication Refill 2023 Encounter Details Date Type Department Care Team (Late st Contact Info) Description 2023 Refill [facility] [address] [place] [address] Edin Wilburn MD [address] [place] [address] Chronic bilateral low back pain without sciatica Allergies Active Allergy Reactions Criticality Noted Date Comments Celecoxib 11/20/2012 "ripps up her stomach" Citalopram Hydrobromide Unknown 11/20/2012 Clarithromycin Unknown 11/20/2012 Sumatriptan Base 11/20/2012 Tightness in jaw Macrolides And Ketolides Unknown 11/20/2012 Rizatriptan Unknown 11/20/2012 Sumatriptan Unknown 01/21/2013 documented as of this encounter (statuses as of 08/18/2023) Medications Medication Sig Dispensed Refills Start Date [...] 100 MG Tablet 2 tabs daily 0 6 Active lamoTRIgine (LAMICTAL) 200 MG Tablet Take 0.5 Tablets by mouth at bedtime. 0 Active busPIRone (BUSPAR) 15 MG Tablet Take 1 Tablet by mouth in the morning and 1 Tablet before bedtime. 0 Active BELSOMRA 10 MG TABS 1 at bedtime 2 8 Active Melatonin 10 MG Capsule Take 15 mg [...] IF NEEDED FOR ANXIETY OR INSOMNIA 0 2 Active Ondansetron 4 MG Oral Tablet Disintegrating (Zofran)Indications :Nausea without vomiting Place 1 Tablet on tongue every 8 hours as needed for Nausea. dissolve on tongue. 30 Tablet 1 3 Active Omeprazole 40 MG Oral Capsule Delayed Release (PriLOSEC) Take 1 Capsule by mouth in the morning. 90 Capsule 2 3 Active Gabapentin 300 MG Oral Capsule (Neurontin) TAKE 3 CAPSULES BY MOUTH IN THE MORNING AND EVENING, TAKE 2 CAPS AT NOON 720 Capsule 1 3 Active tiZANidine HCl 4 MG Oral Tablet (Zanaflex) TAKE 2 TABLETS BY MOUTH TWICE A DAY 360 Tablet 1 3 Active lamoTRIgine 150 MG Oral Tablet (LaMICtal) Take 1 Tablet by mouth in the morning. 0 3 Active Sulindac 200 MG Oral Tablet Take 1 Tablet by mouth 2 times a day. 180 Tablet 3 3 Active traMADol HCl 50 MG Oral Tablet (Ultram)Indications :Chronic bilateral low back pain without sciatica Take 1 Tablet by mouth every 6 hours as needed for Pain, Severe. 120 Tablet 0 11/26/202 3 Active Pravastatin Sodium 80 MG Oral Tablet Take 1 Tablet (80 mg) by mouth in the morning. 90 Tablet 3 2 08/18/20 23 Discontinued Potassium Chloride ER 10 MEQ Oral Tablet Extended Release TAKE 1 TABLET BY MOUTH TWICE A DAY 180 Tablet 1 3 08/18/20 23 Discontinued traMADol HCl 50 MG Oral Tablet (Ultram)Indications :Chronic bilateral low back pain without sciatica Take 1 Tablet by mouth every 6 hours as needed for Pain, Severe. 120 Tablet 0 3 08/16/20 23 Discontinued(Ref ill) documented as of this encounter (statuses as of 08/18/2023) Active Problems Problem Noted Date Diagnosed Date [...] as of this encounter (statuses as of 08/18/2023) Resolved Problems Problem Noted Date Diagnosed Date Resolved Date Status post total left knee replacement 07/18/2021 07/23/2022 Depression 06/06/2022 Overview: More specified code listed on PL DVT (deep venous thrombosis) 01/24/2022 Overview: with PE-Hx added to PL documented as of this encounter (statuses as of 08/18/2023) Immunizations Name Administration Dates Next Due COVID-19 mRNA, LNP-s, No Pre serve, 2-Dose Series ([employer]) 10/22/2020,10/01/2020 SEASONAL INFLUENZA, PF, 6 M & Above, IM , (FLULAVAL or FLUZONE) 06/12/2023,06/12/2022 Seasonal Influenza, QUAD, wi th Preserv, [...] Telephone Encounter - Edin Wilburn MD - 08/18/2023 2:29 PM ESTSigned Prescriptions: Disp Refills traMADol HCl 50 MG Oral Tablet (Ultram) 120 Ta*0 Sig: Take 1 Tablet by mouth every 6 hours as needed for Pain, Severe.Authorizing Provider: EDIN WILBURN------ * Telephone Encounter - Luann Mo [facility] - 08/18/2023 8:28 AM ESTPending Prescriptions: Disp Refills traMADol HCl 50 MG Oral Tablet (Ultram) 120 Ta*0 Sig: Take 1 Tablet by mouth every 6 hours as needed for Pain, Severe. * Telephone Encounter - Luann Mo RPh - 08/18/2023 8:28 AM EST I have reviewed the patients controlled substance dispensing history in the Prescription Drug Monitoring Program in compliance with the [facility] regulations before prescribing a controlled substance. PDMP checked on 08/18/2023. Pending Prescriptions: Disp Refills traMADol HCl 50 MG Oral Tablet (Ultram) 120 Ta*0 Sig: Take 1 Tablet by mouth every 6 hours as needed for Pain, Severe. Last Visit: 06/12/2023 (in office), Visit date not found (telemedicine) Next Visit: 12/11/2023 Date medication was last filled: 06/24/23 Date medication is due for refill: 07/23/23 Pharmacy: [id number] [address] [facility] Is this request for a controlled substance? Yes and Urine Drug Screen Not completed Toxicology results: No results found for this or any previous visit. Please approve if appropriate. ThanksLuann Clinical Pharmacist Centralized Clinical Pharmacy Services (CCPS) (Formerly Telepharmacy) [phone] 08/18/2023, 8:28 AM documented in this encounter Plan of Treatment Upcoming Encounters Date Type Department Care Team (Latest Contact Info) Description 10/30/2023 10:15 AM EST Hospital Encounter [facility], Endoscopy Room [facility] [address] [place] [phone] Marilu Gonzalez DO [address] [place] [address] 10/30/2023 10:15 AM EST - 10/30/2023 10:45 AM EST Surgery ENDO [facility], Endoscopy Room [facility] [address] [place] [phone] Marilu Gonzalez DO [address] [place] [address] COLONOSCOPY FLEXIBLE PROXIMAL DIAGNOSTIC 12/11/2023 12:20 PM EDT Office Visit [facility] [address] [place] [address] Edin Wilburn MD [address] [place] [address] 07/27/2024 1:00 PM EST Office Visit Rheumatology [facility] [address] [place], [place] [address] Joe Amos MD [address] [place], [place] [address] Scheduled Procedures Name Priority Associated Diagnoses Date/Ti me COLONOSCOPY FLEXIBLE PROXIMAL DIAGNOSTIC Screen for colon cancer 10/30/2023 10:15 AM EST Health Maintenance Due Date Last Done Comments [...] Chronic bilateral low back pain without sciatica Screen for colon cancer Special screening for malignant neoplasms, colon documented in this encounter Care Teams Vacuum Cleaner Assembler Relationship Specialty Start Date End Date Edin Wilburn MD [address] [place] [address] PCP - General Family Medicine 10/03/21 documented as of this encounter
--- OUTSIDE RECORDS SUMMARY | 2024-01-07 21:55 | External Medical Summary | Summary of Care ---
Author Name Unknown Organization [facility] Address [address] [facility] [address] Phone [phone] Care Team Providers Care Notching Press Operator Name Role Phone Edin Wilburn MD Primary Care Provider +1- [phone] Reason for Visit * Reason Comments eRx-Medication Refill Encounter Details Date Type Department Care Team (Late st Contact Info) Description 10/25/2023 Refill [place] [address] [place] [address] Edin Wilburn MD [address] [place] [address] Allergies Active Allergy Reactions Criticality Noted Date Comments Celecoxib 11/20/2012 "ripps up her stomach" Citalopram Hydrobromide Unknown 11/20/2012 Clarithromycin Unknown 11/20/2012 Sumatriptan Base 11/20/2012 Tightness in jaw Macrolides And Ketolides Unknown 11/20/2012 Rizatriptan Unknown 11/20/2012 Sumatriptan Unknown 01/21/2013 documented as of this encounter (statuses as of 10/28/2023) Medications Medication Sig Dispensed Refills Start Date [...] FOR ANXIETY OR INSOMNIA 0 07/16/2022 Active Ondansetron 4 MG Oral Tablet Disintegrating (Zofran)Indications :Nausea without vomiting Place 1 Tablet on tongue every 8 hours as needed for Nausea. dissolve on tongue. 30 Tablet 1 03/14/2023 Active lamoTRIgine 150 MG Oral Tablet (LaMICtal) [...] THE MORNING 90 Tablet 1 08/18/2023 Active traMADol HCl 50 MG Oral Tablet (Ultram)Indications :Chronic bilateral low back pain without sciatica Take 1 Tablet by mouth every 6 hours as needed for Pain, Severe. 120 Tablet 0 09/27/2023 Active Gabapentin 300 MG Oral Capsule (Neurontin) [...] A DAY 360 Tablet 1 10/28/2023 Active tiZANidine HCl 4 MG Oral Tablet (Zanaflex) TAKE 2 TABLETS BY MOUTH TWICE A DAY 360 Tablet 1 05/31/2023 10/28/19 24 Discontinued documented as of this encounter (statuses as of 10/28/2023) Active Problems Problem Noted Date Diagnosed Date [...] as of this encounter (statuses as of 10/28/2023) Resolved Problems Problem Noted Date Diagnosed Date Resolved Date Status post total left knee replacement 07/18/2021 07/23/2022 Depression 06/06/2022 Overview: More specified code listed on PL DVT (deep venous thrombosis) 01/24/2022 Overview: with PE-Hx added to PL documented as of this encounter (statuses as of 10/28/2023) Immunizations Name Administration Dates Next Due COVID-19 mRNA, LNP-s, No Pre serve, 2-Dose Series (tvCompass) 10/22/2020,10/01/2020 Seasonal Influenza, PF, 6 M & [...] Telephone Encounter - Edin Wilburn MD - 10/28/2023 1:07 PM ESTSigned Prescriptions: Disp Refills tiZANidine HCl 4 MG Oral Tablet (Zanaflex) 360 Ta*1 Sig: TAKE 2 TABLETS BY MOUTH TWICE A DAYAuthorizing Provider: EDIN WILBURN * Telephone Encounter - Billie Ferguson LPN - 10/28/2023 8:29 AM ESTPending Prescriptions: Disp Refills tiZANidine HCl 4 MG Oral Tablet [Pharmacy *360 Ta*1 Sig: TAKE 2 TABLETS BY MOUTH TWICE A DAY * Telephone Encounter - Billie Ferguson LPN - 10/28/2023 8:29 AM EST Did you pend patient's preferred pharmacy and medication before forwarding?yes Pharmacy: [id number] [address] [facility] Pending Prescriptions: Disp Refills tiZANidine HCl 4 MG Oral Tablet (Zanaflex*360 Ta*1 Sig: TAKE 2 TABLETS BY MOUTH TWICE A DAY Last Visit: 06/12/2023 (in office), Visit date not found (telemedicine) Next Visit: 12/11/2023 If no future appointments scheduled, and last appointment is greater than a year ago, please schedule patient for a follow-up appointment Last date the medication was ordered: 05/31/23 Is this request for a controlled substance?No Urine Drug Screen:No results found for this or any previous visit. Patient Phone Numbers Labs: Lab Results Component Value Date/Time CREAT 1.1 (H) 07/26/2023 10:42 AM CREAT 0.8 09/13/2020 09:15 AM POTASSIUM 4.8 07/26/2023 10:42 AM POTASSIUM 4.5 09/13/2020 09:15 AM TSH 2.58 10/04/2021 01:22 PM LDLCALC 83 07/26/2023 10:42 AM LDLCALC 76 08/23/2006 09:46 PM LDLDIRECT 84 08/23/2006 09:46 PM ALT 12 07/26/2023 10:42 AM ALT 14 05/04/2014 10:52 AM HGBA1C 5.5 07/26/2023 10:42 AM * Telephone Encounter - Jonathon Collado - 10/26/2023 4:59 AM ESTPending Prescriptions: Disp Refills tiZANidine HCl 4 MG Oral Tablet [Pharmacy *360 Ta*1 Sig: TAKE 2TABLETS BY MOUTH TWICE A DAY documented in this encounter Plan of Treatment Upcoming Encounters Date Type Department Care Team (Late st Contact Info) Description 12/11/2023 12:20 PM EDT Office Visit [facility] [address] [place] [facility] [place] [phone] Edin Wilburn MD [address] [place] [address] 07/27/2024 1:00 PM EST Office Visit Rheumatology [place] [id number] [employer] [facility] [place] [address] Joe Amos MD [address] [place], [place] [address] Health Maintenance Due Date Last Done Comments [...] filedocumented as of this encounter Care Teams Notching Press Operator Relationship Specialty Start Date End Date Edin Wilburn MD [address] [place] [address] PCP - General Family Medicine 10/03/21 documented as of this encounter
--- OUTSIDE RECORDS SUMMARY | 2024-01-07 21:55 | External Medical Summary | Summary of Care ---
Author Name Unknown Organization [facility] Address [address] [facility] [place] [address] Phone [phone] Care Team Providers Care Trimming Machine Operator Name Role Phone Gordon Jimenez MD Primary Care Provider +1- [phone] Reason for Visit * Reason Comments Outpatient Testing Encounter Details Date Type Department Care Team (Late st Contact Info) Description 07/26/2023 10:40 AM EDT Laboratory Laboratory, [place] [address] [place] [address] [facility] [address] [place] [address] Screening for condition; Prediabetes; Encounter for long-term (current) use of medications; Dyslipidemia, goal LDL below 100; MyCode Research Other*[id number] Allergies Active Allergy Reactions Criticality Noted Date Comments Celecoxib 11/20/2012 "ripps up her stomach" Citalopram Hydrobromide Unknown 11/20/2012 Clarithromycin Unknown 11/20/2012 Sumatriptan Base 11/20/2012 Tightness in jaw Macrolides And Ketolides Unknown 11/20/2012 Rizatriptan Unknown 11/20/2012 Sumatriptan Unknown 01/21/2013 documented as of this encounter (statuses as of 07/26/2023) Medications Medication Sig Dispensed Refills Start Date [...] FOR ANXIETY OR INSOMNIA 0 07/16/2022 Active Pravastatin Sodium 80 MG Oral Tablet Take 1 Tablet (80 mg) by mouth in the morning. 90 Tablet 3 08/29/2022 Active Potassium Chloride ER 10 MEQ Oral Tablet Extended Release TAKE 1 TABLET BY MOUTH TWICE A DAY 180 Tablet 1 03/15/2023 Active Ondansetron 4 MG Oral Tablet Disintegrating (Zofran)Indications:N ausea without vomiting Place 1 Tablet on tongue every 8 hours as needed for Nausea. dissolve on tongue. 30 Tablet 1 03/14/2023 Active Omeprazole 40 MG Oral Capsule Delayed Release (PriLOSEC) Take 1 Capsule by mouth in the morning. 90 Capsule 2 03/27/2023 Active Gabapentin 300 MG Oral Capsule (Neurontin) TAKE 3 CAPSULES BY MOUTH IN THE MORNING AND EVENING, TAKE 2 CAPS AT NOON 720 Capsule 1 05/31/2023 Active tiZANidine HCl 4 MG Oral Tablet (Zanaflex) TAKE 2 TABLETS BY MOUTH TWICE A DAY 360 Tablet 1 05/31/2023 Active lamoTRIgine 150 MG Oral Tablet (LaMICtal) Take 1 Tablet by mouth in the morning. 0 03/27/2023 Active traMADol HCl 50 MG Oral Tablet (Ultram)Indications:C hronic bilateral low back pain without sciatica Take 1 Tablet by mouth every 6 hours as needed for Pain, Severe. 120 Tablet 0 06/24/2023 Active Sulindac 200 MG Oral Tablet TAKE 1 TABLET BY MOUTH TWICE A DAY 180 Tablet 0 07/16/2023 Active documented as of this encounter (statuses as of 07/26/2023) Active Problems Problem Noted Date Diagnosed Date [...] as of this encounter (statuses as of 07/26/2023) Resolved Problems Problem Noted Date Diagnosed Date Resolved Date Status post total left knee replacement 07/18/2021 07/23/2022 Depression 06/06/2022 Overview: More specified code listed on PL DVT (deep venous thrombosis) 01/24/2022 Overview: with PE-Hx added to PL documented as of this encounter (statuses as of 07/26/2023) Immunizations Name Administration Dates Next Due COVID-19 mRNA, LNP-s, No Pre serve, 2-Dose Series (Avolent) 10/22/2020,10/01/2020 SEASONAL INFLUENZA, PF, 6 M & [...] EST Hospital Encounter ENDO [facility], Endoscopy Room [facility] [address] [place] [phone] Marilu Gonzalez DO [address] [place] [address] 10/30/2023 10:15 AM EST - 10/30/2023 10:45 AM EST Surgery ENDO [facility], Endoscopy Room [facility] [address] [place] [phone] Marilu Gonzalez DO [address] [place] [address] COLONOSCOPY FLEXIBLE PROXIMAL DIAGNOSTIC 12/11/2023 12:20 PM EDT Office Visit [facility] [address] [place] [facility] [place] [phone] Gordon Jimenez MD [address] [place] [address] 07/27/2024 1:00 PM EST Office Visit Rheumatology [place] [phone] [facility] [place] [address] Joe Amos MD [address] [place] [address] [place] [address] Pending Results Name Type Priority Associated Diagnoses Date /Time HEPATITIS B SURFACE ANTIBODY Lab Routine Screening for condition 07/26/2023 10:42 AM EDT HEMOGLOBIN A1C Lab Routine Prediabetes 07/26/2023 10:42 AM EDT VITAMIN B12 Lab Routine Encounter for long-term (current) use of medications 07/26/2023 10:42 AM EDT 25-HYDROXY VITAMIN D Lab Routine Encounter for long-term (current) use of medications 07/26/2023 10:42 AM EDT MAGNESIUM Lab Routine Encounter for long-term (current) use of medications 07/26/2023 10:42 AM EDT LIPID PANEL WITH DIRECT LDL IF TG IS HIGH Lab Routine Dyslipidemia, goal LDL below 100 07/26/2023 10:42 AM EDT MYCODE SUBSEQUENT ADULT Lab Routine MyCode Research Other*[id number] 07/26/2023 10:42 AM EDT CBC WITH WBC DIFFERENTIAL Lab Routine Encounter for long-term (current) use of medications 07/26/2023 10:42 AM EDT COMPREHENSIVE METABOLIC PANEL Lab Routine Encounter for long-term (current) use of medications 07/26/2023 10:42 AM EDT MYCODE SST1 Lab Routine MyCode Research Other*[id number] 07/26/2023 10:42 AM EDT MYCODE SST2 Lab Routine MyCode Research Other*[id number] 07/26/2023 10:42 AM EDT CBC Lab Routine Encounter for long-term (current) use of medications 07/26/2023 10:42 AM EDT DIFFERENTIAL, AUTOMATED Lab Routine Encounter for long-term (current) use of medications 07/26/2023 10:42 AM EDT Scheduled Procedures Name Priority Associated Diagnoses Date/Ti [...] 2) 07/18/2021 05/23/2021 COVID-19 Vaccine (3 - 24 season) 2023 10/22/2020, 10/01/2020 Depression Screening 12/11/2023 12/10/2022 HbA1c 12/26/2023 12/25/2022, 05/25, 10/04/2021 Lipid Panel 12/26/2027 12/25/2022, 09/23, 08/23/2006, Additional history exists DTaP,Tdap,and Td Vaccines (2 [...] as of this encounter Visit Diagnoses Diagnosis Screening for condition Screening for unspecified condition Prediabetes Other abnormal glucose Encounter for long-term (current) use of medications Encounter for long-term (current) use of other medications Dyslipidemia, goal LDL below 100 Other and unspecified hyperlipidemia MyCode Research Other*[id number] Screen for colon cancer Special screening for malignant neoplasms, colon documented in this encounter Care Teams Trimming Machine Operator Relationship Specialty Start Date End Date Gordon Jimenez MD [address] [place] [address] PCP - General Family Medicine 10/03/21 documented as of this encounter
--- OUTSIDE RECORDS SUMMARY | 2024-01-07 21:55 | External Medical Summary | Summary of Care ---
Author Name Unknown Organization [facility] Address [address] [facility] [address] Phone [phone] Care Team Providers Care Gender Studies Professor Name Role Phone Edin Wilburn MD Primary Care Provider [phone]- [phone] Reason for Visit * Reason Comments eRx-Medication Refill Encounter Details Date Type Department Care Team (Late st Contact Info) Description 2023 Refill [place] [id number] [place] [address] Edin Wilburn MD [address] [place] [address] Allergies Active Allergy Reactions Criticality [...] 06/24/2023 Active Sulindac 200 MG Oral Tablet Take 1 Tablet by mouth 2 times a day. 180 Tablet 3 07/30/2023 Active Potassium Chloride ER 10 MEQ Oral Tablet Extended Release TAKE 1 TABLET BY MOUTH TWICE A DAY 180 Tablet 1 08/18/2023 Active Pravastatin Sodium 80 MG Oral Tablet TAKE 1 TABLET (80 MG) BY MOUTH IN THE MORNING 90 Tablet 1 08/18/2023 Active Pravastatin Sodium 80 MG Oral Tablet Take 1 Tablet (80 mg) by mouth in the morning. 90 Tablet 3 08/29/2022 08/18/20 23 Discontinued Potassium Chloride ER 10 MEQ Oral Tablet Extended Release TAKE 1 TABLET BY MOUTH TWICE A DAY 180 Tablet 1 03/15/2023 08/18/20 23 Discontinued documented as of this encounter (statuses [...] mRNA, LNP-s, No Pre serve, 2-Dose Series (Silentium) 10/22/2020,10/01/2020 SEASONAL INFLUENZA, PF, 6 M & [...] encounter Miscellaneous Notes * Telephone Encounter - Ruperto Mancera RPh - 08/18/2023 10:12 AM ESTSigned Prescriptions: Disp Refills Potassium Chloride ER 10 MEQ Oral Tablet E*180 Ta*1 Sig: TAKE 1TABLET BY MOUTH TWICE A DAYAuthorizing Provider: EDIN WILBURN User: RUPERTO MANCERA Pravastatin Sodium 80 MG Oral Tablet 90 Tab*1 Sig: TAKE 1 TABLET (80 MG) BY MOUTH IN THE MORNINGAuthorizing Provider: EDIN WILBURN User: RUPERTO MANCERA documented in this encounter Plan of Treatment Upcoming Encounters Date Type Department Care Team (Latest Contact Info) Description 10/30/2023 10:15 AM EST Hospital Encounter [facility], Endoscopy Room [facility] [address] [place] [address] Marilu Gonzalez DO [address] [place] [address] 10/30/2023 10:15 AM EST - 10/30/2023 10:45 AM EST Surgery END[facility], Endoscopy Room [facility] [address] [place] [phone] Marilu Gonzalez DO [address] [place] [address] COLONOSCOPY FLEXIBLE PROXIMAL DIAGNOSTIC 12/11/2023 12:20 PM EDT Office Visit [facility] [address] [place] [phone] Edin Wilburn MD [address] [place], [place] [address] 07/27/2024 1:00 PM EST Office Visit Rheumatology [place] [address] [place] [address] Joe Amos MD [facility] [place] [address] Scheduled Procedures Name Priority Associated Diagnoses Date/Ti [...] filedocumented as of this encounter Care Teams Gender Studies Professor Relationship Specialty Start Date End Date Edin Wilburn MD [address] [place] [address] PCP - General Family Medicine 10/03/21 documented as of this encounter
--- OUTSIDE RECORDS SUMMARY | 2024-01-07 21:55 | External Medical Summary | Summary of Care ---
Author Name Unknown Organization [facility] Address [address] [facility] [address] Phone [phone] Care Team Providers Care Retort Forker Name Role Phone Gordon Jimenez MD Primary Care Provider +1- [phone] Reason for Visit * Reason Comments eRx-Medication Refill Encounter Details Date Type Department Care Team (Late st Contact Info) Description 07/12/2023 Refill Rheumatology [address] [place] [address] Masood Sellers MD [address] [place] [id number] Encounter for long-term (current) use of medications* Allergies Active Allergy Reactions Criticality Noted Date Comments Celecoxib 11/20/2012 "ripps up her stomach" Citalopram Hydrobromide Unknown 11/20/2012 Clarithromycin Unknown 11/20/2012 Sumatriptan Base 11/20/2012 Tightness in jaw Macrolides And Ketolides Unknown 11/20/2012 Rizatriptan Unknown 11/20/2012 Sumatriptan Unknown 01/21/2013 documented as of this encounter (statuses as of 07/30/2023) Medications Medication Sig Dispensed Refills Start Date [...] FOR ANXIETY OR INSOMNIA 0 2 Active Pravastatin Sodium 80 MG Oral Tablet Take 1 Tablet (80 mg) by mouth in the morning. 90 Tablet 3 2 Active Potassium Chloride ER 10 MEQ Oral Tablet Extended Release TAKE 1 TABLET BY MOUTH TWICE A DAY 180 Tablet 1 3 Active Ondansetron 4 MG Oral Tablet Disintegrating [...] mouth in the morning. 0 3 Active traMADol HCl 50 MG Oral Tablet (Ultram)Indications :Chronic bilateral low back pain without sciatica Take 1 Tablet by mouth every 6 hours as needed for Pain, Severe. 120 Tablet 0 3 Active Sulindac 200 MG Oral Tablet Take 1 Tablet by mouth 2 times a day. 180 Tablet 3 3 Active lamoTRIgine (LAMICTAL) 25 MG Tablet 4 Tablets. 2 every AM 0 8 07/24/20 23 Discontinued(Med ication List Clean Up) Zoster Vac Recomb Adjuvanted 50 MCG/0.5ML Intramuscular Suspension Reconstituted (Shingrix)Indicatio ns:Need for vaccination for zoster Inject 0.5 mL into a large muscle now and repeat dose in 60 to 180 days 1 Each 1 2 07/24/20 23 Discontinued(Med ication List Clean Up) Amoxicillin 500 MG Oral Capsule (Amoxil) 0 2 07/24/20 23 Discontinued(Med ication List Clean Up) Sulindac 200 MG Oral Tablet TAKE 1 TABLET BY MOUTH TWICE A DAY 180 Tablet 2 3 07/16/20 23 Discontinued Sulindac 200 MG Oral Tablet TAKE 1 TABLET BY MOUTH TWICE A DAY 180 Tablet 0 3 07/30/20 23 Discontinued(Ref ill) documented as of this encounter (statuses as of 07/30/2023) Active Problems Problem Noted Date Diagnosed Date [...] as of this encounter (statuses as of 07/30/2023) Resolved Problems Problem Noted Date Diagnosed Date Resolved Date Status post total left knee replacement 07/18/2021 07/23/2022 Depression 06/06/2022 Overview: More specified code listed on PL DVT (deep venous thrombosis) 01/24/2022 Overview: with PE-Hx added to PL documented as of this encounter (statuses as of 07/30/2023) Immunizations Name Administration Dates Next Due COVID-19 mRNA, LNP-s, No Pre serve, 2-Dose Series (Pfizer) 10/22/2020,10/01/2020 SEASONAL INFLUENZA, PF, 6 M & [...] as of this encounter Miscellaneous Notes * Addendum Note - Amber Caceres RPh - 07/30/2023 10:26 AM ESTAddended by: AMBER CACERES on: 07/30/2023 10:26 AM Modules accepted: Orders * Telephone Encounter - Amber Caceres RPh - 07/30/2023 10:19 AM EST Labs done 07/26/23. Kidney function is stable. Liver function and blood count results are appropriate as per rheumatology medication protocol. Rheumatology: Refill Request(s) Sulindac Per review of the refill parameters, Medication was refilled for additional refills. Amber Caceres [facility] Clinical Pharmacist Rheumatology Department 07/30/2023,10:20 AM * Telephone Encounter - Masood Sellers MD - 07/16/2023 1:05 PM EDTSigned Prescriptions: Disp Refills Sulindac 200 MG Oral Tablet 180 Ta*0 Sig: TAKE 1 TABLET BY MOUTHTWICE A DAYAuthorizing Provider: MASOOD SELLERS * Telephone Encounter - Masood Sellers MD - 07/16/2023 1:04 PM EDT Refilled and email sent to patient to get labs * Telephone Encounter - Mary [facility] - 07/16/2023 9:12 AM EDTPending Prescriptions: Disp Refills Sulindac 200 MG Oral Tablet 180 Ta*0 Sig: TAKE 1 TABLET BY MOUTH TWICE A DAY * Telephone Encounter - Mary Madrid [facility] - 07/16/2023 9:10 AM EDT Rheumatology: Refill Request(s) Per review of the refill parameters, Medication was NOT refilled d/t following concern: Last labs completed greater than protocol allows. Last CBC completed >12 months. CMP up to date. Please advise if you would like held until labs completed. Lab work previously ordered and pended 90 day supply. Please route back and will advise pt of labs if appropriate. Mary Madrid [facility] Clinical Pharmacist Rheumatology Department 07/16/2023,9:10 AM * Telephone Encounter - Cherie Steiner rental sales associate - 07/12/2023 4:25 PM EDT Pending Prescriptions: Disp Refills Sulindac 200 MG Oral Tablet [Pharmacy Med *180 Ta*2 Sig: TAKE 1 TABLET BY MOUTH TWICE A DAY * Telephone Encounter - Cherie Steiner rental sales associate - 07/12/2023 4:24 PM EDT Patient is up to date for office visits. Pending Prescriptions: Disp Refills Sulindac 200 MG Oral Tablet [Pharmacy Med*180 Ta*2 Sig: TAKE 1 TABLET BY MOUTH TWICE A DAY Last Visit: 07/23/2022 (in office), 12/30/2019 (telemedicine) Next Visit: 07/24/2023 If no future appointments scheduled, and last appointment is greater than a year ago, please schedule patient for a follow-up appointment Last date the medication was ordered: 12/04 Pharmacy: [id number] [address] [facility] Is this request for a controlled substance?No it is not controlled. Urine Drug Screen:No results found for this or any previous visit. Patient Phone Numbers Labs: Lab Results Component Value Date/Time CREAT 1.1 (H) 12/25/2022 09:36 AM CREAT 0.8 09/13/2020 09:15 AM POTASSIUM 4.5 12/25/2022 09:36 AM POTASSIUM 4.5 09/13/2020 09:15 AM TSH 2.58 10/04/2021 01:22 PM LDLCALC 78 12/25/2022 09:36 AM LDLCALC 76 08/23/2006 09:46 PM LDLDIRECT 84 08/23/2006 09:46 PM ALT 11 12/25/2022 09:36 AM ALT 14 05/04/2014 10:52 AM HGBA1C 5.6 12/25/2022 09:36 AM documented in this encounter Plan of Treatment Upcoming Encounters Date Type Department Care Team (Latest Contact Info) Description 10/30/2023 10:15 AM EST Hospital Encounter ENDO [facility], Endoscopy Room [facility] [address] [place] [phone] Marilu Gonzalez DO [address] [place] [address] 10/30/2023 10:15 AM EST - 10/30/2023 10:45 AM EST Surgery ENDO [facility], Endoscopy Room [facility] [address] [place] [phone] Marilu Gonzalez DO [address] [place] [address] COLONOSCOPY FLEXIBLE PROXIMAL DIAGNOSTIC 12/11/2023 12:20 PM EDT [facility] [address] [facility] [phone] Gordon Jimenez MD [address] [facility] [place] [address] 07/27/2024 1:00 PM EST Office Visit Rheumatology [place] [address] [place] [address] Masood Sellers MD [facility] [address] Scheduled Procedures Name Priority Associated Diagnoses Date/Ti [...] Not on filedocumented as of this encounter Results * (ABNORMAL) COMPREHENSIVE METABOLIC PANEL (07/26/2023 10:42 AM EDT) BUN 21(H) 6 - 20 mg/dL 07/27/2023 1:55 AM EDT [facility] Creatinine 1.1(H) 0.5 - 1.0 mg/dL 07/27/2023 1:55 AM EDT [facility] Estimated Glomerular Filtration Rate 58(L) >=60 mL/min 07/27/2023 1:55 AM EDT [facility] Comment:eGFR is calculated b ased on the CKD-EPI 2020 equation Sodium 138 135 - 146 mmol/L 07/27/2023 1:55 AM EDT [facility] Potassium 4.8 3.5 - 5.1 mmol/L 07/27/2023 1:55 AM EDT [facility] Chloride 100 98 - 107 mmol/L 07/27/2023 1:55 AM EDT [facility] CO2 31 22 - 32 mmol/L 07/27/2023 1:55 AM EDT [facility] Anion Gap 7 7 - 15 mmol/L 07/27/2023 1:55 AM EDT [facility] Glucose 93 70 - 120 mg/dL 07/27/2023 1:55 AM EDT [facility] Albumin 4.6 3.8 - 5.0 g/dL 07/27/2023 1:55 AM EDT [facility] AST 23 10 - 35 U/L 07/27/2023 1:55 AM EDT [facility] Alkaline Phosphatase 153(H) 35 - 130 U/L 07/27/2023 1:55 AM EDT [facility] Bilirubin, Total 0.3 <=1.2 mg/dL 07/27/2023 1:55 AM EDT [facility] Calcium 9.7 8.4 - 10.2 mg/dL 07/27/2023 1:55 AM EDT [facility] Protein 6.9 6.0 - 8.3 g/dL 07/27/2023 1:55 AM EDT [facility] ALT 12 10 - 35 U/L 07/27/2023 1:55 AM EDT [facility] Blood Venous blood specimen / Unknown Venipuncture / Unknown 07/26/2023 10:42 AM EDT 07/26/2023 10:42 AM EDT Masood Sellers MD LAB BLOOD ORDERABLE S [facility] [address] [place] [address] documented in this encounter Visit Diagnoses Diagnosis Encounter for long-term (current) use of medications- Primary Encounter for long-term (current) use of other medications Screen for colon cancer Special screening for malignant neoplasms, colon documented in this encounter Care Teams Retort Forker Relationship Specialty Start Date End Date Gordon Jimenez MD [address] [place] [address] PCP - General Family Medicine 10/03/21 documented as of this encounter
--- OUTSIDE RECORDS SUMMARY | 2024-01-07 21:55 | External Medical Summary | Summary of Care ---
Author Name Unknown Organization [facility] Address [address] [place] [facility] [place] [place] [address] Phone [phone] Care Team Providers Care Notereader Name Role Phone Edin Wilburn MD Primary Care Provider +1- [phone] Reason for Visit * Reason Onset Date Comments Medication Refill 09/27/2023 Encounter Details Date Type Department Care Team (Late st Contact Info) Description 09/27/2023 Refill [facility] [address] [place] [address] Edin Wilburn MD [address] [place] [address] Chronic bilateral low back pain without sciatica Allergies Active Allergy Reactions Criticality Noted Date Comments Celecoxib 11/20/2012 "ripps up her stomach" Citalopram Hydrobromide Unknown 11/20/2012 Clarithromycin Unknown 11/20/2012 Sumatriptan Base 11/20/2012 Tightness in jaw Macrolides And Ketolides Unknown 11/20/2012 Rizatriptan Unknown 11/20/2012 Sumatriptan Unknown 01/21/2013 documented as of this encounter (statuses as of 09/27/2023) Medications Medication Sig Dispensed Refills Start Date [...] Pain, Severe. 120 Tablet 0 09/27/2023 Active traMADol HCl 50 MG Oral Tablet (Ultram)Indications: Chronic bilateral low back pain without sciatica Take 1 Tablet by mouth every 6 hours as needed for Pain, Severe. 120 Tablet 0 08/18/2023 Discontinue d(Refill) documented as of this encounter (statuses as of 09/27/2023) Active Problems Problem Noted Date Diagnosed Date [...] as of this encounter (statuses as of 09/27/2023) Resolved Problems Problem Noted Date Diagnosed Date Resolved Date Status post total left knee replacement 07/18/2021 07/23/2022 Depression 06/06/2022 Overview: More specified code listed on PL DVT (deep venous thrombosis) 01/24/2022 Overview: with PE-Hx added to PL documented as of this encounter (statuses as of 09/27/2023) Immunizations Name Administration Dates Next Due COVID-19 mRNA, LNP-s, No Pre serve, 2-Dose Series ([employer]) 10/22/2020,10/01/2020 Seasonal Influenza, PF, 6 M & [...] Telephone Encounter - Edin Wilburn MD - 09/27/2023 4:35 PM ESTSigned Prescriptions: Disp Refills traMADol HCl 50 MG Oral Tablet (Ultram) 120 Ta*0 Sig: Take 1 Tablet by mouth every 6 hours as needed for Pain, Severe.Authorizing Provider: EDIN WILBURN------ * Telephone Encounter - Ruperto Ibarra RPh - 09/27/2023 4:04 PM ESTPending Prescriptions: Disp Refills traMADol HCl 50 MG Oral Tablet (Ultram) 120 Ta*0 Sig: Take 1 Tablet by mouth every 6 hours as needed for Pain, Severe. * Telephone Encounter - Ruperto Ibarra [facility] - 09/27/2023 4:03 PM EST I have reviewed the patients controlled substance dispensing history in the Prescription Drug Monitoring Program in compliance with the [facility] regulations before prescribing a controlled substance. PDMP checked on 09/27/2023. Pending Prescriptions: Disp Refills traMADol HCl 50 MG Oral Tablet (Ultram) 120 Ta*0 Sig: Take 1 Tablet by mouth every 6 hours as needed for Pain, Severe. Last Visit: 06/12/2023 (in office), Visit date not found (telemedicine) Next Visit: 12/11/2023 Date medication was last filled: 08/18/2023 Date medication is due for refill: 09/16/2023 Pharmacy: [id number] [address] [place] [address] Is this request for a controlled substance? Yes and Urine Drug Screen Not completed Toxicology results: No results found for this or any previous visit. Please approve if appropriate. Thanks, Ruperto Ibarra Pharm.D. Clinical Pharmacist Centralized Clinical Pharmacy Services (CCPS)(Formerly Telepharmacy) [phone] 09/27/2023, 4:03 PM * Telephone Encounter - [facility] - 09/27/2023 3:49 PM EST Pt said she called two days ago for the refill, but I see nothing. She is at the pharmacy. Did you pend patient's preferred pharmacy and medication before forwarding?yes Pharmacy: [facility][id number] [address] [facility] Pending Prescriptions: Disp Refills traMADol HCl 50 [...] appointment Last date the medication was ordered: 08/18/23 Is this request for a controlled substance?Yes, What was the last refill date 08/18/23 w/ quantity 120 and dosage 50 mg and Urine Drug Screen Not completed Urine [...] EST Hospital Encounter ENDO [facility], Endoscopy Room [facility] [address] [place] [phone] Marilu Gonzalez DO [address] [place] [address] 10/30/2023 10:15 AM EST - 10/30/2023 10:45 AM EST Surgery ENDO [facility], Endoscopy Room [facility] [address] [place] [address] Marilu Gonzalez DO [address] [place] [address] COLONOSCOPY FLEXIBLE PROXIMAL DIAGNOSTIC 12/11/2023 12:20 PM EDT [address] [phone] Edin Wilburn MD [address] [place] [address] 07/27/2024 1:00 PM EST Office Visit Rheumatology [facility] [address] [place] [address] Joe Amos MD [address] [place], [place] [address] Scheduled Procedures Name Priority Associated Diagnoses Date/Ti [...] colon documented in this encounter Care Teams Notereader Relationship Specialty Start Date End Date Edin Wilburn MD [address] [place] [address] PCP - General Family Medicine 10/03/21 documented as of this encounter
--- OUTSIDE RECORDS SUMMARY | 2024-01-07 21:55 | External Medical Summary ---
Author Name Unknown Address Unknown Organization K01:[facility] [address] [place] [address] Laboratory Report Ordering Provider Test Date Status AKILA JESUS 07/26/2023 10:42:06 Final Observation Date Value Abnormality Reference (Units ) Status Magnesium 07/26/2023 10:42:06 2.4 1.5-2.6 (m g/dL) Final Performing Location [facility] - [address] [place] [id number]
--- OUTSIDE RECORDS SUMMARY | 2024-01-07 21:55 | External Medical Summary | Summary of Care ---
Author Name Unknown Organization [facility] Address [address] [facility] [address] Phone [phone] Care Team Providers Care Supply Chain Intern Name Role Phone Gordon Jimenez MD Primary Care Provider +1- [phone] Reason for Visit * Reason Onset Date Comments Advice 12/02/2023 Encounter Details Date Type Department Care Team (Late st Contact Info) Description 12/02/[address] [facility] [address] [place] [address] Gordon Jimenez MD [address] [place] [address] Advice Allergies Active Allergy Reactions Criticality Noted Date Comments Celecoxib 11/20/2012 "ripps up her stomach" Citalopram Hydrobromide Unknown 11/20/2012 Clarithromycin Unknown 11/20/2012 Sumatriptan Base 11/20/2012 Tightness in jaw Macrolides And Ketolides Unknown 11/20/2012 Rizatriptan Unknown 11/20/2012 Sumatriptan Unknown 01/21/2013 documented as of this encounter (statuses as of 12/02/2023) Medications Medication Sig Dispensed Refills Start Date [...] Pain, Severe. 120 Tablet 0 11/04/2023 Active documented as of this encounter (statuses as of 12/02/2023) Active Problems Problem Noted Date Diagnosed Date [...] as of this encounter (statuses as of 12/02/2023) Resolved Problems Problem Noted Date Diagnosed Date Resolved Date Status post total left knee replacement 07/18/2021 07/23/2022 Depression 06/06/2022 Overview: More specified code listed on PL DVT (deep venous thrombosis) 01/24/2022 Overview: with PE-Hx added to PL documented as of this encounter (statuses as of 12/02/2023) Immunizations Name Administration Dates Next Due COVID-19 mRNA, LNP-s, No Pre serve, 2-Dose Series (m0um0u) 10/22/2020,10/01/2020 Seasonal Influenza, PF, 6 M & [...] encounter Miscellaneous Notes * Telephone Encounter - Amalia Almeida LPN - 12/02/2023 12:39 PM EDT Patient states that she has been sick for the past 3 weeks Nausea Vomiting Severe Abdominal Pain - middle of stomach to right side, constant pressure pain Chills, feels like she can't get warm, she has not had a fever Urine is a brighter yellow than it normally is, urgency, frequency and dysuria Cramps in in bilateral feet and ankles Today she had a cramp in her left calf Advised an appt Patient states she is not able to come in today, takes care of her parents and has to make arrangements for a Caregiver for them Scheduled tomorrow with Dr. Calvert at 8:40 AM (used the appt spot) FYI to Dr. Calvert * Telephone Encounter - Eusebia Chambers OSA - 12/02/2023 12:35 PM EDT Reason for patient's call: Pt asking to speak with a nurse. States she has not felt well for a few weeks. Would not give symptoms she is having Caller was transferred to Amalia at the nurse line. documented in this encounter Plan of Treatment Upcoming Encounters Date Type Department Care Team (Late st Contact Info) Description 12/03/2023 8:40 AM EDT Office Visit [address] [address] Matteo Calvert MD [address] [facility] [place] [address] 12/11/2023 12:20 PM EDT Office Visit [facility] [address] [facility] [place] [address] Gordon Jimenez MD [address] [place] [address] 07/27/2024 1:00 PM EST Office Visit Rheumatology [facility] [address] [place], [place] [address] Joe Amos MD [address] [place] [address] Health Maintenance Due Date Last Done Comments [...] filedocumented as of this encounter Care Teams Supply Chain Intern Relationship Specialty Start Date End Date Gordon Jimenez MD [address] [place] [address] PCP - General Family Medicine 10/03/21 documented as of this encounter
--- OUTSIDE RECORDS SUMMARY | 2024-01-07 21:55 | External Medical Summary | Summary of Care ---
Author Name Unknown Organization [facility] Address [address] [facility] [address] Phone [phone] Care Team Providers Care Drier Take Off Tender Name Role Phone Gordon Jimenez MD Primary Care Provider +1- [phone] Reason for Visit * Reason Onset Date Comments Advice 12/02/2023 Encounter Details Date Type Department Care Team (Late st Contact Info) Description 12/02/2023 Telephone [facility] [address] [place] [address] Gordon Jimenez MD [address] [place] [address] Advice Allergies Active Allergy Reactions [...] mRNA, LNP-s, No Pre serve, 2-Dose Series (Nabto) 10/22/2020,10/01/2020 Seasonal Influenza, PF, 6 M & [...] encounter Miscellaneous Notes * Telephone Encounter - Matteo Calvert MD - 12/02/2023 4:52 PM EDT Noted. Will discuss at appt tomorrow. If worsening overnight recommend ED evaluation. Matteo Calvert MD * Telephone Encounter - Amalia Almeida LPN [...] Description 12/03/2023 8:40 AM EDT Office Visit [facility] [address] [place] [facility] [place] [phone] Matteo Calvert MD [address] [place] [address] 12/11/2023 12:20 PM EDT Office Visit [facility] [address] [place] [facility] [place] [address] Gordon Jimenez MD [address] [place] [address] 07/27/2024 1:00 PM EST Office Visit Rheumatology [place] [phone] [employer] [place] [address] Joe Amos MD [address] [facility] [place] [address] Health Maintenance Due Date Last Done Comments [...] filedocumented as of this encounter Care Teams Drier Take Off Tender Relationship Specialty Start Date End Date Gordon Jimenez MD [address] [place] [address] PCP - General Family Medicine 10/03/21 documented as of this encounter
--- OUTSIDE RECORDS SUMMARY | 2024-01-07 21:55 | External Medical Summary ---
Author Name Unknown Address Unknown Organization K01:[facility] [address] [facility] [place] [address] Laboratory Report Ordering Provider Test Date Status MASOODMARLO 07/26/2023 10:42:06 Final Observation Date Value Abnormality Reference (Units ) Status BUN 07/26/2023 10:42:06 21 Above high normal 6-20 (mg/dL) Final Creatinine 07/26/2023 10:42:06 1.1 Above high normal 0.5-1.0 (mg/dL) Final Glomerular filtration rate/1.73 sq M.predicted [Volume Rate/Area] in Serum, Plasma or Blood by Creatinine-based formula (CKD-EPI) 07/26/2023 10:42:06 58 Below low normal >=60 (mL/min) Final eGFR is calculated based on the CKD-EPI 2020 equation SODIUM 07/26/2023 10:42:06 138 135-146 (m mol/L) Final Potassium 07/26/2023 10:42:06 4.8 3.5-5.1 (m mol/L) Final Cl 07/26/2023 10:42:06 100 98-107 (mm ol/L) Final CO2 07/26/2023 10:42:06 31 22-32 (mmo l/L) Final Anion gap 07/26/2023 10:42:06 7 7-15 (mmol /L) Final Glucose 07/26/2023 10:42:06 93 70-120 (mg /dL) Final Albumin 07/26/2023 10:42:06 4.6 3.8-5.0 (g /dL) Final AST (Aspartate aminotransferase) 07/26/2023 10:42:06 23 10-35 (U/L) Fin al Alk Phos 07/26/2023 10:42:06 153 Above high normal 35 -130 (U/L) Final Bilirubin, Total 07/26/2023 10:42:06 0.3 <=1 .2 (mg/dL) Final Calcium 07/26/2023 10:42:06 9.7 8.4-10.2 ( mg/dL) Final Protein 07/26/2023 10:42:06 6.9 6.0-8.3 (g /dL) Final ALT (Alanine aminotransferase) 07/26/2023 10:42:06 12 10-35 (U/L) Enzo ernst Performing Location [facility] [address] [facility] [address]
--- OUTSIDE RECORDS SUMMARY | 2024-01-07 21:55 | External Medical Summary | Summary of Care ---
Author Name Unknown Organization [facility] Address [address] [facility] [place] [address] Phone [phone] Care Team Providers Care Air Brake Operator Name Role Phone Edin Wilburn MD Primary Care Provider +1- [phone] Reason for Visit * Reason Onset Date Comments Appointment Canceled 10/22/2023 colonoscopy Encounter Details Date Type Department Care Team (Late st Contact Info) Description 10/22/2023 Telephone [facility], Operating Room [facility] [address] [place] [address] Marilu Gonzalez DO [address] [place] [id number] Appointment Canceled (colonoscopy) Allergies Active Allergy Reactions Criticality Noted Date Comments Celecoxib 11/20/2012 "ripps up her stomach" Citalopram Hydrobromide Unknown 11/20/2012 Clarithromycin Unknown 11/20/2012 Sumatriptan Base 11/20/2012 Tightness in jaw Macrolides And Ketolides Unknown 11/20/2012 Rizatriptan Unknown 11/20/2012 Sumatriptan Unknown 01/21/2013 documented as of this encounter (statuses as of 10/22/2023) Medications Medication Sig Dispensed Refills Start Date [...] on tongue. 30 Tablet 1 03/14/2023 Active tiZANidine HCl 4 MG Oral Tablet [...] EVERY MORNING 90 Capsule 3 10/21/2023 Active documented as of this encounter (statuses as of 10/22/2023) Active Problems Problem Noted Date Diagnosed Date [...] as of this encounter (statuses as of 10/22/2023) Resolved Problems Problem Noted Date Diagnosed Date Resolved Date Status post total left knee replacement 07/18/2021 07/23/2022 Depression 06/06/2022 Overview: More specified code listed on PL DVT (deep venous thrombosis) 01/24/2022 Overview: with PE-Hx added to PL documented as of this encounter (statuses as of 10/22/2023) Immunizations Name Administration Dates Next Due COVID-19 mRNA, LNP-s, No Pre serve, 2-Dose Series ([employer]) 10/22/2020,10/01/2020 Seasonal Influenza, PF, 6 M & [...] Addendum Note - Edin Wilburn MD - 10/22/2023 4:47 PM ESTAddended by: EDIN WILBURN on: 10/22/2023 04:47 PM Modules accepted: Orders * Telephone Encounter - Edin Wilburn MD - 10/22/2023 4:47 PM EST Cologuard order signed * Telephone Encounter - Alona Galan OSA - 10/22/2023 2:02 PM EST Pt cx'd JOHN Parada 10/22/2023 2:02 PM * Telephone Encounter - Rosa Villarreal RN - 10/22/2023 1:05 PM EST Pt states she called last week to cx her procedure. She has been unable to secure care for her ailing parents. She also states she'd just rather do cologuard, for now. Was not interested in resched, at this time. TY documented in this encounter Plan of Treatment Upcoming Encounters Date Type Department Care Team (Late st Contact Info) Description 12/11/2023 12:20 PM EDT Office Visit [facility] [address] [place] [facility] [place] [address] Edin Wilburn MD [address] [place] [facility] [place] [address] 07/27/2024 1:00 PM EST Office Visit Rheumatology [place] [address] [place] [address] Joe Amos MD [address] [place] [address] Scheduled Orders Name Type Priority Associated Diagnoses Orde r Schedule COLOGUARD Lab Routine Screen for colon cancer Ordered: 10/22/2023 Health Maintenance Due Date Last Done Comments [...] as of this encounter Visit Diagnoses Diagnosis Screen for colon cancer- Primary Special screening for malignant neoplasms, colon documented in this encounter Care Teams Air Brake Operator Relationship Specialty Start Date End Date Edin Wilburn MD [address] [place] [address] PCP - General Family Medicine 10/03/21 documented as of this encounter
--- OUTSIDE RECORDS SUMMARY | 2024-01-07 21:55 | External Medical Summary | Summary of Care ---
Author Name Unknown Organization [facility] Address [address] [facility] [address] Phone [phone] Care Team Providers Care Briquette Molder Name Role Phone Gordon Jimenez MD Primary Care Provider +1- [phone] Reason for Visit * Reason Onset Date Comments Order Request 08/02/2023 Encounter Details Date Type Department Care Team (Late st Contact Info) Description 08/02/2023 Telephone Rheumatology [address] [place] [address] Joe Amos MD [address] [place] [address] Order Request Allergies Active Allergy Reactions Criticality Noted Date Comments Celecoxib 11/20/2012 "ripps up her stomach" Citalopram Hydrobromide Unknown 11/20/2012 Clarithromycin Unknown 11/20/2012 Sumatriptan Base 11/20/2012 Tightness in jaw Macrolides And Ketolides Unknown 11/20/2012 Rizatriptan Unknown 11/20/2012 Sumatriptan Unknown 01/21/2013 documented as of this encounter (statuses as of 08/02/2023) Medications Medication Sig Dispensed Refills Start Date [...] a day. 180 Tablet 3 07/30/2023 Active documented as of this encounter (statuses as of 08/02/2023) Active Problems Problem Noted Date Diagnosed Date [...] as of this encounter (statuses as of 08/02/2023) Resolved Problems Problem Noted Date Diagnosed Date Resolved Date Status post total left knee replacement 07/18/2021 07/23/2022 Depression 06/06/2022 Overview: More specified code listed on PL DVT (deep venous thrombosis) 01/24/2022 Overview: with PE-Hx added to PL documented as of this encounter (statuses as of 08/02/2023) Immunizations Name Administration Dates Next Due COVID-19 mRNA, LNP-s, No Pre serve, 2-Dose Series ([employer]) 10/22/2020,10/01/2020 SEASONAL INFLUENZA, PF, 6 M & [...] EST Hospital Encounter ENDO [facility], Endoscopy Room [facility] [address] [place] [phone] Marilu Gonzalez DO [address] [place] [address] 10/30/2023 10:15 AM EST - 10/30/2023 10:45 AM EST Surgery ENDO [facility], Endoscopy Room [facility] [address] [place] [address] Marilu Gonzalez DO [address] [place] [address] COLONOSCOPY FLEXIBLE PROXIMAL DIAGNOSTIC 12/11/2023 12:20 PM EDT Office Visit [facility] [address] [place] [address] Gordon Jimenez MD [address] [place] [address] 07/27/2024 1:00 PM EST Office Visit Rheumatology [place] [phone] [facility] [place], [place] [address] Joe Amos MD [facility] [place] [address] Scheduled Orders Name Type Priority Associated Diagnoses Orde r Schedule CREATININE Lab Routine Primary osteoarthritis of both knees Expected: 09/01/2023, Expires: 08/02/2024 Scheduled Procedures Name Priority Associated Diagnoses Date/Ti [...] as of this encounter Visit Diagnoses Diagnosis Primary osteoarthritis of both knees- Primary Primary localized osteoarthrosis, lower leg Screen for colon cancer Special screening for malignant neoplasms, colon documented in this encounter Care Teams Briquette Molder Relationship Specialty Start Date End Date Gordon Jimenez MD [address] [place] [address] PCP - General Family Medicine 10/03/21 documented as of this encounter
--- OUTSIDE RECORDS SUMMARY | 2024-01-07 21:55 | External Medical Summary | Summary of Care ---
Author Name Unknown Organization [facility] Address [address] [place] [address] Phone [phone] Care Team Providers Care Pearl Hand Name Role Phone Gordon Jimenez MD Primary Care Provider +1- [phone] Reason for Visit * Reason Onset Date Comments Med Request 12/04/2023 Encounter Details Date Type Department Care Team (Late st Contact Info) Description 12/04/2023 Telephone [facility] [address] [place] [address] Gordon Jimenez MD [address] [place] [address] Med Request Allergies Active Allergy [...] mRNA, LNP-s, No Pre serve, 2-Dose Series (Bozuko) 10/22/2020,10/01/2020 Seasonal Influenza, PF, 6 M & [...] encounter Miscellaneous Notes * Telephone Encounter - Olya Claros president financial institution - 12/04/2023 4:53 PM EDT Pt having severe migraines She is asking for medication She can not take sumatriptan Please send new rx Thank you for your assistance Olya Claros Distribution Center Manager II Centralized [facility] Pharmacy Services ([facility]PS) (Formerly Telepharmacy) 12/04/2023,4:54 PM documented in this encounter Plan of Treatment Upcoming Encounters Date Type Department Care Team (Late st Contact Info) Description 12/11/2023 12:20 PM EDT [facility] [address] [facility] [place] [address] Gordon Jimenez MD [address] [facility] [place] [phone] 07/27/2024 1:00 PM EST Office Visit Rheumatology [facility] [address] [address] Joe Amos MD [address] [place] [address] Health Maintenance Due Date Last Done Comments [...] filedocumented as of this encounter Care Teams Pearl Hand Relationship Specialty Start Date End Date Gordon Jimenez MD [address] [place] [address] PCP - General Family Medicine 10/03/21 documented as of this encounter
--- OUTSIDE RECORDS SUMMARY | 2024-01-07 21:55 | External Medical Summary | Summary of Care ---
Author Name Unknown Organization [facility] Address [address] [facility] [address] Phone [phone] Care Team Providers Care Transition Mgr Rn Name Role Phone Gordon Jimenez MD Primary Care Provider +1- [phone] Reason for Visit * Reason Onset Date Comments Advice 12/02/2023 Encounter Details Date Type Department Care Team (Late st Contact Info) Description 12/02/2023 Telephone [facility] [address] [place] [address] Gordon Jimenez MD [address] [place] [address] Advice Allergies Active Allergy Reactions [...] mRNA, LNP-s, No Pre serve, 2-Dose Series ([employer]) 10/22/2020,10/01/2020 Seasonal Influenza, PF, 6 M & [...] at 8:40 AM (used the appt spot) * Telephone Encounter - Eusebia Chambers OSA [...] Description 12/03/2023 8:40 AM EDT Office Visit [address] [address] Matteo Calvert MD [address] [place] [address] 12/11/2023 12:20 PM EDT Office Visit [facility] [place] [address] [facility] [phone] Gordon Jimenez MD [address] [facility] [place] [address] 07/27/2024 1:00 PM EST Office Visit Rheumatology [facility] [address] [place] [address] Joe Amos MD [address] [place] [address] Health Maintenance Due Date Last Done Comments [...] filedocumented as of this encounter Care Teams Transition Mgr Rn Relationship Specialty Start Date End Date Gordon Jimenez MD [address] [place] [address] PCP - General Family Medicine 10/03/21 documented as of this encounter
--- OUTSIDE RECORDS SUMMARY | 2024-01-07 21:55 | External Medical Summary | Summary of Care ---
Author Name Unknown Organization [facility] Address [address] [facility] [place] [address] Phone [phone] Care Team Providers Care Brake Press Operator Name Role Phone Gordon Jimenez MD Primary Care Provider +1- [phone] Reason for Visit * Reason Onset Date Comments Appointment Canceled 10/22/2023 colonoscopy Encounter Details Date Type Department Care Team (Late st Contact Info) Description 10/22/2023 Telephone OR [facility], Operating Room [facility] [address] [place] [address] Mrailu Gonzalez DO [address] [place] [phone] Appointment Canceled (colonoscopy) Allergies Active Allergy Reactions [...] mRNA, LNP-s, No Pre serve, 2-Dose Series ([employer]) 10/22/2020,10/01/2020 Seasonal Influenza, PF, 6 M & [...] encounter Miscellaneous Notes * Telephone Encounter - Alona Galan OSA [...] Description 12/11/2023 12:20 PM EDT Office Visit [facility] [address] [place] [phone] Gordon Jimenez MD [address] [place] [facility] [place] [address] 07/27/2024 1:00 PM EST Office Visit Rheumatology [place] [id number] [place] [address] Joe Amos MD [address] [employer] [place], [place] [address] Health Maintenance Due Date Last Done Comments [...] filedocumented as of this encounter Care Teams Brake Press Operator Relationship Specialty Start Date End Date Gordon Jimenez MD [address] [place] [address] PCP - General Family Medicine 10/03/21 documented as of this encounter
--- OUTSIDE RECORDS SUMMARY | 2024-01-07 21:55 | External Medical Summary ---
Author Name Unknown Address Unknown Organization K01:[facility] [place] [address] [facility] [address] Laboratory Report Ordering Provider Test Date Status 12/03/2023 08:50:26 Final <10,000 colonies/ml mixed no rmal ajith Observation Date Value Abnormality Reference (Units ) Status Bacteria identified in Specimen by Culture 12/03/2023 08:50:26 [id number]^ESCHE RICHIA COLI Abnormal Final >100,000 colonies/mL Escheri du coli Bacteria identified in Specimen by Culture 12/03/2023 08:50:26 [id number]^KLEBSIELLA OXYTOCA Abnormal Final >100,000 colonies/mL Klebsie lla oxytoca Performing Location [facility] [place] [address] [facility] [address] Ordering Provider Test Date Status 12/03/2023 08:50:26 Final Observation Date Value Abnormality Reference (Units ) Status Ampicillin 12/03/2023 08:50:26 8 Susceptible Final Cefazolin 12/03/2023 08:50:26 <=4 Susceptible Final Cefepime susceptibility 12/03/2023 08:50:26 <=1 Susceptible Final Ceftriaxone suceptibility 12/03/2023 08:50:26 <=1 Susceptible Final Ciprofloxacin 12/03/2023 08:50:26 <=0.25 Susceptible Final Due to serious side effects, the FDA has advised against using Ciprofloxacin to treat uncomplicated UTIs and respiratory tract infections unless there are no alternative treatment options. Gentamicin susceptibility 12/03/2023 08:50:26 <=1 Susc eptible Final Nitrofurantoin susceptibility 12/03/2023 08:50:26 <=16 Susceptible Final Piperacillin + Tazobactamsusceptibility 12/03/2023 08:50:26 <=4 Susceptible Final TMP-SMZ susceptibility 12/03/2023 08:50:26 <=20 Suscept ible Final Performing Location [facility] [place] [address] [facility] [facility] [place] [address] Ordering Provider Test Date Status CHERI,12/03/2023 08:50:26 Final Observation Date Value Abnormality Reference (Units ) Status Ampicillin + Sulbactam 12/03/2023 08:50:26 4 Susceptible Final Cefepime susceptibility 12/03/2023 08:50:26 <=1 Susceptible Final Ceftriaxone suceptibility 12/03/2023 08:50:26 <=1 Susceptible Final Ciprofloxacin 12/03/2023 08:50:26 <=0.25 Susceptible Final Due to serious side effects, the FDA has advised against using Ciprofloxacin to treat uncomplicated UTIs and respiratory tract infections unless there are no alternative treatment options. Gentamicin susceptibility 12/03/2023 08:50:26 <=1 Susc eptible Final Nitrofurantoin susceptibility 12/03/2023 08:50:26 <=16 Susceptible Final Piperacillin + Tazobactamsusceptibility 12/03/2023 08:50:26 <=4 Susceptible Final TMP-SMZ susceptibility 12/03/2023 08:50:26 <=20 Suscept ible Final Test: Culture, Urine, Quanti tative
Specimen Source: Urine, Clean Catch
Specimen Type: Urine
Specimen Date: 12/03/2023 8:50 AM
Result Date: 12/06/2023 11:52 AM
Result Status: Final result
Abnormal: Yes
Resulting Lab: [facility]
[address]
[place] [address]

CULTURE

>100,000 colonies/mL Escherichia coli (Abnormal)

>100,000 colonies/mL Klebsiella oxytoca (Abnormal)

<10,000 colonies/ml mixed normal ajith

SUSCEPTIBILITY

Escherichia coli Klebsiella oxytoca
METHOD MICROBROTH MICROBROTH
DILUTIONS DILUTIONS

AMPICILLIN 8 Susceptible
AMPICILLIN/SULBACTAM 4 Susceptible
CEFAZOLIN <=4 Susceptible
CEFEPIME <=1 Susceptible <=1 Susceptible
CEFTRIAXONE <=1 Susceptible <=1 Susceptible
CIPROFLOXACIN <=0.25 Susceptible <=0.25 Susceptible
GENTAMICIN <=1 Susceptible <=1 Susceptible
NITROFURANTOIN <=16 Susceptible <=16 Susceptible
PIPERACILLIN TAZOBACTAM <=4 Susceptible <=4 Susceptible
TRIMETH/SULFAMETHOXAZOLE <=20 Susceptible <=20 Susceptible

[facility] Performing Location LAB[facility] [place] - [address] [facility] [address]
--- OUTSIDE RECORDS SUMMARY | 2024-01-07 21:55 | External Medical Summary | Summary of Care ---
Author Name Unknown Organization [facility] Address [address] [facility] [address] Phone [phone] Care Team Providers Care Irish Moss Bleacher Name Role Phone Edin Wilburn MD Primary Care Provider +1- [phone] Reason for Visit * Reason Comments eRx-Medication Refill Encounter Details Date Type Department Care Team (Late st Contact Info) Description 10/20/2023 Refill [place] [address] [place] [address] Edin Wilburn MD [address] [place] [address] Allergies Active Allergy Reactions Criticality Noted Date Comments Celecoxib 11/20/2012 "ripps up her stomach" Citalopram Hydrobromide Unknown 11/20/2012 Clarithromycin Unknown 11/20/2012 Sumatriptan Base 11/20/2012 Tightness in jaw Macrolides And Ketolides Unknown 11/20/2012 Rizatriptan Unknown 11/20/2012 Sumatriptan Unknown 01/21/2013 documented as of this encounter (statuses as of 10/21/2023) Medications Medication Sig Dispensed Refills Start Date [...] EVERY MORNING 90 Capsule 3 10/21/2023 Active Omeprazole 40 MG Oral Capsule Delayed Release (PriLOSEC) Take 1 Capsule by mouth in the morning. 90 Capsule 2 03/27/2023 10/21/19 24 Discontinued Gabapentin 300 MG Oral Capsule (Neurontin) TAKE 3 CAPSULES BY MOUTH IN THE MORNING AND EVENING, TAKE 2 CAPS AT NOON 720 Capsule 1 05/31/2023 10/21/19 24 Discontinued documented as of this encounter (statuses as of 10/21/2023) Active Problems Problem Noted Date Diagnosed Date [...] as of this encounter (statuses as of 10/21/2023) Resolved Problems Problem Noted Date Diagnosed Date Resolved Date Status post total left knee replacement 07/18/2021 07/23/2022 Depression 06/06/2022 Overview: More specified code listed on PL DVT (deep venous thrombosis) 01/24/2022 Overview: with PE-Hx added to PL documented as of this encounter (statuses as of 10/21/2023) Immunizations Name Administration Dates Next Due COVID-19 mRNA, LNP-s, No Pre serve, 2-Dose Series ([employer]) 10/22/2020,10/01/2020 Seasonal Influenza, PF, 6 M & [...] Telephone Encounter - Edin Wilburn MD - 10/21/2023 12:44 PM ESTSigned Prescriptions: Disp Refills Gabapentin 300 MG Oral Capsule (Neurontin) 720 Ca*1 Sig: TAKE 3 CAPSULES BY MOUTH IN THE MORNING AND 3 CAPS IN THE EVENING, TAKE 2 CAPS AT NOONAuthorizing Provider:EDIN WILBURN Omeprazole 40 MG Oral Capsule Delayed Rele*90 Cap*3 Sig: TAKE 1 CAPSULE BY MOUTH EVERY MORNINGAuthorizing Provider: EDIN WILBURN * Telephone Encounter - Magalys Saba LPN - 10/21/2023 8:15 AM ESTPending Prescriptions: Disp Refills Gabapentin 300 MG Oral Capsule [Pharmacy M*720 Ca*1 Sig: TAKE 3 CAPSULES BY MOUTH IN THE MORNING AND 3 CAPS IN THE EVENING, TAKE 2 CAPS AT NOON Omeprazole 40 MG Oral Capsule Delayed Rele*90 Cap*2 Sig: TAKE 1 CAPSULE BY MOUTH EVERY MORNING * Telephone Encounter - Jonathon Collado - 10/21/2023 5:04 AM ESTPending Prescriptions: Disp Refills Gabapentin 300 MG Oral Capsule [Pharmacy M*720 Ca*1 Sig: TAKE 3CAPSULES BY MOUTH IN THE MORNING AND 3 CAPS IN THE EVENING, TAKE 2 CAPS AT NOON Omeprazole 40 MG Oral Capsule Delayed Rele*90 Cap*2 Sig: TAKE 1 CAPSULE BY MOUTH EVERY MORNING documented in this encounter Plan of Treatment Upcoming Encounters Date Type Department Care Team (Latest Contact Info) Description 10/30/2023 10:15 AM EST Hospital Encounter ENDO [facility], Endoscopy Room [facility] [address] [place] [phone] Marilu Gonzalez DO [address] [place] [address] 10/30/2023 10:15 AM EST - 10/30/2023 10:45 AM EST Surgery ENDO [facility], Endoscopy Room [facility] [address] [place] [phone] Marilu Gonzalez DO [address] [place] [address] COLONOSCOPY FLEXIBLE PROXIMAL DIAGNOSTIC 12/11/2023 12:20 PM EDT Office Visit [address] [place] [phone] Edin Wilburn MD [address], [place] [phone] 07/27/2024 1:00 PM EST Office Visit Rheumatology [place] [address] [place] [address] Joe Amos MD [facility] [employer] [place], [place] [address] Scheduled Procedures Name Priority Associated Diagnoses Date/Ti [...] filedocumented as of this encounter Care Teams Irish Moss Bleacher Relationship Specialty Start Date End Date Edin Wilburn MD [address] [facility] [place] [address] PCP - General Family Medicine 10/03/21 documented as of this encounter
--- OUTSIDE RECORDS SUMMARY | 2024-01-07 21:55 | External Medical Summary | Summary of Care ---
Author Name Unknown Organization [facility] Address [address] [place] [facility] [place] [address] Phone [phone] Care Team Providers Care Hygiene Assistant Name Role Phone Gordon Jimenez MD Primary Care Provider +1- [phone] Reason for Visit * Reason Onset Date Comments Med Request 12/04/2023 Encounter Details Date Type Department Care Team (Late st Contact Info) Description 12/04/2023 Telephone [facility] [address] [place] [address] Gordon Jimenez MD [address] [place] [address] Med Request Allergies Active Allergy [...] mRNA, LNP-s, No Pre serve, 2-Dose Series ([employer]ian[employer]) 10/22/2020,10/01/2020 Seasonal Influenza, PF, 6 M & [...] Notes * Telephone Encounter - Olya Claros claims correspondence clerk - 12/04/2023 4:53 PM EDT Pt having severe migraines She is asking for medication She can not take sumatriptan Please send new rx Thank you for your assistance Olya Claros Security Researcher II [facility] (Formerly [facility]) 12/04/2023,4:54 PM documented in this encounter Plan of Treatment Upcoming Encounters Date Type Department Care Team (Late st Contact Info) Description 12/11/2023 12:20 PM EDT Office Visit [facility] [address] [place] [address] Gordon Jimenez MD [address] [facility] [place] [phone] 07/27/2024 1:00 PM EST Office Visit Rheumatology [facility] [address] [place] [address] Joe Amos MD [address] [place] [address] Health Maintenance Due Date Last Done Comments [...] filedocumented as of this encounter Care Teams Hygiene Assistant Relationship Specialty Start Date End Date Gordon Jimenez MD [address] [place] [address] PCP - General Family Medicine 10/03/21 documented as of this encounter
--- OUTSIDE RECORDS SUMMARY | 2024-01-07 21:56 | External Medical Summary | Summary of Care ---
Author Name Unknown Organization [facility] Address [address] [facility] [address] Phone [phone] Care Team Providers Care Carpenter Assistant Name Role Phone Gordon Jimenez MD Primary Care Provider +1- [phone] Reason for Visit * Reason Comments eRx-Medication Refill Encounter Details Date Type Department Care Team (Late st Contact Info) Description 07/12/2023 Refill Rheumatology [address] [place] [address] Masood Sellers MD [address] [place] [address] Encounter for long-term (current) use of medications* Allergies Active Allergy Reactions Criticality Noted Date Comments Celecoxib 11/20/2012 "ripps up her stomach" Citalopram Hydrobromide Unknown 11/20/2012 Clarithromycin Unknown 11/20/2012 Sumatriptan Base 11/20/2012 Tightness in jaw Macrolides And Ketolides Unknown 11/20/2012 Rizatriptan Unknown 11/20/2012 Sumatriptan Unknown 01/21/2013 documented as of this encounter (statuses as of 07/16/2023) Medications Medication Sig Dispensed Refills Start Date [...] TABS 1 at bedtime 2 8 Active lamoTRIgine (LAMICTAL) 25 MG Tablet 4 Tablets. 2 every AM 0 8 Active Melatonin 10 MG Capsule Take 15 mg by mouth at bedtime. Taking a 10mg with a 5mg 0 Active Magnesium 500 MG Oral Capsule Take 1 Capsule by mouth in the morning. 0 Active B-12 1000 MCG Oral Capsule Take 1 Capsule by mouth in the morning. 0 Active Zoster Vac Recomb Adjuvanted 50 MCG/0.5ML Intramuscular Suspension Reconstituted (Shingrix)Indicatio ns:Need for vaccination for zoster Inject 0.5 mL into a large muscle now and repeat dose in 60 to 180 days 1 Each 1 2 Active Additional Information Patient not taking.Reported on 09/10/2022 Amoxicillin 500 MG Oral Capsule (Amoxil) 0 2 Active hydrOXYzine HCl 25 MG Oral Tablet [...] 3 Active Sulindac 200 MG Oral Tablet TAKE 1 TABLET BY MOUTH TWICE A DAY 180 Tablet 0 3 Active Sulindac 200 MG Oral Tablet TAKE 1 TABLET BY MOUTH TWICE A DAY 180 Tablet 2 3 07/16/20 23 Discontinued documented as of this encounter (statuses as of 07/16/2023) Active Problems Problem Noted Date Diagnosed Date [...] as of this encounter (statuses as of 07/16/2023) Resolved Problems Problem Noted Date Diagnosed Date Resolved Date Status post total left knee replacement 07/18/2021 07/23/2022 Depression 06/06/2022 Overview: More specified code listed on PL DVT (deep venous thrombosis) 01/24/2022 Overview: with PE-Hx added to PL documented as of this encounter (statuses as of 07/16/2023) Immunizations Name Administration Dates Next Due COVID-19 [...] Information Value Date Recorded Sex Assigned at Not on file Gender Identity Not on file Sexual Orientation Not on file Job Start Date Occupation Industry Not on [...] labs * Telephone Encounter - Mary Madrid [facility] - 07/16/2023 9:12 AM EDTPending Prescriptions: Disp Refills Sulindac 200 MG Oral Tablet 180 Ta*0 Sig: TAKE 1 TABLET BY MOUTH TWICE A DAY * Telephone Encounter - Mary Madrid [facility] - 07/16/2023 9:10 AM EDT Rheumatology: Refill [...] pt of labs if appropriate. Mary Madrid [facility] Clinical Pharmacist Rheumatology Department 07/16/2023,9:10 AM * Telephone Encounter - Cherie Steiner manager pool - 07/12/2023 4:25 PM EDTPending Prescriptions: Disp Refills Sulindac 200 MG Oral Tablet [Pharmacy Med *180 Ta*2 Sig: TAKE 1 TABLET BY MOUTH TWICE A DAY * Telephone Encounter - JAYANT Prince Tech - 07/12/2023 4:24 PM EDT Patient is [...] the medication was ordered: 12/04 Pharmacy: [place] [id number] [address] [facility] Is this request for a controlled substance?No [...] Department Care Team (Latest Contact Info) Description 07/24/2023 1:00 PM EDT Office Visit Rheumatology [place] [phone] [place] [address] Masood Sellers MD [address] [place] [address] 10/30/2023 10:15 AM EST Hospital Encounter ENDO [facility], Endoscopy Room [facility] [address] [place] [phone] Marilu Gonzalez DO [address] [place] [address] 10/30/2023 10:15 AM EST - 10/30/2023 10:45 AM EST Surgery ENDO [facility], Endoscopy Room [facility] [address] [place] [phone] Marilu Gonzalez DO [address] [place] [address] COLONOSCOPY FLEXIBLE PROXIMAL DIAGNOSTIC 12/11/2023 12:20 PM EDT Office Visit [facility] [address] [place] [phone] Gordon Jimenez MD [address] [place] [address] Scheduled Orders Name Type Priority Associated Diagnoses Orde r Schedule CBC WITH WBC DIFFERENTIAL Lab Routine Encounter for long-term (current) use of medications Expected: 07/23/2023 (Approximate), Expires: 07/16/2024 CBC WITH WBC DIFFERENTIAL Lab Routine Encounter for long-term (current) use of medications Expected: 07/16/2023, Expires: 07/16/2024 COMPREHENSIVE METABOLIC PANEL Lab Routine Encounter for long-term (current) use of medications Expected: 07/16/2023 (Approximate), Expires: 10/16/2023 Scheduled Procedures Name Priority Associated Diagnoses Date/Ti [...] as of this encounter Visit Diagnoses Diagnosis Encounter for long-term (current) use of medications- Primary Encounter for long-term (current) use of other medications Screen for colon cancer Special screening for malignant neoplasms, colon documented in this encounter Care Teams Carpenter Assistant Relationship Specialty Start Date End Date Gordon Jimenez MD [address] [place] [address] PCP - General Family Medicine 10/03/21 documented as of this encounter
--- OUTSIDE RECORDS SUMMARY | 2024-01-07 21:56 | External Medical Summary ---
Author Name Unknown Address Unknown Organization K01:LABORATORY [place] [address] [place] [address] Laboratory Report Ordering Provider Test Date Status AKILA JESUS 07/26/2023 10:42:06 Final Observation Date Value Abnormality Reference (Units) Status Hepatitis B virus surface Ab [Units/volume] in Serum or Plasma by Immunoassay 07/26/2023 10:42:06 88.2 (mIU/mL) Final Hepatitis B virus surface Ab [Presence] in Serum by Immunoassay 07/26/2023 10:42:06 Positive Final HEPATITIS B SURFACE ANTIBODY, INTERPRETATION 07/26/2023 10:42:06 Immune to Hepatitis B Virus Final POSITIVE: >=11.5 mIU/mL
INDETERMINATE: 8.5-<11.5 mIU/mL
NEGATIVE: <8.5 mIU/mL Performing Location [facility]ATORY [place] [address] [place] [address]
--- OUTSIDE RECORDS SUMMARY | 2024-01-07 21:56 | External Medical Summary ---
Author Name Unknown Address Unknown Organization K01:[facility] [place] [address] [place] [address] Laboratory Report Ordering Provider Test Date Status AKILA JESUS 07/26/2023 10:42:06 Final Deficient: <20 ng/mL
Ins ufficient: 20-29 ng/mL
Recommended/Optimum:30-50 ng/mL

Vitamin D intoxication is rare. If suspicious of Vitamin D toxicity, evaluation of serum Calcium and PTH is recommended. Observation Date Value Abnormality Reference (Units ) Status 25-OH Vitamin D total 07/26/2023 10:42:06 79 >19 (ng/mL) Final Performing Location [facility] [place] [address] [place] [address]
--- OUTSIDE RECORDS SUMMARY | 2024-01-07 21:56 | External Medical Summary | Summary of Care ---
Author Name Unknown Organization [facility] Address [address] [place] [address] Phone [phone] Care Team Providers Care Purchasing Officer Name Role Phone Gordon Jimenez MD Primary Care Provider +1- [phone] Encounter Details Date Type Department Care Team (Late st Contact Info) Description 07/16/2023 Orders Only Outcomes Research Department [address] [place] [address] Anna Sawyer CHRA [employer] Other*[id number] Allergies Active Allergy Reactions Criticality Noted Date [...] 1 at bedtime 2 12/15/2017 Act moshe lamoTRIgine (LAMICTAL) 25 MG Tablet 4 Tablets. 2 every AM 0 11/12/2017 Active Melatonin 10 MG Capsule Take 15 mg by mouth at bedtime. Taking a 10mg with a 5mg 0 Active Magnesium 500 MG Oral Capsule Take 1 Capsule by mouth in the morning. 0 Active B-12 1000 MCG Oral Capsule Take 1 Capsule by mouth in the morning. 0 Active Zoster Vac Recomb Adjuvanted 50 MCG/0.5ML Intramuscular Suspension Reconstituted (Shingrix)Indication s:Need for vaccination for zoster Inject 0.5 mL into a large muscle now and repeat dose in 60 to 180 days 1 Each 1 02/06/2022 Active Additional Information Patient not taking.Reported on 09/10/2022 Amoxicillin 500 MG Oral Capsule (Amoxil) 0 07/21/2022 Active hydrOXYzine HCl 25 MG Oral Tablet TAKE 1-2 TABS BY MOUTH DAILY IF NEEDED FOR ANXIETY OR INSOMNIA 0 07/16/2022 Active Pravastatin Sodium 80 MG Oral Tablet Take 1 Tablet (80 mg) by mouth in the morning. 90 Tablet 3 08/29/2022 Active Sulindac 200 MG Oral Tablet TAKE 1 TABLET BY MOUTH TWICE A DAY 180 Tablet 2 12/04/2022 Active Potassium Chloride ER 10 MEQ Oral [...] Pain, Severe. 120 Tablet 0 06/24/2023 Active documented as of this encounter (statuses [...] mRNA, LNP-s, No Pre serve, 2-Dose Series ([employer]) 10/22/2020,10/01/2020 SEASONAL INFLUENZA, PF, 6 M & [...] 07/24/2023 1:00 PM EDT Office Visit Rheumatology [place] [address] [employer] [place] [address] Joe Amos MD [address] [place] [address] 10/30/2023 10:15 AM EST Hospital Encounter ENDO [facility], Endoscopy Room [facility] [address] [place] [phone] Marilu Gonzalez DO [address] [place] [address] 10/30/2023 10:15 AM EST - 10/30/2023 10:45 AM EST Surgery ENDO [facility], Endoscopy Room [facility] [address] [place] [phone] Marilu Gonzalez DO [address] [place] [address] COLONOSCOPY FLEXIBLE PROXIMAL DIAGNOSTIC 12/11/2023 12:20 PM EDT Office Visit [facility] [address] [facility], [place] [phone] Gordon Jimenez MD [address] [facility], [place] [phone] Scheduled Orders Name Type Priority Associated Diagnoses Orde r Schedule MYCODE SUBSEQUENT ADULT Lab Routine [employer] Research Other*[id number] Every 6 Months for 2 Occurrences starting 07/16/2023 until 08/04/2024 Scheduled Procedures Name Priority Associated Diagnoses Date/Ti [...] as of this encounter Visit Diagnoses Diagnosis [employer] [facility] Other*[id number] Screen for colon cancer Special screening for malignant neoplasms, colon documented in this encounter Care Teams Purchasing Officer Relationship Specialty Start Date End Date Gordon Jimenez MD [address] [place] [address] PCP - General Family Medicine 10/03/21 documented as of this encounter
--- OUTSIDE RECORDS SUMMARY | 2024-01-07 21:56 | External Medical Summary ---
Author Name Unknown Address Unknown Organization K01:LABORATORY [facility] [place] - [address] [facility] [place] [address] Laboratory Report Ordering Provider Test Date Status SMITH RODRIGUEZ 07/26/2023 10:42:06 Final Observation Date Value Abnormality Reference (Units ) Status SYNC LEUKOCYTES IN BLOOD BY AUTOMATED COUNT 07/26/2023 10:42:06 7.96 4.00-10.80 (K/uL) Final Segs 07/26/2023 10:42:06 40.3 40.0-75.0 (%) Final Lymphs % 07/26/2023 10:42:06 47.1 Above high normal 18.0-42.0 (%) Final Monos 07/26/2023 10:42:06 6.7 1.0-11.0 (%) Final Eosinophils 07/26/2023 10:42:06 4.4 0.0-6.0 (%) Final Basos 07/26/2023 10:42:06 1.0 0.0-2.0 (%) Final Immature Granulocyte, Percent 07/26/2023 10:42:06 0.5 0.0-2.0 (%) Final Absolute Segs 07/26/2023 10:42:06 3.21 1.80-7.70 (K/uL) Final Lymphs, absolute 07/26/2023 10:42:06 3.75 1.00-4.80 (K/ul) Final Monos, Abs 07/26/2023 10:42:06 0.53 0.00-1.10 (K/uL) Final Eos, Abs 07/26/2023 10:42:06 0.35 0.00-0.70 (K/uL) Final Basos, Abs 07/26/2023 10:42:06 0.08 0.00-0.20 (K/uL) Final Immature Granulocytes, Number 07/26/2023 10:42:06 0.04 0.00-0.20 (K/uL) Final Performing Location LABORATORY [facility] - [address] [facility] [address]
--- OUTSIDE RECORDS SUMMARY | 2024-01-07 21:56 | External Medical Summary ---
Author Name Unknown Address Unknown Organization [id number]:[facility] [place] [address] [place] [id number] Laboratory Report Ordering Provider Test Date Status DANILO PURCELL 07/26/2023 10:42:06 Final Observation Date Value Abnormality Reference (Units ) Status MYCODE SPECIMEN-SST 07/26/2023 10:42:06 Freezing of extracted DNA, whole blood and/or serum. Final Performing Location [facility] [place] [address] [place] [address]
--- OUTSIDE RECORDS SUMMARY | 2024-01-07 21:56 | External Medical Summary ---
Author Name Unknown Address Unknown Organization [id number]:[facility] [place] [address] [facility] [place] [address] Laboratory Report Ordering Provider Test Date Status AKILA JESUS 07/26/2023 10:42:06 Final Observation Date Value Abnormality Reference (Units ) Status Triglyceride 07/26/2023 10:42:06 176 Above high normal <=174 (mg/dL) Final Triglyceride Reference Range s (mg/dL):
<150 Acceptable
150-174 Borderline high
175-499 High
>=500 Very high Cholesterol 07/26/2023 10:42:06 164 <200 (mg /dL) Final Total Cholesterol Reference Ranges (mg/dL):
<200 Desirable
200-239 Borderline high
>=240 High HDL 07/26/2023 10:42:06 46 Below low normal >49 (mg/dL) Final HDL Cholesterol Reference Ra nges (mg/dL):
>=60 High (Desirable)
<50 Low (Undesirable) For Females
<40 Low (Undesirable) For Males NON-HDL CHOLESTEROL 07/26/2023 10:42:06 118 <=159 (mg/dL) Final Non-HDL Cholesterol Referenc e Range (mg/dL):
<100 Target level for high risk ASCVD patient
<130 Optimal for general population
130-159 Near optimal for general population
160-189 Borderline High
190-219 High
>=220 Very High LDL, (calculated) 07/26/2023 10:42:06 83 <= 129 (mg/dL) Final LDL Cholesterol Reference Ra nges (mg/dL):
<70 Target level for high risk ASCVD patient
<100 Optimal for general population
100-129 Near optimal for general population
130-159 Borderline high
160-189 High
>=190 Very high Performing Location [facility] [place] [address] [facility] [address]
--- OUTSIDE RECORDS SUMMARY | 2024-01-07 21:56 | External Medical Summary ---
Author Name Unknown Address Unknown Organization [id number]:[facility] [place] [address] [place] [id number] Laboratory Report Ordering Provider Test Date Status DANILO PURCELL 07/26/2023 10:42:06 Final Observation Date Value Abnormality Reference (Units ) Status MYCODE SPECIMEN-SST 07/26/2023 10:42:06 Freezing of extracted DNA, whole blood and/or serum. Final Performing Location [facility] [place] [address] [place] [address]
--- OUTSIDE RECORDS SUMMARY | 2024-01-07 21:56 | External Medical Summary | Summary of Care ---
Author Name Unknown Organization [facility] Address [address] [facility] [address] Phone [phone] Care Team Providers Care Tip Printer Name Role Phone Gordon Jimenez MD Primary Care Provider [phone] Reason for Visit * Reason Comments Rheum Follow Up Follow up - knee jorge alberto n Encounter Details Date Type Department Care Team (Latest Contact Info) Description 07/24/2023 1:00 PM EDT Office Visit Rheumatology [address] [place] [address] Joe Amos MD [facility] [place] [address] Primary osteoarthritis of both knees*; Fibromyalgia Allergies Active Allergy Reactions Criticality Noted Date Comments Celecoxib 11/20/2012 "ripps up her stomach" Citalopram Hydrobromide Unknown 11/20/2012 Clarithromycin Unknown 11/20/2012 Sumatriptan Base 11/20/2012 Tightness in jaw Macrolides And Ketolides Unknown 11/20/2012 Rizatriptan Unknown 11/20/2012 Sumatriptan Unknown 01/21/2013 documented as of this encounter (statuses as of 07/24/2023) Medications Medication Sig Dispensed Refills Start Date [...] A DAY 180 Tablet 0 07/16/2023 Active lamoTRIgine (LAMICTAL) 25 MG Tablet 4 Tablets. 2 every AM 0 11/12/2017 3 Discontinue d(Medicatio n List Clean Up) Zoster Vac Recomb Adjuvanted 50 MCG/0.5ML Intramuscular Suspension Reconstituted (Shingrix)Indication s:Need for vaccination for zoster Inject 0.5 mL into a large muscle now and repeat dose in 60 to 180 days 1 Each 1 02/06/2022 3 Discontinue d(Medicatio n List Clean Up) Amoxicillin 500 MG Oral Capsule (Amoxil) 0 07/21/2022 3 Discontinue d(Medicatio n List Clean Up) documented as of this encounter (statuses as of 07/24/2023) Active Problems Problem Noted Date Diagnosed Date [...] as of this encounter (statuses as of 07/24/2023) Resolved Problems Problem Noted Date Diagnosed Date Resolved Date Status post total left knee replacement 07/18/2021 07/23/2022 Depression 06/06/2022 Overview: More specified code listed on PL DVT (deep venous thrombosis) 01/24/2022 Overview: with PE-Hx added to PL documented as of this encounter (statuses as of 07/24/2023) Immunizations Name Administration Dates Next Due COVID-19 [...] Sign Reading Time Taken Comments Blood Pressure - - Pulse - - Temperature 35.6 C (96 F) 07/24/2023 1:12 PM EDT Respiratory Rate - - Oxygen Saturation - - Inhaled Oxygen Concentration - - Weight 94.3 kg (208 lb) 07/24/2023 1:12 PM EDT Height - - Body Mass Index 31.63 06/12/2023 12:23 PM EDT documented in this encounter Progress Notes * Joe Amos MD - 07/24/2023 1:18 PM EDT Subjective: Patient seen today for further follow up evaluation of osteoarthritis, fibromyalgia. Since the lastvisit she reports she did have some increased left knee pain and then had a fal jeffery her garage and injured both knees (her bad left knee and replaced right knee). She did see Dr Márquez yesterday - replaced knee is ok, holding off on left knee replacement. No injections. She reports her left knee is bone on bone. She tries to stay active. Weather affects her knee pains. She continues to deal with back pain and fibro pains. Uses sulindac and tylenol Musculoskeletal ROS: . Abnormal: joint pain . Pain scale (0-10): 5 or 6 Other ROS: . Constitutional: trouble sleeping . Cardiovascular: normal . Respiratory: normal . Gastrointestinal: normal . Genitourinary: normal All other ros reviewed and negative Social History: Social History Tobacco Use Smoking status: Former Types: Cigarettes Smokeless tobacco: Never Substance Use Topics Alcohol use: No Vaping/E-Cigarette Use Vaping/E-Cigarette Substances Vaping/E-Cigarette Devices Current Outpatient Medications Medication Sig Dispense Refill [...] DAILY IF NEEDED FOR ANXIETY OR INSOMNIA Pravastatin Sodium 80 MG Oral Tablet Take 1 Tablet (80 mg) by mouth in the morning. 90 Tablet 3 Potassium Chloride ER 10 MEQ Oral Tablet Extended Release TAKE 1 TABLET BY MOUTH TWICE A DAY 180 Tablet 1 Ondansetron 4 MG Oral Tablet Disintegrating (Zofran) Place 1 Tablet on tongue every 8 hours as needed for Nausea. dissolve on tongue. 30 Tablet 1 Omeprazole 40 MG Oral Capsule Delayed Release (PriLOSEC) Take 1 Capsule by mouth in the morning. 90Capsule 2 Gabapentin 300 MG Oral Capsule (Neurontin) TAKE 3 CAPSULES BY MOUTH IN THE MORNING AND EVENING, TAKE 2 CAPS AT NOON 720 Capsule 1 tiZANidine HCl 4 MG Oral Tablet (Zanaflex) TAKE 2 TABLETS BY MOUTH TWICE A DAY 360 Tablet 1 lamoTRIgine 150 MG Oral Tablet (LaMICtal) Take 1 Tablet by mouth in the morning. traMADol HCl 50 MG Oral Tablet (Ultram) Take 1 Tablet by mouth every 6 hours as needed for Pain, Severe. 120 Tablet 0 Sulindac 200 MG Oral Tablet TAKE 1 TABLET BY MOUTH TWICE A DAY 180 Tablet 0 lamoTRIgine (LAMICTAL) 25 MG Tablet 4 Tablets. 2 every AM 0 Zoster Vac Recomb Adjuvanted 50 MCG/0.5ML Intramuscular Suspension Reconstituted (Shingrix) Inject 0.5 mL into a large muscle now and repeat dose in 60 to 180 days (Patient not taking: Reported on 07/23/2022) 1 Each 1 Amoxicillin 500 MG Oral Capsule (Amoxil) (Patient not taking: Reported on 07/24/2023) No current facility-administered medications for this visit. Physical Exam: Temp 35.6 C (96 F) (Infrared ) | Wt 94.3 kg (208 lb) | BMI 31.63 kg/m | BSA 2.13 m General: alert, healthy, no distress, and well nourished Heart: regular rate & rhythm and no gallops Lungs: clear to auscultation , no rales, wheezes or rhonchi Abdomen: abdomen soft, non-tender, and normal bowel sounds Extremities: no clubbing, no cyanosis Musculoskeletal Exam: Right knee replacement noted Crepitus on exam left knee Assessment: (M17.0) Primary osteoarthritis of both knees (primary encounter diagnosis) (M79.7) Fibromyalgia Has pretty stable osteoarthritis and fibromyalgia. Needs to get updated labs. Continue sulindac fornow. Plan: 1. Await updated lab work 2. Continue with sulindac 3. Continue with other medications 4. Continue with Orthopedics 5. Return to clinic 1 year Joe Amos MD Department of Rheumatology documented in this encounter Nursing Notes * Malinda Bucio LPN - 07/24/2023 1:12 PM EDT Chief Complaint Patient presents with Rheum Follow Up Follow up - knee pain documented in this encounter Plan of Treatment Upcoming Encounters Date Type Department Care Team (Latest Contact Info) Description 10/30/2023 10:15 AM EST Hospital Encounter [facility]O [facility], Endoscopy Room [facility] [address] [place] [id number] Marilu Gonzalez DO [address] [place] [address] 10/30/2023 10:15 AM EST - 10/30/2023 10:45 AM EST Surgery ENDO [facility], Endoscopy Room [facility] [address] [place] [id number] Marilu Gonzalez DO [address] [place] [address] COLONOSCOPY FLEXIBLE PROXIMAL DIAGNOSTIC 12/11/2023 12:20 PM EDT Office Visit [facility] [address] [place] [facility] [place] [id number] Gordon Jimenez MD [address] [place] [facility] [place] [address] 07/27/2024 1:00 PM EST Office Visit Rheumatology [place] [id number] [facility] [address] Joe Amos MD [facility] [place] [address] Scheduled Procedures Name Priority Associated Diagnoses Date/Ti [...] knees- Primary Primary localized osteoarthrosis, lower leg Fibromyalgia Mylagia and myositis, unspecified Screen for colon cancer Special screening for malignant neoplasms, colon documented in this encounter Care Teams Tip Printer Relationship Specialty Start Date End Date Gordon Jimenez MD [address] [place] [address] PCP - General Family Medicine 10/03/21 documented as of this encounter
--- OUTSIDE RECORDS SUMMARY | 2024-01-07 21:56 | External Medical Summary ---
Author Name Unknown Address Unknown Organization K01:[facility] [place] [address] [place] [address] Laboratory Report Ordering Provider Test Date Status AKILA JESUS 07/26/2023 10:42:06 Final Observation Date Value Abnormality Reference (Units ) Status Vitamin B12 07/26/2023 10:42:06 >2000 Above high normal 232-1245 (pg/mL) Final Performing Location [facility] [place] [address] [place] [address]
--- OUTSIDE RECORDS SUMMARY | 2024-01-07 21:56 | External Medical Summary ---
Author Name Unknown Address Unknown Organization K01:[facility] [place] - [facility] [address] [facility] [address] [facility] [address] Laboratory Report Ordering Provider Test Date Status SMITH RODRIGUEZ 07/26/2023 10:42:06 Final Observation Date Value Abnormality Reference (Units ) Status WBC, Total 07/26/2023 10:42:06 7.96 4.00-10.80 (K/uL) Final RBC 07/26/2023 10:42:06 4.60 3.85-5.15 (M/uL) Final Hemoglobin 07/26/2023 10:42:06 12.1 12.0-15.3 (g/dL) Final HCT 07/26/2023 10:42:06 39.5 36.0-45.2 (%) Final MCV 07/26/2023 10:42:06 85.9 81.5-97.5 (fL) Final MCH 07/26/2023 10:42:06 26.3 27.0-34.0 (pg) Final MCHC 07/26/2023 10:42:06 30.6 32.0-36.0 (g/dL) Final RDW 07/26/2023 10:42:06 13.9 11.5-15.5 (%) Final Platelets 07/26/2023 10:42:06 219 140-400 (K/uL) Final MPV 07/26/2023 10:42:06 10.7 6.6-11.1 (fL) Final Nucleated erythrocytes/100 leukocytes [Ratio] in Blood by Automated count 07/26/2023 10:42:06 0 <=0 (/100 WBCs) Final Performing Location [facility] [place] - [address] [place] [address]
--- OUTSIDE RECORDS SUMMARY | 2024-01-07 21:56 | External Medical Summary ---
Author Name Unknown Address Unknown Organization K01:[facility] [place] [address] [place] [address] Laboratory Report Ordering Provider Test Date Status AKILA JESUS 07/26/2023 10:42:06 Final Observation Date Value Abnormality Reference (Units ) Status HbA1C 07/26/2023 10:42:06 5.5 4.0-5.6 (% ) Final The use of HbA1c to monitor glycemic status is based on normal hemoglobin and HbA composition. This test should not be used in patients with abnormal hemoglobin that affects the half life of the red blood cell or the in vivo glycation rates. Glucose, estimated average 07/26/2023 10:42:06 111 <126 (mg/dL) Final Performing Location [facility] [place] [facility] [address] [facility] [address]
--- NOTE | 2024-01-08 00:06 | Magnetic Resonance Report ---
Exam(s): MRI HEAD Without Contrast EXAM: MR Head Without Intravenous Contrast CLINICAL HISTORY: Reason for exam: rule out stroke. TECHNIQUE: Magnetic resonance images of the head/brain without intravenous contrast in multiple planes. COMPARISON: No relevant prior studies available. FINDINGS: Brain: Unremarkable. No mass. No hemorrhage. No acute infarct. Ventricles: Unremarkable. No ventriculomegaly. Bones/joints: Unremarkable. No acute fracture. Sinuses: Unremarkable as visualized. No acute sinusitis. Mastoid air cells: Unremarkable as visualized. No mastoid effusion. Orbits: Unremarkable as visualized. IMPRESSION: Normal head/brain MRI. Electronically signed by: Wilder Gage M.D. 01/08/24 00:05 AM
--- NOTE | 2024-01-08 00:13 | Magnetic Resonance Report ---
Exam(s): MRA HEAD Without Contrast EXAM: MR Angiography Head Without Intravenous Contrast CLINICAL HISTORY: Reason for exam: Rule out stroke. TECHNIQUE: Magnetic resonance angiography images of the head without intravenous contrast. COMPARISON: No relevant prior studies available. FINDINGS: Right internal carotid artery: No acute findings. Intracranial segment is patent with no significant stenosis. No aneurysm. Right anterior cerebral artery: Unremarkable. No occlusion or significant stenosis. No aneurysm. Right middle cerebral artery: Unremarkable. No occlusion or significant stenosis. No aneurysm. Right posterior cerebral artery: Unremarkable. No occlusion or significant stenosis. No aneurysm. Right vertebral artery: Unremarkable as visualized. Left internal carotid artery: No acute findings. Intracranial segment is patent with no significant stenosis. No aneurysm. Left anterior cerebral artery: Unremarkable. No occlusion or significant stenosis. No aneurysm. Left middle cerebral artery: Unremarkable. No occlusion or significant stenosis. No aneurysm. Left posterior cerebral artery: Unremarkable. No occlusion or significant stenosis. No aneurysm. Left vertebral artery: Unremarkable as visualized. Basilar artery: Unremarkable. No occlusion or significant stenosis. No aneurysm. IMPRESSION: No large vessel intracranial occlusion. No intracranial aneurysm. Electronically signed by: Wilder Gage M.D. 01/08/24 00:12 AM
--- NOTE | 2024-01-08 00:14 | Magnetic Resonance Report ---
Exam(s): MRA NECK Without Contrast EXAM: MR Angiography Neck Without Intravenous Contrast CLINICAL HISTORY: Reason for exam: rule out stroke. TECHNIQUE: Magnetic resonance angiography images of the neck without intravenous contrast. COMPARISON: No relevant prior studies available. FINDINGS: Right common carotid artery: Unremarkable. No significant stenosis. No dissection or occlusion. Right internal carotid artery: Unremarkable. Extracranial segment is patent with no significant stenosis. No dissection or occlusion. Right external carotid artery: Unremarkable. No occlusion. Right vertebral artery: Unremarkable. No significant stenosis. No dissection or occlusion. Left common carotid artery: Unremarkable. No significant stenosis. No dissection or occlusion. Left internal carotid artery: Unremarkable. Extracranial segment is patent with no significant stenosis. No dissection or occlusion. Left external carotid artery: Unremarkable. No occlusion. Left vertebral artery: Unremarkable. No significant stenosis. No dissection or occlusion. Soft tissues: Unremarkable as visualized. CAROTID STENOSIS REFERENCE USING NASCET CRITERIA: % ICA stenosis = (1 - narrowest ICA diameter/diameter of distal cervical ICA) x 100. Mild - <50% stenosis. Moderate - 50-69% stenosis. Severe - 70-94% stenosis. Near occlusion - 95-99% stenosis. Occluded - 100% stenosis. IMPRESSION: Normal neck MRA. Electronically signed by: Wilder Gage M.D. 01/08/24 00:13 AM
[2024-01-08] MEDS: ACETYLCYSTEINE IV ONE (02:18)
[2024-01-08] MEDS: DEXTROSE 5% IV ONE (02:18)
[2024-01-08 04:58] LABS: Basophils # (auto) 0.02 K/uL (0.00-0.20); Basophils % (auto) 0.2 %; Eosinophils # (auto) 0.01 K/uL (0.00-0.50); Eosinophils % (auto) 0.1 %; Hematocrit (blood only) 26.9 % (37.0-47.0); Hemoglobin 8.6 g/dl (12.0-16.0); Immature Granulocytes # (auto) 0.21 K/uL (0.01-0.20); Immature Granulocytes % (auto) 1.6 %; Lymphocytes # (auto) 1.12 K/uL (1.20-3.40); Lymphocytes % (auto) 8.7 %; Mean Corpuscular Hemoglobin 26.1 pg (25.0-34.0); Mean Corpuscular Volume 81.5 fL (80.0-100.0); Mean Platelet Volume 10.1 fL (9.4-12.4); Monocytes # (auto) 0.96 K/uL (0.11-0.59); Monocytes % (auto) 7.5 %; Neutrophils # (auto) 10.52 K/uL (1.40-6.50); Neutrophils % (auto) 81.9 %; Platelet Count 123 K/uL (130-400); RDW Coefficient of Variation 15.6 % (11.5-14.5); RDW Standard Deviation 46.6 fL (36.4-46.3); White Blood Count 12.84 K/ul (4.8-10.8)
[2024-01-08 05:06] LABS: Albumin Globulin Ratio 1.2 (0.9-2); Albumin Level 3.1 gm/dl (3.4-5.0); BUN Creatinine Ratio 27.2 (10-20); Bilirubin,Total 0.8 mg/dl (0.2-1.0); Calcium 7.9 mg/dl (8.6-10.3); Est GFR (African American) 37.9 ml/min; Est GFR (Non-African American) 32.7 ml/min; Globulin 2.6 gm/dl (2.5-4.0); Total Protein 5.7 gm/dl (6.0-8.3)
--- NOTE | 2024-01-08 08:02 | Critical Care Progress Note ---
Date of Service January 08, 2024 Assessment & Plan (1) Sepsis: (2) Bipolar disorder: (3) Anxiety and depression: (4) Fibromyalgia: (5) UTI (urinary tract infection): Plan Reason Critically Ill: 58 YOF admitted to ICU for septic shock secondary to UTI likely pyelonephritis. Follow hemodynamics and organ dysfunction. 24-hour events: Patient was admitted for pyelonephritis and hypotension. She responded to crystalloid infusion. Pressors were never required. She is awake alert and conversant this morning. Recommendation Neuro -chronic pain issues. Continue outpatient medications. May have resulted from continued medication use in the setting of impaired renal clearance but regardless her encephalopathy is resolved this morning without deficits. Will get out of bed to chair. No indication for advanced imaging. Patient is on multiple pain and psychiatric medications. These will be restarted. Cardiac -septic shock due to pyelonephritis. Resolved with IV fluid resuscitation. Currently hemodynamically stable. Respiratory - No acute needs GI -LFTs are normal. Patient sensorium is cleared. Tylenol level was normal. Can discontinue N-acetylcysteine at this point in time. No evidence of intentional or unintentional overdose. Advance diet RENAL/LYTES -acute renal failure secondary to ATN with pyelonephritis -Krueger catheter. Urology consultation pending. Nonobstructive stone. ENDO - glycemic control per protocol HEME - No acute needs ID -pyelonephritis. Previous urine culture demonstrated E. coli which was resistant to ampicillin sulbactam Cipro and levofloxacin. Was sensitive to Zosyn. Continue Zosyn for now day #2. Tailor antibiotics based on culture results. LINES/IV ACCESS - PIV, Krueger Continue use of these lines DVT PROPHYLAXIS - SCDS, Heparin 5000 units q8 DISPO: Patient is hemodynamically stable and okay to transfer to the floor. Critical care services will sign off. Feel free to contact us with questions or concerns Admission and Anticipated Discharge Date Admission Date: January 07, 2024 Subjective Patient seen and examined. EMR reviewed. Discussed with bedside critical care nurse, patient, and overnight critical care VALENTE. Patient states that she feels better this morning. She is hungry and wants to eat. She is asking about potentially being discharged from the hospital. She denies any nausea or vomiting. Her flank pain is improved. She is not experiencing any chest pain or palpitations. No shortness of breath. Review of Systems Review of Systems: All systems reviewed & are unremarkable except as noted in Subjective Physical Exam Constitutional: WD/WN, vitals as above Neck: trachea midline, no thyromegaly Respiratory: normal respiratory effort, lungs clear to auscultation Cardiovascular: RRR, no murmur, no edema Gastrointestinal (Abdomen): normal bowel sounds, soft, nontender, no hepatosplenomegaly Musculoskeletal: Extremities: extremities normal to inspection Skin: no rashes, warm and dry Neurologic: Nonfocal exam Lymphatic: no cervical lymphadenopathy Results & Data Results & Data Vital Signs (Past 12 Hours) Vital Signs Temp Pulse Pulse Resp BP BP Pulse Ox 01/08/24 07:12 89 01/08/24 05:30 91 H 15 97 01/08/24 05:30 138/72 01/08/24 05:00 137/76 01/08/24 05:00 92 H 16 98 01/08/24 04:30 123/78 01/08/24 04:30 90 19 98 01/08/24 04:00 122/78 01/08/24 04:00 92 H 18 97 01/08/24 04:00 36.9 C 01/08/24 04:00 01/08/24 03:31 97 H 21 100 01/08/24 03:31 122/93 01/08/24 03:30 96 H 18 99 01/08/24 03:04 148/78 H 01/08/24 03:04 109 H 22 100 01/08/24 03:00 109 H 20 98 01/08/24 02:31 90 16 01/08/24 02:31 125/72 01/08/24 02:30 91 H 15 100 01/08/24 02:00 61 14 97 01/08/24 02:00 84/56 L 01/08/24 01:30 81/50 L 01/08/24 01:30 60 10 L 98 01/08/24 01:00 87/56 L 01/08/24 01:00 63 11 L 97 01/08/24 00:30 72 13 97 01/08/24 00:30 104/61 01/08/24 00:06 113/60 01/08/24 00:06 80 21 87 L 01/08/24 00:03 78 23 01/08/24 00:00 37.0 C 01/08/24 00:00 01/07/24 22:41 96/60 L 01/07/24 22:41 67 17 99 01/07/24 22:30 86/47 L 01/07/24 22:30 62 22 97 01/07/24 22:00 88/50 L 01/07/24 22:00 66 16 91 01/07/24 21:30 104/66 01/07/24 21:30 71 18 100 01/07/24 21:00 60 10 L 97 01/07/24 21:00 96/53 L 01/07/24 20:47 97/56 L 01/07/24 20:47 62 23 99 01/07/24 20:31 62 12 98 01/07/24 20:29 36.4 C L 62 22 93/55 L 97 01/07/24 20:28 36.4 C L 01/07/24 20:28 01/07/24 20:00 52 L 13 94 01/07/24 20:00 85/48 L Pulse Ox O2 Del Method O2 Del Method O2 Flow Rate O2 Flow Rate 01/08/24 07:12 01/08/24 05:30 01/08/24 05:30 01/08/24 05:00 01/08/24 05:00 01/08/24 04:30 01/08/24 04:30 01/08/24 04:00 01/08/24 04:00 01/08/24 04:00 01/08/24 04:00 98 Nasal Cannula 2 01/08/24 03:31 01/08/24 03:31 01/08/24 03:30 01/08/24 03:04 01/08/24 03:04 01/08/24 03:00 01/08/24 02:31 01/08/24 02:31 01/08/24 02:30 01/08/24 02:00 01/08/24 02:00 01/08/24 01:30 01/08/24 01:30 01/08/24 01:00 01/08/24 01:00 01/08/24 00:30 01/08/24 00:30 01/08/24 00:06 01/08/24 00:06 01/08/24 00:03 01/08/24 00:00 01/08/24 00:00 98 Nasal Cannula 2 01/07/24 22:41 01/07/24 22:41 01/07/24 22:30 01/07/24 22:30 01/07/24 22:00 01/07/24 22:00 01/07/24 21:30 01/07/24 21:30 01/07/24 21:00 01/07/24 21:00 01/07/24 20:47 01/07/24 20:47 01/07/24 20:31 01/07/24 20:29 Nasal Cannula 4 01/07/24 20:28 01/07/24 20:28 98 Nasal Cannula 2 01/07/24 20:00 01/07/24 20:00 Critical Care Results & Data Vital Signs (Past 12 Hours) Vital Signs Temp Pulse Pulse Resp BP BP Pulse Ox 01/08/24 07:12 89 01/08/24 05:30 91 H 15 97 01/08/24 05:30 138/72 01/08/24 05:00 137/76 01/08/24 05:00 92 H 16 98 01/08/24 04:30 123/78 01/08/24 04:30 90 19 98 01/08/24 04:00 122/78 01/08/24 04:00 92 H 18 97 01/08/24 04:00 36.9 C 01/08/24 04:00 01/08/24 03:31 97 H 21 100 01/08/24 03:31 122/93 01/08/24 03:30 96 H 18 99 01/08/24 03:04 148/78 H 01/08/24 03:04 109 H 22 100 01/08/24 03:00 109 H 20 98 01/08/24 02:31 90 16 01/08/24 02:31 125/72 01/08/24 02:30 91 H 15 100 01/08/24 02:00 61 14 97 01/08/24 02:00 84/56 L 01/08/24 01:30 81/50 L 01/08/24 01:30 60 10 L 98 01/08/24 01:00 87/56 L 01/08/24 01:00 63 11 L 97 01/08/24 00:30 72 13 97 01/08/24 00:30 104/61 01/08/24 00:06 113/60 04/17/24 00:06 80 21 87 L 01/08/24 00:03 78 23 01/08/24 00:00 37.0 C 01/08/24 00:00 01/07/24 22:41 96/60 L 01/07/24 22:41 67 17 99 01/07/24 22:30 86/47 L 01/07/24 22:30 62 22 97 01/07/24 22:00 88/50 L 01/07/24 22:00 66 16 91 01/07/24 21:30 104/66 01/07/24 21:30 71 18 100 01/07/24 21:00 60 10 L 97 01/07/24 21:00 96/53 L 01/07/24 20:47 97/56 L 01/07/24 20:47 62 23 99 01/07/24 20:31 62 12 98 01/07/24 20:29 36.4 C L 62 22 93/55 L 97 01/07/24 20:28 36.4 C L 01/07/24 20:28 Pulse Ox O2 Del Method O2 Del Method O2 Flow Rate O2 Flow Rate 01/08/24 07:12 01/08/24 05:30 01/08/24 05:30 01/08/24 05:00 01/08/24 05:00 01/08/24 04:30 01/08/24 04:30 01/08/24 04:00 01/08/24 04:00 01/08/24 04:00 01/08/24 04:00 98 Nasal Cannula 2 01/08/24 03:31 01/08/24 03:31 01/08/24 03:30 01/08/24 03:04 01/08/24 03:04 01/08/24 03:00 01/08/24 02:31 01/08/24 02:31 01/08/24 02:30 01/08/24 02:00 01/08/24 02:00 01/08/24 01:30 01/08/24 01:30 01/08/24 01:00 01/08/24 01:00 01/08/24 00:30 01/08/24 00:30 01/08/24 00:06 01/08/24 00:06 01/08/24 00:03 01/08/24 00:00 01/08/24 00:00 98 Nasal Cannula 2 01/07/24 22:41 01/07/24 22:41 01/07/24 22:30 01/07/24 22:30 01/07/24 22:00 01/07/24 22:00 01/07/24 21:30 01/07/24 21:30 01/07/24 21:00 01/07/24 21:00 01/07/24 20:47 01/07/24 20:47 01/07/24 20:31 01/07/24 20:29 Nasal Cannula 4 01/07/24 20:28 01/07/24 20:28 98 Nasal Cannula 2 Lab & Micro Results (Past 24 Hours) RBC 3.30 M/uL (4.20-5.40) L 01/08/24 WBC 12.84 K/ul (4.8-10.8) H 01/08/24 Hgb 8.6 g/dl (12.0-16.0) L 01/08/24 Hct 26.9 % (37.0-47.0) L 01/08/24 MCV 81.5 fL (80.0-100.0) 01/08/24 MCH 26.1 pg (25.0-34.0) 01/08/24 MCHC 32.0 g/dL (32.0-36.0) 01/08/24 RDW Standard Deviation 46.6 fL (36.4-46.3) H 01/08/24 RDW Coefficient of Variation 15.6 % (11.5-14.5) H 01/08/24 Plt Count 123 K/uL (130-400) L 01/08/24 MPV 10.1 fL (9.4-12.4) 01/08/24 Neutrophils (%) (Auto) 81.9 % 01/08/24 Lymphocytes (%) (Auto) 8.7 % 01/08/24 Monocytes # (Auto) 0.96 K/uL (0.11-0.59) H 01/08/24 Eosinophils # (Auto) 0.01 K/uL (0.00-0.50) 01/08/24 Immature Granulocyte % (Auto) 1.6 % 01/08/24 Neutrophils # (Auto) 10.52 K/uL (1.40-6.50) H 01/08/24 Lymphocytes # (Auto) 1.12 K/uL (1.20-3.40) L 01/08/24 Monocytes # (Auto) 0.96 K/uL (0.11-0.59) H 01/08/24 Eosinophils # (Auto) 0.01 K/uL (0.00-0.50) 01/08/24 Basophils # (Auto) 0.02 K/uL (0.00-0.20) 01/08/24 Immature Granulocyte # (Auto) 0.21 K/uL (0.01-0.20) H 01/07 Na 135 mmol/L (136-145) L 01/08/24 K 4.0 mmol/L (3.5-5.1) 01/08/24 Cl 102 mmol/L (98-107) 01/08/24 CO2 23 mmol/L (21-32) 01/08/24 Anion Gap 10 (3-11) 01/08/24 BUN 46 mg/dl (6-23) H 01/08/24 Creatinine 1.69 mg/dl (0.6-1.2) H 01/08/24 Estimated GFR ( Amer) 37.9 ml/min 01/08/24 Estimated GFR (Non-Af Amer) 32.7 ml/min 01/08/24 BUN/Creatinine Ratio 27.2 (10-20) H 01/08/24 Glu 101 mg/dl (70-99(Fasting)) H 01/08/24 Ca 7.9 mg/dl (8.6-10.3) L 01/08/24 Total Bilirubin 0.8 mg/dl (0.2-1.0) 01/08/24 Direct Bilirubin 0.4 mg/dl (0-0.2) H 01/07/24 AST 31 U/L (13-39) 01/08/24 ALT 15 U/L (7-52) 01/08/24 Alkaline Phosphatase 92 U/L (34-104) 01/08/24 TP 5.7 gm/dl (6.0-8.3) L 01/08/24 Albumin 3.1 gm/dl (3.4-5.0) L 01/08/24 Globulin 2.6 gm/dl (2.5-4.0) 01/08/24 Albumin/Globulin Ratio 1.2 (0.9-2) 01/08/24 Mg 2.4 mg/dl (1.7-2.4) 01/07/24 14:50 Calcium Level 7.9 mg/dl (8.6-10.3) L 01/08/24 03:57 Diagnostic Findings (Past 24 Hours) Chest X-Ray 01/07/24 14:40 XR chest 1V portable HISTORY: Sepsis COMPARISON: Chest 08/12/2020. FINDINGS: Low lung volumes. No pneumothorax. No pleural effusions. The cardiac silhouette remains borderline enlarged. A few small bibasilar linear densities favor subsegmental atelectasis. No evidence for pulmonary edema. No focal lung consolidations to suggest a pneumonia. Postoperative changes again noted within the left shoulder. IMPRESSION: No significant change compared to the prior study. No acute process. ACT 112: Negative or not required by law. Electronically signed by: Milton De Leon M.D. 01/07/2024 4:[address] 01/07/24 14:40 CT SCAN OF THE BRAIN WITHOUT IV CONTRAST CLINICAL HISTORY: Left upper extremity weakness. Headache. COMPARISON STUDY: CT of the brain dated 09/17/2014. TECHNIQUE: Unenhanced axial CT scan of the brain is performed from the vertex to the skull base. A dose lowering technique was utilized adhering to the principles of ALARA. FINDINGS: Brain parenchyma: There is age-related involutional change noting mild subcortical and periventricular microangiopathic disease. There is no hemorrhage, mass effect, or evidence of acute territorial ischemia by CT criteria. Rogel-white matter differentiation is preserved. No extra-axial fluid collection is seen. Ventricles, sulci, cisterns: Prominent secondary to involutional change. Intracranial vasculature: There is atherosclerotic calcification of the cavernous carotid and vertebral arteries. Calvarium: Unremarkable. Sinuses and mastoids: There is moderate mucosal thickening within the left sphenoid sinus. The remaining visualized paranasal sinuses are clear. The masto id air cells are well pneumatized. Orbits: The bony orbits are grossly intact. IMPRESSION: There is no hemorrhage, mass effect, or evidence of acute territorial ischemia by CT criteria. ACT 112: Negative or not required by law. Electronically signed by: Norbert Sherman M.D. 01/07/2024 3:18 PM Abdomen/Pelvis CT 01/07/24 14:56 CT OF THE ABDOMEN AND PELVIS WITHOUT CONTRAST CLINICAL HISTORY: Right flank pain. COMPARISON STUDY: CT of the abdomen and pelvis July 06, 2014. TECHNIQUE: Axial images of the abdomen and pelvis were obtained without IV contrast. Images were reviewed in the axial, sagittal, and coronal planes. Automated exposure control was utilized for the study. A dose lowering technique was utilized adhering to the principles of ALARA. FINDINGS: No pneumatosis, free air or portal venous gas is present. Several right renal calculi measure up to 6 mm. There are no ureteral calculi. There is no hydronephrosis. Slight asymmetric right perinephric stranding is present. Evaluation of the remainder of the abdomen and pelvis is suboptimal on this unenhanced exam. There is pneumobilia. The gallbladder surgically absent. Spleen, adrenal glands and pancreas are unremarkable. There is no evidence for a bowel obstruction. The appendix is not visualized but there is no right lower quadrant inflammation. No bowel wall thickening is identified on unenhanced exam. No fluid collections are present. There is no lymphadenopathy. No acute fractures within lumbar spine, pelvis or hips. Mild loss of height of the superior endplates of T12 and L2 is chronic. IMPRESSION: 1. Right nephrolithiasis. No ureteral calculi. Slight asymmetric right perinephric stranding, a nonspecific finding. The findings could reflect a recently passed right-sided calculus or an infectious process. 2. No bowel obstruction. No bowel wall thickening on unenhanced exam. 3. No acute fractures. ACT 112: Negative or not required by law. Electronically signed by: Laurent Rivas M.D. 01/07/2024 3:[address] 01/07/24 14:56 CT OF THE CHEST WITHOUT IV CONTRAST CLINICAL HISTORY: Hypoxia. COMPARISON STUDY: Chest CT November 08, 2008. Chest radiograph August 12, 2020. CT DOSE: 1744.58 mGy.cm TECHNIQUE: Axial images of the chest were obtained without IV contrast. Images were reviewed in the axial, sagittal, and coronal planes. IV contrast was not administered for this examination. Automated exposure control was utilized for the study. A dose lowering technique was utilized adhering to the principles of ALARA. FINDINGS: No enlarged axillary, mediastinal or hilar lymph nodes are present. Size of the heart is at the upper limits of normal. There is no pericardial effusion. No pneumothorax is present. There is a trace left pleural effusion. Subpleural groundglass opacities represent atelectasis. Linear densities within the lungs represent atelectasis as well. 1.3 cm groundglass left lower lobe opacity on image 99 of 205 is present. Central airways are patent. No acute fractures within the bony thorax. Pneumobilia is incidentally noted. The abdomen and pelvis CT will be reported separately. IMPRESSION: 1. Subpleural opacities suggestive of atelectasis. No definite consolidation to suggest pneumonia. 1.3 cm left lower lobe groundglass opacity favors atelectasis although a mild infectious process could appear similar. A follow-up chest CT in 6 months to ensure resolution is recommended. 2. Trace left pleural effusion. No pneumothorax. 3. No thoracic lymphadenopathy. ACT 112: Negative or not required by law. Electronically signed by: Laurent Rivas M.D. 01/07/2024 3:15 PM Brain MRI 01/07/24 20:28 Exam(s): MRI HEAD Without Contrast EXAM: MR Head Without Intravenous Contrast CLINICAL HISTORY: Reason for exam: rule out stroke. TECHNIQUE: Magnetic resonance images of the head/brain without intravenous contrast in multiple planes. COMPARISON: No relevant prior studies available. FINDINGS: Brain: Unremarkable. No mass. No hemorrhage. No acute infarct. Ventricles: Unremarkable. No ventriculomegaly. Bones/joints: Unremarkable. No acute fracture. Sinuses: Unremarkable as visualized. No acute sinusitis. Mastoid air cells: Unremarkable as visualized. No mastoid effusion. Orbits: Unremarkable as visualized. IMPRESSION: Normal head/brain MRI. Electronically signed by: Wilder Gage M.D. 01/08/24 00:05 AM Neck MRA 01/07/24 20:28 Exam(s): MRA NECK Without Contrast EXAM: MR Angiography Neck Without Intravenous Contrast CLINICAL HISTORY: Reason for exam: rule out stroke. TECHNIQUE: Magnetic resonance angiography images of the neck without intravenous contrast. COMPARISON: No relevant prior studies available. FINDINGS: Right common carotid artery: Unremarkable. No significant stenosis. No dissection or occlusion. Right internal carotid artery: Unremarkable. Extracranial segment is patent with no significant stenosis. No dissection or occlusion. Right external carotid artery: Unremarkable. No occlusion. Right vertebral artery: Unremarkable. No significant stenosis. No dissection or occlusion. Left common carotid artery: Unremarkable. No significant stenosis. No dissection or occlusion. Left internal carotid artery: Unremarkable. Extracranial segment is patent with no significant stenosis. No dissection or occlusion. Left external carotid artery: Unremarkable. No occlusion. Left vertebral artery: Unremarkable. No significant stenosis. No dissection or occlusion. Soft tissues: Unremarkable as visualized. CAROTID STENOSIS REFERENCE USING NASCET CRITERIA: % ICA stenosis = (1 - narrowest ICA diameter/diameter of distal cervical ICA) x 100. Mild - <50% stenosis. Moderate - 50-69% stenosis. Severe - 70-94% stenosis. Near occlusion - 95-99% stenosis. Occluded - 100% stenosis. IMPRESSION: Normal neck MRA. Electronically signed by: Wilder Gage M.D. 01/08/24 00:13 AM Head MRA 01/07/24 22:36 Exam(s): MRA HEAD Without Contrast EXAM: MR Angiography Head Without Intravenous Contrast CLINICAL HISTORY: Reason for exam: Rule out stroke. TECHNIQUE: Magnetic resonance angiography images of the head without intravenous contrast. COMPARISON: No relevant prior studies available. FINDINGS: Right internal carotid artery: No acute findings. Intracranial segment is patent with no significant stenosis. No aneurysm. Right anterior cerebral artery: Unremarkable. No occlusion or significant stenosis. No aneurysm. Right middle cerebral artery: Unremarkable. No occlusion or significant stenosis. No aneurysm. Right posterior cerebral artery: Unremarkable. No occlusion or significant stenosis. No aneurysm. Right vertebral artery: Unremarkable as visualized. Left internal carotid artery: No acute findings. Intracranial segment is patent with no significant stenosis. No aneurysm. Left anterior cerebral artery: Unremarkable. No occlusion or significant stenosis. No aneurysm. Left middle cerebral artery: Unremarkable. No occlusion or significant stenosis. No aneurysm. Left posterior cerebral artery: Unremarkable. No occlusion or significant stenosis. No aneurysm. Left vertebral artery: Unremarkable as visualized. Basilar artery: Unremarkable. No occlusion or significant stenosis. No aneurysm. IMPRESSION: No large vessel intracranial occlusion. No intracranial aneurysm. Electronically signed by: Wilder Gage M.D. 01/08/24 00:12 AM I & O Totals 24 Hours 01/07/24 01/08/24 01/09/24 06:59 06:59 06:59 Intake Total 6674.15 / 6674.15 Output Total 1875 / 1875 Balance 4799.15 / 4799.15 Cumulative 01/07/24 14:26 thru 01/08/24 05:49 Intake Total 6674.15 Output Total 1875 Balance 4799.15 RT Ventilator Mngmt (Last Documented) Ventilator Ordered Settings Respiratory Rate 15 01/08/24 05:30 Ventilator - PT Measurements Respiratory Rate 15 Coding Level of Care Code 91607 SUB INP/OBS CARE 3/50MIN Diagnoses Sepsis A41.9; R65.20; N17.9 Acute renal failure type: unspecified Sepsis acute organ dysfunction status: with acute organ dysfunction Sepsis type: sepsis due to unspecified organism Severe sepsis acute organ dysfunction type: acute renal failure Severe sepsis shock status: unspecified Bipolar disorder F31.9 Anxiety and depression F41.9; F32.A Fibromyalgia M79.7 UTI (urinary tract infection) N39.0 (1) Sepsis Acute renal failure type: unspecified Sepsis acute organ dysfunction status: with acute organ dysfunction Sepsis type: sepsis due to unspecified organism Severe sepsis acute organ dysfunction type: acute renal failure Severe sepsis shock status: unspecified Qualified Code(s): A41.9 - Sepsis, unspecified organism; R65.20 - Severe sepsis without septic shock; N17.9 - Acute kidney failure, unspecified
--- NOTE | 2024-01-08 08:14 | Hospitalist Progress Note ---
Date of Service January 08, 2024 Assessment & Plan (1) Sepsis: (2) Pyelonephritis of right kidney: Plan Pt is a 58yoF with PMHx significant for hyperlipidemia, prediabetes, GERD, migraine, bipolar disorder, anxiety, history of DVT who presented with right- sided flank pain, urgency, frequency, weakness and fatigue. Severe sepsis POA Right-sided pyelonephritis Complicated UTI Presented with right-sided flank pain, increased urinary urgency, frequency, fatigue and tiredness Hypotensive and hypoxic on presentation to the ED with leukocytosis, infectious source urinary. lactate normal, procalcitonin elevated. UA suggestive of infection, urine Cx currently growing gram negative rods Blood Cx x2 pending CT abd pelvis suggestive of a recently passed right sided stone and/or infection per radiology Continue IV Zosyn BP currently stable, received IV fluid support Urology consulted, appreciate recs Currently improving. Acute hypoxic respiratory Failureresolved Subpleural opacities L pleural Effusion Pt with noted hypoxia to the 80s on admission Chest XRAY with no noted acute process Chest CT noting subpleural opacities that were more suggestive of atelectasis per radiology, however recommended 6 month followup to ensure resolution Chest CT also noting trace L pleural effusion Oxygen supplementation as needed Wean as tolerated Improving VIRIDIANA Cr elevated at 2.45 on admission Currently downtrending to 1.69 Received IV hydration, continue Hold nephrotoxic meds as able Monitor with AM labs Possible Tylenol Overdose On admission, concern for tylenol overdose Patient denied any overdose of medication Acetaminophen level normal at 14 Received NAC per poison control recs Anemia, chronic Appears chronic though lower at ~9 currently On admission, FOBT ordered and pending Anemia labs (iron panel, B12 and folate pending) Continue to monitor H/H Transfuse as needed for hgb <7 Thrombocytopenia Platelets acutely decreased Likely in setting of sepsis Continue to monitor with daily labs If persistent consider further workup Hyponatremia Sodium of 130 on admission Currently 135 Continue to monitor Prediabetes glucose levels slightly elevated Hx of prediabetes noted in the chart based on previous [id number] Repeat AM [id number] pending Stroke rule out Lethargy Altered Mental Status Head CT, MRI brain wo contrast, MRA head and neck all without acute findings 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, pt, ot, 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 Pt noted to be on many sedating medications -Lamictal and Buspar resumed -holding home gabapentin, melatonin, seroquel, suvorexant, zanaflex, Vistaril and trazodone at this time, resume as able Improved Bipolar Disorder Anxiety and Depression Fibromyalgia insomnia Lamictal and Buspar resumed as above holding home gabapentin, melatonin, seroquel, suvorexant, zanaflex, Vistaril and trazodone at this time in setting of lethargy, resume as able CODE STATUS: Full code Diet: Regular DVT prophylaxis: Heparin SQ Dispo: PT/OT pending Admission and Anticipated Discharge Date Admission Date: January 07, 2024 Subjective pt was seen while still in the ICU. AAOx3. 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 Would like a phone to make phone calls. Otherwise denies concerns, asking questions about results. Notes she feels like she is much better than when she came in. Review of Systems Review of Systems: All systems reviewed & are unremarkable except as noted in Subjective Physical Exam Physical Exam: General: Alert, orientedx3. No acute distress Skin: No noted rashes or bruises Psych: Appropriate mood and affect Neuro: No gross deficits HEENT: NC/AT Chest: Nontender to palpation. CV: RRR, Normal s1, s2. No murmurs appreciated Resp: Breath sounds clear bilaterally, no increased effort of breathing. Abdomen: Soft, nontender, nondistended. Extremities: Trace edema in lower extremities bilaterally. Results & Data Results & Data Vital Signs (Past 12 Hours) Vital Signs Temp Pulse Pulse Resp BP BP Pulse Ox 01/08/24 07:12 89 01/08/24 05:30 91 H 15 97 01/08/24 05:30 138/72 01/08/24 05:00 137/76 01/08/24 05:00 92 H 16 98 01/08/24 04:30 123/78 01/08/24 04:30 90 19 98 01/08/24 04:00 122/78 01/08/24 04:00 92 H 18 97 01/08/24 04:00 36.9 C 01/08/24 04:00 01/08/24 03:31 97 H 21 100 01/08/24 03:31 122/93 01/08/24 03:30 96 H 18 99 01/08/24 03:04 148/78 H 01/08/24 03:04 109 H 22 100 01/08/24 03:00 109 H 20 98 01/08/24 02:31 90 16 01/08/24 02:31 125/72 01/08/24 02:30 91 H 15 100 01/08/24 02:00 61 14 97 01/08/24 02:00 84/56 L 01/08/24 01:30 81/50 L 01/08/24 01:30 60 10 L 98 01/08/24 01:00 87/56 L 01/08/24 01:00 63 11 L 97 01/08/24 00:30 72 13 97 01/08/24 00:30 104/61 01/08/24 00:06 113/60 01/08/24 00:06 80 21 87 L 01/08/24 00:03 78 23 01/08/24 00:00 37.0 C 01/08/24 00:00 01/07/24 22:41 96/60 L 01/07/24 22:41 67 17 99 01/07/24 22:30 86/47 L 01/07/24 22:30 62 22 97 01/07/24 22:00 88/50 L 01/07/24 22:00 66 16 91 01/07/24 21:30 104/66 01/07/24 21:30 71 18 100 01/07/24 21:00 60 10 L 97 01/07/24 21:00 96/53 L 01/07/24 20:47 97/56 L 01/07/24 20:47 62 23 99 01/07/24 20:31 62 12 98 01/07/24 20:29 36.4 C L 62 22 93/55 L 97 01/07/24 20:28 36.4 C L 01/07/24 20:28 Pulse Ox O2 Del Method O2 Del Method O2 Flow Rate O2 Flow Rate 01/08/24 07:12 01/08/24 05:30 01/08/24 05:30 01/08/24 05:00 01/08/24 05:00 01/08/24 04:30 01/08/24 04:30 01/08/24 04:00 01/08/24 04:00 01/08/24 04:00 01/08/24 04:00 98 Nasal Cannula 2 01/08/24 03:31 01/08/24 03:31 01/08/24 03:30 01/08/24 03:04 01/08/24 03:04 01/08/24 03:00 01/08/24 02:31 01/08/24 02:31 01/08/24 02:30 01/08/24 02:00 01/08/24 02:00 01/08/24 01:30 01/08/24 01:30 01/08/24 01:00 01/08/24 01:00 01/08/24 00:30 01/08/24 00:30 01/08/24 00:06 01/08/24 00:06 01/08/24 00:03 01/08/24 00:00 01/08/24 00:00 98 Nasal Cannula 2 01/07/24 22:41 01/07/24 22:41 01/07/24 22:30 01/07/24 22:30 01/07/24 22:00 01/07/24 22:00 01/07/24 21:30 01/07/24 21:30 01/07/24 21:00 01/07/24 21:00 01/07/24 20:47 01/07/24 20:47 01/07/24 20:31 01/07/24 20:29 Nasal Cannula 4 01/07/24 20:28 01/07/24 20:28 98 Nasal Cannula 2 Diagnostic Findings Chest X-Ray 01/07/24 14:40 XR chest 1V portable HISTORY: Sepsis COMPARISON: Chest 08/12/2020. FINDINGS: Low lung volumes. No pneumothorax. No pleural effusions. The cardiac silhouette remains borderline enlarged. A few small bibasilar linear densities favor subsegmental atelectasis. No evidence for pulmonary edema. No focal lung consolidations to suggest a pneumonia. Postoperative changes again noted within the left shoulder. IMPRESSION: No significant change compared to the prior study. No acute process. ACT 112: Negative or not required by law. Electronically signed by: Milton De Leon M.D. 01/07/2024 4:[address] 01/07/24 14:40 CT SCAN OF THE BRAIN WITHOUT IV CONTRAST CLINICAL HISTORY: Left upper extremity weakness. Headache. COMPARISON STUDY: CT of the brain dated 09/17/2014. TECHNIQUE: Unenhanced axial CT scan of the brain is performed from the vertex to the skull base. A dose lowering technique was utilized adhering to the principles of ALARA. FINDINGS: Brain parenchyma: There is age-related involutional change noting mild subcortical and periventricular microangiopathic disease. There is no hemorrhage, mass effect, or evidence of acute territorial ischemia by CT criteria. Rogel-white matter differentiation is preserved. No extra-axial fluid collection is seen. Ventricles, sulci, cisterns: Prominent secondary to involutional change. Intracranial vasculature: There is atherosclerotic calcification of the cavernous carotid and vertebral arteries. Calvarium: Unremarkable. Sinuses and mastoids: There is moderate mucosal thickening within the left sphenoid sinus. The remaining visualized paranasal sinuses are clear. The mastoid air cells are well pneumatized. Orbits: The bony orbits are grossly intact. IMPRESSION: There is no hemorrhage, mass effect, or evidence of acute territori al ischemia by CT criteria. ACT 112: Negative or not required by law. Electronically signed by: Norbert Sherman M.D. 01/07/2024 3:18 PM Abdomen/Pelvis CT 01/07/24 14:56 CT OF THE ABDOMEN AND PELVIS WITHOUT CONTRAST CLINICAL HISTORY: Right flank pain. COMPARISON STUDY: CT of the abdomen and pelvis July 06, 2014. TECHNIQUE: Axial images of the abdomen and pelvis were obtained without IV contrast. Images were reviewed in the axial, sagittal, and coronal planes. Automated exposure control was utilized for the study. A dose lowering technique was utilized adhering to the principles of ALARA. FINDINGS: No pneumatosis, free air or portal venous gas is present. Several right renal calculi measure up to 6 mm. There are no ureteral calculi. There is no hydronephrosis. Slight asymmetric right perinephric stranding is present. Evaluation of the remainder of the abdomen and pelvis is suboptimal on this unenhanced exam. There is pneumobilia. The gallbladder surgically absent. Spleen, adrenal glands and pancreas are unremarkable. There is no evidence for a bowel obstruction. The appendix is not visualized but there is no right lower quadrant inflammation. No bowel wall thickening is identified on unenhanced exam. No fluid collections are present. There is no lymphadenopathy. No acute fractures within lumbar spine, pelvis or hips. Mild loss of height of the superior endplates of T12 and L2 is chronic. IMPRESSION: 1. Right nephrolithiasis. No ureteral calculi. Slight asymmetric right perinephric stranding, a nonspecific finding. The findings could reflect a recently passed right-sided calculus or an infectious process. 2. No bowel obstruction. No bowel wall thickening on unenhanced exam. 3. No acute fractures. ACT 112: Negative or not required by law. Electronically signed by: Laurent Rivas M.D. 01/07/2024 3:[address] 01/07/24 14:56 CT OF THE CHEST WITHOUT IV CONTRAST CLINICAL HISTORY: Hypoxia. COMPARISON STUDY: Chest CT November 08, 2008. Chest radiograph August 12, 2020. CT DOSE: 1744.58 mGy.cm TECHNIQUE: Axial images of the chest were obtained without IV contrast. Images were reviewed in the axial, sagittal, and coronal planes. IV contrast was not administered for this examination. Automated exposure control was utilized for the study. A dose lowering technique was utilized adhering to the principles of ALARA. FINDINGS: No enlarged axillary, mediastinal or hilar lymph nodes are present. Size of the heart is at the upper limits of normal. There is no pericardial effusion. No pneumothorax is present. There is a trace left pleural effusion. Subpleural groundglass opacities represent atelectasis. Linear densities within the lungs represent atelectasis as well. 1.3 cm groundglass left lower lobe opacity on image 99 of 205 is present. Central airways are patent. No acute fractures within the bony thorax. Pneumobilia is incidentally noted. The abdomen and pelvis CT will be reported separately. IMPRESSION: 1. Subpleural opacities suggestive of atelectasis. No definite consolidation to suggest pneumonia. 1.3 cm left lower lobe groundglass opacity favors atelectasis although a mild infectious process could appear similar. A follow-up chest CT in 6 months to ensure resolution is recommended. 2. Trace left pleural effusion. No pneumothorax. 3. No thoracic lymphadenopathy. ACT 112: Negative or not required by law. Electronically signed by: Laurent Rivas M.D. 01/07/2024 3:15 PM Brain MRI 01/07/24 20:28 Exam(s): MRI HEAD Without Contrast EXAM: MR Head Without Intravenous Contrast CLINICAL HISTORY: Reason for exam: rule out stroke. TECHNIQUE: Magnetic resonance images of the head/brain without intravenous contrast in multiple planes. COMPARISON: No relevant prior studies available. FINDINGS: Brain: Unremarkable. No mass. No hemorrhage. No acute infarct. Ventricles: Unremarkable. No ventriculomegaly. Bones/joints: Unremarkable. No acute fracture. Sinuses: Unremarkable as visualized. No acute sinusitis. Mastoid air cells: Unremarkable as visualized. No mastoid effusion. Orbits: Unremarkable as visualized. IMPRESSION: Normal head/brain MRI. Electronically signed by: Wilder Gage M.D. 01/08/24 00:05 AM Neck MRA 01/07/24 20:28 Exam(s): MRA NECK Without Contrast EXAM: MR Angiography Neck Without Intravenous Contrast CLINICAL HISTORY: Reason for exam: rule out stroke. TECHNIQUE: Magnetic resonance angiography images of the neck without intravenous contrast. COMPARISON: No relevant prior studies available. FINDINGS: Right common carotid artery: Unremarkable. No significant stenosis. No dissection or occlusion. Right internal carotid artery: Unremarkable. Extracranial segment is patent with no significant stenosis. No dissection or occlusion. Right external carotid artery: Unremarkable. No occlusion. Right vertebral artery: Unremarkable. No significant stenosis. No dissection or occlusion. Left common carotid artery: Unremarkable. No significant stenosis. No dissection or occlusion. Left internal carotid artery: Unremarkable. Extracranial segment is patent with no significant stenosis. No dissection or occlusion. Left external carotid artery: Unremarkable. No occlusion. Left vertebral artery: Unremarkable. No significant stenosis. No dissection or occlusion. Soft tissues: Unremarkable as visualized. CAROTID STENOSIS REFERENCE USING NASCET CRITERIA: % ICA stenosis = (1 - narrowest ICA diameter/diameter of distal cervical ICA) x 100. Mild - <50% stenosis. Moderate - 50-69% stenosis. Severe - 70-94% stenosis. Near occlusion - 95-99% stenosis. Occluded - 100% stenosis. IMPRESSION: Normal neck MRA. Electronically signed by: Wilder Gage M.D. 01/08/24 00:13 AM Head MRA 01/07/24 22:36 Exam(s): MRA HEAD Without Contrast EXAM: MR Angiography Head Without Intravenous Contrast CLINICAL HISTORY: Reason for exam: Rule out stroke. TECHNIQUE: Magnetic resonance angiography images of the head without intravenous contrast. COMPARISON: No relevant prior studies available. FINDINGS: Right internal carotid artery: No acute findings. Intracranial segment is patent with no significant stenosis. No aneurysm. Right anterior cerebral artery: Unremarkable. No occlusion or significant stenosis. No aneurysm. Right middle cerebral artery: Unremarkable. No occlusion or significant stenosis. No aneurysm. Right posterior cerebral artery: Unremarkable. No occlusion or significant stenosis. No aneurysm. Right vertebral artery: Unremarkable as visualized. Left internal carotid artery: No acute findings. Intracranial segment is patent with no significant stenosis. No aneurysm. Left anterior cerebral artery: Unremarkable. No occlusion or significant stenosis. No aneurysm. Left middle cerebral artery: Unremarkable. No occlusion or significant stenosis. No aneurysm. Left posterior cerebral artery: Unremarkable. No occlusion or significant stenosis. No aneurysm. Left vertebral artery: Unremarkable as visualized. Basilar artery: Unremarkable. No occlusion or significant stenosis. No aneurysm. IMPRESSION: No large vessel intracranial occlusion. No intracranial aneurysm. Electronically signed by: Wilder Gage M.D. 01/08/24 00:12 AM (1) Sepsis Acute renal failure type: unspecified Sepsis acute organ dysfunction status: with acute organ dysfunction Sepsis type: sepsis due to unspecified organism Severe sepsis acute organ dysfunction type: acute renal failure Severe sepsis shock status: unspecified Qualified Code(s): A41.9 - Sepsis, unspecified organism; R65.20 - Severe sepsis without septic shock; N17.9 - Acute kidney failure, unspecified
[2024-01-08] MEDS: lamoTRIgine 100 MG TAB PO SCH (08:21)
--- NOTE | 2024-01-08 10:37 | Electrocardiogram Report ---
Test Reason : Blood Pressure : / mmHG Vent. Rate : 063 BPM Atrial Rate : 063 BPM P-R Int : 182 ms QRS Dur : 082 ms QT Int : 416 ms P-R-T Axes : 051 077 038 degrees QTc Int : 425 ms Sinus rhythm with Premature atrial complexes Low voltage QRS Abnormal ECG When compared with ECG of 12-AUG-2020 14:03, Premature atrial complexes are now Present Nonspecific T wave abnormality has replaced inverted T waves in Inferior leads Nonspecific T wave abnormality now evident in Anterolateral leads Confirmed by Derrek Hahn ([id number]) on 01/08/2024 10:37:20 AM Referred By: REFERRED SELF Confirmed By:Dima Hahn
[2024-01-08 12:27] LABS: Albumin Level 3.1 gm/dl (3.4-5.0); Bilirubin Direct 0.4 mg/dl (0-0.2); Bilirubin,Total 0.8 mg/dl (0.2-1.0); Total Protein 5.9 gm/dl (6.0-8.3)
[2024-01-08] MEDS ORDERED: ACYCLOVIR 5% OINT 15 GM TUBE EXT PRN (12:35)
[2024-01-08 12:39] LABS: INR 1.2 (0.9-1.1); Prothrombin Time 12.6 Seconds (9.0-12.0)
--- NOTE | 2024-01-08 12:39 | Urology Progress Note ---
Date of Service January 08, 2024 Assessment & Plan (1) Pyelonephritis of right kidney: (2) Acute renal failure (ARF): Plan 58yo/F admitted with sepsis secondary to UTI/Pyelo. CT abd pelvis on admission demonstrated right nephrolithiasis without any ureteral calculi, no hydroneph rosis, and right perinephric stranding which could represent a recently passed stone or infectious process. - Pt is afebrile and hemodynamically stable at present - Labs today reviewed- white count downtrending from 17.3112.84; creatinine improved 2.45 -1.69 today. Continue to trend. - Urine culture prelim gram-negative bacilli; blood cultures pending. On Zosyn. - Krueger intact and draining appropriately - urine is clear yellow. - No plan for intervention. - Continue antibiotics and tailor as culture data becomes available. - Continue supportive care. - Maintain Krueger catheter for bladder decompression. - Urology will follow along. Admission and Anticipated Discharge Date Admission Date: January 07, 2024 Subjective Patient examined at bedside this AM. Awake, sitting up in bed on arrival. No acute distress. Krueger intact and draining clear yellow urine. Feeling better overall. Flank pain has improved. Denies fever, chills, nausea, vomiting. Review of Systems Constitutional: as per Subjective / HPI Gastrointestinal: as per Subjective / HPI Genitourinary: as per Subjective / HPI Physical Exam Constitutional: no acute distress Respiratory: no respiratory distress and no labored breathing Neurologic: awake Psychiatric: A+Ox3, euthymic affect Genitourinary: Krueger intact draining clear yellow urine Results & Data Vital Signs (Past 12 Hours) Vital Signs Temp Pulse Resp BP Pulse Ox Pulse Ox O2 Del Method 01/08/24 10:00 85 18 98 01/08/24 09:00 83 18 95 Nasal Cannula 01/08/24 08:50 96 01/08/24 08:00 125/90 01/08/24 08:00 88 21 01/08/24 08:00 37.6 C H 01/08/24 08:00 Nasal Cannula 01/08/24 07:52 127/62 01/08/24 07:52 89 18 01/08/24 07:12 89 01/08/24 07:00 137/71 01/08/24 07:00 87 20 99 Nasal Cannula 04/17/24 06:30 140/66 01/08/24 06:30 90 20 97 Nasal Cannula 01/08/24 06:00 88 18 96 01/08/24 06:00 128/72 01/08/24 05:30 91 H 15 97 01/08/24 05:30 138/72 01/08/24 05:00 137/76 01/08/24 05:00 92 H 16 98 01/08/24 04:30 123/78 01/08/24 04:30 90 19 98 01/08/24 04:00 122/78 01/08/24 04:00 92 H 18 97 01/08/24 04:00 36.9 C 01/08/24 04:00 98 01/08/24 03:31 97 H 21 100 01/08/24 03:31 122/93 01/08/24 03:30 96 H 18 99 01/08/24 03:04 148/78 H 01/08/24 03:04 109 H 22 100 01/08/24 03:00 109 H 20 98 01/08/24 02:31 90 16 01/08/24 02:31 125/72 01/08/24 02:30 91 H 15 100 01/08/24 02:00 61 14 97 01/08/24 02:00 84/56 L 01/08/24 01:30 81/50 L 01/08/24 01:30 60 10 L 98 01/08/24 01:00 87/56 L 01/08/24 01:00 63 11 L 97 01/08/24 00:30 72 13 97 01/08/24 00:30 104/61 01/08/24 00:06 113/60 01/08/24 00:06 80 21 87 L 01/08/24 00:03 78 23 01/08/24 00:00 37.0 C 01/08/24 00:00 98 O2 Del Method O2 Flow Rate O2 Flow Rate 01/08/24 10:00 01/08/24 09:00 2 01/08/24 08:50 Nasal Cannula 2 01/08/24 08:00 01/08/24 08:00 01/08/24 08:00 01/08/24 08:00 2 01/08/24 07:52 01/08/24 07:52 01/08/24 07:12 01/08/24 07:00 01/08/24 07:00 2 01/08/24 06:30 01/08/24 06:30 4 01/08/24 06:00 01/08/24 06:00 01/08/24 05:30 01/08/24 05:30 01/08/24 05:00 01/08/24 05:00 01/08/24 04:30 01/08/24 04:30 01/08/24 04:00 01/08/24 04:00 01/08/24 04:00 01/08/24 04:00 Nasal Cannula 2 01/08/24 03:31 01/08/24 03:31 01/08/24 03:30 01/08/24 03:04 01/08/24 03:04 01/08/24 03:00 01/08/24 02:31 01/08/24 02:31 01/08/24 02:30 01/08/24 02:00 01/08/24 02:00 01/08/24 01:30 01/08/24 01:30 01/08/24 01:00 01/08/24 01:00 01/08/24 00:30 01/08/24 00:30 01/08/24 00:06 01/08/24 00:06 01/08/24 00:03 01/08/24 00:00 01/08/24 00:00 Nasal Cannula 2 PG Care Time/CCT Total # of Minutes Spent Total Time Spent with Patient: Total time spent is greater than 50% in coordination of care (as documented) at patient's floor/unit and/or counseling patient: Coding Level of Care Code 48476 SUB INP/OBS CARE 2/35MIN Diagnoses Pyelonephritis of right kidney N12 Acute renal failure (ARF) N17.9 Acute renal failure type: unspecified (2) Acute renal failure (ARF) Acute renal failure type: unspecified Qualified Code(s): N17.9 - Acute kidney failure, unspecified
[2024-01-08] MEDS: SODIUM CHLORIDE 0.9% 1,000 ML IV SCH (14:29)
[2024-01-08] MEDS: FLUCONAZOLE 50 MG TAB PO ONE (16:55)
[2024-01-08] MEDS: POTASSIUM CHLORIDE 10 MEQ TABCR PO SCH (16:55)
[2024-01-08] MEDS: DOCUSATE SODIUM 100 MG CAP PO SCH (21:32)
[2024-01-08] MEDS: POLYETHYLENE (MIRALAX) 17 GM PACK PO SCH (21:33)
[2024-01-09] MEDS: ACETAMINOPHEN 325 MG TAB PO PRN (01:41)
--- NOTE | 2024-01-09 06:23 | Communication Note ---
Date of Service: January 09, 2024 Patient noted to be tachycardic Heart rate 130s to 180s. Patient with palpitations as per RN. EKG as per my interpretation Rate 140, A-fib, normal axis, ST depression lateral leads AP New onset A-fib Initiate beta-moreno for rate contro Follow a.m. electrolytes, check TSHl Cardiology consult Re: New onset A-fib
[2024-01-09] MEDS: METOPROLOL TARTRATE 1 MG/ML VIAL IV STA (06:35)
[2024-01-09 06:37] LABS: Basophils # (auto) 0.04 K/uL (0.00-0.20); Basophils % (auto) 0.3 %; Eosinophils # (auto) 0.11 K/uL (0.00-0.50); Hematocrit (blood only) 29.3 % (37.0-47.0); Hemoglobin 9.1 g/dl (12.0-16.0); Immature Granulocytes # (auto) 0.09 K/uL (0.01-0.20); Immature Granulocytes % (auto) 0.8 %; Lymphocytes # (auto) 1.54 K/uL (1.20-3.40); Lymphocytes % (auto) 13.4 %; Mean Corpuscular Hemoglobin 25.6 pg (25.0-34.0); Mean Corpuscular Hgb Conc 31.1 g/dL (32.0-36.0); Mean Corpuscular Volume 82.5 fL (80.0-100.0); Mean Platelet Volume 10.2 fL (9.4-12.4); Monocytes # (auto) 0.68 K/uL (0.11-0.59); Monocytes % (auto) 5.9 %; Neutrophils # (auto) 9.06 K/uL (1.40-6.50); Neutrophils % (auto) 78.6 %; Platelet Count 162 K/uL (130-400); RDW Standard Deviation 48.8 fL (36.4-46.3); Red Blood Count 3.55 M/uL (4.20-5.40); White Blood Count 11.52 K/ul (4.8-10.8)
[2024-01-09] MEDS: METOPROLOL TARTRATE 25 MG TAB PO STA (06:46)
[2024-01-09 06:57] LABS: Albumin Level 3.1 gm/dl (3.4-5.0); BUN Creatinine Ratio 16.7 (10-20); Calcium 8.3 mg/dl (8.6-10.3); Creatinine Clr Calc Pharmacy 64.6 ml/min; Est GFR (Non-African American) 52.6 ml/min; Magnesium 2.4 mg/dl (1.7-2.4); Phosphorus 1.4 mg/dl (2.5-4.9); Potassium 3.7 mmol/L (3.5-5.1); Total Protein 6.1 gm/dl (6.0-8.3)
[2024-01-09 07:10] LABS: Vitamin B12 > 1500 pg/ml (180-914)
[2024-01-09 07:15] LABS: Estimated Average Glucose 126 mg/dl
[2024-01-09 07:43] LABS: Ferritin 350.8 ng/ml (8-388); Thyroid Stimulating Hormone 0.611 uIu/ml (0.300-4.500)
[2024-01-09] MEDS ORDERED: POTASSIUM PHOS 3 MMOL/1 ML INFUSION IV STA (07:52)
--- NOTE | 2024-01-09 08:04 | Cardiology Consultation ---
Date of Consultation January 09, 2024 Assessment & Plan (1) New onset a-fib: (2) Sepsis: (3) UTI (urinary tract infection): (4) Pyelonephritis of right kidney: (5) Iron deficiency anemia: Plan IMPRESSION: 58-year-old female with new onset atrial fibrillation RVR in the setting of urosepsis and pyelonephritis of the right kidney. PAF 10/10/2023 at 06:11 with rates 130-170s, self converted to NSR 80s at 06:45-- new diagnosis. [id number] score 1 (female). Prior history of DVT- not on AC. PLAN: AFIB RVR: AFIB possibly in the setting of acute illness/sepsis. -The pathophysiology of PAF discussed with patient in detail. Discussed stro ke risk with PAF and indications for anticoagulation. At this time patient would like to refrain from starting full strength anticoagulation. -Will monitor on telemetry while inpatient and anticipate an outpatient zio monitor to assess for recurrent PAF. If PAF seen will consider starting Eliquis. -Recommend anemia workup-- will defer to primary service -Discontinue metoprolol tartrate in favor of metoprolol succinate 25 mg BID. -Maintain K goal of 4.0 and mag goal of 2.0. Replace as needed Urosepsis: Antibiotics/management per primary service. Case discussed with Dr. Adams. Further recommendations pending assessment. I spent a total of 40 minutes on the date of service in preparation, delivery, and documentation of the care provided to the patient excluding any time spent in the performance of separately billed services. JASON [place] Department of Cardiology, [facility] This chart was completed in part utilizing Speech Voice Recognition Software. Grammatical errors, random word insertions, pronoun errors, and incomplete sentences are an occasional consequence of this system due to software limitations, ambient noise, and hardware issues. Any formal questions or concerns about the content, text, or information contained within the body of this dictation should be directly addressed to the provider for clarification. Supervising Physician Co-Signing Physician Notes Patient was seen and personally examined. Assessment and plan as outlined above. Care and management discussed in detail with advanced provider and personally endorsed 58-year-old female who presented acutely ill with pyelonephritis possible urosepsis. Transient episode of atrial fibrillation earlier this morning approximately 1 hour duration. Spontaneous conversion to sinus rhythm. Episode likely incited by acute illness. 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 with normal left- ventricular systolic function and left atrial size [id number] 2 score low Concerning anemia with drop in hemoglobin Plan: Would not anticoagulate at this time Continue beta-moreno for rhythm and rate control Optimize electrolytes, keep potassium greater than 4 Assess and manage anemia History of Present Illness Reason for Consultation: New onset atrial fibrillation Requesting Physician: [facility] Attending Physician: Arielle Matos MD History of Present Illness 58-year-old female who initially presented to her PCP on 01/07/2024 due to right- sided flank pain, urinary urgency/frequency confusion and weakness. Was hypotensive and hypoxic and patient was transferred to the emergency department via EMS. On arrival patient was found to be septic with pyelonephritis of the right kidney. Blood cultures pending. Serum creatinine elevated 2.45. Treated with 3 L of IV fluid and antibiotics. Krueger catheter placed. Urology following. 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 dated 01/08/2024: LVEF 60 to 65% with normal wall motion. No significant valvular disease. Patient converted to rapid atrial fibrillation this morning around 0611, rates in the 140s-170. Patient mildly symptomatic with tachy palpitations and dyspnea. Self converted to SR in the 80s at 0645. Cardiology consulted for management. Labs: Leukocytosis improving. Ongoing anemia with a hemoglobin around 9. Renal function and electrolytes stable, serum creatinine improved to 2.45>> 1.14. Potassium 3.7. Mag 2.4. Upon entrance into the room patient resting in bed. No acute concerns. Denies any chest pain. SOB improved. No longer feeling palpitations. Denies orthopnea or PND. No lower extremity edema. Feeling much improved since admission. Denies any prior cardiac history-- no history of CAD, CVA, HTN, Rheumatic fever, or PAF/arrhythmia. Past medical history: Hyperlipidemia Prediabetes GERD History of DVT Allergies Allergy/AdvReac Type Severity Reaction Status Date / Time citalopram Allergy Unknown unknown Verified 01/07/24 15:22 reaction clarithromycin Allergy Unknown unknown Verified 01/07/24 15:22 reaction Macrolide Antibiotics Allergy Unknown unknown Verified 01/07/24 15:22 reaction celecoxib AdvReac Intermediate Gastrointestinal Verified 01/07/24 15:22 Upset rizatriptan AdvReac Intermediate migraines Verified 01/07/24 15:22 sumatriptan AdvReac Intermediate MIGRAINE-TIGHTNESS Verified 01/07/24 15:22 IN JAW Home Medications Medication Instructions Recorded Confirmed Type buspirone 15 mg tablet 15 mg PO BID 10/12/18 01/07/24 History cholecalciferol (vitamin D3) 50 2,000 unit PO DAILY 10/12/18 01/07/24 History mcg (2,000 unit) capsule (Vitamin D3) gabapentin 300 mg capsule See Rx Instructions .Route .COMPLEX 10/12/18 01/07/24 History lamotrigine 200 mg tablet 100 mg PO HS 10/12/18 01/07/24 History (Lamictal) melatonin 10 mg tablet 10 mg PO HS 10/12/18 01/07/24 History omeprazole 40 mg capsule,delayed 40 mg PO QAM 10/12/18 01/07/24 History release potassium chloride 10 mEq 10 meq PO BID 10/12/18 01/07/24 History capsule,extended release pravastatin 80 mg tablet 80 mg PO HS 10/12/18 01/07/24 History quetiapine 400 mg tablet 400 mg PO HS 10/12/18 01/07/24 History sulindac 200 mg tablet 200 mg PO BID 10/12/18 01/07/24 History suvorexant 10 mg tablet (Belsomra) 10 mg PO HS 10/12/18 01/07/24 History tramadol 50 mg tablet 50 mg PO Q6H PRN Pain 10/12/18 01/07/24 History trazodone 100 mg tablet 200 mg PO HS 10/12/18 01/07/24 History docusate sodium 100 mg capsule 100 mg PO BID 08/09/20 01/07/24 History (Dulcolax Stool Softener (docusate)) polyethylene glycol 3350 17 17 g PO BID 08/09/20 01/07/24 History gram/dose oral powder (Miralax) tizanidine 4 mg capsule 8 mg PO BID 08/09/20 01/07/24 History cyanocobalamin (vitamin B-12) 1,000 mcg PO QAM 01/07/24 01/07/24 History 1,000 mcg tablet (Vitamin B-12) diclofenac sodium 1 % topical gel 2 g topical QID PRN KNEE PAIN 01/07/24 01/07/24 History hydroxyzine HCl 25 mg tablet 25 - 50 mg PO DAILY PRN 01/07/24 01/07/24 History ANXIETY/INSOMNIA lamotrigine 150 mg tablet 150 mg PO QAM 01/07/24 01/07/24 History magnesium oxide 500 mg PO QAM 01/07/24 01/07/24 History melatonin 5 mg tablet 5 mg PO HS 01/07/24 01/07/24 History ondansetron 4 mg disintegrating 4 mg translingual Q8H PRN 01/07/24 01/07/24 Hi story tablet NAUSEA/VOMITING Patient History Medical History Obesity Osteoarthritis Fibromyalgia Hiatal hernia GERD (gastroesophageal reflux disease) Migraine Asthma stable, no inhaler Hyperlipidemia Bipolar disorder Surgical History History of arthroscopy LEFT SHOULDER History of repair of rotator cuff LEFT History of hysterectomy TOTAL History of appendectomy History of cholecystectomy History of esophagogastroduodenoscopy (EGD) History of colonoscopy Social History Smoking Status: Former smoker Second Hand Exposure: No; Do You Dip or Chew Tobacco: No; Hx Alcohol Use: No Hx Substance Use: No Preferred Language: Mongolian Communication Ability: Effective Blood Or Blood Bank Technician Required: No Beliefs That Will Affect Care: None Current Living Situation: Family Current Living Situation Comment: caregiver for parents Other Information That Helps Us Care for You: No Feels Safe at Home: Yes Safety Concerns: Feels Safe At This Time Assistive Devices: None Review of Systems Review of Systems: All systems reviewed & are unremarkable except as noted in HPI & below Physical Exam Constitutional: WD/WN, vitals as above no acute distress Eyes: PERRL, conjunctivae normal, anicteric sclerae Neck: normal visual inspection and trachea midline Respiratory: normal respiratory effort, lungs clear to auscultation Cardiovascular: RRR, no murmur, no edema Heart Sounds: normal S1 and normal S2; no murmur Vessels: no JVD Extremities: no edema Gastrointestinal (Abdomen): normal bowel sounds, soft, nontender, no hepatosplenomegaly Skin: no rashes, warm and dry Neurologic: PERRL, EOMI, accommodation nl, no face palsy, no dysarthria Psychiatric: A+Ox3, euthymic affect Results & Data Vital Signs (Past 12 Hours) Vital Signs Temp Pulse Pulse Resp BP BP Pulse Ox 01/09/24 07:57 36.8 C 71 20 137/85 96 01/09/24 07:46 87 01/09/24 07:01 86 146/82 H 01/09/24 06:50 86 146/82 H 01/09/24 06:35 128 H 156/83 H 01/09/24 06:12 128 H 156/82 H 01/09/24 02:14 36.8 C 90 18 130/75 96 01/08/24 22:31 01/08/24 22:10 37.0 C 83 16 132/79 96 01/08/24 21:58 82 01/08/24 20:01 85 O2 Del Method O2 Flow Rate 01/09/24 07:57 Nasal Cannula 01/09/24 07:46 01/09/24 07:01 01/09/24 06:50 01/09/24 06:35 01/09/24 06:12 01/09/24 02:14 Nasal Cannula 01/08/24 22:31 Nasal Cannula 2 01/08/24 22:10 Room Air 01/08/24 21:58 01/08/24 20:01 Laboratory Results Cardiac Enzymes 01/08/24 01/09/24 Range/Units 11:49 05:41 AST 32 33 (13-39) U/L Coagulation 01/08/24 Range/Units 11:49 PT 12.6 H (9.0-12.0) Seconds CBC 01/09/24 Range/Units 05:41 WBC 11.52 H (4.8-10.8) K/ul RBC 3.55 L (4.20-5.40) M/uL Hgb 9.1 L (12.0-16.0) g/dl Hct 29.3 L (37.0-47.0) % Plt Count 162 (130-400) K/uL Neut # (Auto) 9.06 H (1.40-6.50) K/uL Lymph # (Auto) 1.54 (1.20-3.40) K/uL [place] # (Auto) 0.68 H (0.11-0.59) K/uL Eos # (Auto) 0.11 (0.00-0.50) K/uL Baso # (Auto) 0.04 (0.00-0.20) K/uL Comprehensive Metabolic Panel 01/08/24 01/09/24 Range/Units 11:49 05:41 Sodium 138 (136-145) mmol/L Potassium 3.7 (3.5-5.1) mmol/L Chloride 107 (98-107) mmol/L Carbon Dioxide 25 (21-32) mmol/L BUN 19 D (6-23) mg/dl Creatinine 1.14 D (0.6-1.2) mg/dl Glucose 106 H (70-99(Fasting)) mg/dl Calcium 8.3 L (8.6-10.3) mg/dl Direct Bilirubin 0.4 H (0-0.2) mg/dl AST 32 33 (13-39) U/L ALT 15 16 (7-52) U/L Alkaline Phosphatase 98 110 H (34-104) U/L Total Protein 5.9 L 6.1 (6.0-8.3) gm/dl Albumin 3.1 L 3.1 L (3.4-5.0) gm/dl Intake and Output 01/08/24 01/09/24 01/09/24 22:59 06:59 14:59 Intake Total 975 / 4420.375 1306 / 4420.375 786.967 / 786.967 Output Total 1999 / 4124 1100 / 4125 Balance -1025 / 295.375 206 / 295.375 786.967 / 786.967 Intake: IV 100 / 2705.375 996 / 2705.375 786.967 / 786.967 Iron Sucrose 200 mg In 0.9 % 110 / 110 Sodium Chloride 100 ml @ 220 mls/hr IV TODAY ONE Rx#: [id number] Piperacillin/Tazobactam 4.5 gm 100 / 300 100 / 300 94.167 / 94.167 In Dextrose 5% Mini-B 100 ml @ 25 mls/hr IV Q8H [facility] Rx#: [id number] Potassium Phosphate 21 mmol In 16.133 / 16.133 Sodium Chloride 0.9% 500 ml @ 88 mls/hr IV ONE ONE Rx#: [id number] Sodium Chloride 0.9% 1,000 ml @ 896 / 896 566.667 / 566.667 80 mls/hr IV .[id number] [facility] Rx#: [id number] Oral 875 / 1715 310 / 1715 Output: Urine Amount (Catheter) 1999 Krueger/Indwelling 1999 Other: Weight 96.6 kg (2) Sepsis Acute renal failure type: unspecified Sepsis acute organ dysfunction status: with acute organ dysfunction Sepsis type: sepsis due to unspecified organism Severe sepsis acute organ dysfunction type: acute renal failure Severe sepsis shock status: unspecified Qualified Code(s): A41.9 - Sepsis, unspecified organism; R65.20 - Severe sepsis without septic shock; N17.9 - Acute kidney failure, unspecified
[2024-01-09] MEDS: CYANOCOBALAMIN (B-12) 500 MCG TABLET PO SCH (08:33)
[2024-01-09] MEDS: CHOLECALCIFEROL 25 MCG (1000 UNITS) TAB PO SCH (08:33)
[2024-01-09] MEDS: IRON SUCROSE 200 MG in 0.9 % SODIUM CHLORIDE 100 ML IV ONE (08:35)
[2024-01-09] MEDS: PANTOprazole 40 MG TAB PO SCH (08:35)
[2024-01-09] MEDS: MAGNESIUM OXIDE 400 MG TAB PO SCH (08:35)
[2024-01-09] MEDS: POTASSIUM PHOSPHATE 21 MMOL in SODIUM CHLORIDE 0.9% 500 ML IV ONE (08:35)
--- NOTE | 2024-01-09 09:15 | Electrocardiogram Report ---
Test Reason : Blood Pressure : / mmHG Vent. Rate : 140 BPM Atrial Rate : 138 BPM P-R Int : 000 ms QRS Dur : 086 ms QT Int : 248 ms P-R-T Axes : 000 016 131 degrees QTc Int : 378 ms Atrial fibrillation with rapid ventricular response Nonspecific ST and T wave abnormality Abnormal ECG When compared with ECG of 07-JAN-2024 15:43, Atrial fibrillation has replaced Sinus rhythm Vent. rate has increased BY 77 BPM Nonspecific T wave abnormality, worse in Inferior leads Confirmed by Derrek Hahn ([id number]) on 01/09/2024 9:14:42 AM Referred By: REFERRED SELF Confirmed By:Dima Hahn
[2024-01-09] MEDS: POT PHOSPHATE MONOBASIC W/ SOD TAB PO SCH (09:54)
[2024-01-09] MEDS: FOLIC ACID 1 MG TAB PO SCH (11:09)
--- NOTE | 2024-01-09 12:18 | Urology Progress Note ---
Date of Service January 09, 2024 Assessment & Plan (1) Pyelonephritis of right kidney: (2) Acute renal failure (ARF): Plan 58yo/F admitted with sepsis secondary to UTI/Pyelo. CT abd pelvis on admission demonstrated right nephrolithiasis without any ureteral calculi, no hydroneph rosis, and right perinephric stranding which could represent a recently passed stone or infectious process. - Pt is afebrile and hemodynamically stable at present - Labs today reviewed- white count improved to 11.52; creatinine normal. - Urine culture grew proteus; blood cultures prelim no growth x 24 hours. On Zosyn. - Krueger intact and draining appropriately - urine is clear yellow. - No plan for intervention. - Continue antibiotic therapy for a total of 14 days per culture sensitivities. - Continue supportive care. - Maintain Krueger catheter for bladder decompression. Depending on clinical course, can consider void trial before discharge or we can arrange in the urology clinic. - Will arrange outpatient follow-up with our service for continued care and possible voiding trial - Urology will follow peripherally. Please call with any further questions or concerns. Admission and Anticipated Discharge Date Admission Date: January 07, 2024 Subjective Patient examined at bedside this AM. Awake, resting in bed on arrival. No acute distress. Krueger intact and draining clear yellow urine. Feeling better overall. No reported pain at present. Denies fever, chills, nausea, vomiting. Had a new onset of Afib overnight, cardiology consulted. Review of Systems Constitutional: as per Subjective / HPI Genitourinary: as per Subjective / HPI Physical Exam Constitutional: no acute distress Respiratory: no respiratory distress and no labored breathing Neurologic: awake Psychiatric: A+Ox3, euthymic affect Genitourinary: Krueger intact draining clear yellow urine Results & Data Vital Signs (Past 12 Hours) Vital Signs Temp Pulse Pulse Resp BP BP Pulse Ox 01/09/24 08:00 01/09/24 07:57 36.8 C 71 20 137/85 96 01/09/24 07:46 87 01/09/24 07:01 86 146/82 H 01/09/24 06:50 86 146/82 H 01/09/24 06:35 128 H 156/83 H 01/09/24 06:12 128 H 156/82 H 01/09/24 02:14 36.8 C 90 18 130/75 96 O2 Del Method 01/09/24 08:00 Room Air 01/09/24 07:57 Nasal Cannula 01/09/24 07:46 01/09/24 07:01 01/09/24 06:50 01/09/24 06:35 01/09/24 06:12 01/09/24 02:14 Nasal Cannula PG Care Time/CCT Total # of Minutes Spent Total Time Spent with Patient: Total time spent is greater than 50% in coordination of care (as documented) at patient's floor/unit and/or counseling patient: Coding Level of Care Code 20499 SUB INP/OBS CARE 235MIN Diagnoses Pyelonephritis of right kidney N12 Acute renal failure (ARF) N17.9 Acute renal failure type: unspecified (2) Acute renal failure (ARF) Acute renal failure type: unspecified Qualified Code(s): N17.9 - Acute kidney failure, unspecified
--- NOTE | 2024-01-09 12:51 | Hospitalist Progress Note ---
Date of Service January 09, 2024 Assessment & Plan (1) Sepsis: (2) Pyelonephritis of right kidney: Plan Pt is a 58yoF with PMHx significant for hyperlipidemia, prediabetes, GERD, migraine, bipolar disorder, anxiety, history of DVT who presented with right- sided flank pain, urgency, frequency, weakness and fatigue. Severe sepsis POA Right-sided pyelonephritis Complicated UTI Presented with right-sided flank pain, increased urinary urgency, frequency, fatigue and tiredness Hypotensive and hypoxic on presentation to the ED with leukocytosis, infectious source urinary. lactate normal, procalcitonin elevated. UA suggestive of infection, urine Cx currently growing proteus Blood Cx x2 sets NGTD CT abd pelvis suggestive of a recently passed right sided stone and/or infection per radiology Continue IV Zosyn while hospitalized and until Blood Cx finalize BP currently stable, received IV fluid support Urology consulted, appreciate recs Currently improving. PAF Episode of a fib overnight Was started on po metoprolol Currently in sinus Cardiology consulted, appreciate recs -met succ 25mg BID -not on anticoag at this time -Zio patch on d/c Acute hypoxic respiratory Failureresolved Subpleural opacities L pleural Effusion Pt with noted hypoxia to the 80s on admission Chest XRAY with no noted acute process Chest CT noting subpleural opacities that were more suggestive of atelectasis per radiology, however recommended 6 month followup to ensure resolution Chest CT also noting trace L pleural effusion Oxygen supplementation as needed Wean as tolerated Improving VIRIDIANA Cr elevated at 2.45 on admission Currently downtrended and wnl Received IV hydration Hold nephrotoxic meds as able Monitor with AM labs Possible Tylenol Overdose On admission, concern for tylenol overdose Patient denied any overdose of medication Acetaminophen level normal at 14 Received NAC per poison control recs Anemia, chronic Iron Deficiency Anemia Appears chronic though lower at ~9 currently On admission, FOBT ordered and pending Anemia labs (iron panel, B12 and folate ordered) -iron deficiency noted, s/p IV Venofer -folate slightly decreased as well, started on folate Continue to monitor H/H Transfuse as needed for hgb <7 Thrombocytopenia Platelets acutely decreased Likely in setting of sepsis Continue to monitor with daily labs If persistent consider further workup Hyponatremia Sodium of 130 on admission Currently 135 Continue to monitor Prediabetes glucose levels slightly elevated Hx of prediabetes noted in the chart based on previous [id number] Repeat AM [id number] of 6.0 Diet and exercise, pcp followup Stroke rule out Lethargy Altered Mental Status Head CT, MRI brain wo contrast, MRA head and neck all without acute findings 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, pt, ot, 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 Pt noted to be on many sedating medications -Lamictal and Buspar resumed -holding home gabapentin, melatonin, seroquel, suvorexant, zanaflex, Vistaril and trazodone at this time, resume as able Improved Bipolar Disorder Anxiety and Depression Fibromyalgia insomnia Lamictal and Buspar resumed as above holding home gabapentin, melatonin, seroquel, suvorexant, zanaflex, Vistaril and trazodone at this time in setting of lethargy, resume as able CODE STATUS: Full code Diet: Regular DVT prophylaxis: Heparin SQ Dispo: PT/OT pending Admission and Anticipated Discharge Date Admission Date: January 07, 2024 Subjective Episode of a fib overnight with palpitations. Denied symptoms at time of eval, family at bedside. Anxious to go home Review of Systems Review of Systems: All systems reviewed & are unremarkable except as noted in Subjective Physical Exam Physical Exam: General: Alert, orientedx3. No acute distress Skin: No noted rashes or bruises Psych: Appropriate mood and affect Neuro: No gross deficits HEENT: NC/AT Chest: Nontender to palpation. CV: RRR, Normal s1, s2. No murmurs appreciated Resp: Breath sounds clear bilaterally, no increased effort of breathing. Abdomen: Soft, nontender, nondistended. Extremities: Trace edema in lower extremities bilaterally. Results & Data Results & Data Vital Signs (Past 12 Hours) Vital Signs Temp Pulse Pulse Resp BP BP Pulse Ox 01/09/24 08:00 01/09/24 07:57 36.8 C 71 20 137/85 96 01/09/24 07:46 87 01/09/24 07:01 86 146/82 H 01/09/24 06:50 86 146/82 H 01/09/24 06:35 128 H 156/83 H 01/09/24 06:12 128 H 156/82 H 01/09/24 02:14 36.8 C 90 18 130/75 96 O2 Del Method 01/09/24 08:00 Room Air 01/09/24 07:57 Nasal Cannula 01/09/24 07:46 01/09/24 07:01 01/09/24 06:50 01/09/24 06:35 01/09/24 06:12 01/09/24 02:14 Nasal Cannula (1) Sepsis Acute renal failure type: unspecified Sepsis acute organ dysfunction status: with acute organ dysfunction Sepsis type: sepsis due to unspecified organism Severe sepsis acute organ dysfunction type: acute renal failure Severe sepsis shock status: unspecified Qualified Code(s): A41.9 - Sepsis, unspecified organism; R65.20 - Severe sepsis without septic shock; N17.9 - Acute kidney failure, unspecified
[2024-01-09] MEDS: POTASSIUM CHLORIDE CRTAB 20 MEQ TABCR PO SCH (16:34)
[2024-01-09] MEDS: METOPROLOL SUCC 25MG EXT REL TAB PO SCH (20:05)
[2024-01-09] MEDS ORDERED: METOPROLOL TARTRATE 25 MG TAB PO SCH (21:00)
[2024-01-09] MEDS: MELATONIN 3 MG TAB PO PRN (22:19)
[2024-01-10] MEDS: METOPROLOL TARTRATE 1 MG/ML VIAL IV STA ×2 (03:48→20:00)
[2024-01-10 07:48] LABS: Basophils # (auto) 0.07 K/uL (0.00-0.20); Basophils % (auto) 0.5 %; Eosinophils # (auto) 0.12 K/uL (0.00-0.50); Eosinophils % (auto) 0.8 %; Hematocrit (blood only) 27.1 % (37.0-47.0); Hemoglobin 8.6 g/dl (12.0-16.0); Immature Granulocytes # (auto) 0.21 K/uL (0.01-0.20); Immature Granulocytes % (auto) 1.4 %; Lymphocytes # (auto) 2.13 K/uL (1.20-3.40); Lymphocytes % (auto) 14.6 %; Mean Corpuscular Hemoglobin 25.9 pg (25.0-34.0); Mean Corpuscular Hgb Conc 31.7 g/dL (32.0-36.0); Mean Corpuscular Volume 81.6 fL (80.0-100.0); Mean Platelet Volume 9.8 fL (9.4-12.4); Monocytes # (auto) 1.24 K/uL (0.11-0.59); Monocytes % (auto) 8.5 %; Neutrophils # (auto) 10.78 K/uL (1.40-6.50); Neutrophils % (auto) 74.2 %; Platelet Count 196 K/uL (130-400); RDW Coefficient of Variation 16.5 % (11.5-14.5); RDW Standard Deviation 49.6 fL (36.4-46.3); Red Blood Count 3.32 M/uL (4.20-5.40); White Blood Count 14.55 K/ul (4.8-10.8)
[2024-01-10] MEDS: METOPROLOL SUCC 50MG EXT REL TAB PO SCH (08:08)
[2024-01-10 08:14] LABS: Albumin Level 3.2 gm/dl (3.4-5.0); BUN Creatinine Ratio 18.7 (10-20); Bilirubin,Total 1.1 mg/dl (0.2-1.0); Calcium 8.5 mg/dl (8.6-10.3); Creatinine Clr Calc Pharmacy 69.4 ml/min; Est GFR (African American) 65.8 ml/min; Est GFR (Non-African American) 56.8 ml/min; Globulin 3.2 gm/dl (2.5-4.0); Magnesium 2.3 mg/dl (1.7-2.4); Phosphorus 2.7 mg/dl (2.5-4.9); Potassium 4.1 mmol/L (3.5-5.1); Total Protein 6.4 gm/dl (6.0-8.3)
[2024-01-10] MEDS ORDERED: cefTRIAXone SODIUM 2,000 MG in DEXTROSE 5 % MINI-B 50 ML IV SCH (10:15)
[2024-01-10] MEDS: DOXYCYCLINE HYCLATE 100 MG CAP PO SCH (11:29)
[2024-01-10] MEDS: PIPERACILLIN/TAZOBACTAM 4.5 GM in DEXTROSE 5% MINI-B 100 ML IV SCH (11:29)
--- NOTE | 2024-01-10 12:49 | Cardiology Progress Note ---
Date of Service January 10, 2024 Assessment & Plan (1) New onset a-fib: (2) Sepsis: (3) UTI (urinary tract infection): (4) Pyelonephritis of right kidney: (5) Iron deficiency anemia: Plan IMPRESSION: 58-year-old female with new onset atrial fibrillation RVR in the setting of urosepsis and pyelonephritis of the right kidney. PAF 10/10/2023 at 06:11 with rates 130-170s, self converted to NSR 80s at 06:45-- new diagnosis. [id number] score 1 (female). Prior history of DVT- not on AC. PLAN: AFIB RVR: AFIB possibly in the setting of acute illness/sepsis. -The pathophysiology of PAF discussed with patient in detail. Discussed stroke risk with PAF and indications for anticoagulation. At this time patient would like to refrain from starting full strength anticoagulation. -Will monitor on telemetry while inpatient and anticipate an outpatient zio monitor to assess for recurrent PAF. If PAF seen will consider starting Eliquis. -Recommend anemia workup-- will defer to primary service -Discontinue metoprolol tartrate in favor of metoprolol succinate 25 mg BID. -Maintain K goal of 4.0 and mag goal of 2.0. Replace as needed Urosepsis: Antibiotics/management per primary service. 01/10/2024 58-year-old female presented acutely ill with mental status changes weakness fatigue. Treated for complex urinary tract infection on 12/03/2023 urine culture growing E. coli and Klebsiella During hospitalization patient has developed paroxysmal atrial fibrillation in the setting of acute illness, labile blood pressure [id number] 2 score of 12 Recurrence of atrial fibrillation early a.m. this morning Plan: Increase metoprolol succinate to 50 mg twice per day as already ordered Discussed indications for anticoagulation with patient as in past she defers which appears appropriate in the setting of anemia and acute illness, relatively low [id number] score Consider nocturnal oximetry given early a.m. exacerbations I spent a total of 30 minutes on the date of service in preparation, delivery, and documentation of the care provided to the patient excluding any time spent in the performance of separately billed services. This chart was completed in part utilizing Speech Voice Recognition Software. Grammatical errors, random word insertions, pronoun errors, and incomplete sentences are an occasional consequence of this system due to software limitations, ambient noise, and hardware issues. Any formal questions or concerns about the content, text, or information contained within the body of this dictation should be directly addressed to the provider for clarification. Admission and Anticipated Discharge Date Admission Date: January 07, 2024 Subjective Patient seen and examined, chart, medications, telemetry reviewed Once again lapsed into atrial fibrillation earlier this morning. Asymptomatic Patient unaware of tachypalpitations dizziness or lightheadednes No chest pain or discomfort Review of Systems Review of Systems: All systems reviewed & are unremarkable except as noted in Subjective Physical Exam Constitutional: + ill appearing; no acute distress Eyes: PERRL, conjunctivae normal, anicteric sclerae Neck: normal visual inspection and trachea midline Respiratory: normal respiratory effort, lungs clear to auscultation Cardiovascular: Rate/Rhythm: + irregularly irregular Heart Sounds: normal S1 and normal S2; no murmur Vessels: no JVD Extremities: no edema Gastrointestinal (Abdomen): normal bowel sounds, soft, nontender, no hepatosplenomegaly Skin: no rashes, warm and dry Neurologic: PERRL, EOMI, accommodation nl, no face palsy, no dysarthria Psychiatric: A+Ox3, euthymic affect Results & Data Vital Signs (Past 12 Hours) Vital Signs Temp Pulse Pulse Resp BP Pulse Ox O2 Del Method 01/10/24 11:25 36.6 C 106 H 17 153/91 H 94 Nasal Cannula 01/10/24 09:45 80 01/10/24 07:50 36.7 C 77 19 150/89 H 90 Room Air 01/10/24 04:35 80 01/10/24 03:48 120 H 01/10/24 03:04 36.7 C 128 H 18 145/86 H 91 Nasal Cannula O2 Flow Rate 01/10/24 11:25 2 01/10/24 09:45 01/10/24 07:50 01/10/24 04:35 01/10/24 03:48 01/10/24 03:04 2 Laboratory Results Laboratory Results - last 24 hr 01/10/24 07:25 WBC 14.55 H RBC 3.32 L Hgb 8.6 L Hct 27.1 L MCV 81.6 MCH 25.9 MCHC 31.7 L RDW Std Deviation 49.6 H RDW Coeff of Dinah 16.5 H Plt Count 196 MPV 9.8 Immature Gran % (Auto) 1.4 Neut % (Auto) 74.2 Lymph % (Auto) 14.6 [place] % (Auto) 8.5 Eos % (Auto) 0.8 Baso % (Auto) 0.5 Neut # (Auto) 10.78 H Lymph # (Auto) 2.13 [place] # (Auto) 1.24 H Eos # (Auto) 0.12 Baso # (Auto) 0.07 Immature Gran # (Auto) 0.21 H Sodium 141 Potassium 4.1 Chloride 108 H Carbon Dioxide 26 Anion Gap 7 BUN 20 Creatinine 1.07 Est Cr Clr Drug Dosing 69.4 Est GFR ( Amer) 65.8 Est GFR (Non-Af Amer) 56.8 BUN/Creatinine Ratio 18.7 Glucose 114 H Calcium 8.5 L Phosphorus 2.7 D Magnesium 2.3 Total Bilirubin 1.1 H AST 32 ALT 18 Alkaline Phosphatase 118 H Total Protein 6.4 Albumin 3.2 L Globulin 3.2 Albumin/Globulin Ratio 1.0 (2) Sepsis Acute renal failure type: unspecified Sepsis acute organ dysfunction status: with acute organ dysfunction Sepsis type: sepsis due to unspecified organism Severe sepsis acute organ dysfunction type: acute renal failure Severe sepsis shock status: unspecified Qualified Code(s): A41.9 - Sepsis, unspecified organism; R65.20 - Severe sepsis without septic shock; N17.9 - Acute kidney failure, unspecified
--- NOTE | 2024-01-10 15:05 | Hospitalist Progress Note ---
Date of Service January 10, 2024 Assessment & Plan (1) Sepsis: (2) Pyelonephritis of right kidney: Plan Pt is a 58yoF with PMHx significant for hyperlipidemia, prediabetes, GERD, migraine, bipolar disorder, anxiety, history of DVT who presented with right- sided flank pain, urgency, frequency, weakness and fatigue. Severe sepsis POA Right-sided pyelonephritis Complicated UTI Presented with right-sided flank pain, increased urinary urgency, frequency, fatigue and tiredness Hypotensive and hypoxic on presentation to the ED with leukocytosis, infectious source urinary. lactate normal, procalcitonin elevated. UA suggestive of infection, urine Cx currently growing proteus Blood Cx x2 sets NGTD CT abd pelvis suggestive of a recently passed right sided stone and/or infection per radiology Continue IV Zosyn while hospitalized and until Blood Cx finalize, added doxycycline for pulmonary atypical coverage on 01/09 BP currently stable, received IV fluid support Urology consulted, appreciate recs Currently improving. PAF Episodes of a fib Was started on po metoprolol Currently in sinus Cardiology consulted, appreciate recs -met succ 50mg BID -not on anticoag at this time -Zio patch on d/c Acute hypoxic respiratory Failureresolved Subpleural opacities L pleural Effusion Pt with noted hypoxia to the 80s on admission Chest XRAY with no noted acute process Chest CT noting subpleural opacities that were more suggestive of atelectasis per radiology but could not rule out infection, however recommended 6 month followup to ensure resolution Chest CT also noting trace L pleural effusion Oxygen supplementation as needed Wean as tolerated Improving, on doxycycline as above as well VIRIDIANA Cr elevated at 2.45 on admission Currently downtrended and wnl Received IV hydration Hold nephrotoxic meds as able Monitor with AM labs Possible Tylenol Overdose On admission, concern for tylenol overdose Patient denied any overdose of medication Acetaminophen level normal at 14 Received NAC per poison control recs Anemia, chronic Iron Deficiency Anemia Appears chronic though lower at ~9 currently On admission, FOBT ordered and pending Anemia labs (iron panel, B12 and folate ordered) -iron deficiency noted, s/p IV Venofer -folate slightly decreased as well, started on folate Continue to monitor H/H Transfuse as needed for hgb <7 Thrombocytopenia Platelets acutely decreased Likely in setting of sepsis Continue to monitor with daily labs If persistent consider further workup Hyponatremia Sodium of 130 on admission Currently 135 Continue to monitor Prediabetes glucose levels slightly elevated Hx of prediabetes noted in the chart based on previous [id number] Repeat AM hgba1c of 6.0 Diet and exercise, pcp followup Stroke rule out Lethargy Altered Mental Status Head CT, MRI brain wo contrast, MRA head and neck all without acute findings 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, pt, ot, tax agent pending Pt noted to be on many sedating medications -Lamictal and Buspar resumed -holding home gabapentin, melatonin, seroquel, suvorexant, zanaflex, Vistaril and trazodone at this time, resume as able Improved Bipolar Disorder Anxiety and Depression Fibromyalgia insomnia Lamictal and Buspar resumed as above holding home gabapentin, melatonin, seroquel, suvorexant, zanaflex, Vistaril and trazodone at this time in setting of lethargy, resume as able CODE STATUS: Full code Diet: Regular DVT prophylaxis: Heparin SQ Dispo: PT/OT pending Admission and Anticipated Discharge Date Admission Date: January 07, 2024 Subjective Pt was seen in the AM. Extensive discussion about her course and need to broaden antibiotics. A fib overnight, dose of metoprolol increased. Review of Systems Review of Systems: All systems reviewed & are unremarkable except as noted in Subjective Physical Exam Physical Exam: General: Alert, orientedx3. No acute distress Skin: No noted rashes or bruises Psych: Appropriate mood and affect Neuro: No gross deficits HEENT: NC/AT Chest: Nontender to palpation. CV: RRR, Normal s1, s2. No murmurs appreciated Resp: Breath sounds clear bilaterally, no increased effort of breathing. Abdomen: Soft, nontender, nondistended. Extremities: Trace edema in lower extremities bilaterally. Results & Data Results & Data Vital Signs (Past 12 Hours) Vital Signs Temp Pulse Pulse Resp BP Pulse Ox O2 Del Method 01/10/24 11:25 36.6 C 106 H 17 153/91 H 94 Nasal Cannula 01/10/24 09:45 80 01/10/24 07:50 36.7 C 77 19 150/89 H 90 Room Air 01/10/24 04:35 80 01/10/24 03:48 120 H O2 Flow Rate 01/10/24 11:25 2 01/10/24 09:45 01/10/24 07:50 01/10/24 04:35 01/10/24 03:48 (1) Sepsis Acute renal failure type: unspecified Sepsis acute organ dysfunction status: with acute organ dysfunction Sepsis type: sepsis due to unspecified organism Severe sepsis acute organ dysfunction type: acute renal failure Severe sepsis shock status: unspecified Qualified Code(s): A41.9 - Sepsis, unspecified organism; R65.20 - Severe sepsis without septic shock; N17.9 - Acute kidney failure, unspecified
[2024-01-10] MEDS: ONDANSETRON INJ 2 MG/ML 2 ML VIAL IV PRN (18:08)
[2024-01-10] MEDS: PROMETHAZINE HCL 12.5 MG in SODIUM CHLORIDE 0.9% 50 ML IV STA (21:01)
[2024-01-11] MEDS: PROMETHAZINE HCL 12.5 MG in SODIUM CHLORIDE 0.9% 50 ML IV PRN (04:05)
[2024-01-11 06:21] LABS: Hematocrit (blood only) 25.9 % (37.0-47.0); Hemoglobin 8.6 g/dl (12.0-16.0); Mean Corpuscular Hemoglobin 26.5 pg (25.0-34.0); Mean Corpuscular Hgb Conc 33.2 g/dL (32.0-36.0); Mean Corpuscular Volume 79.7 fL (80.0-100.0); Nucleated RBC # (auto) 0.02 K/uL (0.00-0.12); Nucleated RBC % (auto) 0.2 %; Platelet Count 209 K/uL (130-400); RDW Coefficient of Variation 16.5 % (11.5-14.5); RDW Standard Deviation 47.8 fL (36.4-46.3); Red Blood Count 3.25 M/uL (4.20-5.40); White Blood Count 13.14 K/ul (4.8-10.8)
[2024-01-11 06:41] LABS: Albumin Level 3.2 gm/dl (3.4-5.0); BUN Creatinine Ratio 25.2 (10-20); Bilirubin,Total 1.5 mg/dl (0.2-1.0); Calcium 8.7 mg/dl (8.6-10.3); Creatinine Clr Calc Pharmacy 63.9 ml/min; Est GFR (African American) 60.3 ml/min; Globulin 3.2 gm/dl (2.5-4.0); Magnesium 2.1 mg/dl (1.7-2.4); Phosphorus 4.6 mg/dl (2.5-4.9); Total Protein 6.4 gm/dl (6.0-8.3)
[2024-01-11 06:54] LABS: Basophils # (auto) 0.05 K/uL (0.00-0.20); Basophils % (auto) 0.4 %; Immature Granulocytes # (auto) 0.81 K/uL (0.01-0.20); Immature Granulocytes % (auto) 6.2 %; Lymphocytes # (auto) 1.76 K/uL (1.20-3.40); Lymphocytes % (auto) 13.4 %; Monocytes % (auto) 6.1 %; Neutrophils # (auto) 9.72 K/uL (1.40-6.50); Neutrophils % (auto) 73.9 %
[2024-01-11] MEDS: OPTIRAY 320 100ml IV ONE (11:06)
--- NOTE | 2024-01-11 11:11 | XRay Report ---
SINGLE VIEW CHEST CLINICAL HISTORY: Hypoxia FINDINGS: An AP, portable, upright chest radiograph is compared to chest x-ray and chest CT dated 12/22. The heart is enlarged. The pulmonary vasculature is noncongested. There is bibasilar scarring /atelectasis. No airspace consolidation or large pleural effusion is identified. No pneumothorax is s een. The skeletal structures are osteopenic. The bony thorax is grossly intact. Surgical anchors are noted in the left humeral head. IMPRESSION: Cardiomegaly with no active disease in the chest. ACT 112: Negative or not required by law. Electronically signed by: Norbert Sherman M.D. 01/11/2024 11:10 AM
[2024-01-11 12:23] LABS: Base Excess VBG -18.8 mEq/L; HCO3 VBG 8 mmol/L; Oxygen Saturation VBG 90.7 %; PCO2 VBG 22 mmHg (38-50); PO2 VBG 76 mmHg; pH VBG 7.17 (7.36-7.41)
--- NOTE | 2024-01-11 13:05 | Hospitalist Progress Note ---
Date of Service January 11, 2024 Assessment & Plan (1) Sepsis: (2) Pyelonephritis of right kidney: Plan Pt is a 58yoF with PMHx significant for hyperlipidemia, prediabetes, GERD, migraine, bipolar disorder, anxiety, history of DVT who presented with right- sided flank pain, urgency, frequency, weakness and fatigue. Severe sepsis POA Right-sided pyelonephritis Complicated UTI Presented with right-sided flank pain, increased urinary urgency, frequency, fatigue and tiredness Hypotensive and hypoxic on presentation to the ED with leukocytosis, infectious source urinary. lactate normal, procalcitonin elevated. UA suggestive of infection, urine Cx currently growing proteus Blood Cx x2 sets NGTD CT abd pelvis suggestive of a recently passed right sided stone and/or infection per radiology Continue IV Zosyn while hospitalized and until Blood Cx finalize, added doxycycline for pulmonary atypical coverage on 01/09 BP currently stable, received IV fluid support Urology consulted, appreciate recs 01/10- pt with N/V/D overnight, worsening symptoms, sepsis labs repeated. Noted lactate of 15 with severe metabolic acidosis, blood cx repeated, on bicarb drip Severe Metabolic Acidosis Acute hypoxic respiratory Failure Pt with multiple episodes of N/V/D overnight on 01/09 CT abd/pelvis with no acute finding Sepsis labs repeated, lactate of 15.6 noted VBG obtained as well as ABG with noted pH 7.16, CO2 17, HCO3 6 Nephrology consulted- recommended starting bicarb drip Case discussed with menagerie caretaker, pt transferred to ICU on 01/10 -repeating salicylate, tylenol levels, blood Cx, UA Continue bicarb drip q4h BMP and ABG monitoring Appreciate nephrology and Test Administrator recs PAF Episodes of a fib Was started on po metoprolol Currently in sinus Cardiology consulted, appreciate recs -met succ 50mg BID -not on anticoag at this time -Zio patch on d/c Subpleural opacities L pleural Effusion Pt with noted hypoxia to the 80s on admission Chest XRAY on admission with no noted acute process Chest CT on admission noting subpleural opacities that were more suggestive of atelectasis per radiology but could not rule out infection, however recommended 6 month followup to ensure resolution Chest CT also noting trace L pleural effusion Oxygen supplementation as needed Wean as tolerated Improving, on doxycycline as above as well VIRIDIANA Cr elevated at 2.45 on admission Currently downtrended and wnl Received IV hydration Hold nephrotoxic meds as able Monitor with AM labs Possible Tylenol Overdose On admission, concern for tylenol overdose Patient denied any overdose of medication Acetaminophen level normal at 14 Received NAC per poison control recs Anemia, chronic Iron Deficiency Anemia Appears chronic though lower at ~9 currently On admission, FOBT ordered and pending Anemia labs (iron panel, B12 and folate ordered) -iron deficiency noted, s/p IV Venofer -folate slightly decreased as well, started on folate Continue to monitor H/H Transfuse as needed for hgb <7 Thrombocytopenia Platelets acutely decreased Likely in setting of sepsis Continue to monitor with daily labs If persistent consider further workup Hyponatremia Sodium of 130 on admission Currently 135 Continue to monitor Prediabetes glucose levels slightly elevated Hx of prediabetes noted in the chart based on previous [id number] Repeat AM hgba1c of 6.0 Diet and exercise, pcp followup Stroke rule out Lethargy Altered Mental Status Head CT, MRI brain wo contrast, MRA head and neck all without acute findings 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, pt, ot, spring former machine pending Pt noted to be on many sedating medications -Lamictal and Buspar resumed -holding home gabapentin, melatonin, seroquel, suvorexant, zanaflex, Vistaril and trazodone at this time, resume as able Improved Bipolar Disorder Anxiety and Depression Fibromyalgia insomnia Lamictal and Buspar resumed as above holding home gabapentin, suvorexant, zanaflex at this time in setting of lethargy on presentation, resume as able Resumed home melatonin, Vistaril and trazodone. Seroquel restarted at 100mg qhs (home dose of 400mg), titrate up as needed CODE STATUS: Full code Diet: Regular DVT prophylaxis: Heparin SQ Dispo: PT/OT noting at baseline. Home once medically stable Admission and Anticipated Discharge Date Admission Date: January 07, 2024 Subjective Pt was seen multiple times during the day. In the AM stated that she threw up all night and was not sure what was triggering the N/V. Also having diarrhea and abd pain. Stated that she was not sleeping. Does not use oxygen at baseline. Review of Systems Review of Systems: All systems reviewed & are unremarkable except as noted in Subjective Physical Exam Physical Exam: General: Alert, orientedx3. No acute distress Skin: No noted rashes or bruises Psych: Appropriate mood and affect Neuro: No gross deficits HEENT: NC/AT Chest: Nontender to palpation. CV: RRR, Normal s1, s2. No murmurs appreciated Resp: Breath sounds clear bilaterally, no increased effort of breathing. Abdomen: Soft, tender, nondistended. Extremities: Trace edema in lower extremities bilaterally. Results & Data Results & Data Vital Signs (Past 12 Hours) Vital Signs Temp Pulse Resp BP Pulse Ox O2 Del Method O2 Flow Rate 01/11/24 10:55 36.3 C L 90 19 152/103 H 96 Nasal Cannula 2 01/11/24 08:00 Nasal Cannula 2 01/11/24 07:22 36.8 C 87 21 164/109 H 97 Nasal Cannula 2 01/11/24 02:36 36.4 C L 85 18 153/92 H 90 Nasal Cannula 2 (1) Sepsis Acute renal failure type: unspecified Sepsis acute organ dysfunction status: with acute organ dysfunction Sepsis type: sepsis due to unspecified organism Severe sepsis acute organ dysfunction type: acute renal failure Severe sepsis shock status: unspecified Qualified Code(s): A41.9 - Sepsis, unspecified organism; R65.20 - Severe sepsis without septic shock; N17.9 - Acute kidney failure, unspecified
[2024-01-11] MEDS ORDERED: SODIUM BICARBONATE 650 MG TAB PO SCH (14:00)
[2024-01-11 14:29] LABS: Base Excess ABG -20.7 mEq/L (-9-1.8); HCO3 ABG 6 mmol/L (19-24); Oxygen Saturation ABG 95.8 % (90-95); PCO2 ABG 17 mmHg (35-46); PO2 ABG 95 mmHg (80-95)
[2024-01-11 14:43] LABS: Allen Test Pos (Pos)
[2024-01-11 14:45] LABS: Calcium 8.6 mg/dl (8.6-10.3); Creatinine Clr Calc Pharmacy 56.1 ml/min; Est GFR (African American) 51.5 ml/min; Est GFR (Non-African American) 44.5 ml/min; Potassium 4.4 mmol/L (3.5-5.1)
[2024-01-11] MEDS ORDERED: STAT IV/IM STA ×2 (14:47→15:57)
--- NOTE | 2024-01-11 15:03 | CT Scan Report ---
CT SCAN OF THE ABDOMEN AND PELVIS WITH IV CONTRAST CLINICAL HISTORY: Nausea and vomiting. Diarrhea. Generalized abdominal pain. Elevated hepatic trans aminases. COMPARISON STUDY: Abdominal CT dated 01/07/2024. TECHNIQUE: Following the IV administration of 94 cc of Optiray 320, CT scan of the abdomen and pelvi s is performed from the lung bases to the proximal femora. Images are reviewed in the axial, sagittal , and coronal planes. IV contrast was administered without complication. A dose lowering technique wa s utilized adhering to the principles of ALARA. CT DOSE: 1433.95 mGy.cm FINDINGS: Lung bases: The heart is enlarged noting trace pericardial effusion. There are small pleural effusion s with dependent atelectasis. Liver: The contrast-enhanced liver is enlarged, measuring 21.8 cm in length. The liver demonstrates d iffusely diminished attenuation indicating steatosis. There is no intrahepatic biliary ductal dilatat ion. The hepatic veins and portal veins are patent. Gallbladder: Surgically absent noting clips in the gallbladder fossa. Gas within the common bile duct suggests prior sphincterotomy. Spleen: Normal in size and attenuation. Pancreas: Unremarkable. Adrenal glands: Unremarkable. Kidneys: There is asymmetric cortical atrophy of left kidney as compared the right. No hydronephrosis is seen. Cortical enhancement of the right kidney is slightly heterogeneous. There are at least 2 no nobstructing right renal calculi which measure up to 4 mm. No ureteral stone is seen. Abdominal vasculature: The abdominal aorta is normal in course and caliber noting moderate atheroscle rotic calcification. Bowel: There is no bowel obstruction. The appendix is not identified and reported surgically absent. Peritoneum: There is a small volume of pelvic ascites. No intraperitoneal free air is seen. There is a small fat-containing umbilical hernia. Lymphadenopathy: None. Pelvic viscera: The decompressed around a Krueger catheter and not well evaluated. Foci of intraluminal gas are nonspecific and likely related to instrumentation. The uterus is surgically absent. No adnex al lesion is seen. Skeletal structures: The skeletal structures are osteopenic. Mild lumbosacral spondylosis is observed . There is a left-sided pars defect at L5. No lytic or blastic lesions are seen. IMPRESSION: 1. Enhancement of the right kidney is slightly heterogeneous. Correlate with clinical findings and ur inalysis. 2. Hepatomegaly and hepatic steatosis. 3. Cardiomegaly. 4. Small pleural effusions and a small volume of abdominal ascites are new findings as compared to . This suggests fluid overload. Correlate clinically. 5. Right-sided nephrolithiasis. 6. Additional findings as above. ACT 112: Negative or not required by law. Electronically signed by: Norbert Sherman M.D. 01/11/2024 3:01 PM
[2024-01-11 15:06] LABS: pH ABG 7.16 (7.35-7.45)
[2024-01-11] MEDS: SODIUM BICARBONATE 8.4% 75 MEQ in SODIUM CHLORIDE 0.45 % 1,000 ML IV SCH (15:45)
--- NOTE | 2024-01-11 15:55 | Critical Care Progress Note ---
Date of Service January 11, 2024 Assessment & Plan (1) Pyelonephritis of right kidney: (2) Lactic acidosis: (3) Metabolic acidosis: Plan 58-year-old female originally presented to the hospital for Tylenol overdose and underwent NAC protocol. LFTs improved. Today she does have worsening acidosis and tachypnea. She had about nausea and vomiting several times last night. I requested the stat acetaminophen levels and salicylate levels be checked. I also requested. Urine drug screen and cultures including blood and urine cultures. Patient is currently maintained on Zosyn and doxycycline. She was also started on sodium and bicarbonate by the hospitalist service. Her lactate is notably elevated to 17 without any clear evidence of hypotension or hypoperfusion. This may be related to liver dysfunction. LFTs are slowly rising. Fortunately her CT chest which was performed with contrast did not reveal any significant hepatic abnormalities aside for some steatosis. There is no evidence of bowel obstruction or perforation. There is no evidence of bowel ischemia. Her abdomen is soft on exam. Urine culture grew back Proteus mirabilis 01/06/2023 which was resistant to ampicillin, Unasyn and Bactrim. Patient currently on Zosyn. Admission and Anticipated Discharge Date Admission Date: January 07, 2024 Subjective Patient was seen earlier this hospitalization by critical care service due to Tylenol overdose and septic shock from pyelonephritis. This afternoon the patient had increasing tachypnea. Overnight she has severe nausea and vomiting. Today as she has mostly had nausea with occasional retching. Currently she is comfortable. She has been NPO. CT imaging of her chest was generally unremarkable except that the right kidney was slightly heterogeneous. Hepatomegaly was noted and small pericardial effusions were seen. Mild abdominal ascites or new compared to prior. Right-sided nephrolithiasis noted. An MRI on 01/07/2024 was negative. Chest x-ray today revealed cardiomegaly and no other active disease. Labs revealed mild leukocytosis, anemia of 8.6 and normal platelet counts.Blood gases have been consistent with severe metabolic acidosis with a pH of 7.16 and pCO2 of 17. Serum bicarb is 6. Review of Systems Review of Systems: All systems reviewed & are unremarkable except as noted in HPI & below Physical Exam Physical Exam: Constitutional: Patient appears to be of their stated age. Obese Eyes: Pupils are equal round and reactive to light. Conjunctivae are normal. Anicteric sclera. Ears nose, mouth and throat: Mallampati class 2. Normal posterior oropharynx. Uvula is midline. Neck: Trachea is midline. Visual inspection is normal. Respiratory: Clear to auscultation bilaterally. Mildly tachypneic. Cardiovascular: Regular rate and rhythm. No murmurs. No edema. Gastrointestinal: Normal bowel sounds, soft, nontender and nondistended. No hepatosplenomegaly noted. Musculoskeletal: No cyanosis. Patient is able to move all extremities. Strength is 5 out of 5 in the upper and lower extremities. Skin: No rashes, warm dry and intact. Neurologic: No obvious focal neurological deficits seen. Psychiatric: Alert and oriented x3 with a euthymic affect. Results & Data Results & Data Vital Signs (Past 12 Hours) Vital Signs Temp Pulse Resp BP Pulse Ox O2 Del Method O2 Flow Rate 01/11/24 10:55 36.3 C L 90 19 152/103 H 96 Nasal Cannula 2 01/11/24 08:00 Nasal Cannula 2 01/11/24 07:22 36.8 C 87 21 164/109 H 97 Nasal Cannula 2 Coding Level of Care Code 02660 SUB INP/OBS CARE 3/50MIN Diagnoses Pyelonephritis of right kidney N12 Lactic acidosis E87.20 Metabolic acidosis E87.20
[2024-01-11 16:09] LABS: Amphetamines+Metham, Urine Neg (Neg); Barbiturates, Urine Neg (Neg); Benzodiazepine, Urine Neg (Neg); Cocaine, Urine Neg (Neg); MDMA (Ecstacy), Urine Neg (Neg); Marijuana, Urine Neg (Neg); Methadone, Urine Neg (Neg); Opiate, Urine Neg (Neg); Phencyclidine, Urine Neg (Neg)
[2024-01-11 16:30] LABS: Acetaminophen < 3 ug/ml (10-30); Salicylate < 3.0 mg/dl (3.0-30)
[2024-01-11 17:21] LABS: Appearance Urine Clear (Clear); Bacteria Urine Automated None Seen (None Seen); Bilirubin Urine Negative (Negative); Blood Urine 2+ (Negative); Cast Urine Automated 0-2 /lpf (0-2); Color Urine Yellow; Epithelial Cell Urine Auto 0-2 /hpf (0-2); Glucose Urine UA Negative (Negative); Ketones Urine 1+ (Negative); Leukocyte Esterase Urine Negative (Negative); Nitrite Urine Negative (Negative); Protein Urine 2+ (Negative); RBC Urine Automated 0-2 /hpf (0-2); Specific Gravity Urine 1.027 (1.000-1.030); Urobilinogen Urine Negative (Negative); WBC Urine Automated 0-5 /hpf (0-5); pH Urine 5.5 (4.5-7.5)
[2024-01-11 18:42] LABS: MDA negative; MDEA negative; MDMA (Ecstasy) Urine, Confirm negative
[2024-01-11] MEDS: SODIUM BICARBONATE 8.4% 150 MEQ in DEXTROSE 5% 1,000 ML IV SCH (19:31)
[2024-01-11 20:02] LABS: BUN Creatinine Ratio 25.4 (10-20); Calcium 8.5 mg/dl (8.6-10.3); Creatinine Clr Calc Pharmacy 54.9 ml/min; Est GFR (African American) 50.1 ml/min; Est GFR (Non-African American) 43.3 ml/min; Potassium 4.5 mmol/L (3.5-5.1)
[2024-01-11] MEDS: traZODone HCL 100 MG TAB PO SCH (20:11)
[2024-01-11] MEDS: QUEtiapine FUMARATE 100 MG TABLET PO SCH (20:12)
[2024-01-11] MEDS: MELATONIN 3 MG TAB PO SCH ×2 (20:12→20:13)
[2024-01-12] MEDS: hydrOXYzine HCl 25 MG TAB PO PRN (01:59)
[2024-01-12 05:18] LABS: Hematocrit (blood only) 25.3 % (37.0-47.0); Hemoglobin 8.5 g/dl (12.0-16.0); Mean Corpuscular Hemoglobin 26.1 pg (25.0-34.0); Mean Corpuscular Hgb Conc 33.6 g/dL (32.0-36.0); Mean Corpuscular Volume 77.6 fL (80.0-100.0); Mean Platelet Volume 9.9 fL (9.4-12.4); Nucleated RBC # (auto) 0.14 K/uL (0.00-0.12); Nucleated RBC % (auto) 1.1 %; Platelet Count 155 K/uL (130-400); RDW Coefficient of Variation 16.6 % (11.5-14.5); RDW Standard Deviation 46.5 fL (36.4-46.3); Red Blood Count 3.26 M/uL (4.20-5.40)
[2024-01-12 05:34] LABS: Basophils # (auto) 0.05 K/uL (0.00-0.20); Basophils % (auto) 0.4 %; Eosinophils # (auto) 0.03 K/uL (0.00-0.50); Eosinophils % (auto) 0.2 %; Immature Granulocytes # (auto) 1.11 K/uL (0.01-0.20); Immature Granulocytes % (auto) 8.8 %; Lymphocytes # (auto) 3.48 K/uL (1.20-3.40); Lymphocytes % (auto) 27.6 %; Monocytes # (auto) 0.79 K/uL (0.11-0.59); Monocytes % (auto) 6.3 %; Neutrophils # (auto) 7.14 K/uL (1.40-6.50); Neutrophils % (auto) 56.7 %
[2024-01-12 05:58] LABS: Albumin Globulin Ratio 1.1 (0.9-2); BUN Creatinine Ratio 31.6 (10-20); Bilirubin,Total 1.8 mg/dl (0.2-1.0); Calcium 8.3 mg/dl (8.6-10.3); Creatinine Clr Calc Pharmacy 62.9 ml/min; Est GFR (African American) 59.1 ml/min; Globulin 2.8 gm/dl (2.5-4.0); Magnesium 1.9 mg/dl (1.7-2.4); Potassium 4.4 mmol/L (3.5-5.1); Total Protein 5.8 gm/dl (6.0-8.3)
--- NOTE | 2024-01-12 10:00 | Critical Care Progress Note ---
Date of Service January 12, 2024 Assessment & Plan (1) Pyelonephritis of right kidney: (2) Lactic acidosis: (3) Metabolic acidosis: (4) Unintentional Tylenol overdose: (5) Liver failure: Plan 58-year-old female originally presented to the hospital for Tylenol overdose and underwent NAC protocol. LFTs improved initially, but now significantly worsened with lactic acidosis. Patient has worsening liver failure today. Will repeat LFTs and INR. Will consult with gastroenterology to get their input on her liver failure. She may have delayed component of liver failure related to Tylenol overdose. Will check a hepatitis panel as well. Check ceruloplasmin. Check anti-smooth muscle antibody. Check lipase. Lactic acidosis is slowly clearing which is related to her liver failure. Repeat INR. She is not hypoperfusing. CT abdomen pelvis 01/11/2024 without evidence of any acute findings. She has hepatomegaly and hepatic steatosis. Echo from December without evidence of RV dysfunction. Will repeat an echo at this time. Check tickborne labs. Discontinue bicarbonate drip and give one-time dose of Lasix 20 mg that she is fluid overloaded. Continue monitoring in ICU due to severe lab derangements. May need to consider transfer to a tertiary center for analytics lead evaluation if LFTs and lab work worsen further. Continue Zosyn for UTI. CRITICAL CARE TIME - I have personally spent 36 minutes of critical care time in the direct management of this patient. This is a life/limb threatening event. This includes time spent evaluating patient, direct bedside care, chart review, placing orders, interpretation of diagnostic studies, discussion with consultants, p atient, and family members, as well as other required patient management activities. This time is exclusive of all separately billable procedures, and teaching time and separate from and in addition to any other critical care service time. Admission and Anticipated Discharge Date Admission Date: January 07, 2024 Subjective 58-year-old female who is currently denying any significant complaints aside from mild nausea. She did have some emesis episodes overnight. She was given Zofran with improvement. Denies any chest pain or abdominal pain. No shortness of breath. Review of Systems Review of Systems: All systems reviewed & are unremarkable except as noted in HPI & below Physical Exam Physical Exam: Constitutional: Patient appears to be of their stated age. Obese Eyes: Pupils are equal round and reactive to light. Conjunctivae are normal. Anicteric sclera. Ears nose, mouth and throat: Mallampati class 2. Normal posterior oropharynx. Uvula is midline. Neck: Trachea is midline. Visual inspection is normal. Respiratory: Clear to auscultation bilaterally. Mildly tachypneic. Cardiovascular: Regular rate and rhythm. No murmurs. Diffusely edematous. Gastrointestinal: Normal bowel sounds, soft, nontender and nondistended. No hepatosplenomegaly noted. Musculoskeletal: No cyanosis. Patient is able to move all extremities. Strength is 5 out of 5 in the upper and lower extremities. Skin: No rashes, warm dry and intact. Neurologic: No obvious focal neurological deficits seen. Psychiatric: Alert and oriented x3 with a euthymic affect. Results & Data Results & Data Vital Signs (Past 12 Hours) Vital Signs Temp Pulse Resp BP Pulse Ox O2 Del Method 01/12/24 09:01 160/96 H 01/12/24 09:01 37.2 C 76 96 Room Air 01/12/24 09:00 37.2 C 75 38 H 97 Room Air 01/12/24 08:00 37.1 C 75 31 H 97 Room Air 01/12/24 08:00 75 01/12/24 07:00 159/98 H 01/12/24 07:00 36.8 C 75 41 H 96 Room Air 01/12/24 06:00 37.5 C 75 22 150/96 H 97 Room Air 01/12/24 05:00 37.9 C H 74 26 H 144/91 H 94 Room Air 01/12/24 04:00 38.1 C H 77 26 H 154/106 H 97 Room Air 01/12/24 03:00 38.0 C H 78 28 H 163/101 H 95 Room Air 01/12/24 02:00 37.9 C H 81 22 134/97 95 Room Air 01/12/24 01:00 37.8 C H 83 22 149/91 H 96 Room Air 01/12/24 00:00 37.7 C H 79 26 H 147/96 H 96 Room Air 01/11/24 23:00 37.5 C 79 24 156/106 H 95 Room Air 01/11/24 22:00 37.3 C 78 26 H 150/98 H 96 Room Air Coding Level of Care Code 99466 CRITICAL CARE 1ST 30-74M Diagnoses Pyelonephritis of right kidney N12 Lactic acidosis E87.20 Metabolic acidosis E87.20 Unintentional Tylenol overdose T39.1X1A Liver failure K72.90
[2024-01-12] MEDS: FUROSEMIDE INJ 20 MG/2 ML VIAL IV ONE (10:19)
[2024-01-12 10:32] LABS: INR 1.9 (0.9-1.1); Prothrombin Time 20.3 Seconds (9.0-12.0)
[2024-01-12 10:34] LABS: Albumin Level 3.3 gm/dl (3.4-5.0); Bilirubin Direct 1.2 mg/dl (0-0.2); Bilirubin,Total 2.4 mg/dl (0.2-1.0); Total Protein 6.2 gm/dl (6.0-8.3)
[2024-01-12] MEDS: PHYTONADIONE 5 MG in DEXTROSE 5% 50 ML IV ONE (11:05)
[2024-01-12] MEDS ORDERED: STAT IV/IM STA (12:03)
[2024-01-12] MEDS ORDERED: AcetylCYSTEINE IV 21 HR REGIMEN (>40KG) IV STA (12:03)
--- NOTE | 2024-01-12 12:14 | Hospitalist Progress Note ---
Date of Service January 12, 2024 Assessment & Plan (1) Sepsis: (2) Pyelonephritis of right kidney: Plan Pt is a 58yoF with PMHx significant for hyperlipidemia, prediabetes, GERD, migraine, bipolar disorder, anxiety, history of DVT who presented with right- sided flank pain, urgency, frequency, weakness and fatigue. Severe sepsis POA Right-sided pyelonephritis Complicated UTI Presented with right-sided flank pain, increased urinary urgency, frequency, fatigue and tiredness Hypotensive and hypoxic on presentation to the ED with leukocytosis, infectious source urinary. lactate normal, procalcitonin elevated. UA suggestive of infection, urine Cx currently growing proteus Blood Cx x2 sets NGTD CT abd pelvis suggestive of a recently passed right sided stone and/or infection per radiology Continue IV Zosyn while hospitalized and until Blood Cx finalize, added doxycycline for pulmonary atypical coverage on 01/09 BP currently stable, received IV fluid support Urology consulted, appreciate recs 01/10- pt with N/V/D overnight, worsening symptoms, sepsis labs repeated. Noted lactate of 15 with severe metabolic acidosis, blood cx repeated, on bicarb drip Severe Metabolic Acidosis Acute hypoxic respiratory Failure Pt with multiple episodes of N/V/D overnight on 01/09 CT abd/pelvis with no acute finding Sepsis labs repeated, lactate of 15.6 noted VBG obtained as well as ABG with noted pH 7.16, CO2 17, HCO3 6 Nephrology consulted- recommended starting bicarb drip Case discussed with paper machine tender, pt transferred to ICU on 01/10 -repeating salicylate, tylenol levels, blood Cx, UA Continue bicarb drip q4h BMP and ABG monitoring Appreciate nephrology and Shoe Salesman recs PAF Episodes of a fib Was started on po metoprolol Currently in sinus Cardiology consulted, appreciate recs -met succ 50mg BID -not on anticoag at this time -Zio patch on d/c Subpleural opacities L pleural Effusion Pt with noted hypoxia to the 80s on admission Chest XRAY on admission with no noted acute process Chest CT on admission noting subpleural opacities that were more suggestive of atelectasis per radiology but could not rule out infection, however recommended 6 month followup to ensure resolution Chest CT also noting trace L pleural effusion Oxygen supplementation as needed Wean as tolerated Improving, on doxycycline as above as well VIRIDIANA Cr elevated at 2.45 on admission Currently downtrended and wnl Received IV hydration Hold nephrotoxic meds as able Monitor with AM labs Possible Tylenol Overdose On admission, concern for tylenol overdose Patient denied any overdose of medication Acetaminophen level normal at 14 Received NAC per poison control recs Anemia, chronic Iron Deficiency Anemia Appears chronic though lower at ~9 currently On admission, FOBT ordered and pending Anemia labs (iron panel, B12 and folate ordered) -iron deficiency noted, s/p IV Venofer -folate slightly decreased as well, started on folate Continue to monitor H/H Transfuse as needed for hgb <7 Thrombocytopenia Platelets acutely decreased Likely in setting of sepsis Continue to monitor with daily labs If persistent consider further workup Hyponatremia Sodium of 130 on admission Currently 135 Continue to monitor Prediabetes glucose levels slightly elevated Hx of prediabetes noted in the chart based on previous [id number] Repeat AM [id number] of 6.0 Diet and exercise, pcp followup Stroke rule out Lethargy Altered Mental Status Head CT, MRI brain wo contrast, MRA head and neck all without acute findings 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 Seroquel restarted at 100mg qhs (home dose of 400mg), titrate up as needed CODE STATUS: Full code Diet: Regular DVT prophylaxis: Heparin SQ Dispo: PT/OT noting at baseline. Home once medically stable Admission and Anticipated Discharge Date Admission Date: January 07, 2024 Physical Exam Physical Exam: General: Alert, orientedx3. No acute distress Skin: No noted rashes or bruises Psych: Appropriate mood and affect Neuro: No gross deficits HEENT: NC/AT Chest: Nontender to palpation. CV: RRR, Normal s1, s2. No murmurs appreciated Resp: Breath sounds clear bilaterally, no increased effort of breathing. Abdomen: Soft, tender, nondistended. Extremities: Trace edema in lower extremities bilaterally. Results & Data Results & Data Vital Signs (Past 12 Hours) Vital Signs Temp Pulse Resp BP Pulse Ox O2 Del Method 01/12/24 11:01 37.3 C 76 31 H 98 01/12/24 11:01 141/88 H 01/12/24 11:00 37.3 C 77 28 H 98 01/12/24 10:00 37.3 C 75 32 H 94 01/12/24 10:00 138/81 01/12/24 09:01 160/96 H 01/12/24 09:01 37.2 C 76 96 Room Air 01/12/24 09:00 37.2 C 75 38 H 97 Room Air 01/12/24 08:00 37.1 C 75 31 H 97 Room Air 01/12/24 08:00 75 01/12/24 07:00 159/98 H 01/12/24 07:00 36.8 C 75 41 H 96 Room Air 01/12/24 06:00 37.5 C 75 22 150/96 H 97 Room Air 01/12/24 05:00 37.9 C H 74 26 H 144/91 H 94 Room Air 01/12/24 04:00 38.1 C H 77 26 H 154/106 H 97 Room Air 01/12/24 03:00 38.0 C H 78 28 H 163/101 H 95 Room Air 01/12/24 02:00 37.9 C H 81 22 134/97 95 Room Air 01/12/24 01:00 37.8 C H 83 22 149/91 H 96 Room Air (1) Sepsis Acute renal failure type: unspecified Sepsis acute organ dysfunction status: with acute organ dysfunction Sepsis type: sepsis due to unspecified organism Severe sepsis acute organ dysfunction type: acute renal failure Severe sepsis shock status: unspecified Qualified Code(s): A41.9 - Sepsis, unspecified organism; R65.20 - Severe sepsis without septic shock; N17.9 - Acute kidney failure, unspecified
--- NOTE | 2024-01-12 12:14 | Nephrology Consultation ---
Date of Consultation January 12, 2024 Assessment & Plan (1) Metabolic acidosis: (2) Lactic acidosis: I was asked about metabolic Acidosis for which we have an explanation--lactic Acidosis. She was not hypoperfusing and actually looks fine. lactic acidosis caused by delayed clearance because of Acute Liver failure. Cause of Acute liver failure is still under investigation. however lactic acid is down from 16 to 7 and Bicarb also lot better. Check Serial lactic Acid, CMP and maybe even ABG later today. Agree with No bicarb drip now. (3) Liver failure: (4) Unintentional Tylenol overdose: Defer to primary team. being worked up. may even need transfer if LFT keep getting worse. History of Present Illness Reason for Consultation: metabolic acidosis Attending Physician: Arielle Matos MD History of Present Illness 58/F admitted 5 days ago. she had VIRIDIANA creat 2.45 but resolved already. her serum Bicarb dropped to 6 and AG went up to 28 suddenly. Then lactic Acid was found to be very high at 16. led to ICU reconsult and transferred to ICU. LFT suddenly got worse with ALT and AST in thousands !!. was on bicarb drip but not now. lactic acid down to 7 and bicarb is 20 now. making urine. Normal renal function. ROS--12 Systems reviewed and negative Physical Exam Physical Exam: Constitutional: No resp distress. Normal speech and feels fine Neck: Supple. No JVD Respiratory: Clear to auscultation bilaterally. Cardiovascular: Regular rate and rhythm. No murmurs. Diffusely edematous. Gastrointestinal: Normal bowel sounds, soft, nontender and nondistended. No hepatosplenomegaly noted. Musculoskeletal: No cyanosis. Patient is able to move all extremities. Strength is 5 out of 5 in the upper and lower extremities. Skin: No rashes, warm dry and intact. Neurologic: No obvious focal neurological deficits seen. Psychiatric: Alert and oriented x3 with a euthymic affect. Allergies Allergy/AdvReac Type Severity Reaction Status Date / Time citalopram Allergy Unknown unknown Verified 01/07/24 15:22 reaction clarithromycin Allergy Unknown unknown Verified 01/07/24 15:22 reaction Macrolide Antibiotics Allergy Unknown unknown Verified 01/07/24 15:22 reaction celecoxib AdvReac Intermediate Gastrointestinal Verified 01/07/24 15:22 Upset rizatriptan AdvReac Intermediate migraines Verified 01/07/24 15:22 sumatriptan AdvReac Intermediate MIGRAINE-TIGHTNESS Verified 01/07/24 15:22 IN JAW Home Medications Medication Instructions Recorded Confirmed Type buspirone 15 mg tablet 15 mg PO BID 10/12/18 01/07/24 History cholecalciferol (vitamin D3) 50 2,000 unit PO DAILY 10/12/18 01/07/24 History mcg (2,000 unit) capsule (Vitamin D3) gabapentin 300 mg capsule See Rx Instructions .Route .COMPLEX 10/12/18 01/07/24 History lamotrigine 200 mg tablet 100 mg PO HS 10/12/18 01/07/24 History (Lamictal) melatonin 10 mg tablet 10 mg PO HS 10/12/18 01/07/24 History omeprazole 40 mg capsule,delayed 40 mg PO QAM 10/12/18 01/07/24 History release potassium chloride 10 mEq 10 meq PO BID 10/12/18 01/07/24 History capsule,extended release pravastatin 80 mg tablet 80 mg PO HS 10/12/18 01/07/24 History quetiapine 400 mg tablet 400 mg PO HS 10/12/18 01/07/24 History sulindac 200 mg tablet 200 mg PO BID 10/12/18 01/07/24 History suvorexant 10 mg tablet (Belsomra) 10 mg PO HS 10/12/18 01/07/24 History tramadol 50 mg tablet 50 mg PO Q6H PRN Pain 10/12/18 01/07/24 History trazodone 100 mg tablet 200 mg PO HS 10/12/18 01/07/24 History docusate sodium 100 mg capsule 100 mg PO BID 08/09/20 01/07/24 History (Dulcolax Stool Softener (docusate)) polyethylene glycol 3350 17 17 g PO BID 08/09/20 01/07/24 History gram/dose oral powder (Miralax) tizanidine 4 mg capsule 8 mg PO BID 08/09/20 01/07/24 History cyanocobalamin (vitamin B-12) 1,000 mcg PO QAM 01/07/24 01/07/24 History 1,000 mcg tablet (Vitamin B-12) diclofenac sodium 1 % topical gel 2 g topical QID PRN KNEE PAIN 01/07/24 01/07/24 History hydroxyzine HCl 25 mg tablet 25 - 50 mg PO DAILY PRN 01/07/24 01/07/24 History ANXIETY/INSOMNIA lamotrigine 150 mg tablet 150 mg PO QAM 01/07/24 01/07/24 History magnesium oxide 500 mg PO QAM 01/07/24 01/07/24 History melatonin 5 mg tablet 5 mg PO HS 01/07/24 01/07/24 History ondansetron 4 mg disintegrating 4 mg translingual Q8H PRN 01/07/24 01/07/24 History tablet NAUSEA/VOMITING Patient History Medical History Liver failure Unintentional Tylenol overdose Metabolic acidosis Lactic acidosis Obesity Osteoarthritis Fibromyalgia Hiatal hernia GERD (gastroesophageal reflux disease) Migraine Asthma stable, no inhaler Hyperlipidemia Bipolar disorder Surgical History History of arthroscopy LEFT SHOULDER History of repair of rotator cuff LEFT History of hysterectomy TOTAL History of appendectomy History of cholecystectomy History of esophagogastroduodenoscopy (EGD) History of colonoscopy Social History Smoking Status: Former smoker Second Hand Exposure: No; Do You Dip or Chew Tobacco: No; Hx Alcohol Use: No Hx Substance Use: No Preferred Language: Malay Communication Ability: Effective Special Class Welder Required: No Beliefs That Will Affect Care: None Current Living Situation: Family Current Living Situation Comment: caregiver for 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 Other Information That Helps Us Care for You: No Feels Safe at Home: Yes Safety Concerns: Feels Safe At This Time Assistive Devices: None Results & Data Vital Signs (Past 12 Hours) Vital Signs Temp Pulse Resp BP Pulse Ox O2 Del Method 01/12/24 11:01 37.3 C 76 31 H 98 01/12/24 11:01 141/88 H 01/12/24 11:00 37.3 C 77 28 H 98 01/12/24 10:00 37.3 C 75 32 H 94 01/12/24 10:00 138/81 01/12/24 09:01 160/96 H 01/12/24 09:01 37.2 C 76 96 Room Air 01/12/24 09:00 37.2 C 75 38 H 97 Room Air 01/12/24 08:00 37.1 C 75 31 H 97 Room Air 01/12/24 08:00 75 01/12/24 07:00 159/98 H 01/12/24 07:00 36.8 C 75 41 H 96 Room Air 01/12/24 06:00 37.5 C 75 22 150/96 H 97 Room Air 01/12/24 05:00 37.9 C H 74 26 H 144/91 H 94 Room Air 01/12/24 04:00 38.1 C H 77 26 H 154/106 H 97 Room Air 01/12/24 03:00 38.0 C H 78 28 H 163/101 H 95 Room Air 01/12/24 02:00 37.9 C H 81 22 134/97 95 Room Air 01/12/24 01:00 37.8 C H 83 22 149/91 H 96 Room Air Laboratory Results Reviewed Diagnostic Findings Reviewed.
[2024-01-12] MEDS: ACETYLCYSTEINE IV ONE ×2 (12:44→14:30)
[2024-01-12] MEDS: DEXTROSE 5% IV ONE ×2 (12:44→14:30)
--- NOTE | 2024-01-12 14:16 | Gastrointestinal Consultation ---
Date of Consultation January 12, 2024 Assessment & Plan (1) Lactic acidosis: (2) Metabolic acidosis: (3) New onset a-fib: (4) UTI (urinary tract infection): (5) Liver failure: Very interesting case with normal liver panel on admission. Differential diagnosis is Ischemic hepatitis due to cardiac event (with new onset Afib, elevated BNP) versus Ischemic hepatitis due to sepsis versus Delayed effect from Therapeutic misadventure with Tyelenol Some question as to whether there was a "therapeutic misadventure" with Tylenol and NAC was initially started and then stopped. NAC protocol was restarted and agree with this as it is helpful in all forms of Acute liver failure Due to acute rise in INR and ABG with pH <7.3 patient meets [facility] criteria for need to be transferred to a tertiary center with Liver Transplant capabilities Repeat ABG now as pH should be followed until it normalizes. Ordered Stat INR and it continues to rise, therefore discussed case with Dr. Diaz the [facility] and I would recommend transfer to a tertiary center with Liver Transplant Capabilities. Repeat Echo now as I checked a stat Troponin and it has increased significantly Repeat INR every 4 hours at present. Monitor patient for any signs of Hepatic encephalopathy Reconsult Cardiology due to elevated troponin I spent over 85 minutes reviewing the patient's chart, independently reviewing the patient's imaging, reviewing patient's lab work and discussing case with Dr. Diaz of [facility] team History of Present Illness Reason for Consultation: Liver failure Attending Physician: Arielle Matos MD History of Present Illness Nel Salgado is a 58 yo CF with an extensive PMHx who presented to the ER on 01/06 at the request of her PCP due to mental status change, weakness and falls. She initially underwent a workup for stroke, and imaging was found to be negative in that regard. She was noted however to have a Right pyelonephritis with VIRIDIANA and was hypotensive. She had previously had a complicated UTI in November with a culture positive for E.coli and Klebsiella, and was treated with antibiotics as an outpatient. She was noted to be anemic with an H/H of 9/28.7. She was started on Zosyn therapy given IVF and admitted to the ICU for presumed urosepsis. During the course of her workup in the ER there was a question of whether the patient had an unintentional overdose with Tylenol. She was subsequently started on NAC protocol, but this was discontinued the following morning. 58-year-old female presented acutely ill with mental status changes weakness fatigue. On the evening of 01/08, she developed new onset A-fib and her rate was documented between [address] Burch's communication note. She was subsequently seen by Cardiology and it was felt her A-fib was "in the setting of acute illness, labile blood pressure." An 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 showed normal LVEF and RV function, and a troponin level was normal. On 01/09, she had documented N/V/D and a CT Abd/pelvis on 01/10 showed findings of hepatomegaly, hepatic steatosis, and new small pleural effusions and abdominal ascites. Serum lactate levels which were normal on arrival in 01/06 were elevated to 15.6 on 01/10 and peaked at 16.6 later that day. On 01/11 she was noted to have a BNP of 1663 and her AST which was normal on admission was elevated to 1424. Her INR increased from 1.2 on 01/07 to 1.9 this morning. I was asked to see the patient in consultation at this time. At present she is alert and oriented x3. She denies any abdominal pain, fevers, chills, nausea, vomiting, hematochezia, hematemesis, melena or other complaints. She states that she had a liver biopsy, "many years ago due to drinking quite alot back then." She states this liver biopsy was performed at [facility] but upwards of 30 years ago. She states she hasn't drank any alcohol in many years. She denies any history of IV drug use or transfusions prior to 1991. She denies any further complaints. Allergies Allergy/AdvReac Type Severity Reaction Status Date / Time citalopram Allergy Unknown unknown Verified 01/07/24 15:22 reaction clarithromycin Allergy Unknown unknown Verified 01/07/24 15:22 reaction Macrolide Antibiotics Allergy Unknown unknown Verified 01/07/24 15:22 reaction celecoxib AdvReac Intermediate Gastrointestinal Verified 01/07/24 15:22 Upset rizatriptan AdvReac Intermediate migraines Verified 01/07/24 15:22 sumatriptan AdvReac Intermediate MIGRAINE-TIGHTNESS Verified 01/07/24 15:22 IN JAW Home Medications Medication Instructions Recorded Confirmed Type buspirone 15 mg tablet 15 mg PO BID 10/12/18 01/07/24 History cholecalciferol (vitamin D3) 50 2,000 unit PO DAILY 10/12/18 01/07/24 History mcg (2,000 unit) capsule (Vitamin D3) gabapentin 300 mg capsule See Rx Instructions .Route .COMPLEX 10/12/18 01/07/24 History lamotrigine 200 mg tablet 100 mg PO HS 10/12/18 01/07/24 History (Lamictal) melatonin 10 mg tablet 10 mg PO HS 10/12/18 01/07/24 History omeprazole 40 mg capsule,delayed 40 mg PO QAM 10/12/18 01/07/24 History release potassium chloride 10 mEq 10 meq PO BID 10/12/18 01/07/24 History capsule,extended release pravastatin 80 mg tablet 80 mg PO HS 10/12/18 01/07/24 History quetiapine 400 mg tablet 400 mg PO HS 10/12/18 01/07/24 History sulindac 200 mg tablet 200 mg PO BID 10/12/18 01/07/24 History suvorexant 10 mg tablet (Belsomra) 10 mg PO HS 10/12/18 01/07/24 History tramadol 50 mg tablet 50 mg PO Q6H PRN Pain 10/12/18 01/07/24 History trazodone 100 mg tablet 200 mg PO HS 10/12/18 01/07/24 History docusate sodium 100 mg capsule 100 mg PO BID 08/09/20 01/07/24 History (Dulcolax Stool Softener (docusate)) polyethylene glycol 3350 17 17 g PO BID 08/09/20 01/07/24 History gram/dose oral powder (Miralax) tizanidine 4 mg capsule 8 mg PO BID 08/09/20 01/07/24 History cyanocobalamin (vitamin B-12) 1,000 mcg PO QAM 01/07/24 01/07/24 History 1,000 mcg tablet (Vitamin B-12) diclofenac sodium 1 % topical gel 2 g topical QID PRN KNEE PAIN 01/07/24 01/07/24 History hydroxyzine HCl 25 mg tablet 25 - 50 mg PO DAILY PRN 01/07/24 01/07/24 History ANXIETY/INSOMNIA lamotrigine 150 mg tablet 150 mg PO QAM 01/07/24 01/07/24 History magnesium oxide 500 mg PO QAM 01/07/24 01/07/24 History melatonin 5 mg tablet 5 mg PO HS 01/07/24 01/07/24 History ondansetron 4 mg disintegrating 4 mg translingual Q8H PRN 01/07/24 01/07/24 History tablet NAUSEA/VOMITING Patient History Medical History Liver failure Unintentional Tylenol overdose Metabolic acidosis Lactic acidosis Obesity Osteoarthritis Fibromyalgia Hiatal hernia GERD (gastroesophageal reflux disease) Migraine Asthma stable, no inhaler Hyperlipidemia Bipolar disorder Surgical History History of arthroscopy LEFT SHOULDER History of repair of rotator cuff LEFT History of hysterectomy TOTAL History of appendectomy History of cholecystectomy History of esophagogastroduodenoscopy (EGD) History of colonoscopy Social History Smoking Status: Former smoker Second Hand Exposure: No; Do You Dip or Chew Tobacco: No; Hx Alcohol Use: No Hx Substance Use: No Preferred Language: Portuguese Communication Ability: Effective Visual Merchandising Assistant Required: No Beliefs That Will Affect Care: None Current Living Situation: Family Current Living Situation Comment: caregiver for parents Other Information That Helps Us Care for You: No Feels Safe at Home: Yes Safety Concerns: Feels Safe At This Time Assistive Devices: None Review of Systems Review of Systems: All systems reviewed & are unremarkable except as noted in Subjective Physical Exam Constitutional: WD/WN, vitals as above Eyes: sclerae not anicteric ENMT: external ear and nose normal, oropharynx normal Respiratory: normal respiratory effort, lungs clear to auscultation Cardiovascular: RRR, no murmur, no edema Gastrointestinal (Abdomen): normal bowel sounds, soft, nontender, no hepatosplenomegaly Skin: no rashes, warm and dry Psychiatric: A+Ox3, euthymic affect Results & Data Vital Signs (Past 12 Hours) Vital Signs Temp Pulse Resp BP Pulse Ox O2 Del Method 01/12/24 11:01 37.3 C 76 31 H 98 01/12/24 11:01 141/88 H 01/12/24 11:00 37.3 C 77 28 H 98 01/12/24 10:00 37.3 C 75 32 H 94 01/12/24 10:00 138/81 01/12/24 09:01 160/96 H 01/12/24 09:01 37.2 C 76 96 Room Air 01/12/24 09:00 37.2 C 75 38 H 97 Room Air 01/12/24 08:30 Room Air 01/12/24 08:00 37.1 C 75 31 H 97 Room Air 01/12/24 08:00 75 01/12/24 07:00 159/98 H 01/12/24 07:00 36.8 C 75 41 H 96 Room Air 01/12/24 06:00 37.5 C 75 22 150/96 H 97 Room Air 01/12/24 05:00 37.9 C H 74 26 H 144/91 H 94 Room Air 01/12/24 04:00 38.1 C H 77 26 H 154/106 H 97 Room Air 01/12/24 03:00 38.0 C H 78 28 H 163/101 H 95 Room Air PG Care Time/CCT Total # of Minutes Spent Total Time Spent with Patient: Total time spent is greater than 50% in coordination of care (as documented) at patient's floor/unit and/or counseling patient: Coding Level of Care Code 40597 IN/OBS CONSULT LVL 5,80M Diagnoses Lactic acidosis E87.20 Metabolic acidosis E87.20 New onset a-fib I48.91 Acute pyelonephritis N10 Urinary tract infection type: acute pyelonephritis Acute liver failure without hepatic coma K72.00 Liver failure chronicity: acute Hepatic coma status: without hepatic coma (4) UTI (urinary tract infection) Urinary tract infection type: acute pyelonephritis Qualified Code(s): N10 - Acute pyelonephritis (5) Liver failure Liver failure chronicity: acute Hepatic coma status: without hepatic coma Qualified Code(s): K72.00 - Acute and subacute hepatic failure without coma
[2024-01-12 14:38] LABS: INR 2.1 (0.9-1.1)
[2024-01-12 15:24] LABS: BUN Creatinine Ratio 30.8 (10-20); Calcium 8.3 mg/dl (8.6-10.3); Est GFR (African American) 59.1 ml/min; Magnesium 1.8 mg/dl (1.7-2.4); Potassium 3.6 mmol/L (3.5-5.1)
[2024-01-12 15:42] LABS: Allen Test Pos (Pos); Base Excess ABG -2.6 mEq/L (-9-1.8); HCO3 ABG 20 mmol/L (19-24); Oxygen Saturation ABG 92.5 % (90-95); PCO2 ABG 27 mmHg (35-46); PO2 ABG 69 mmHg (80-95); pH ABG 7.47 (7.35-7.45)
[2024-01-12] MEDS ORDERED: PHYTONADIONE 5 MG in DEXTROSE 5% 50 ML IV ONE (16:00)
--- NOTE | 2024-01-12 16:26 | Discharge Summary ---
Discharge Summary Date of Service January 12, 2024 Notes For Next Care Provider See summary below Medication Changes From Visit See inpatient med list Admission HPI Per Admitting Provider History obtained from chart review and interview with the patient. Past medical history of hyperlipidemia, prediabetes, GERD, migraine, bipolar disorder, anxiety, history of DVT. Patient is a 58-year-old female who went to his primary care doctor today due to weakness and falls. Patient reports that she has been feeling very weak and fatigued for the last 4 days. She also reports burning sensation when she urinates and right flank pain that started 4 days ago as well She reports decreased appetite, generalized weakness and tiredness which led to several falls. She went to her primary care doctor today In her doctor's office, she was found to have low saturation of 82%, generalized weakness and confusion. She was sent to the ED for further evaluation today. On presentation to the ED, patient was found to be hypotensive and hypoxic. Blood work revealed leukocytosis, hemoglobin of 9.0. BMP revealed hyponatremia with sodium of 130, elevated BUN/creatinine of 2.45/61. Lactate was within normal limits. Pro-Pablo elevated Chest x-ray personally reviewedno acute finding CT headno acute findings CT abdomen pelvis shows right nephrolithiasis with several renal calculi measuring up to 6 mm, slight asymmetrical savanna nephric stranding Patient was given IV fluids; continue to have low blood pressure. She is on third normal saline bolus of 1 L; continues to be hypotensive. She was given IV Zosyn. She was referred for admission. Discussion was done with territory business manager given patient's borderline blood pressure regarding evaluation and to observe overnight to the ICU. Posting Specialist to evaluated later in 1 or 2 hours Admission Exam Per Admitting Provider Constitutional: Sleepy but awakens via voice. Alert oriented x 3 Respiratory: Bilateral vesicular breath sound Cardiovascular: RRR, no murmur, no edema Vessels: no JVD or carotid bruit Chest: normal inspection of chest Abdomen: Soft nontender. Right costovertebral angle tender Musculoskeletal: no cyanosis or clubbing, extremities motor strength 5/5 Skin: no rashes, warm and dry normal turgor Neurologic: PERRL, EOMI, accommodation nl, no face palsy, no dysarthria CN's II- XI intact bilaterally and moves all extremities. No focal deficit Psychiatric: A+Ox3, euthymic affect Principal Dx & Hospital Course #1 = Principal Diagnosis (1) Sepsis: (2) Pyelonephritis of right kidney: Plan Pt is a 58yoF with PMHx significant for hyperlipidemia, prediabetes, GERD, migraine, bipolar disorder, anxiety, history of DVT who presented with right- sided flank pain, urgency, frequency, weakness and fatigue. Pt was originally treated for a urosepsis picture but later developed acute liver failure and was transferred to [facility] on 01/12/24 for further ICU monitoring and Sandwich Counter Attendant evaluation per recommendations of GI and Posting Specialist service at [facility]. She was being treated for the following: Severe sepsis POA Right-sided pyelonephritis Complicated UTI Presented with right-sided flank pain, increased urinary urgency, frequency, fatigue and tiredness Hypotensive and hypoxic on presentation to the ED with leukocytosis, infectious source urinary. Was admitted to the ICU out of concern for need for pressors, pressors were not required and she was subsequently downgraded lactate normal at that time, procalcitonin elevated. UA was suggestive of infection, urine Cx grew proteus Blood Cx x2 sets NGTD CT abd pelvis on admission suggestive of a recently passed right sided stone and/or infection per radiology Was treated with IV Zosyn while hospitalized, added doxycycline for pulmonary atypical coverage on 01/09 BP stable, received IV fluid support initially. Urology was consulted, recommended the following on 01/08: -No plan for intervention. -Continue antibiotic therapy for a total of 14 days per culture sensitivities. -Continue supportive care. However, on 01/10, labs such as lactate were repeated as pt with N/V/D overnight. Noted lactate of 15 with severe metabolic acidosis on ABG, blood cx repeated. Pt was started on a bicarb drip and transferred to the ICU (see below) Severe Metabolic Acidosis Lactic Acidosis Acute hypoxic respiratory Failure Pt with multiple episodes of N/V/D overnight on 01/09 CT abd/pelvis with no acute finding Sepsis labs repeated, lactate of 15.6 noted VBG obtained as well as ABG with noted pH 7.16, CO2 17, HCO3 6 Nephrology was consulted- recommended starting bicarb drip Case discussed with territory business manager, pt transferred to ICU on 01/10 -repeat salicylate and Tylenol levels low or normal, blood Cx pending, UA unremarkable/improved Continued bicarb drip q4h BMP and ABG monitoring Appreciate nephrology and Posting Specialist recs Acute liver failure Pt was treated for Tylenol overdose in the ED on admission per recs of Poison Control NAC protocol was initiated on admission and as tylenol levels were normal and uncertain Hx of overdose, was discontinued Liver enzymes remained normal until notable increase on 01/11 with AST of 1424, ALT 536 alk phos 113 total bilirubin of 2.4 INR climbing from 1.2 to 2.1 on discharge, despite Vit K administration Lactic acidosis noted in range of 16.6 to 8.1, uptrending once more on discharge GI consulted -restarted NAC -recommended transfer to tertiary [facility] for hepatology services Case discussed with [facility] Sandwich Counter Attendant and Posting Specialist by territory business manager at [facility], pt accepted for transfer on 01/11 to ICU at [facility]. Accepting claudettein Dr. Corrales. Transfer via air per recs of GI and [facility] Posting Specialist. PAF Episodes of a fib Was started on po metoprolol Currently in sinus Cardiology consulted, appreciate recs -met succ 50mg BID -not on anticoag at this time -Zio patch on d/c Subpleural opacities L pleural Effusion Pt with noted hypoxia to the 80s on admission Chest XRAY on admission with no noted acute process Chest CT on admission noting subpleural opacities that were more suggestive of atelectasis per radiology but could not rule out infection, however recommended 6 month followup to ensure resolution Chest CT also noting trace L pleural effusion Oxygen supplementation as needed Wean as tolerated On doxycycline as above as well VIRIDIANA Cr elevated at 2.45 on admission Currently downtrended and wnl Received IV hydration Hold nephrotoxic meds as able Monitor with AM labs Anemia, chronic Iron Deficiency Anemia Appears chronic though lower at ~9 currently On admission, FOBT ordered and pending Anemia labs (iron panel, B12 and folate ordered) -iron deficiency noted, s/p IV Venofer -folate slightly decreased as well, started on folate Continue to monitor H/H Transfuse as needed for hgb <7 Thrombocytopenia Platelets acutely decreased Likely in setting of sepsis Continue to monitor with daily labs If persistent consider further workup Hyponatremia Sodium of 130 on admission Continue to monitor Prediabetes glucose levels slightly elevated Hx of prediabetes noted in the chart based on previous [id number] Repeat AM hgba1c of 6.0 Diet and exercise, pcp followup Stroke rule out Lethargy Altered Mental Status Head CT, MRI brain wo contrast, MRA head and neck all without acute findings 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, pt, ot, hand tile maker pending Pt noted to be on many sedating medications -Lamictal and Buspar resumed, but held once more in setting of liver failure -holding home gabapentin, melatonin, seroquel, suvorexant, zanaflex, Vistaril and trazodone at this time, resume as able Bipolar Disorder Anxiety and Depression Fibromyalgia insomnia Lamictal and Buspar resumed as above but held once more in setting of liver failure holding home gabapentin, suvorexant, zanaflex at this time in setting of lethargy on presentation, resume as able CODE STATUS: Full code Diet: Clears DVT prophylaxis: Heparin SQ Dispo: PT/OT noting at baseline. Home once medically stable Discharge Exam General: Alert, orientedx3. No acute distress Skin: No noted rashes or bruises Psych: Appropriate mood and affect Neuro: No gross deficits HEENT: NC/AT Chest: Nontender to palpation. CV: RRR Resp: Breath sounds clear bilaterally, no increased effort of breathing. Abdomen: Soft, tender, nondistended. Extremities: edema in lower extremities bilaterally. Updated Medication List Medication Instructions Recorded Confirmed Type buspirone 15 mg tablet 15 mg PO BID 10/12/18 01/07/24 History cholecalciferol (vitamin D3) 50 2,000 unit PO DAILY 10/12/18 01/07/24 History mcg (2,000 unit) capsule (Vitamin D3) gabapentin 300 mg capsule See Rx Instructions .Route .COMPLEX 10/12/18 01/07/24 History lamotrigine 200 mg tablet 100 mg PO HS 10/12/18 01/07/24 History (Lamictal) melatonin 10 mg tablet 10 mg PO HS 10/12/18 01/07/24 History omeprazole 40 mg capsule,delayed 40 mg PO QAM 10/12/18 01/07/24 History release potassium chloride 10 mEq 10 meq PO BID 10/12/18 01/07/24 History capsule,extended release pravastatin 80 mg tablet 80 mg PO HS 10/12/18 01/07/24 History quetiapine 400 mg tablet 400 mg PO HS 10/12/18 01/07/24 History sulindac 200 mg tablet 200 mg PO BID 10/12/18 01/07/24 History suvorexant 10 mg tablet (Belsomra) 10 mg PO HS 10/12/18 01/07/24 History tramadol 50 mg tablet 50 mg PO Q6H PRN Pain 10/12/18 01/07/24 History trazodone 100 mg tablet 200 mg PO HS 10/12/18 01/07/24 History docusate sodium 100 mg capsule 100 mg PO BID 08/09/20 01/07/24 History (Dulcolax Stool Softener (docusate)) polyethylene glycol 3350 17 17 g PO BID 08/09/20 01/07/24 History gram/dose oral powder (Miralax) tizanidine 4 mg capsule 8 mg PO BID 08/09/20 01/07/24 History cyanocobalamin (vitamin B-12) 1,000 mcg PO QAM 01/07/24 01/07/24 History 1,000 mcg tablet (Vitamin B-12) diclofenac sodium 1 % topical gel 2 g topical QID PRN KNEE PAIN 01/07/24 01/07/24 History hydroxyzine HCl 25 mg tablet 25 - 50 mg PO DAILY PRN 01/07/24 01/07/24 History ANXIETY/INSOMNIA lamotrigine 150 mg tablet 150 mg PO QAM 01/07/24 01/07/24 History magnesium oxide 500 mg PO QAM 01/07/24 01/07/24 History melatonin 5 mg tablet 5 mg PO HS 01/07/24 01/07/24 History ondansetron 4 mg disintegrating 4 mg translingual Q8H PRN 01/07/24 01/07/24 History tablet NAUSEA/VOMITING Additional Medication Comments Current Inpatient Medications Acyclovir (Acyclovir 5% Oint 15 Gm Tube) 1 appln EXT TID PRN PRN Reason: Cold Sores Stop: 01/18/24 13:59 Al Hydrox/Mg Hydrox/Simethicone (Aluminum/Magnesium Susp 30 Ml Udc) 15 ml PO Q4H PRN PRN Reason: Dyspepsia Stop: 02/06/24 20:27 Aspirin (Aspirin 81 Mg Ectab) 81 mg PO QAM [facility] Stop: 02/06/24 20:27 Last Admin: 01/12/24 10:16 Dose: 81 mg Buspirone HCl (Buspirone 15 Mg Tab) 15 mg PO BID [facility] Stop: 02/06/24 20:59 Last Admin: 01/12/24 10:10 Dose: 15 mg Cyanocobalamin (Cyanocobalamin (B-12) 500 Mcg Tablet) 1,000 mcg PO QAM [facility] Stop: 02/08/24 08:59 Last Admin: 01/12/24 10:16 Dose: 1,000 mcg Docusate Sodium (Docusate Sodium 100 Mg Cap) 100 mg PO BID [facility] Stop: 02/07/24 20:59 Last Admin: 01/12/24 12:10 Dose: 100 mg Doxycycline Hyclate (Doxycycline Hyclate 100 Mg Cap) 100 mg PO BID [facility] Stop: 01/17/24 10:44 Last Admin: 01/12/24 10:10 Dose: 100 mg Folic Acid (Folic Acid 1 Mg Tab) 1 mg PO QAM [facility] Stop: 02/08/24 09:59 Last Admin: 01/12/24 10:16 Dose: 1 mg Heparin Sodium (Porcine) (Heparin Sod 5,000 Unit/0.5 Ml Vial) 5,000 units SQ Q8 [facility] Stop: 02/06/24 21:59 Last Admin: 01/12/24 11:24 Dose: Not Given Hydroxyzine HCl (Hydroxyzine Hcl 25 Mg Tab) 25 mg PO DAILY PRN PRN Reason: ANXIETY/INSOMNIA Stop: 02/10/24 10:45 Last Admin: 01/12/24 01:59 Dose: 25 mg Piperacillin Sod/Tazobactam (Sod 4.5 gm/ Dextrose) 100 mls @ 25 mls/hr IV Q8H [facility]; Protocol Stop: 01/17/24 11:59 Last Admin: 01/12/24 12:10 Dose: 25 mls/hr Promethazine HCl 12.5 mg/ (Sodium Chloride) 50.5 mls @ 202 mls/hr IV Q6H PRN PRN Reason: Nausea And Vomiting Stop: 02/09/24 22:48 Last Infusion: 01/11/24 04:25 Dose: Infused Acetylcysteine 4,850 mg/ (Dextrose) 524.25 mls @ 125 mls/hr IV ONCE ONE; Protocol Stop: 01/12/24 18:26 Last Admin: 01/12/24 14:30 Dose: 125 mls/hr Acetylcysteine 9,690 mg/ (Dextrose) 1,048.45 mls @ 62.5 mls/hr IV ONCE ONE; Protocol Stop: 01/13/24 11:31 Phytonadione 5 mg/ Dextrose 50.5 mls @ 101 mls/hr IV ONE ONE Stop: 01/12/24 16:29 Lamotrigine (Lamotrigine 100 Mg Tab) 100 mg PO [facility]; Protocol Stop: 02/06/24 20:59 Last Admin: 01/11/24 20:11 Dose: 100 mg Lamotrigine (Lamotrigine 100 Mg Tab) 150 mg PO [facility] Stop: 02/07/24 08:59 Last Admin: 01/12/24 10:17 Dose: 150 mg Melatonin (Melatonin 3 Mg Tab) 6 mg PO [facility] Stop: 02/10/24 20:59 Last Admin: 01/11/24 20:13 Dose: 6 mg Metoprolol Succinate (Metoprolol Succ 50mg Ext Rel Tab) 50 mg PO BID [facility] Stop: 02/09/24 08:59 Last Admin: 01/12/24 10:10 Dose: 50 mg Ondansetron HCl (Ondansetron Inj 2 Mg/Ml 2 Ml Vial) 4 mg IV Q6H PRN PRN Reason: Nausea And Vomiting Stop: 02/09/24 17:54 Last Admin: 01/12/24 08:49 Dose: 4 mg Pantoprazole Sodium (Pantoprazole 40 Mg Tab) 40 mg PO [facility] Stop: 02/08/24 08:59 Last Admin: 01/12/24 10:10 Dose: 40 mg Polyethylene Glycol (Polyethylene (Miralax) 17 Gm Pack) 17 gm PO BID [facility] Stop: 02/07/24 20:59 Last Admin: 01/12/24 12:10 Dose: Not Given Potassium Chloride (Potassium Chloride Crtab 20 Meq Tabcr) 20 meq PO BID17 [facility] Stop: 02/08/24 16:59 Last Admin: 01/12/24 10:18 Dose: 20 meq Pravastatin Sodium (Pravastatin Sod 40 Mg Tab) 80 mg PO [facility] Stop: 02/06/24 20:59 Last Admin: 01/11/24 20:12 Dose: 80 mg Quetiapine Fumarate (Quetiapine Fumarate 100 Mg Tablet) 100 mg PO [facility] Stop: 02/10/24 20:59 Last Admin: 01/11/24 20:12 Dose: 100 mg Trazodone HCl (Trazodone Hcl 100 Mg Tab) 200 mg PO HS [facility] Stop: 02/10/24 20:59 Last Admin: 01/11/24 20:11 Dose: 200 mg Vitamin D (Cholecalciferol 25 Mcg (1000 Units) Tab) 50 mcg PO DAILY [facility] Stop: 02/08/24 08:59 Last Admin: 01/12/24 10:16 Dose: 50 mcg Hospital Stay Data Consultations 01/07/24 16:36 ED Decision to Admit Stat 01/07/24 17:26 Consult Posting Specialist Routine 01/07/24 19:18 Consult Urology Routine 01/07/24 19:40 Consult Posting Specialist Routine 01/07/24 20:28 Consult Urology Routine 01/09/24 06:25 Consult Cardiology Routine 01/11/24 13:08 Consult Infectious Diseases Routine 01/11/24 13:14 Consult Nephrology Routine 01/11/24 19:44 Consult Posting Specialist Routine 01/12/24 09:40 Consult Gastroenterology Routine 01/12/24 16:25 Burn CD for patient Stat Diagnostic Imagining Performed 01/07/24 14:40 CT head/brain wo con Stat 01/07/24 14:56 CT abd pelvis wo con Stat CT chest diagnostic wo con Stat 01/07/24 20:28 MR angio neck wo con Routine MRI Brain [MR brain wo con] Routine 01/07/24 22:36 MR angio head wo con Routine 01/11/24 10:40 CT Abd and Pelvis [CT abd pelvis IV con only] Urgent Chest X-Ray 01/07/24 14:40 XR chest 1V portable HISTORY: Sepsis COMPARISON: Chest 08/12/2020. FINDINGS: Low lung volumes. No pneumothorax. No pleural effusions. The cardiac silhouette remains borderline enlarged. A few small bibasilar linear densities favor subsegmental atelectasis. No evidence for pulmonary edema. No focal lung consolidations to suggest a pneumonia. Postoperative changes again noted within the left shoulder. IMPRESSION: No significant change compared to the prior study. No acute process. ACT 112: Negative or not required by law. Electronically signed by: Milton De Leon M.D. 01/07/2024 4:[address] 01/07/24 14:40 CT SCAN OF THE BRAIN WITHOUT IV CONTRAST CLINICAL HISTORY: Left upper extremity weakness. Headache. COMPARISON STUDY: CT of the brain dated 09/17/2014. TECHNIQUE: Unenhanced axial CT scan of the brain is performed from the vertex to the skull base. A dose lowering technique was utilized adhering to the principles of ALARA. FINDINGS: Brain parenchyma: There is age-related involutional change noting mild subcortical and periventricular microangiopathic disease. There is no hemorrhage, mass effect, or evidence of acute territorial ischemia by CT criteria. Rogel-white matter differentiation is preserved. No extra-axial fluid collection is seen. Ventricles, sulci, cisterns: Prominent secondary to involutional change. Intracranial vasculature: There is atherosclerotic calcification of the cavernous carotid and vertebral arteries. Calvarium: Unremarkable. Sinuses and mastoids: There is moderate mucosal thickening within the left sp henoid sinus. The remaining visualized paranasal sinuses are clear. The mastoid air cells are well pneumatized. Orbits: The bony orbits are grossly intact. IMPRESSION: There is no hemorrhage, mass effect, or evidence of acute territorial ischemia by CT criteria. ACT 112: Negative or not required by law. Electronically signed by: Norbert Sherman M.D. 01/07/2024 3:18 PM Abdomen/Pelvis CT 01/07/24 14:56 CT OF THE ABDOMEN AND PELVIS WITHOUT CONTRAST CLINICAL HISTORY: Right flank pain. COMPARISON STUDY: CT of the abdomen and pelvis July 06, 2014. TECHNIQUE: Axial images of the abdomen and pelvis were obtained without IV contrast. Images were reviewed in the axial, sagittal, and coronal planes. Automated exposure control was utilized for the study. A dose lowering technique was utilized adhering to the principles of ALARA. FINDINGS: No pneumatosis, free air or portal venous gas is present. Several right renal calculi measure up to 6 mm. There are no ureteral calculi. There is no hydronephrosis. Slight asymmetric right perinephric stranding is present. Evaluation of the remainder of the abdomen and pelvis is suboptimal on this unenhanced exam. There is pneumobilia. The gallbladder surgically absent. Spleen, adrenal glands and pancreas are unremarkable. There is no evidence for a bowel obstruction. The appendix is not visualized but there is no right lower quadrant inflammation. No bowel wall thickening is identified on unenhanced exam. No fluid collections are present. There is no lymphadenopathy. No acute fractures within lumbar spine, pelvis or hips. Mild loss of height of the superior endplates of T12 and L2 is chronic. IMPRESSION: 1. Right nephrolithiasis. No ureteral calculi. Slight asymmetric right pe rinephric stranding, a nonspecific finding. The findings could reflect a recently passed right-sided calculus or an infectious process. 2. No bowel obstruction. No bowel wall thickening on unenhanced exam. 3. No acute fractures. ACT 112: Negative or not required by law. Electronically signed by: Laurent Rivas M.D. 01/07/2024 3:[address] 01/07/24 14:56 CT OF THE CHEST WITHOUT IV CONTRAST CLINICAL HISTORY: Hypoxia. COMPARISON STUDY: Chest CT November 08, 2008. Chest radiograph August 12, 2020. CT DOSE: 1744.58 mGy.cm TECHNIQUE: Axial images of the chest were obtained without IV contrast. Images were reviewed in the axial, sagittal, and coronal planes. IV contrast was not administered for this examination. Automated exposure control was utilized for the study. A dose lowering technique was utilized adhering to the principles of ALARA. FINDINGS: No enlarged axillary, mediastinal or hilar lymph nodes are present. Size of the heart is at the upper limits of normal. There is no pericardial effusion. No pneumothorax is present. There is a trace left pleural effusion. Subpleural groundglass opacities represent atelectasis. Linear densities within the lungs represent atelectasis as well. 1.3 cm groundglass left lower lobe opacity on image 99 of 205 is present. Central airways are patent. No acute fractures within the bony thorax. Pneumobilia is incidentally noted. The abdomen and pelvis CT will be reported separately. IMPRESSION: 1. Subpleural opacities suggestive of atelectasis. No definite consolidation to suggest pneumonia. 1.3 cm left lower lobe groundglass opacity favors atelectasis although a mild infectious process could appear similar. A follow-up chest CT in 6 months to ensure resolution is recommended. 2. Trace left pleural effusion. No pneumothorax. 3. No thoracic lymphadenopathy. ACT 112: Negative or not required by law. Electronically signed by: Laurent Rivas M.D. 01/07/2024 3:15 PM Brain MRI 01/07/24 20:28 Exam(s): MRI HEAD Without Contrast EXAM: MR Head Without Intravenous Contrast CLINICAL HISTORY: Reason for exam: rule out stroke. TECHNIQUE: Magnetic resonance images of the head/brain without intravenous contrast in multiple planes. COMPARISON: No relevant prior studies available. FINDINGS: Brain: Unremarkable. No mass. No hemorrhage. No acute infarct. Ventricles: Unremarkable. No ventriculomegaly. Bones/joints: Unremarkable. No acute fracture. Sinuses: Unremarkable as visualized. No acute sinusitis. Mastoid air cells: Unremarkable as visualized. No mastoid effusion. Orbits: Unremarkable as visualized. IMPRESSION: Normal head/brain MRI. Electronically signed by: Wilder Gage M.D. 01/08/24 00:05 AM Neck MRA 01/07/24 20:28 Exam(s): MRA NECK Without Contrast EXAM: MR Angiography Neck Without Intravenous Contrast CLINICAL HISTORY: Reason for exam: rule out stroke. TECHNIQUE: Magnetic resonance angiography images of the neck without intravenous contrast. COMPARISON: No relevant prior studies available. FINDINGS: Right common carotid artery: Unremarkable. No significant stenosis. No dissection or occlusion. Right internal carotid artery: Unremarkable. Extracranial segment is patent with no significant stenosis. No dissection or occlusion. Right external carotid artery: Unremarkable. No occlusion. Right vertebral artery: Unremarkable. No significant stenosis. No dissection or occlusion. Left common carotid artery: Unremarkable. No significant stenosis. No dissection or occlusion. Left internal carotid artery: Unremarkable. Extracranial segment is patent with no significant stenosis. No dissection or occlusion. Left external carotid artery: Unremarkable. No occlusion. Left vertebral artery: Unremarkable. No significant stenosis. No dissection or occlusion. Soft tissues: Unremarkable as visualized. CAROTID STENOSIS REFERENCE USING NASCET CRITERIA: % ICA stenosis = (1 - narrowest ICA diameter/diameter of distal cervical ICA) x 100. Mild - <50% stenosis. Moderate - 50-69% stenosis. Severe - 70-94% stenosis. Near occlusion - 95-99% stenosis. Occluded - 100% stenosis. IMPRESSION: Normal neck MRA. Electronically signed by: Wilder Gage M.D. 01/08/24 00:13 AM Head MRA 01/07/24 22:36 Exam(s): MRA HEAD Without Contrast EXAM: MR Angiography Head Without Intravenous Contrast CLINICAL HISTORY: Reason for exam: Rule out stroke. TECHNIQUE: Magnetic resonance angiography images of the head without intravenous contrast. COMPARISON: No relevant prior studies available. FINDINGS: Right internal carotid artery: No acute findings. Intracranial segment is patent with no significant stenosis. No aneurysm. Right anterior cerebral artery: Unremarkable. No occlusion or significant stenosis. No aneurysm. Right middle cerebral artery: Unremarkable. No occlusion or significant stenosis. No aneurysm. Right posterior cerebral artery: Unremarkable. No occlusion or significant stenosis. No aneurysm. Right vertebral artery: Unremarkable as visualized. Left internal carotid artery: No acute findings. Intracranial segment is patent with no significant stenosis. No aneurysm. Left anterior cerebral artery: Unremarkable. No occlusion or significant stenosis. No aneurysm. Left middle cerebral artery: Unremarkable. No occlusion or significant stenosis. No aneurysm. Left posterior cerebral artery: Unremarkable. No occlusion or significant stenosis. No aneurysm. Left vertebral artery: Unremarkable as visualized. Basilar artery: Unremarkable. No occlusion or significant stenosis. No aneurysm. IMPRESSION: No large vessel intracranial occlusion. No intracranial aneurysm. Electronically signed by: Wilder Gage M.D. 01/08/24 00:12 AM Chest X-Ray 01/11/24 10:30 SINGLE VIEW CHEST CLINICAL HISTORY: Hypoxia FINDINGS: An AP, portable, upright chest radiograph is compared to chest x-ray and chest CT dated 01/07/2024. The heart is enlarged. The pulmonary vasculature is noncongested. There is bibasilar scarring/atelectasis. No airspace consolidation or large pleural effusion is identified. No pneumothorax is seen. The skeletal structures are osteopenic. The bony thorax is grossly intact. Surgical anchors are noted in the left humeral head. IMPRESSION: Cardiomegaly with no active disease in the chest. ACT 112: Negative or not required by law. Electronically signed by: Norbert Sherman M.D. 01/11/2024 11:10 AM Abdomen/Pelvis CT 01/11/24 10:40 CT SCAN OF THE ABDOMEN AND PELVIS WITH IV CONTRAST CLINICAL HISTORY: Nausea and vomiting. Diarrhea. Generalized abdominal pain. Elevated hepatic transaminases. COMPARISON STUDY: Abdominal CT dated 01/07/2024. TECHNIQUE: Following the IV administration of 94 cc of Optiray 320, CT scan of the abdomen and pelvis is performed from the lung bases to the proximal femora. Images are reviewed in the axial, sagittal, and coronal planes. IV contrast was administered without complication. A dose lowering technique was utilized adhering to the principles of ALARA. CT DOSE: 1433.95 mGy.cm FINDINGS: Lung bases: The heart is enlarged noting trace pericardial effusion. There are small pleural effusions with dependent atelectasis. Liver: The contrast-enhanced liver is enlarged, measuring 21.8 cm in length. The liver demonstrates diffusely diminished attenuation indicating steatosis. There is no intrahepatic biliary ductal dilatation. The hepatic veins and portal veins are patent. Gallbladder: Surgically absent noting clips in the gallbladder fossa. Gas within the common bile duct suggests prior sphincterotomy. Spleen: Normal in size and attenuation. Pancreas: Unremarkable. Adrenal glands: Unremarkable. Kidneys: There is asymmetric cortical atrophy of left kidney as compared the right. No hydronephrosis is seen. Cortical enhancement of the right kidney is slightly heterogeneous. There are at least 2 nonobstructing right renal calculi which measure up to 4 mm. No ureteral stone is seen. Abdominal vasculature: The abdominal aorta is normal in course and caliber noting moderate atherosclerotic calcification. Bowel: There is no bowel obstruction. The appendix is not identified and reported surgically absent. Peritoneum: There is a small volume of pelvic ascites. No intraperitoneal free air is seen. There is a small fat-containing umbilical hernia. Lymphadenopathy: None. Pelvic viscera: The decompressed around a Krueger catheter and not well evaluated. Foci of intraluminal gas are nonspecific and likely related to instrumentation. The uterus is surgically absent. No adnexal lesion is seen. Skeletal structures: The skeletal structures are osteopenic. Mild lumbosacral spondylosis is observed. There is a left-sided pars defect at L5. No lytic or blastic lesions are seen. IMPRESSION: 1. Enhancement of the right kidney is slightly heterogeneous. Correlate with clinical findings and urinalysis. 2. Hepatomegaly and hepatic steatosis. 3. Cardiomegaly. 4. Small pleural effusions and a small volume of abdominal ascites are new findings as compared to 01/07/2024. This suggests fluid overload. Correlate clinically. 5. Right-sided nephrolithiasis. 6. Additional findings as above. ACT 112: Negative or not required by law. Electronically signed by: Norbert Sherman M.D. 01/11/2024 3:01 PM Discharge Instructions Given to Patient (Per Discharging Provider) Nel, You are being transferred to [facility] in [place] for further evaluation by Hepatology and further monitoring in the ICU for acute liver failure that is progressing. Your other medical problems will be treated there as well. Take Care and it was a pleasure taking care of you while you were here. Total Time Total Time Spent Total Time Spent (In Minutes): > 30 minutes
[2024-01-12] MEDS ORDERED: ACETYLCYSTEINE IV ONE (18:45)
[2024-01-12] MEDS ORDERED: DEXTROSE 5% IV ONE (18:45)
--- NOTE | 2024-01-12 22:39 | Electrocardiogram Report ---
Test Reason : Blood Pressure : / mmHG Vent. Rate : 085 BPM Atrial Rate : 085 BPM P-R Int : 194 ms QRS Dur : 088 ms QT Int : 454 ms P-R-T Axes : 070 049 041 degrees QTc Int : 540 ms Normal sinus rhythm Low voltage QRS Prolonged QT Abnormal ECG When compared with ECG of 09-JAN-2024 06:18, Sinus rhythm has replaced Atrial fibrillation Vent. rate has decreased BY [address] no longer depressed in Lateral leads Nonspecific T wave abnormality, improved in Inferior leads Nonspecific T wave abnormality no longer evident in Anterolateral leads Confirmed by Aurelio Soler ([id number]) on 01/12/2024 10:39:21 PM Referred By: REFERRED SELF Confirmed By:Aurelio Soler
--- NOTE | 2024-01-13 06:08 | Electrocardiogram Report ---
Test Reason : Blood Pressure : / mmHG Vent. Rate : 078 BPM Atrial Rate : 078 BPM P-R Int : 164 ms QRS Dur : 086 ms QT Int : 448 ms P-R-T Axes : 072 061 071 degrees QTc Int : 510 ms Normal sinus rhythm Low voltage QRS Prolonged QT Abnormal ECG When compared with ECG of 11-JAN-2024 17:10, (unconfirmed) No significant change was found Confirmed by Aurelio Soler ([id number]) on 01/13/2024 6:08:12 AM Referred By: REFERRED SELF Confirmed By:Aurelio Soler
[2024-01-15 15:09] LABS: Ehrlichia chaff DNA Bld Negative (Negative)
[2024-01-16 02:52] LABS: Babesia microti DNA Not Detected (Not Detected)
[2024-01-16 15:37] LABS: Ceruloplasmin 42 mg/dL (18-53); HBSAG NON-REACTIVE (NON-REACTIVE); Hepatitis A Antibody IgM NON-REACTIVE (NON-REACTIVE); Hepatitis B Core Antibody IgM NON-REACTIVE (NON-REACTIVE)
== END 2024-01-12 17:20 | disposition short-term general hospital (02) | DRG 871 ==
LOC: ED 14:31 → 1E 17:24 → SUATTDRO 17:24 → 1E 19:59 → 4W 01-08 19:51 → 1E 01-11 16:29